=== PATIENT | female | born 1945 | race Caucasian/White ===

== ENCOUNTER 2016-08-01 20:46 | Emergency (ER) | payer MEDICARE ==
[~2016-08-01] VITALS: Ht 162.6 cm; Wt 113.4 kg
[~2016-08-01 20:46] MED LIST: /CLON1TA OR; /ESOM40CA OR; /ROPI1TA; /ROPI1TA OR; ALBU17IN2 IN; AMIT25TA2; AMLO10TA OR; ANTI25TA OR; ASTHMACORT INH; BUDE300T; CALCCHW12 PR; CALCTAB22 PO; CATA0.1T; COLA100C2 OR; COMPAZINE; COZA100T OR; DEPAKOTE ER PO; DIOV160T5 OR; FLEXERIL; FLON0.05; GABA300T OR; HYDR25TA6 OR; HYZAAR OR; KLON0.5T OR; LIDO5DIS TD; LOTRISONE CREAM TOP; MECL25TA2 OR; METHYLIN ER OR; MIRALEX PO; NAPR500T OR; NAPROXYN; NASOCORT; NEUR300C; NYSTATIN OR; OYST500T76 OR; PROV90AE INH; PROZ10CA; PROZ40CA; PULMICORT INH; QVAR OR; REFRESH EYE DROPS OU; RISP1TAB OR; RITA20TA OR; ROBA750T; ROBA750T OR; SING10TA31 OR; SOMA350T; SOMA350T OR; SUSTANE EYE DROPS OU; SYNT100T OR; THERGRAN OR; TRAM50TA2; TRAM50TA2 OR; TRAZ50TA; VICO5TAB; VICO5TAB OR; VIT D 2000 PO; VOLT1GEL EX; ZOLO50TA OR; ZOLOFT PO
[2016-08-01] MEDS ORDERED: REME15TA2 PO (21:05)
[2016-08-01] MEDS ORDERED: CALC600T21 PO (21:05)
[2016-08-01] MEDS ORDERED: OXYB5TA PO (21:05)
[2016-08-01] MEDS ORDERED: CLON-412 PO (21:05)
[2016-08-01] MEDS ORDERED: MULT1TAB18 PO (21:05)
[2016-08-01] MEDS ORDERED: ATOR40TA PO (21:05)
[2016-08-01] MEDS ORDERED: MELO15TA4 PO (21:05)
[2016-08-01] MEDS ORDERED: D 1010004 PO (21:05)
[2016-08-01] MEDS ORDERED: ALB2.5NEB INH (21:05)
[2016-08-01] MEDS ORDERED: REQU1TAB16 PO (21:05)
[2016-08-01] MEDS ORDERED: FLUC150T PO (21:05)
[2016-08-01] MEDS ORDERED: PROT1TAB2 PO (21:05)
[2016-08-01] MEDS ORDERED: MORPHINE 4 MG/ML 1ML SYRINGE IV ONE (22:15)
[2016-08-01] MEDS ORDERED: ONDANSETRON 4MG/2ML VIAL (J2405) IV ONE (22:45)
[2016-08-01 22:48] LABS: BASO % 0.3 % (0.0-1.0); EOS # 0.5 K/mm3 (0.0-0.50); EOS % 4.5 % (0.0-3.0); LARGE UNSTAINED CELL # 0.1 K/mm3 (0.0-0.4); LARGE UNSTAINED CELL % 1.2 % (0.0-4.0); LYMPH # 2.5 K/mm3 (1.5-4.5); LYMPH % 21.4 % (24.0-44.0); MEAN CORPUSCULAR HEMOGLOBIN 28.4 pg (27.0-33.0); MEAN CORPUSCULAR HGB CONC 32.3 g/dl (32.0-36.5); MONO # 0.4 K/mm3 (0.0-0.8); MONO % 4.1 % (0.0-5.0); NEUTROPHILS # 7.5 K/mm3 (1.8-7.7); NEUTROPHILS % 68.5 % (36.0-66.0); PLATELET COUNT, AUTOMATED 306 k/mm3 (150-450); RED CELL DISTRIBUTION WIDTH 14.2 % (11.5-14.5); WHITE BLOOD COUNT 10.9 K/mm3 (4.0-10.0)
[2016-08-01 23:05] LABS: ALBUMIN 3.7 GM/DL (3.2-5.2); ALBUMIN/GLOBULIN RATIO 1.28 (1.00-1.93); ALKALINE PHOSPHATASE 116 U/L (45-117); ALT/SGPT 13 U/L (12-78); AMYLASE 23 U/L (25-115); ANION GAP 6 MEQ/L (8-16); AST/SGOT 14 U/L (15-37); BILIRUBIN,DIRECT < 0.1 MG/DL (0.0-0.2); BILIRUBIN,TOTAL 0.3 MG/DL (0.2-1.0); BLOOD UREA NITROGEN 16 MG/DL (7-18); CALCIUM LEVEL 9.6 MG/DL (8.8-10.2); CARBON DIOXIDE LEVEL 29 MEQ/L (21-32); CHLORIDE LEVEL 104 MEQ/L (98-107); CREATININE FOR GFR 1.59 MG/DL (0.55-1.02); GLOMERULAR FILTRATION RATE 34.3 (>45); GLUCOSE, FASTING 110 MG/DL (80-110); POTASSIUM SERUM 4.2 MEQ/L (3.5-5.1); SODIUM LEVEL 139 MEQ/L (136-145); TOTAL PROTEIN 6.6 GM/DL (6.4-8.2)
[2016-08-02] MEDS ORDERED: NS 1,000 ML IV ONE (00:30)
[2016-08-02] MEDS ORDERED: ISOVUE-370 76% 100ML VIAL (Q9967) As Ordered ONE (00:37)
--- NOTE | 2016-08-02 01:40 | REPUSA ---
CLINICAL HISTORY: Pain. TECHNIQUE: Multiple axial CT images were obtained through the thorax with IV contrast material. COMMENTS: There is no evidence of pleural or parenchymal mass. Bilateral basilar atelectatic pulmonary changes. There are no pleural effusions. There is no evidence of hilar or mediastinal lymphadenopathy. The he art and great vessels are within normal limits. The visualized portions of the liver are of uniform attenuation without mass or defect. There is no i ntra or extrahepatic biliary ductal dilatation. The spleen is unremarkable. The visualized pancreas i s of normal contour and attenuation characteristics. There is no evidence of adrenal mass. The visual ized portions of the kidneys present no abnormalities. The bony structures are free of lytic or blastic lesions. Post contrast images demonstrate no evidence for abnormal enhancement. Healed fractures of the anterior arches of the right third, fourth, fifth and sixth ribs. Healed fracture of the anterior arch of the left third rib. Healing fractures of the posterior arches of the left 10th and 11th ribs. Healing fracture of the right eighth rib. Moderate compression fracture of T12 vertebral body. IMPRESSION: Moderate compression fracture of T12 vertebral body. Bilateral healed rib fractures. Bilateral healed rib fractures. Fluid-filled esophagus. This can be secondary to reflux disease. Cardiomegaly. Thank you for your kind referral of this patient.
--- NOTE | 2016-08-02 01:50 | REPUSA ---
CLINICAL HISTORY: Abdominal pain. TECHNIQUE: Multiple axial, sagittal and coronal CT images were obtained through the abdomen and pelvi s after administration of intravenous contrast material. COMMENTS: Fluid-filled stomach. Moderate large bowel fecal stasis. The liver is of uniform attenuation without mass or defect. There is no intra or extrahepatic biliary ductal dilatation. The spleen is normal. The gallbladder is within normal limits. The pancreas is of normal contour and attenuation characteristics. There is no evidence of adrenal mass. Both kidneys demonstrate prompt and equal nephrograms. The kidneys are normal in size, shape and conf iguration. There is no evidence of renal or ureteral mass. No renal or ureteral calculi are identifie d. There is no hydroureter or hydronephrosis. No evidence for appendicitis. There is no bowel wall thickening. No evidence for small or large saji l obstruction. There is no evidence of abdominal ascites or lymphadenopathy. There is no evidence of intrinsic or extrinsic bladder mass. There is no pelvic ascites or lymphadeno dana. Prior hysterectomy. Images of the lung bases show no evidence of pleural or parenchymal mass. There are no pleural effusi ons. The bony structures are free of lytic or blastic lesions. Multilevel degenerative changes are seen in volving the thoracolumbar spine. Scattered calcifications are seen involving the aorta and major bran ches compatible with atherosclerosis. IMPRESSION: Gastroparesis. Constipation. Thank you for your kind referral of this patient.
[2016-08-02] MEDS ORDERED: MORPHINE 4 MG/ML 1ML SYRINGE IV ONE (05:15)
[2016-08-02 06:52] VITALS: BP 158/71
[2016-08-02] MEDS ORDERED: NORCOTAB PO (06:52)
--- NOTE | 2016-08-02 08:03 | REP ---
Clinical: Chest pain . Comparison: 02/22/2016 . Technique: PA and lateral. Findings: The mediastinum and cardiac silhouette are normal. The lung patel are clear and without acute consolidation, effusion, or pneumothorax. The skeletal structures are intact and normal. Impression: 1. No acute cardiopulmonary process. Signed by Higinio Altman MD 08/02/2016 07:55 A
== END 2016-08-02 07:10 | disposition home or self-care (01) ==
LOC: M ED 22:00
DX: S22.080A Wedge compression fracture of T11-T12 vertebra, initial encounter for closed fracture (principal); X58.XXXA Exposure to other specified factors, initial encounter; Y92.89 Other specified places as the place of occurrence of the external cause; Y93.89 Activity, other specified; Y99.8 Other external cause status; Z88.0 Allergy status to penicillin; Z88.8 Allergy status to other drugs, medicaments and biological substances; Z79.899 Other long term (current) drug therapy; Z87.891 Personal history of nicotine dependence; J45.909 Unspecified asthma, uncomplicated; E03.9 Hypothyroidism, unspecified; F32.9 Major depressive disorder, single episode, unspecified
CPT/HCPCS: 36415; 71020; 71260; 74177; 80048; 80076; 81001; 82150; 83690; 85025; 85379; 87086; 96361; 96374; 96375; 96376; 99284; J2405; Q9967

== ENCOUNTER → 2016-10-22 | Outpatient (CLI) | payer MEDICARE ==
[~2016-10-22] MED LIST changes: +ALB2.5NEB INH; +ATOR40TA PO; +CALC600T21 PO; +CLON-412 PO; +D 1010004 PO; +FLUC150T PO; +MELO15TA4 PO; +MULT1TAB18 PO; +NORCOTAB PO; +OXYB5TA PO; +PROT1TAB2 PO; +REME15TA2 PO; +REQU1TAB16 PO
[2016-10-22 13:34] LABS: MEAN CORPUSCULAR HEMOGLOBIN 29.3 pg (27.0-33.0); MEAN CORPUSCULAR HGB CONC 32.7 g/dl (32.0-36.5); MEAN CORPUSCULAR VOLUME 89.6 fl (80.0-96.0); RED CELL DISTRIBUTION WIDTH 13.8 % (11.5-14.5); RETIC HEMOGLOBIN CONTENT CHr 31.3 PG (24-36); RETICULOCYTE % ADVIA2120 1.8 % (0.5-1.5); WHITE BLOOD COUNT 8.3 K/mm3 (4.0-10.0)
[2016-10-22 13:52] LABS: ALBUMIN/GLOBULIN RATIO 1.48 (1.00-1.93); BILIRUBIN,TOTAL 0.5 MG/DL (0.2-1.0); CALCIUM LEVEL 9.3 MG/DL (8.8-10.2); CREATININE FOR GFR 1.08 MG/DL (0.55-1.02); GLOMERULAR FILTRATION RATE 53.5 (>45); MAGNESIUM LEVEL 1.8 MG/DL (1.8-2.4); PERCENT SATURATION 15.7 % (13.2-37.4); POTASSIUM SERUM 4.3 MEQ/L (3.5-5.1); TOTAL PROTEIN 6.7 GM/DL (6.4-8.2)
== END ==
LOC: M SMT 10:34
PROVIDERS: ATTEND Internal Medicine
DX: D64.9 Anemia, unspecified (principal)

== ENCOUNTER → 2017-04-14 | Outpatient (REF) | payer MEDICARE ==
[~2017-04-14] MED LIST changes: -ATOR40TA PO; +ATOR40TA75 PO; -CALC600T21 PO; +CALC600T60 PO; -OXYB5TA PO; +OXYB5TAB10 PO
== END ==
LOC: M SFHCPLAZ 12:32
PROVIDERS: ATTEND Internal Medicine
DX: R30.0 Dysuria (principal)

== ENCOUNTER → 2017-04-23 | Outpatient (CLI) | payer MEDICARE ==
[2017-04-23 15:30] LABS: MEAN CORPUSCULAR HEMOGLOBIN 29.3 pg (27.0-33.0); MEAN CORPUSCULAR HGB CONC 32.4 g/dl (32.0-36.5); MEAN CORPUSCULAR VOLUME 90.5 fl (80.0-96.0); PLATELET COUNT, AUTOMATED 300 10^3/uL (150-450); RED CELL DISTRIBUTION WIDTH 14.2 % (11.5-14.5); WHITE BLOOD COUNT 9.1 10^3/uL (4.0-10.0)
[2017-04-23 15:47] LABS: ALBUMIN 3.8 GM/DL (3.2-5.2); ALBUMIN/GLOBULIN RATIO 1.15 (1.00-1.93); BILIRUBIN,TOTAL 0.6 MG/DL (0.2-1.0); CALCIUM LEVEL 8.9 MG/DL (8.8-10.2); CREATININE FOR GFR 1.2 MG/DL (0.55-1.02); GLOMERULAR FILTRATION RATE 47.4 (>45); POTASSIUM SERUM 4.1 MEQ/L (3.5-5.1); TOTAL PROTEIN 7.1 GM/DL (6.4-8.2)
== END ==
LOC: M SMT 11:13
PROVIDERS: ATTEND Internal Medicine
DX: G47.30 Sleep apnea, unspecified (principal); I10 Essential (primary) hypertension; R73.01 Impaired fasting glucose; E78.00 Pure hypercholesterolemia, unspecified; E03.9 Hypothyroidism, unspecified

== ENCOUNTER → 2017-06-06 | Outpatient (CLI) | payer MEDICARE | LOC: M ADAMS 14:33 | DX: M25.512 Pain in left shoulder (principal) | CPT/HCPCS: 72050 ==

== ENCOUNTER → 2017-10-21 | Outpatient (CLI) | payer MEDICARE ==
[2017-10-21 18:52] LABS: HEMATOCRIT 37.3 % (36.0-47.0); HEMOGLOBIN 11.8 g/dl (12.0-15.5); MEAN CORPUSCULAR HEMOGLOBIN 29.9 pg (27.0-33.0); MEAN CORPUSCULAR HGB CONC 31.6 g/dl (32.0-36.5); MEAN CORPUSCULAR VOLUME 94.4 fl (80.0-96.0); PLATELET COUNT, AUTOMATED 345 10^3/uL (150-450); RED BLOOD COUNT 3.95 10^6/uL (4.00-5.40); RED CELL DISTRIBUTION WIDTH 14.6 % (11.5-14.5); WHITE BLOOD COUNT 10.1 10^3/uL (4.0-10.0)
[2017-10-21 19:15] LABS: ESTIMATED AVERAGE GLUCOSE 123 MG/DL (60-110); HEMOGLOBIN A1c 5.9 %
[2017-10-21 19:16] LABS: PTH INTACT 66.1 PG/ML (18.5-88.0)
[2017-10-21 19:19] LABS: ALBUMIN 3.6 GM/DL (3.2-5.2); ALBUMIN/GLOBULIN RATIO 1.13 (1.00-1.93); ALKALINE PHOSPHATASE 136 U/L (45-117); ALT/SGPT 18 U/L (12-78); ANION GAP 8 MEQ/L (8-16); AST/SGOT 17 U/L (7-37); BILIRUBIN,TOTAL 0.5 MG/DL (0.2-1.0); BLOOD UREA NITROGEN 17 MG/DL (7-18); CALCIUM LEVEL 9.3 MG/DL (8.8-10.2); CARBON DIOXIDE LEVEL 28 MEQ/L (21-32); CHLORIDE LEVEL 102 MEQ/L (98-107); CHOLESTEROL LEVEL 226 MG/DL (<200); CHOLESTEROL RISK RATIO 4.035 (<5); CREATININE FOR GFR 1.17 MG/DL (0.55-1.30); GLOMERULAR FILTRATION RATE 48.7 (>39); GLUCOSE, FASTING 112 MG/DL (70-100); HDL CHOLESTEROL 56 MG/DL (>40); LDL CHOLESTEROL 144.6 MG/DL (<100); MAGNESIUM LEVEL 2.1 MG/DL (1.8-2.4); NON-HDL-C 170 MG/DL; POTASSIUM SERUM 4.6 MEQ/L (3.5-5.1); SODIUM LEVEL 138 MEQ/L (136-145); TOTAL PROTEIN 6.8 GM/DL (6.4-8.2); TRIGLYCERIDES LEVEL 127 MG/DL (<150)
== END ==
LOC: M SMT 09:44
DX: G47.30 Sleep apnea, unspecified (principal); I10 Essential (primary) hypertension; R73.01 Impaired fasting glucose; E78.00 Pure hypercholesterolemia, unspecified; N18.3 Chronic kidney disease, stage 3 (moderate)
CPT/HCPCS: 83735

== ENCOUNTER → 2017-11-25 | Outpatient (CLI) | payer MEDICARE | LOC: M RAD 13:37 | DX: M16.12 Unilateral primary osteoarthritis, left hip (principal) | CPT/HCPCS: 73502 ==

== ENCOUNTER → 2018-02-02 | Outpatient (REF) | payer MEDICARE | LOC: M SFHCPLAZ 11:45 | DX: I12.9 Hypertensive chronic kidney disease with stage 1 through stage 4 chronic kidney disease, or unspecified chronic kidney disease (principal); N18.3 Chronic kidney disease, stage 3 (moderate); R73.01 Impaired fasting glucose; E78.00 Pure hypercholesterolemia, unspecified; J45.909 Unspecified asthma, uncomplicated; E03.9 Hypothyroidism, unspecified; M81.0 Age-related osteoporosis without current pathological fracture; Z86.39 Personal history of other endocrine, nutritional and metabolic disease ==

== ENCOUNTER → 2018-02-02 | Outpatient (CLI) | payer MEDICARE ==
[2018-02-02 17:49] LABS: HEMATOCRIT 36.8 % (36.0-47.0); HEMOGLOBIN 11.7 g/dl (12.0-15.5); MEAN CORPUSCULAR HEMOGLOBIN 29.9 pg (27.0-33.0); MEAN CORPUSCULAR HGB CONC 31.8 g/dl (32.0-36.5); MEAN CORPUSCULAR VOLUME 94.1 fl (80.0-96.0); PLATELET COUNT, AUTOMATED 319 10^3/uL (150-450); RED BLOOD COUNT 3.91 10^6/uL (4.00-5.40); RED CELL DISTRIBUTION WIDTH 13.7 % (11.5-14.5)
[2018-02-02 17:55] LABS: ALBUMIN 3.6 GM/DL (3.2-5.2); ALBUMIN/GLOBULIN RATIO 1.24 (1.00-1.93); ALKALINE PHOSPHATASE 181 U/L (45-117); ALT/SGPT 15 U/L (12-78); ANION GAP 10 MEQ/L (8-16); AST/SGOT 11 U/L (7-37); BILIRUBIN,TOTAL 0.5 MG/DL (0.2-1.0); BLOOD UREA NITROGEN 16 MG/DL (7-18); CALCIUM LEVEL 9.1 MG/DL (8.8-10.2); CARBON DIOXIDE LEVEL 28 MEQ/L (21-32); CHLORIDE LEVEL 102 MEQ/L (98-107); CHOLESTEROL LEVEL 225 MG/DL (<200); CREATININE FOR GFR 1.32 MG/DL (0.55-1.30); GLOMERULAR FILTRATION RATE 42.4 (>39); GLUCOSE, FASTING 107 MG/DL (70-100); HDL CHOLESTEROL 50 MG/DL (>40); LDL CHOLESTEROL 142 MG/DL (<100); MAGNESIUM LEVEL 1.9 MG/DL (1.8-2.4); NON-HDL-C 175 MG/DL; POTASSIUM SERUM 4.2 MEQ/L (3.5-5.1); SODIUM LEVEL 140 MEQ/L (136-145); TOTAL PROTEIN 6.5 GM/DL (6.4-8.2); TRIGLYCERIDES LEVEL 166 MG/DL (<150)
[2018-02-02 18:09] LABS: MALB URINE SIEMENS 9.3 MG/L
[2018-02-02 18:11] LABS: MAU/CREAT RATIO 4.9 MCG/MG (0.0-30.0)
[2018-02-02 18:23] LABS: TOTAL 25(OH) VITAMIN D 39.6 NG/ML (30.0-100.0)
[2018-02-02 18:24] LABS: PTH INTACT 86.9 PG/ML (18.5-88.0)
[2018-02-02 20:27] LABS: ESTIMATED AVERAGE GLUCOSE 126 MG/DL (60-110)
== END ==
LOC: M SMT 12:39
DX: I12.9 Hypertensive chronic kidney disease with stage 1 through stage 4 chronic kidney disease, or unspecified chronic kidney disease (principal); N18.3 Chronic kidney disease, stage 3 (moderate); R73.01 Impaired fasting glucose; E78.00 Pure hypercholesterolemia, unspecified; E03.9 Hypothyroidism, unspecified; M81.0 Age-related osteoporosis without current pathological fracture; Z86.39 Personal history of other endocrine, nutritional and metabolic disease
CPT/HCPCS: 83735

== ENCOUNTER → 2018-03-25 | Outpatient (CLI) | payer MEDICARE | LOC: M SMT 12:51 | DX: M25.511 Pain in right shoulder (principal); Z98.890 Other specified postprocedural states | CPT/HCPCS: 73030; G0463 ==

== ENCOUNTER → 2018-03-31 | Outpatient (CLI) | payer MEDICARE | LOC: M WHC 09:19 | DX: Z12.31 Encounter for screening mammogram for malignant neoplasm of breast (principal); Z78.0 Asymptomatic menopausal state; Z92.89 Personal history of other medical treatment; R92.1 Mammographic calcification found on diagnostic imaging of breast; Z80.41 Family history of malignant neoplasm of ovary | CPT/HCPCS: 77067 ==

== ENCOUNTER 2018-08-04 11:00 | Outpatient (RCR) | payer MEDICARE ==
[~2018-08-04 11:00] MED LIST changes: +MELO15TA28 PO; -MELO15TA4 PO
== END 2018-08-09 ==
LOC: M PT 11:00
PROVIDERS: ATTEND Internal Medicine
DX: N39.3 Stress incontinence (female) (male) (principal)

== ENCOUNTER 2018-09-03 10:50 | Emergency (ER) | payer MEDICARE ==
[~2018-09-03] VITALS: Ht 162.6 cm; Wt 115.2 kg
[~2018-09-03 10:50] MED LIST changes: -/CLON1TA OR; -/ESOM40CA OR; -/ROPI1TA; -/ROPI1TA OR; +CLON-412 OR; +HYDR-3715 PO; +NEXI1CAP3 OR; -NORCOTAB PO; +REQU1TAB16; +REQU1TAB16 OR
--- NOTE | 2018-09-03 11:39 | REP ---
Shoulder: Three views. History: Pain. Findings: Three views of the left shoulder demonstrate a left glenohumeral arthroplasty in good position. There is a large periarticular ossicle inferiorly adjacent to the the acromion process and superior to the prosthetic shoulder joint. This ossific body measures 2.9 cm in greatest diameter. This may be heterotopic bone formation or a fragment of ununited acromion process. No other significant finding. Impression: Status post left shoulder arthroplasty. A large ossific body is seen at the superior aspect of the joint in the periarticular soft tissues as above. No acute bony abnormality. Electronically Signed by Connor Lyle MD 09/03/2018 11:31 A
--- NOTE | 2018-09-03 11:41 | REP ---
Left humerus: Two views. History: Pain. Findings: Two views of the left humerus show no evidence of fracture or subluxation. No acute bony abnormality is seen. The left glenohumeral arthroplasty is seen in place. There is a large ossific body in the periarticular soft tissues as reported on the shoulder radiographs. Impression: No acute bony abnormality. Status post left shoulder arthroplasty. Electronically Signed by Connor Lyle MD 09/03/2018 11:32 A
[2018-09-03] MEDS ORDERED: ACETAMINOPH W/CODEINE #3 TAB UD PO ONE (12:30)
--- NOTE | 2018-09-03 12:56 | ED PDOC ---
Post-Departure Follow-Up dr yousif faxed formal report of left shoulder film for fu Jennifer Gottlieb MD Sep 03, 2018 12:56
--- NOTE | 2018-09-03 13:01 | REP ---
Left clavicle: Two views. History: Pain. Findings: Two views of the left clavicle demonstrate a no evidence of clavicle fracture. A large ossific body is seen in the soft tissues adjacent to the AC joint as reported on the shoulder radiographs. Impression: No acute abnormality. Electronically Signed by Connor Lyle MD 09/03/2018 12:53 P
--- NOTE | 2018-09-03 13:02 | REP ---
Left elbow series: Four views. History: Left elbow pain. Findings: Four views of the left elbow demonstrate no evidence of joint effusion. Minimal coronoid process spurring is present. Bones, joints and soft tissues are otherwise unremarkable. Impression: Mild coronoid process spurring. Otherwise negative. No acute bony abnormality. Electronically Signed by Connor Lyle MD 09/03/2018 12:54 P
[2018-09-03 13:33] VITALS: BP 139/72
[2018-09-03] MEDS ORDERED: TYLETAB14 PO (14:00)
== END 2018-09-03 14:18 | disposition home or self-care (01) ==
LOC: M ED 10:50
DX: M79.602 Pain in left arm (principal); Z96.612 Presence of left artificial shoulder joint; W10.8XXA Fall (on) (from) other stairs and steps, initial encounter; Y92.098 Other place in other non-institutional residence as the place of occurrence of the external cause; I10 Essential (primary) hypertension; E03.9 Hypothyroidism, unspecified; E78.5 Hyperlipidemia, unspecified; J45.909 Unspecified asthma, uncomplicated; K21.9 Gastro-esophageal reflux disease without esophagitis; F32.9 Major depressive disorder, single episode, unspecified; Z87.891 Personal history of nicotine dependence; Z88.0 Allergy status to penicillin; Z88.8 Allergy status to other drugs, medicaments and biological substances; Z88.1 Allergy status to other antibiotic agents; Z79.899 Other long term (current) drug therapy

== ENCOUNTER → 2018-09-23 | Outpatient (CLI) | payer MEDICARE ==
[~2018-09-23] MED LIST changes: +TYLETAB14 PO
[2018-09-23 17:23] LABS: HEMOGLOBIN 12.6 g/dl (12.0-15.5); MEAN CORPUSCULAR HGB CONC 30.7 g/dl (32.0-36.5); MEAN CORPUSCULAR VOLUME 97.6 fl (80.0-96.0); PLATELET COUNT, AUTOMATED 357 10^3/uL (150-450); WHITE BLOOD COUNT 9.3 10^3/uL (4.0-10.0)
[2018-09-23 17:31] LABS: ALBUMIN 3.7 GM/DL (3.2-5.2); BILIRUBIN,TOTAL 0.5 MG/DL (0.2-1.0); CALCIUM LEVEL 9.9 MG/DL (8.8-10.2); CHOLESTEROL RISK RATIO 5.204 (<5); CREATININE FOR GFR 1.21 MG/DL (0.55-1.30); GLOMERULAR FILTRATION RATE 46.7 (>39); POTASSIUM SERUM 4.7 MEQ/L (3.5-5.1); THYROID STIMULATING HORMONE 0.055 uIU/ML (0.358-3.740); TOTAL PROTEIN 6.8 GM/DL (6.4-8.2)
[2018-09-23 17:33] LABS: PTH INTACT 52.9 PG/ML (18.5-88.0)
[2018-09-23 18:10] LABS: HEMOGLOBIN A1c 6.4 %
== END ==
LOC: M SMT 10:10
PROVIDERS: ATTEND Internal Medicine
DX: M79.7 Fibromyalgia (principal); Z86.39 Personal history of other endocrine, nutritional and metabolic disease; I12.9 Hypertensive chronic kidney disease with stage 1 through stage 4 chronic kidney disease, or unspecified chronic kidney disease; N18.3 Chronic kidney disease, stage 3 (moderate); R73.01 Impaired fasting glucose; E78.00 Pure hypercholesterolemia, unspecified; E03.9 Hypothyroidism, unspecified

== ENCOUNTER 2018-11-06 13:39 | Outpatient (RCR) | payer MEDICARE | END 2018-11-08 | LOC: M PT 13:39 | PROVIDERS: ATTEND Internal Medicine | DX: M25.512 Pain in left shoulder (principal) ==

== ENCOUNTER 2018-12-03 12:52 | Outpatient (RCR) | payer MEDICARE | END 2018-12-09 | LOC: M PT 12:52 | PROVIDERS: ATTEND Internal Medicine | DX: Z51.89 Encounter for other specified aftercare (principal); M25.512 Pain in left shoulder; G89.29 Other chronic pain ==

== ENCOUNTER 2018-12-31 13:15 | Outpatient (RCR) | payer MEDICARE | END 2019-01-09 | LOC: M PT 13:15 | PROVIDERS: ATTEND Internal Medicine | DX: Z51.89 Encounter for other specified aftercare (principal); G89.29 Other chronic pain; M25.512 Pain in left shoulder ==

== ENCOUNTER → 2019-01-18 | Outpatient (CLI) | payer MEDICARE ==
[2019-01-18 10:38] LABS: ALBUMIN 3.6 GM/DL (3.2-5.2); PERCENT SATURATION 11.9 % (13.2-45.0)
== END ==
LOC: M SMT 08:44
PROVIDERS: ATTEND Orthopaedic Surgery
DX: Z01.818 Encounter for other preprocedural examination (principal); M25.562 Pain in left knee; D63.8 Anemia in other chronic diseases classified elsewhere; M17.12 Unilateral primary osteoarthritis, left knee

== ENCOUNTER → 2019-01-18 | Outpatient (CLI) | payer MEDICARE ==
[2019-01-18 10:24] LABS: HEMOGLOBIN A1c 6.2 %
[2019-01-18 10:41] LABS: ALBUMIN 3.6 GM/DL (3.2-5.2); BILIRUBIN,TOTAL 0.5 MG/DL (0.2-1.0); CALCIUM LEVEL 9.7 MG/DL (8.8-10.2); CHOLESTEROL RISK RATIO 4.547 (<5); CREATININE FOR GFR 1.55 MG/DL (0.55-1.30); GLOMERULAR FILTRATION RATE 35.1 (>39); POTASSIUM SERUM 4.3 MEQ/L (3.5-5.1); THYROID STIMULATING HORMONE 4.17 uIU/ML (0.358-3.740); TOTAL PROTEIN 6.5 GM/DL (6.4-8.2)
[2019-01-18 15:06] LABS: PTH INTACT 59.4 PG/ML (18.5-88.0)
== END ==
LOC: M SMT 08:40
PROVIDERS: ATTEND Internal Medicine
DX: Z01.818 Encounter for other preprocedural examination (principal); I12.9 Hypertensive chronic kidney disease with stage 1 through stage 4 chronic kidney disease, or unspecified chronic kidney disease; R73.01 Impaired fasting glucose; E78.00 Pure hypercholesterolemia, unspecified; N18.3 Chronic kidney disease, stage 3 (moderate); E03.9 Hypothyroidism, unspecified; M25.562 Pain in left knee; D63.8 Anemia in other chronic diseases classified elsewhere; M17.12 Unilateral primary osteoarthritis, left knee

== ENCOUNTER → 2019-01-21 | Outpatient (REF) | payer MEDICARE ==
[2019-01-21 19:09] LABS: CREATININE, URINE 66.4 MG/DL; MALB URINE SIEMENS < 5.0 MG/L; MAU/CREAT RATIO 7.5 MCG/MG (0.0-30.0)
== END ==
LOC: M SFHCPLAZ 17:33
PROVIDERS: ATTEND Internal Medicine
DX: R73.01 Impaired fasting glucose (principal); I12.9 Hypertensive chronic kidney disease with stage 1 through stage 4 chronic kidney disease, or unspecified chronic kidney disease

== ENCOUNTER 2019-03-02 11:15 | Outpatient (RCR) | payer MEDICARE | END 2019-03-11 | LOC: M PT 11:15 | PROVIDERS: ATTEND Orthopaedic Surgery Adult Reconstructive Orthopaedic Surgery | DX: M25.562 Pain in left knee (principal); M17.12 Unilateral primary osteoarthritis, left knee ==

== ENCOUNTER → 2019-05-31 | Outpatient (CLI) | payer MEDICARE ==
[2019-05-31 13:50] LABS: HEMATOCRIT 38.5 % (36.0-47.0); HEMOGLOBIN 12.5 g/dl (12.0-15.5); MEAN CORPUSCULAR HEMOGLOBIN 31.3 pg (27.0-33.0); MEAN CORPUSCULAR HGB CONC 32.5 g/dl (32.0-36.5); MEAN CORPUSCULAR VOLUME 96.5 fl (80.0-96.0); PLATELET COUNT, AUTOMATED 339 10^3/uL (150-450); RED BLOOD COUNT 3.99 10^6/uL (4.00-5.40); WHITE BLOOD COUNT 9.9 10^3/uL (4.0-10.0)
[2019-05-31 14:34] LABS: HEMOGLOBIN A1c 6.2 %
[2019-05-31 14:39] LABS: ALBUMIN 3.7 GM/DL (3.2-5.2); BILIRUBIN,TOTAL 0.5 MG/DL (0.2-1.0); CALCIUM LEVEL 10.5 MG/DL (8.8-10.2); CHOLESTEROL RISK RATIO 4.928 (<5); CREATININE FOR GFR 1.08 MG/DL (0.55-1.30); GLOMERULAR FILTRATION RATE 53.1 (>39); POTASSIUM SERUM 4.7 MEQ/L (3.5-5.1); THYROID STIMULATING HORMONE 1.51 uIU/ML (0.358-3.740); TOTAL PROTEIN 7.1 GM/DL (6.4-8.2)
[2019-05-31 19:06] LABS: PTH INTACT 46.5 PG/ML (18.5-88.0)
== END ==
LOC: M PLALAB 10:58
PROVIDERS: ATTEND Internal Medicine
DX: E78.00 Pure hypercholesterolemia, unspecified (principal); R73.01 Impaired fasting glucose; I12.9 Hypertensive chronic kidney disease with stage 1 through stage 4 chronic kidney disease, or unspecified chronic kidney disease; Z86.39 Personal history of other endocrine, nutritional and metabolic disease; E03.9 Hypothyroidism, unspecified; N18.3 Chronic kidney disease, stage 3 (moderate); J45.909 Unspecified asthma, uncomplicated

== ENCOUNTER 2019-06-23 13:03 | Outpatient (RCR) | payer MEDICARE ==
[2019-07-01] MEDS ORDERED: PRED20TA PO (05:36)
[2019-07-01] MEDS ORDERED: ALBU8.5H INH (05:36)
[2019-07-01] MEDS ORDERED: FLUC200T2 PO (05:36)
[2019-07-01] MEDS ORDERED: GABA-1171 PO (05:36)
[2019-07-01] MEDS ORDERED: VITAD1000T PO (05:36)
[2019-07-01] MEDS ORDERED: XARE10TA PO (05:36)
[2019-07-01] MEDS ORDERED: DULO1CAP6 PO (05:36)
[2019-07-01] MEDS ORDERED: SYNT100T PO (05:36)
[2019-07-01] MEDS ORDERED: ROPI1TAB86 PO (05:36)
[2019-07-01] MEDS ORDERED: MULTCAP PO (05:36)
[2019-07-01] MEDS ORDERED: ATOR80TA59 PO (05:36)
[2019-07-01] MEDS ORDERED: LOSA100T50 PO (05:36)
[2019-07-01] MEDS ORDERED: MONT10TA4 PO (05:36)
[2019-07-01] MEDS ORDERED: GABA-843 PO (05:36)
[2019-07-01] MEDS ORDERED: REME30TA PO (05:36)
[2019-07-01] MEDS ORDERED: HYDR12.55 PO (05:36)
[2019-07-05] MEDS ORDERED: LASI40TA9 PO (10:27)
[2019-07-05] MEDS ORDERED: POTA10808 PO (10:27)
== END 2019-07-10 ==
LOC: M PT 13:03
PROVIDERS: ATTEND Orthopaedic Surgery
DX: M17.12 Unilateral primary osteoarthritis, left knee (principal); M25.562 Pain in left knee

== ENCOUNTER → 2019-06-28 | Outpatient (CLI) | payer MEDICARE ==
[2019-06-28 13:41] LABS: HEMATOCRIT 32.3 % (36.0-47.0); HEMOGLOBIN 10.3 g/dl (12.0-15.5); MEAN CORPUSCULAR HEMOGLOBIN 30.7 pg (27.0-33.0); MEAN CORPUSCULAR HGB CONC 31.9 g/dl (32.0-36.5); MEAN CORPUSCULAR VOLUME 96.4 fl (80.0-96.0); PLATELET COUNT, AUTOMATED 348 10^3/uL (150-450); RED BLOOD COUNT 3.35 10^6/uL (4.00-5.40); WHITE BLOOD COUNT 9.3 10^3/uL (4.0-10.0)
== END ==
LOC: M PLALAB 11:03
PROVIDERS: ATTEND Physician Assistant
DX: Z79.899 Other long term (current) drug therapy (principal); D63.8 Anemia in other chronic diseases classified elsewhere

== ENCOUNTER 2019-07-01 04:18 | Inpatient (IN) | payer MEDICARE ==
[~2019-07-01] VITALS: Ht 157.5 cm; Wt 108.4 kg
[2019-07-01] MEDS ORDERED: IPRATROPIUM 0.5MG/ALBUTEROL 2.5MG INH SOL UD 3ML (DUONEB)(J7620) NEB ONE (05:00)
[2019-07-01] MEDS ORDERED: NITROGLYCERIN 2% OINT 1 GM *U/D* PKT TOP ONE (05:00)
[2019-07-01] MEDS ORDERED: FUROSEMIDE 100 MG/10 ML VIAL (J1940) IV ONE (05:00)
[2019-07-01] MEDS ORDERED: dexameTHASONE 20 MG/5 ML VIAL (J1100) IV ONE (05:00)
[2019-07-01 05:06] LABS: BASO % 0.1 % (0.0-1.0); EOS % 0.1 % (0.0-3.0); HEMATOCRIT 33.1 % (36.0-47.0); HEMOGLOBIN 10.7 g/dl (12.0-15.5); LYMPH # 1.2 10^3/uL (1.5-5.0); LYMPH % 8.8 % (24.0-44.0); MEAN CORPUSCULAR HEMOGLOBIN 30.3 pg (27.0-33.0); MEAN CORPUSCULAR HGB CONC 32.3 g/dl (32.0-36.5); MEAN CORPUSCULAR VOLUME 93.8 fl (80.0-96.0); MONO # 0.3 10^3/uL (0.0-0.8); MONO % 2.1 % (0.0-5.0); NEUTROPHILS # 11.8 10^3/uL (1.5-8.5); NEUTROPHILS % 88.2 % (36.0-66.0); PLATELET COUNT, AUTOMATED 520 10^3/uL (150-450); RED BLOOD COUNT 3.53 10^6/uL (4.00-5.40); WHITE BLOOD COUNT 13.4 10^3/uL (4.0-10.0)
[2019-07-01] MEDS ORDERED: GABA-843 PO (05:36)
[2019-07-01] MEDS ORDERED: HYDR12.55 PO (05:36)
[2019-07-01] MEDS ORDERED: XARE10TA PO (05:36)
[2019-07-01] MEDS ORDERED: GABA-1171 PO (05:36)
[2019-07-01] MEDS ORDERED: VITAD1000T PO (05:36)
[2019-07-01] MEDS ORDERED: DULO1CAP6 PO (05:36)
[2019-07-01] MEDS ORDERED: ATOR80TA59 PO (05:36)
[2019-07-01] MEDS ORDERED: ROPI1TAB86 PO (05:36)
[2019-07-01] MEDS ORDERED: SYNT100T PO (05:36)
[2019-07-01] MEDS ORDERED: MONT10TA4 PO (05:36)
[2019-07-01] MEDS ORDERED: REME30TA PO (05:36)
[2019-07-01] MEDS ORDERED: PRED20TA PO (05:36)
[2019-07-01] MEDS ORDERED: ALBU8.5H INH (05:36)
[2019-07-01] MEDS ORDERED: FLUC200T2 PO (05:36)
[2019-07-01] MEDS ORDERED: MULTCAP PO (05:36)
[2019-07-01] MEDS ORDERED: LOSA100T50 PO (05:36)
[2019-07-01 05:55] LABS: ALBUMIN 3.1 GM/DL (3.2-5.2); BILIRUBIN,DIRECT 0.2 MG/DL (0.0-0.2); BILIRUBIN,TOTAL 0.6 MG/DL (0.2-1.0); CALCIUM LEVEL 8.7 MG/DL (8.8-10.2); CK-MB VALUE MASS 3.1 NG/ML (<3.6); CREATININE FOR GFR 1.28 MG/DL (0.55-1.30); GLOMERULAR FILTRATION RATE 43.6 (>39); MB/CK RELATIVE INDEX 2.65 (< OR =4); POTASSIUM SERUM 5.1 MEQ/L (3.5-5.1); THYROID STIMULATING HORMONE 1.42 uIU/ML (0.358-3.740); THYROXINE (T4) 9.2 UG/DL (4.5-12.0); TOTAL PROTEIN 6.8 GM/DL (6.4-8.2); TROPONIN I 0.28 NG/ML (< 0.10)
[2019-07-01] MEDS ORDERED: LIDOCAINE 2% 5ML JELLY UROJET TOP ONE (06:15)
[2019-07-01] MEDS ORDERED: ALBUTEROL SULFATE 2.5 MG/0.5 ML INH NEB SOLN INH PRN (08:00)
--- NOTE | 2019-07-01 08:22 | HPEPDOC ---
[facility] Medical History & Physical Date of Admission Jul 01, 2019 Date of Service: Jul 01, 2019 Attending Physician: JUAN MANUEL BEAL MD History and Physical CHIEF COMPLAINT: Shortness of breath and cough HISTORY OF PRESENT ILLNESS: 74-year-old female with past medical history of hypertension, hyperlipidemia, GERD, fibromyalgia and asthma presents from home with shortness of breath and cough. Patient underwent left knee replacement 3 weeks ago, developed shortness of breath/cough 5 days ago, was prescribed antibiotics and prednisone without improvement in symptoms and presented to the hospital last night. In the ED, she had clinical and imaging signs suggestive of volume overload, Sanchez catheter was inserted and Lasix was given with significant improvement in symptoms. Patient also received nebulizer treatments and IV steroids. Patient reports significant improvement in dyspnea but has not resolved it, continues to require supplemental oxygen to maintain adequate saturation, not on home oxygen. Patient does report cough productive of green sputum at onset but no sputum production for at least 48 hours, denies fevers. He has no other symptoms at this time, denies any nausea, vomiting, abdominal pain or diarrhea. She does report pleuritic chest pain with coughing. Of note, patient had a normal stress test prior to left knee replacement. 10 point review of system is negative except for above PAST MEDICAL HISTORY: 1. Hypertension. 2. Asthma. 3. Hyperlipidemia. 4. GERD. 5. Fibromyalgia PAST SURGICAL HISTORY: 1. Left knee replacement. 2. Bilateral shoulder replacement. SOCIAL HISTORY: Previous smoker, quit over 20 years ago. Denies alcohol use. Denies drug use FAMILY HISTORY: Father of [place] ALLERGIES: Please see below. HOME MEDICATIONS: Please see below. PHYSICAL EXAMINATION: VITAL SIGNS: Please see below. GENERAL: Morbidly obese HEENT: Normocephalic, atraumatic, moist mucous membranes NECK: Supple CARDIOVASCULAR EXAMINATION: S1, S2, no murmurs RESPIRATORY EXAMINATION: Bibasilar rhonchi appreciated, no wheezing ABDOMINAL EXAMINATION: Soft, nontender, nondistended, positive bowel sounds EXTREMITIES: Left lower extremity range of motion limited due to pain, n onpitting edema is SKIN: No rash NEUROLOGICAL EXAMINATION: Alert and oriented 3, no focal deficits PSYCHIATRIC EXAMINATION: Calm and cooperative LABORATORY DATA: See below. IMAGING: Chest x-ray consistent with pulmonary vascular congestion MICROBIOLOGY: Please see below. ASSESSMENT: 74-year-old female with past medical history of hypertension of liver due to GERD, fibromyalgia and asthma is being admitted for acute CHF. PLAN: 1. Congestive heart failure. No prior history, denies any cardiac history including [place]/coronary artery disease, had a normal stress test prior to surgery 3 weeks ago, Lasix 40 mg IV every 8 hours, potassium supplementation, I's and O's, Sanchez placed in ER, daily weight, fluid resection of 1200 and most per day, TTE ordered. Given recent surgery and significant oxygen requirement, we'll rule out PE, CT ordered. 2. Bronchitis. Patient recently treated in the outpatient setting with antibiotics and steroids, no wheezing currently, we'll avoid antibiotics at this time, pro- calcitonin ordered, blood cultures pending, will monitor clinically. 3. Hypertension. Continue losartan hydrochlorothiazide 4. HLD Continue atorvastatin 5. Hypothyroidism. Continue levothyroxine 6. Asthma. Continue Singulair with albuterol nebs as needed, supplemental oxygen as needed to maintain O2 sats between 80-92%. DVT prophylaxis: Xarelto GI prophylaxis: Home PPI Vital Signs Vital Signs Date Time Temp Pulse Resp B/P (MAP) Pulse Ox O2 Delivery O2 Flow Rate FiO2 07/01/19 06:03 95 22 95 Nasal Cannula 4.0 07/01/19 05:16 141/64 (89) 07/01/19 04:32 96.1 Laboratory Data Labs 24H Laboratory Tests 2 07/01/19 04:46: Immature Granulocyte % (Auto) 0.7, Neutrophils (%) (Auto) 88.2H, Lymphocytes (%) (Auto) 8.8L, Monocytes (%) (Auto) 2.1, Eosinophils (%) (Auto) 0.1, Basophils (%) (Auto) 0.1, Neutrophils # (Auto) 11.8H, Lymphocytes # (Auto) 1.2L, Monocytes # (Auto) 0.3, Eosinophils # (Auto) 0.0, Basophils # (Auto) 0.0, Nucleated Red Blood Cells % (auto) 0.0, Anion Gap 8, Glomerular Filtration Rate 43.6, Lactic Acid Level 1.8, Calcium Level 8.7L, Total Bilirubin 0.6, Direct Bilirubin 0.2, Aspartate Amino Transf (AST/SGOT) 35, Alanine Aminotransferase (ALT/SGPT) 33, Alkaline Phosphatase 153H, Total Creatine Kinase 117, Creatine Kinase MB 3.1, Creatine Kinase MB Relative Index 2.65, Troponin I 0.28H, DT-Kwg-D-Type Natriuretic Peptide 5171H, Total Protein 6.8, Albumin 3.1L, Albumin/Globulin Ratio 0.84L, Thyroid Stimulating Hormone (TSH) 1.420, Thyroxine (T4) 9.2 CBC/BMP Laboratory Tests 07/01/19 04:46 Microbiology Microbiology 07/01/19 Blood Culture, Received Pending Home Medications Scheduled Atorvastatin Calcium (Atorvastatin Calcium) 80 Mg Tablet, 80 MG PO QHS Calcium Carbonate (Calcium) 600 Mg Tab, 600 MG PO DAILY Cholecalciferol (Vitamin D3) (Vitamin D3) 1,000 Unit Tablet, 1,000 UNITS PO DAILY Duloxetine Hcl (Duloxetine HCl) 60 Mg Capsule.dr, 60 MG PO DAILY Fluconazole (Fluconazole) 200 Mg Tablet, 200 MG PO DAILY TOOK 3RD DOSE OF 8 ON 06/30/19 Gabapentin (Gabapentin) 300 Mg Capsule, 300 MG PO BID Gabapentin (Gabapentin) 100 Mg Capsule, 100 MG PO DAILY TAKE WITH 300MG IN THE MORNING Hydrochlorothiazide (Hydrochlorothiazide) 12.5 Mg Tablet, 12.5 MG PO DAILY Levothyroxine Sodium (Synthroid) 100 Mcg Tablet, 100 MCG PO DAILY Losartan Potassium (Losartan Potassium) 100 Mg Tablet, 100 MG PO DAILY Mirtazapine (Remeron) 30 Mg Tablet, 30 MG PO QHS Montelukast Sodium (Montelukast Sodium) 10 Mg Tablet, 10 MG PO DAILY Multivitamin (Multivitamins) 1 Each Capsule, 1 CAP PO DAILY Pantoprazole Sodium (Protonix) 40 Mg Tab, 40 MG PO DAILY Prednisone (Prednisone) 20 Mg Tablet, 40 MG PO DAILY Rivaroxaban (Xarelto) 10 Mg Tablet, 10 MG PO DAILY Scheduled PRN Albuterol Sulfate (Albuterol Sulfate) 2.5 Mg/0.5 Ml Neb, 1 VIAL INH Q4H PRN for SHORTNESS OF BREATH Albuterol Sulfate (Albuterol Sulfate Hfa) 8.5 Gm Hfa.aer.ad, 1 PUFF INH Q4H PRN for SOB/WHEEZING Ropinirole HCl (Ropinirole HCl) 1 Mg Tablet, 1 MG PO QHS PRN for RESTLESSNESS MAY REPEAT IF SYMPTOM PERSISTS Allergies Coded Allergies: Aminoglycosides (Verified Allergy, Intermediate, itching, 09/03/18) Penicillins (Verified Allergy, Intermediate, rash, 09/03/18) bacitracin (Verified Allergy, Intermediate, itching, 09/03/18) neomycin (Verified Allergy, Intermediate, itching, 09/03/18) polymyxin B (Verified Allergy, Intermediate, itching, 09/03/18) atorvastatin (Verified Adverse Reaction, Intermediate, muscle weakness, 09/03/18) fluoxetine (Verified Adverse Reaction, Intermediate, maniac, 09/03/18) A-FIB/CHADSVASC A-FIB History Current/History of A-Fib/PAF?: No JUAN MANUEL BEAL MD Jul 01, 2019 08:22
--- NOTE | 2019-07-01 08:33 | REP ---
Portable chest x-ray: Single view: History: Dyspnea and cough. Comparison chest x-ray: August 01, 2016. Findings: Prosthetic shoulder arthroplasties are seen bilaterally. There is a radiolucent defect through the scapular spine on the left consistent with a nonunited fracture lucency. This appears chronic as it has sclerotic borders. Oxygen tubing is noted. The lungs are symmetrically aerated. There is diffusely prominent pulmonary interstitial markings and some vascular congestion question pulmonary edema. No focal infiltrate is seen. No evidence of pleural effusion. Heart does not appear enlarged. The aorta is tortuous. Impression: Prominent interstitial and vascular markings question mild pulmonary edema. No focal infiltrate. Electronically Signed by Connor Lyle MD 07/01/2019 10:29 A
[2019-07-01] MEDS ORDERED: ISOVUE-370 76% 100ML VIAL (Q9967) As Ordered ONE ×2 (08:40→14:18)
[2019-07-01] MEDS ORDERED: GABAPENTIN 100 MG CAP PO SCH (09:00)
[2019-07-01] MEDS ORDERED: DULoxetine 30 MG CAP (CYMBALTA) PO SCH (09:00)
[2019-07-01] MEDS ORDERED: MONTELUKAST 10 MG TAB PO SCH (09:00)
[2019-07-01] MEDS ORDERED: hydroCHLOROthiazide 12.5 MG CAPSULE PO SCH (09:00)
[2019-07-01 09:37] VITALS: BP 144/84
[2019-07-01] MEDS: FUROSEMIDE 40 MG/4 ML VIAL (J1940) IV SCH ×3 (12:10→23:36)
[2019-07-01] MEDS: LOSARTAN 50 MG TAB PO SCH (12:11)
[2019-07-01] MEDS: GABAPENTIN 300 MG CAP PO SCH ×2 (12:11→21:59)
[2019-07-01] MEDS: LEVOTHYROXINE 100MCG TABLET (0.1MG) PO SCH (12:11)
[2019-07-01] MEDS: PANTOPRAZOLE 40MG TAB (PROTONIX) PO SCH (12:12)
[2019-07-01] MEDS: POTASSIUM CHLORIDE 10 MEQ SR TABLET PO SCH ×2 (12:12→21:58)
[2019-07-01] MEDS: VITAMIN D 1,000 INTERNATIONAL UNITS TABLET PO SCH (12:13)
[2019-07-01] MEDS: RIVAROXABAN 10 MG TAB (XARELTO) PO SCH (12:13)
[2019-07-01 14:00] VITALS: BP 145/82
--- NOTE | 2019-07-01 15:04 | REP ---
Clinical: Cough and dyspnea with acute chest pain . Technique: Axial contrast enhanced images from the thoracic inlet to the upper abdomen using 75 ml Isovue 370 intravenous contrast material with multiplanar re-formations. Findings: Examination is significantly limited by respiratory motion artifact. No obvious pulmonary emboli are identified. The lung patel demonstrate mild right basilar atelectasis. No further consolidation identified. No pleural effusion. No pneumothorax. Tracheobronchial tree is grossly patent. No obvious adenopathy. Cardiomegaly noted without pericardial effusion. Mild pulmonary vascular congestion is suggested. Osseous structures demonstrate multiple healed bilateral rib fractures and suspected old scapular fractures with bilateral shoulder replacement. Impression: 1. No obvious pulmonary embolus. 2. Minimal right basilar atelectasis and findings to suggest mild pulmonary vascular congestion. Electronically Signed by Higinio Altman MD 07/01/2019 02:56 P
[2019-07-01] MEDS: ACETAMINOPHEN 500 MG TAB PO PRN (17:06)
--- NOTE | 2019-07-01 18:37 | ECGEPIP ---
[facility] - ED Test Date: 2019-07-01 Pat Name: ELIE RICHMOND Department: Room: - Gender: Female Stereoptician: MERLENE : 1945 Requested By: ESTHER CHAPMAN Order Number: [id number] Reading MD: Nick Moura Measurements Intervals [place] Rate: 101 P: 23 MN: 156 QRS: 2 QRSD: 93 T: 44 QT: 345 QTc: 449 Interpretive Statements SINUS TACHYCARDIA WITH OCCASIONAL VENTRICULAR PREMATURE COMPLEXES POOR R WAVE PROGRESSION NO PRIORS FOR COMPARISON Electronically Signed on 07-01-2019 18:36:36 EST by Nick Moura
[2019-07-01] MEDS ORDERED: rOPINIRole 1MG TAB PO PRN (21:00)
[2019-07-01] MEDS: MONTELUKAST 10 MG TAB PO SCH (21:00)
[2019-07-01] MEDS: DULoxetine 30 MG CAP (CYMBALTA) PO SCH (21:57)
[2019-07-01] MEDS: ATORVASTATIN 20 MG TAB PO SCH (21:58)
[2019-07-01] MEDS: GABAPENTIN 100 MG CAP PO SCH (21:58)
[2019-07-01] MEDS: MIRTAZAPINE 15 MG TAB PO SCH (21:59)
[2019-07-01 22:00] VITALS: BP 144/80
--- NOTE | 2019-07-01 22:07 | ECHO ---
DATE OF PROCEDURE: 07/01/2019 Date of : 1945 Age: 74 REFERRING PHYSICIAN: Dr. Huang PATIENT LOCATION: Room 4218 REASON FOR ECHOCARDIOGRAM: Congestive heart failure. 2D MEASUREMENTS: IVS: 1.1 cm LV: 4.9 cm LVPW: 1.1 cm LA: 4.1 Aorta: 2.5 cm IVC: 1.9 cm DOPPLER MEASUREMENTS: Peak velocity across the aortic valve: 1.5 m/s Peak velocity across the LVOT: 0.9 m/s 2D COMMENTS: 1. Normal left ventricular size, wall thickness, but with a moderately depressed global left ventricular systolic function. There was moderate global hypokinesis. The estimated left ventricular systolic ejection fraction is 35 to 40%. 2. Mildly enlarged left atrium. The right atrium and the right ventricle appeared to be normal in size. 3. The atrial septum appeared to be normal without evidence of defect or shunt. 4. Normal aortic root. 5. Trace pericardial effusion noted, no evidence of cardiac tamponade. 6. Mildly calcified aortic valve with normal leaflet excursion. Mildly calcified mitral annulus with normal anterior mitral valve leaflet motion. Normal tricuspid valve. The pulmonic valve and proximal pulmonary artery branches were not well visualized. 7. The inferior vena cava was borderline enlarged, central venous pressure might be elevated. DOPPLER: No significant valvular abnormalities detected. Abnormal relaxation pattern was noted across the mitral valve leaflets as well as the mitral valve annulus consistent with features of left ventricular diastolic dysfunction, grade 1. IMPRESSION 1. Not mentioned above, the study was technically limited due to poor acoustic window. 2. Moderate global left ventricular systolic dysfunction with diffuse hypokinesis. 3. There are features of grade 1 left ventricular diastolic dysfunction manifested by abnormal relaxation. 4. Trace pericardial effusion noted, no evidence of cardiac tamponade. 5. No significant valvular abnormalities detected. [facility]
[2019-07-02] MEDS: ACETAMINOPHEN 500 MG TAB PO PRN ×3 (02:54→21:01)
[2019-07-02 06:00] VITALS: BP 158/95
[2019-07-02] MEDS: LEVOTHYROXINE 100MCG TABLET (0.1MG) PO SCH (06:01)
[2019-07-02 07:25] LABS: HEMATOCRIT 32.3 % (36.0-47.0); HEMOGLOBIN 10.3 g/dl (12.0-15.5); MEAN CORPUSCULAR HEMOGLOBIN 29.7 pg (27.0-33.0); MEAN CORPUSCULAR HGB CONC 31.9 g/dl (32.0-36.5); MEAN CORPUSCULAR VOLUME 93.1 fl (80.0-96.0); PLATELET COUNT, AUTOMATED 525 10^3/uL (150-450); RED BLOOD COUNT 3.47 10^6/uL (4.00-5.40); WHITE BLOOD COUNT 16.3 10^3/uL (4.0-10.0)
[2019-07-02 08:04] LABS: ALBUMIN 3.4 GM/DL (3.2-5.2); BILIRUBIN,TOTAL 0.4 MG/DL (0.2-1.0); CALCIUM LEVEL 9.2 MG/DL (8.8-10.2); CREATININE FOR GFR 1.43 MG/DL (0.55-1.30); GLOMERULAR FILTRATION RATE 38.4 (>39); MAGNESIUM LEVEL 1.7 MG/DL (1.8-2.4); POTASSIUM SERUM 4.1 MEQ/L (3.5-5.1)
[2019-07-02] MEDS: GABAPENTIN 300 MG CAP PO SCH ×2 (09:50→21:03)
[2019-07-02] MEDS: PANTOPRAZOLE 40MG TAB (PROTONIX) PO SCH (09:50)
[2019-07-02] MEDS: VITAMIN D 1,000 INTERNATIONAL UNITS TABLET PO SCH (09:51)
[2019-07-02] MEDS: POTASSIUM CHLORIDE 10 MEQ SR TABLET PO SCH ×2 (09:52→21:03)
[2019-07-02] MEDS: RIVAROXABAN 10 MG TAB (XARELTO) PO SCH (09:52)
[2019-07-02] MEDS: FUROSEMIDE 40 MG/4 ML VIAL (J1940) IV SCH ×2 (09:53→17:38)
[2019-07-02] MEDS: LOSARTAN 50 MG TAB PO SCH (09:53)
[2019-07-02] MEDS: MAG SULF 1GM/100ML (MAG RUN) 1 GM in IV 1 EA IV SCH ×2 (10:10→11:31)
[2019-07-02 14:00] VITALS: BP 144/74
[2019-07-02] MEDS: NYSTATIN 100,000 UNITS/GM TOPICAL PWD 15 GM TOP SCH ×2 (17:31→21:02)
--- NOTE | 2019-07-02 19:22 | REPVR ---
PROCEDURE INFORMATION: Exam: US Duplex Lower Extremity Veins Exam date and time: 07/02/2019 6:16 PM Age: 74 years old Clinical indication: Edema, localized; Lower extremity, bilateral; Prior surgery; Surgery date: 1-6 months; Surgery type: Lt knee replacement; Additional info: R/O dvt TECHNIQUE: Imaging protocol: Real-time duplex ultrasound of the Lower Extremities with 2-D resendiz scale, color Doppler flow and spectral waveform analysis with image documentation. Complete exam focused on the bilateral lower extremity veins. COMPARISON: No relevant prior studies available. FINDINGS: Right deep veins: Unremarkable. The common femoral, femoral and popliteal veins are patent without thrombus. Normal Doppler waveforms. Normal compressibility and/or augmentation response. Right superficial veins: Saphenofemoral junction is patent without thrombus. Left deep veins: Unremarkable. The common femoral, femoral and popliteal veins are patent without thrombus. Normal Doppler waveforms. Normal compressibility and/or augmentation response. Left superficial veins: Saphenofemoral junction is patent without thrombus. Soft tissues: Unremarkable. IMPRESSION: No sonographic evidence of deep vein thrombosis. Electronically signed by: Jarrod Plascencia On 07/02/2019 19:22:06 PM
[2019-07-02] MEDS: MIRTAZAPINE 15 MG TAB PO SCH (21:01)
[2019-07-02] MEDS: MONTELUKAST 10 MG TAB PO SCH (21:01)
[2019-07-02] MEDS: rOPINIRole 1MG TAB PO PRN (21:02)
[2019-07-02] MEDS: ATORVASTATIN 20 MG TAB PO SCH (21:02)
[2019-07-02] MEDS: GABAPENTIN 100 MG CAP PO SCH (21:02)
[2019-07-02] MEDS: SENNA 8.6 MG TAB (SENOKOT) PO SCH (21:02)
[2019-07-02] MEDS: DULoxetine 30 MG CAP (CYMBALTA) PO SCH (21:03)
--- NOTE | 2019-07-02 21:39 | IPNPDOC ---
Date Seen The patient was seen on 07/02/19. Progress Note HISTORY OF PRESENT ILLNESS: 74-year-old female with past medical history of hypertension, hyperlipidemia, GERD, fibromyalgia and asthma presents from home with shortness of breath and cough. Patient underwent left knee replacement 3 weeks ago, developed shortness of breath/cough 5 days ago, was prescribed antibiotics and prednisone without improvement in symptoms and presented to the hospital last night. In the ED, she had clinical and imaging signs suggestive of volume overload, Sanchez catheter was inserted and Lasix was given with significant improvement in symptoms. Patient also received nebulizer treatments and IV steroids. Patient reports significant improvement in dyspnea but has not resolved it, continues to require supplemental oxygen to maintain adequate saturation, not on home oxygen. Patient does report cough productive of green sputum at onset but no sputum production for at least 48 hours, denies fevers. He has no other symptoms at this time, denies any nausea, vomiting, abdominal pain or diarrhea. She does report pleuritic chest pain with coughing. Of note, patient had a normal stress test prior to left knee replacement. 07/02/19 Patient seen in the morning, TTE w/ significantly reduced EF (35-40%), good urine output, respiratory status improved from yesterday but still far from baseline. No additional complaints, denies CP, N/V/D or abdominal pain. 10 point review of system is negative except for above PHYSICAL EXAMINATION: VITAL SIGNS: Please see below. GENERAL: Morbidly obese HEENT: Normocephalic, atraumatic, moist mucous membranes NECK: Supple CARDIOVASCULAR EXAMINATION: S1, S2, no murmurs RESPIRATORY EXAMINATION: Bibasilar rhonchi appreciated, no wheezing ABDOMINAL EXAMINATION: Soft, nontender, nondistended, positive bowel sounds EXTREMITIES: Left lower extremity range of motion limited due to pain SKIN: No rash NEUROLOGICAL EXAMINATION: Alert and oriented 3, no focal deficits PSYCHIATRIC EXAMINATION: Calm and cooperative LABORATORY DATA: See below. IMAGING: Chest x-ray consistent with pulmonary vascular congestion MICROBIOLOGY: Please see below. ASSESSMENT: 74-year-old female with past medical history of hypertension of liver due to GERD, fibromyalgia and asthma is being admitted for acute CHF. PLAN: 1. Congestive heart failure. No prior history, denies any cardiac history including [place]/coronary artery disease, had a normal stress test prior to surgery 3 weeks ago, TTE showing EF 35-40%, continue Lasix 40 mg IV every 8 hours, potassium supplementation, I's and O's, Sanchez placed in ER, daily weight, fluid resection of 1200 and most per day, CT negative for PE, LE doppler negative for DVT. 2. Hypertension. Continue losartan hydrochlorothiazide 3. HLD Continue atorvastatin 4. Hypothyroidism. Continue levothyroxine 5. Asthma. Continue Singulair with albuterol nebs as needed, supplemental oxygen as needed to maintain O2 sats between 80-92%. DVT prophylaxis: Xarelto GI prophylaxis: Home PPI VS, I&O, 24H, Fishbone Vital Signs/I&O Vital Signs Date Time Temp Pulse Resp B/P (MAP) Pulse Ox O2 Delivery O2 Flow Rate FiO2 07/02/19 14:00 98.6 95 18 144/74 (97) 96 Room Air 07/02/19 06:00 3.0 I&O- Last 24 Hours up to 6 AM0 07/02/19 06:00 Intake Total 1410 ml Output Total 5575 ml Balance -4165 ml Laboratory Data 24H LABS Laboratory Tests 2 07/02/19 07:02: Nucleated Red Blood Cells % (auto) 0.0, Anion Gap 6L, Glomerular Filtration Rate 38.4L, Calcium Level 9.2, Magnesium Level 1.7L, Total Bilirubin 0.4, Aspartate Amino Transf (AST/SGOT) 19, Alanine Aminotransferase (ALT/SGPT) 26, Alkaline Phosphatase 129H, Total Protein 7.0, Albumin 3.4, Albumin/Globulin Ratio 0.94L CBC/BMP Laboratory Tests 07/02/19 07:02 Microbiology Microbiology 07/01/19 Blood Culture - Preliminary, Resulted No growth after 24 hours . All specim... JUAN MANUEL BEAL MD Jul 02, 2019 21:39
[2019-07-02 22:00] VITALS: BP 156/79
[2019-07-03] MEDS: FUROSEMIDE 40 MG/4 ML VIAL (J1940) IV SCH ×4 (00:29→23:00)
[2019-07-03] MEDS: PANTOPRAZOLE 40MG TAB (PROTONIX) PO SCH (05:40)
[2019-07-03] MEDS: LEVOTHYROXINE 100MCG TABLET (0.1MG) PO SCH (05:40)
[2019-07-03 06:00] VITALS: BP 159/80
[2019-07-03] MEDS: ACETAMINOPHEN 500 MG TAB PO PRN ×4 (06:45→22:59)
[2019-07-03 06:52] LABS: HEMATOCRIT 34.4 % (36.0-47.0); HEMOGLOBIN 10.9 g/dl (12.0-15.5); MEAN CORPUSCULAR HEMOGLOBIN 29.9 pg (27.0-33.0); MEAN CORPUSCULAR HGB CONC 31.7 g/dl (32.0-36.5); MEAN CORPUSCULAR VOLUME 94.2 fl (80.0-96.0); PLATELET COUNT, AUTOMATED 512 10^3/uL (150-450); RED BLOOD COUNT 3.65 10^6/uL (4.00-5.40); WHITE BLOOD COUNT 14.7 10^3/uL (4.0-10.0)
[2019-07-03 07:15] LABS: CALCIUM LEVEL 8.9 MG/DL (8.8-10.2); CREATININE FOR GFR 1.34 MG/DL (0.55-1.30); GLOMERULAR FILTRATION RATE 41.4 (>39); MAGNESIUM LEVEL 2.2 MG/DL (1.8-2.4); PHOSPHORUS LEVEL 2.8 MG/DL (2.5-4.9); POTASSIUM SERUM 4.2 MEQ/L (3.5-5.1)
[2019-07-03] MEDS: POTASSIUM CHLORIDE 10 MEQ SR TABLET PO SCH ×2 (08:47→21:25)
[2019-07-03] MEDS: VITAMIN D 1,000 INTERNATIONAL UNITS TABLET PO SCH (08:47)
[2019-07-03] MEDS: SENNA 8.6 MG TAB (SENOKOT) PO SCH ×2 (08:47→21:25)
[2019-07-03] MEDS: GABAPENTIN 300 MG CAP PO SCH ×2 (08:47→21:25)
[2019-07-03] MEDS: LOSARTAN 50 MG TAB PO SCH (08:47)
[2019-07-03] MEDS: RIVAROXABAN 10 MG TAB (XARELTO) PO SCH (08:47)
[2019-07-03] MEDS: NYSTATIN 100,000 UNITS/GM TOPICAL PWD 15 GM TOP SCH ×2 (08:48→21:26)
[2019-07-03 14:00] VITALS: BP 152/70
[2019-07-03] MEDS: DULoxetine 30 MG CAP (CYMBALTA) PO SCH (21:24)
[2019-07-03] MEDS: MIRTAZAPINE 15 MG TAB PO SCH (21:25)
[2019-07-03] MEDS: GABAPENTIN 100 MG CAP PO SCH (21:25)
[2019-07-03] MEDS: ATORVASTATIN 20 MG TAB PO SCH (21:25)
[2019-07-03] MEDS: MONTELUKAST 10 MG TAB PO SCH (21:25)
[2019-07-03 22:00] VITALS: BP 144/76
--- NOTE | 2019-07-03 22:38 | IPNPDOC ---
Date Seen The patient was seen on 07/03/19. Progress Note HISTORY OF PRESENT ILLNESS: 74-year-old female with past medical history of hypertension, hyperlipidemia, GERD, fibromyalgia and asthma presents from home with shortness of breath and cough. Patient underwent left knee replacement 3 weeks ago, developed shortness of breath/cough 5 days ago, was prescribed antibiotics and prednisone without improvement in symptoms and presented to the hospital last night. In the ED, she had clinical and imaging signs suggestive of volume overload, Sanchez catheter was inserted and Lasix was given with significant improvement in symptoms. Patient also received nebulizer treatments and IV steroids. Patient reports significant improvement in dyspnea but has not resolved it, continues to require supplemental oxygen to maintain adequate saturation, not on home oxygen. Patient does report cough productive of green sputum at onset but no sputum production for at least 48 hours, denies fevers. He has no other symptoms at this time, denies any nausea, vomiting, abdominal pain or diarrhea. She does report pleuritic chest pain with coughing. Of note, patient had a normal stress test prior to left knee replacement. 07/02/19 Patient seen in the morning, TTE w/ significantly reduced EF (35-40%), good urine output, respiratory status improved from yesterday but still far from baseline. No additional complaints, denies CP, N/V/D or abdominal pain. 07/03/19 Patient comfortable in bed, having great urine output, significant clinical improvement, continues to have mild dyspnea, no other complaints. 10 point review of system is negative except for above PHYSICAL EXAMINATION: VITAL SIGNS: Please see below. GENERAL: Morbidly obese HEENT: Normocephalic, atraumatic, moist mucous membranes NECK: Supple CARDIOVASCULAR EXAMINATION: S1, S2, no murmurs RESPIRATORY EXAMINATION: clear to auscultation, no wheezing ABDOMINAL EXAMINATION: Soft, nontender, nondistended, positive bowel sounds EXTREMITIES: Left lower extremity range of motion limited due to pain, significant improvement in lower extremity edema SKIN: No rash NEUROLOGICAL EXAMINATION: Alert and oriented 3, no focal deficits PSYCHIATRIC EXAMINATION: Calm and cooperative LABORATORY DATA: See below. IMAGING: Chest x-ray consistent with pulmonary vascular congestion MICROBIOLOGY: Please see below. ASSESSMENT: 74-year-old female with past medical history of hypertension of liver due to GERD, fibromyalgia and asthma is being admitted for acute CHF. PLAN: 1. Congestive heart failure. No prior history, denies any cardiac history including [place]/coronary artery disease, had a normal stress test prior to surgery 3 weeks ago, TTE showing EF 35-40%, responding really well to diuresis, continue Lasix 40 mg IV every 8 hours, potassium supplementation, I's and O's, Sanchez placed in ER, daily weight, fluid resection of 1200 and most per day, CT negative for PE, LE doppler negative for DVT. 2. Hypertension. Continue losartan & hydrochlorothiazide 3. HLD Continue atorvastatin 4. Hypothyroidism. Continue levothyroxine 5. Asthma. Continue Singulair with albuterol nebs as needed, supplemental oxygen as needed to maintain O2 sats between 80-92%. DVT prophylaxis: Xarelto GI prophylaxis: Home PPI VS, I&O, 24H, Fishbone Vital Signs/I&O Vital Signs Date Time Temp Pulse Resp B/P (MAP) Pulse Ox O2 Delivery O2 Flow Rate FiO2 07/03/19 14:00 98.1 100 19 152/70 (97) 92 Room Air 07/02/19 06:00 3.0 I&O- Last 24 Hours up to 6 AM 07/03/19 06:00 Intake Total 780 ml Output Total 3175 ml Balance -2395 ml Laboratory Data 24H LABS Laboratory Tests 2 07/03/19 06:22: Nucleated Red Blood Cells % (auto) 0.1H, Anion Gap 6L, Glomerular Filtration Rate 41.4, Calcium Level 8.9, Phosphorus Level 2.8, Magnesium Level 2.2 CBC/BMP Laboratory Tests 07/03/19 06:22 Microbiology Microbiology 07/01/19 Blood Culture - Preliminary, Resulted No Growth after 48 hours. All Specime... JUAN MANUEL BEAL MD Jul 03, 2019 22:37
[2019-07-03] MEDS: rOPINIRole 1MG TAB PO PRN (22:59)
[2019-07-04] MEDS: ACETAMINOPHEN 500 MG TAB PO PRN ×5 (03:48→22:36)
[2019-07-04] MEDS: PANTOPRAZOLE 40MG TAB (PROTONIX) PO SCH (05:39)
[2019-07-04] MEDS: LEVOTHYROXINE 100MCG TABLET (0.1MG) PO SCH (05:40)
[2019-07-04 06:00] VITALS: BP 160/69
[2019-07-04 06:58] LABS: HEMATOCRIT 35.3 % (36.0-47.0); MEAN CORPUSCULAR HEMOGLOBIN 29.6 pg (27.0-33.0); MEAN CORPUSCULAR HGB CONC 31.2 g/dl (32.0-36.5); MEAN CORPUSCULAR VOLUME 95.1 fl (80.0-96.0); PLATELET COUNT, AUTOMATED 487 10^3/uL (150-450); RED BLOOD COUNT 3.71 10^6/uL (4.00-5.40); WHITE BLOOD COUNT 15.3 10^3/uL (4.0-10.0)
[2019-07-04 07:23] LABS: CREATININE FOR GFR 1.41 MG/DL (0.55-1.30); MAGNESIUM LEVEL 1.9 MG/DL (1.8-2.4); POTASSIUM SERUM 4.5 MEQ/L (3.5-5.1)
[2019-07-04] MEDS: RIVAROXABAN 10 MG TAB (XARELTO) PO SCH (08:21)
[2019-07-04] MEDS: SENNA 8.6 MG TAB (SENOKOT) PO SCH ×2 (08:22→20:21)
[2019-07-04] MEDS: GABAPENTIN 300 MG CAP PO SCH ×2 (08:22→20:20)
[2019-07-04] MEDS: LOSARTAN 50 MG TAB PO SCH (08:22)
[2019-07-04] MEDS: VITAMIN D 1,000 INTERNATIONAL UNITS TABLET PO SCH (08:22)
[2019-07-04] MEDS: NYSTATIN 100,000 UNITS/GM TOPICAL PWD 15 GM TOP SCH ×2 (08:23→20:22)
[2019-07-04] MEDS: FUROSEMIDE 20 MG/2 ML VIAL (J1940) IV SCH ×2 (09:45→20:20)
[2019-07-04 14:00] VITALS: BP 145/72
[2019-07-04] MEDS: GABAPENTIN 100 MG CAP PO SCH (20:20)
[2019-07-04] MEDS: rOPINIRole 1MG TAB PO PRN ×2 (20:20→22:36)
[2019-07-04] MEDS: ATORVASTATIN 20 MG TAB PO SCH (20:21)
[2019-07-04] MEDS: MIRTAZAPINE 15 MG TAB PO SCH (20:21)
[2019-07-04] MEDS: DULoxetine 30 MG CAP (CYMBALTA) PO SCH (20:21)
[2019-07-04] MEDS: MONTELUKAST 10 MG TAB PO SCH (20:21)
--- NOTE | 2019-07-04 21:31 | IPNPDOC ---
Date Seen The patient was seen on 07/04/19. Progress Note HISTORY OF PRESENT ILLNESS: 74-year-old female with past medical history of hypertension, hyperlipidemia, GERD, fibromyalgia and asthma presents from home with shortness of breath and cough. Patient underwent left knee replacement 3 weeks ago, developed shortness of breath/cough 5 days ago, was prescribed antibiotics and prednisone without improvement in symptoms and presented to the hospital last night. In the ED, she had clinical and imaging signs suggestive of volume overload, Sanchez catheter was inserted and Lasix was given with significant improvement in symptoms. Patient also received nebulizer treatments and IV steroids. Patient reports significant improvement in dyspnea but has not resolved it, continues to require supplemental oxygen to maintain adequate saturation, not on home oxygen. Patient does report cough productive of green sputum at onset but no sputum production for at least 48 hours, denies fevers. He has no other symptoms at this time, denies any nausea, vomiting, abdominal pain or diarrhea. She does report pleuritic chest pain with coughing. Of note, patient had a normal stress test prior to left knee replacement. 07/02/19 Patient seen in the morning, TTE w/ significantly reduced EF (35-40%), good urine output, respiratory status improved from yesterday but still far from baseline. No additional complaints, denies CP, N/V/D or abdominal pain. 07/03/19 Patient comfortable in bed, having great urine output, significant clinical improvement, continues to have mild dyspnea, no other complaints. 07/04/19 Patient seen in the morning, having good urine output, dyspnea improved, nearly at baseline, no additional complaints. 10 point review of system is negative except for above PHYSICAL EXAMINATION: VITAL SIGNS: Please see below. GENERAL: Morbidly obese HEENT: Normocephalic, atraumatic, moist mucous membranes NECK: Supple CARDIOVASCULAR EXAMINATION: S1, S2, no murmurs RESPIRATORY EXAMINATION: clear to auscultation, no wheezing ABDOMINAL EXAMINATION: Soft, nontender, nondistended, positive bowel sounds EXTREMITIES: Left lower extremity range of motion limited due to pain, significant improvement in lower extremity edema SKIN: No rash NEUROLOGICAL EXAMINATION: Alert and oriented 3, no focal deficits PSYCHIATRIC EXAMINATION: Calm and cooperative LABORATORY DATA: See below. IMAGING: Chest x-ray consistent with pulmonary vascular congestion MICROBIOLOGY: Please see below. ASSESSMENT: 74-year-old female with past medical history of hypertension of liver due to GERD, fibromyalgia and asthma is being admitted for acute CHF. PLAN: 1. Acute systolic congestive heart failure. No prior history, denies any cardiac history including ID/coronary artery disease, had a normal stress test prior to surgery 3 weeks ago, TTE showing EF 35-40%, responding really well to diuresis, decrease Lasix to 20 mg IV twice a day, I's and O's, Sanchez discontinued, daily weight, fluid resection of 1200 ml/day. 2. Hypertension. Continue losartan & hydrochlorothiazide 3. HLD Continue atorvastatin 4. Hypothyroidism. Continue levothyroxine 5. Asthma. Continue Singulair with albuterol nebs as needed, supplemental oxygen as needed to maintain O2 sats between 80-92%. DVT prophylaxis: Xarelto GI prophylaxis: Home PPI VS, I&O, 24H, Fishbone Vital Signs/I&O Vital Signs Date Time Temp Pulse Resp B/P (MAP) Pulse Ox O2 Delivery O2 Flow Rate FiO2 07/04/19 14:00 98.1 102 19 145/72 (96) 97 Room Air 07/02/19 06:00 3.0 I&O- Last 24 Hours up to 6 AM 07/04/19 05:59 Intake Total 720 ml Output Total 2500 ml Balance -1780 ml Laboratory Data 24H LABS Laboratory Tests 2 07/04/19 06:03: Nucleated Red Blood Cells % (auto) 0.0, Anion Gap 6L, Glomerular Filtration Rate 39.0, Calcium Level 9.0, Magnesium Level 1.9 CBC/BMP Laboratory Tests 07/04/19 06:03 Microbiology Microbiology 07/01/19 Blood Culture - Preliminary, Resulted No Growth after 72 hours. All specime... JUAN MANUEL BEAL MD Jul 04, 2019 21:31
[2019-07-04 21:56] VITALS: BP 154/78
[2019-07-05] MEDS: ACETAMINOPHEN 500 MG TAB PO PRN ×3 (02:37→12:11)
[2019-07-05] MEDS: PANTOPRAZOLE 40MG TAB (PROTONIX) PO SCH (05:43)
[2019-07-05] MEDS: LEVOTHYROXINE 100MCG TABLET (0.1MG) PO SCH (05:43)
[2019-07-05 06:00] VITALS: BP 151/77
[2019-07-05 06:17] LABS: HEMATOCRIT 34.4 % (36.0-47.0); MEAN CORPUSCULAR HEMOGLOBIN 30.5 pg (27.0-33.0); MEAN CORPUSCULAR VOLUME 95.3 fl (80.0-96.0); PLATELET COUNT, AUTOMATED 452 10^3/uL (150-450); RED BLOOD COUNT 3.61 10^6/uL (4.00-5.40); WHITE BLOOD COUNT 13.6 10^3/uL (4.0-10.0)
[2019-07-05 06:45] LABS: CALCIUM LEVEL 9.1 MG/DL (8.8-10.2); CREATININE FOR GFR 1.27 MG/DL (0.55-1.30); POTASSIUM SERUM 3.9 MEQ/L (3.5-5.1)
[2019-07-05] MEDS ORDERED: FUROSEMIDE 20 MG TAB PO SCH (09:00)
[2019-07-05] MEDS: VITAMIN D 1,000 INTERNATIONAL UNITS TABLET PO SCH (09:58)
[2019-07-05] MEDS: SENNA 8.6 MG TAB (SENOKOT) PO SCH (09:58)
[2019-07-05] MEDS: RIVAROXABAN 10 MG TAB (XARELTO) PO SCH (09:58)
[2019-07-05 09:59] VITALS: BP 140/98
[2019-07-05] MEDS: GABAPENTIN 300 MG CAP PO SCH (09:59)
[2019-07-05] MEDS: LOSARTAN 50 MG TAB PO SCH (09:59)
[2019-07-05] MEDS: NYSTATIN 100,000 UNITS/GM TOPICAL PWD 15 GM TOP SCH (10:00)
[2019-07-05] MEDS ORDERED: LASI40TA9 PO (10:27)
[2019-07-05] MEDS ORDERED: POTA10808 PO (10:27)
[2019-07-05 11:00] VITALS: BP 150/67
[2019-07-05 14:00] VITALS: BP 151/77
--- NOTE | 2019-07-05 15:16 | DS.PDOC ---
Discharge Summary General Date of Admission Jul 01, 2019 at 08:00 Date of Discharge 07/05/19 Attending Physician: JUAN MANUEL BEAL MD Discharge Summary PROCEDURES PERFORMED DURING STAY: None. ADMITTING DIAGNOSES: 1. Acute systolic congestive heart failure. DISCHARGE DIAGNOSES: 1. Acute systolic congestive heart failure. COMPLICATIONS/CHIEF COMPLAINT: Congestive Heart Failure. HISTORY OF PRESENT ILLNESS: 74-year-old female with past medical history of hypertension, hyperlipidemia, GERD and fibromyalgia was admitted for acute systolic congestive heart failure. Patient recently underwent left knee surgery, reports a normal nuclear stress test prior to the procedure. Patient denies any prior history of coronary artery disease, MO or congestive heart failure. TTE shows EF of 35-40%, responded really well to IV Lasix, clinically close to her baseline, evaluated and cleared by physical therapy for discharge home with home services. Patient will follow-up with Dr. Uribe for further management. Patient is advised to follow up with him within 1 week, will be discharged on oral Lasix and potassium supplementation. HOSPITAL COURSE: As above. DISCHARGE MEDICATIONS: Please see below. ALLERGIES: Please see below. PHYSICAL EXAMINATION: VITAL SIGNS: Please see below. GENERAL: Morbidly obese HEENT: Normocephalic, atraumatic, moist mucous membranes NECK: Supple CARDIOVASCULAR EXAMINATION: S1, S2, no murmurs RESPIRATORY EXAMINATION: clear to auscultation, no wheezing ABDOMINAL EXAMINATION: Soft, nontender, nondistended, positive bowel sounds EXTREMITIES: Left lower extremity range of motion limited due to pain, significant improvement in lower extremity edema SKIN: No rash NEUROLOGICAL EXAMINATION: Alert and oriented 3, no focal deficits PSYCHIATRIC EXAMINATION: Calm and cooperative LABORATORY DATA: Please see below. IMAGING: TTE showing EF of 35-40% PROGNOSIS: Fair ACTIVITY: As tolerated. DIET: Cardiac DISCHARGE PLAN: Follow with cardiology and PCP within 1-2 weeks DISPOSITION: Home with home services. DISCHARGE INSTRUCTIONS: 1. As above. DISCHARGE CONDITION: Stable. TIME SPENT ON DISCHARGE: Greater than 34 minutes. Vital Signs/I&Os Vital Signs Date Time Temp Pulse Resp B/P (MAP) Pulse Ox O2 Delivery O2 Flow Rate FiO2 07/05/19 11:00 150/67 (94) 07/05/19 06:00 98.0 72 18 92 Room Air 07/02/19 06:00 3.0 I&O- Last 24 Hours up to 6 AM 07/05/19 06:00 Intake Total 1140 ml Output Total 1700 ml Balance -560 ml Laboratory Data Labs 24H Laboratory Tests 2 07/05/19 05:20: Nucleated Red Blood Cells % (auto) 0.0, Anion Gap 5L, Glomerular Filtration Rate 44.0, Calcium Level 9.1 CBC/BMP Laboratory Tests 07/05/19 05:20 Microbiology Microbiology 07/01/19 Blood Culture - Preliminary, Resulted No Growth after 72 hours. All specime... Discharge Medications Scheduled Atorvastatin Calcium (Atorvastatin Calcium) 80 Mg Tablet, 80 MG PO QHS, (Reported) Calcium Carbonate (Calcium) 600 Mg Tab, 600 MG PO DAILY, (Reported) Cholecalciferol (Vitamin D3) (Vitamin D3) 1,000 Unit Tablet, 1,000 UNITS PO DAILY, (Reported) Duloxetine Hcl (Duloxetine HCl) 60 Mg Capsule.dr, 60 MG PO DAILY, (Reported) Furosemide (Lasix) 40 Mg Tablet, 1 TAB PO DAILY Gabapentin (Gabapentin) 300 Mg Capsule, 300 MG PO BID, (Reported) Gabapentin (Gabapentin) 100 Mg Capsule, 100 MG PO DAILY, (Reported) TAKE WITH 300MG IN THE MORNING Hydrochlorothiazide (Hydrochlorothiazide) 12.5 Mg Tablet, 12.5 MG PO DAILY, (Reported) Levothyroxine Sodium (Synthroid) 100 Mcg Tablet, 100 MCG PO DAILY, (Reported) Losartan Potassium (Losartan Potassium) 100 Mg Tablet, 100 MG PO DAILY, (Reported) Mirtazapine (Remeron) 30 Mg Tablet, 30 MG PO QHS, (Reported) Montelukast Sodium (Montelukast Sodium) 10 Mg Tablet, 10 MG PO DAILY, (Reported) Multivitamin (Multivitamins) 1 Each Capsule, 1 CAP PO DAILY, (Reported) Pantoprazole Sodium (Protonix) 40 Mg Tab, 40 MG PO DAILY, (Reported) Potassium Citrate (Potassium Citrate 10MEQ (Urocit-K)) 10 Meq Tablet.er, 1 TAB PO DAILY Rivaroxaban (Xarelto) 10 Mg Tablet, 10 MG PO DAILY, (Reported) Scheduled PRN Albuterol Sulfate (Albuterol Sulfate) 2.5 Mg/0.5 Ml Neb, 1 VIAL INH Q4H PRN for SHORTNESS OF BREATH, (Reported) Albuterol Sulfate (Albuterol Sulfate Hfa) 8.5 Gm Hfa.aer.ad, 1 PUFF INH Q4H PRN for SOB/WHEEZING, (Reported) Ropinirole HCl (Ropinirole HCl) 1 Mg Tablet, 1 MG PO QHS PRN for RESTLESSNESS, (Reported) MAY REPEAT IF SYMPTOM PERSISTS Allergies Coded Allergies: Aminoglycosides (Verified Allergy, Intermediate, itching, 09/03/18) Penicillins (Verified Allergy, Intermediate, rash, 09/03/18) bacitracin (Verified Allergy, Intermediate, itching, 09/03/18) neomycin (Verified Allergy, Intermediate, itching, 09/03/18) polymyxin B (Verified Allergy, Intermediate, itching, 09/03/18) atorvastatin (Verified Adverse Reaction, Intermediate, muscle weakness, 09/03/18) fluoxetine (Verified Adverse Reaction, Intermediate, maniac, 09/03/18) JUAN MANUEL BEAL MD Jul 05, 2019 15:16
== END 2019-07-05 16:20 | disposition home or self-care (01) | DRG 291 ==
LOC: M ED 04:18 → EDBD 04:18 → M ED INP 08:00 → ENRESERV 08:22 → M MSPAV 09:40
PROVIDERS: ADMIT Internal Medicine; ATTEND Internal Medicine
DX: I11.0 Hypertensive heart disease with heart failure (principal); I50.21 Acute systolic (congestive) heart failure; E78.5 Hyperlipidemia, unspecified; H21.9 Unspecified disorder of iris and ciliary body; M79.7 Fibromyalgia; J45.909 Unspecified asthma, uncomplicated; Z96.652 Presence of left artificial knee joint; Z87.891 Personal history of nicotine dependence; Z96.611 Presence of right artificial shoulder joint; Z96.612 Presence of left artificial shoulder joint; E03.9 Hypothyroidism, unspecified; Z79.01 Long term (current) use of anticoagulants; Z79.899 Other long term (current) drug therapy; Z88.0 Allergy status to penicillin; Z88.1 Allergy status to other antibiotic agents; Z88.8 Allergy status to other drugs, medicaments and biological substances

== ENCOUNTER → 2019-07-13 | Outpatient (REF) | payer MEDICARE ==
[~2019-07-13] MED LIST changes: +ALBU8.5H INH; +ATOR80TA59 PO; +DULO1CAP6 PO; +FLUC200T2 PO; +GABA-1171 PO; +GABA-843 PO; +HYDR12.55 PO; +LASI40TA9 PO; +LOSA100T50 PO; +MONT10TA4 PO; +MULTCAP PO; +POTA10808 PO; +PRED20TA PO; +REME30TA PO; +ROPI1TAB86 PO; +SYNT100T PO; +VITAD1000T PO; +XARE10TA PO
[2019-07-13 18:35] LABS: APPEARANCE, URINE TURBID (CLEAR); BACTERIA, URINE AUTO NEGATIVE (NEGATIVE); BILIRUBIN, URINE AUTO NEGATIVE (NEGATIVE); BLOOD, URINE BLOOD 1+ (NEGATIVE); COLOR, URINE YELLOW (YELLOW); GLUCOSE, URINE (UA) AUTO NEGATIVE (NEGATIVE); KETONE, URINE AUTO NEGATIVE (NEGATIVE); LEUKOCYTE ESTERASE, URINE AUTO 3+ (NEGATIVE); NITRITE, URINE AUTO NEGATIVE (NEGATIVE); PROTEIN, URINE AUTO 1+ mg/dL (NEGATIVE); RBC, URINE AUTO 20 /HPF (0-3); SPECIFIC GRAVITY URINE AUTO 1.021 (1.002-1.035); SQUAMOUS EPITHELIAL CELL UR AU 0 /HPF (0-6); TRANSITIONAL EPITHELIAL AUTO 1 /HPF; UROBILINOGEN, URINE AUTO 0.2 mg/dL (0.0-2.0); WBC, URINE AUTO TNTC /HPF (0-3)
== END ==
LOC: M SFHCPLAZ 16:38
PROVIDERS: ATTEND Internal Medicine
DX: R30.0 Dysuria (principal)

== ENCOUNTER → 2019-10-08 | Outpatient (REF) | payer MEDICARE ==
[2019-10-08 13:03] LABS: HEMATOCRIT 37.1 % (36.0-47.0); MEAN CORPUSCULAR HEMOGLOBIN 30.5 pg (27.0-33.0); MEAN CORPUSCULAR HGB CONC 32.3 g/dl (32.0-36.5); MEAN CORPUSCULAR VOLUME 94.2 fl (80.0-96.0); PLATELET COUNT, AUTOMATED 306 10^3/uL (150-450); RED BLOOD COUNT 3.94 10^6/uL (4.00-5.40); WHITE BLOOD COUNT 8.1 10^3/uL (4.0-10.0)
[2019-10-08 14:13] LABS: ALBUMIN 3.5 GM/DL (3.2-5.2); BILIRUBIN,TOTAL 0.6 MG/DL (0.2-1.0); CALCIUM LEVEL 9.3 MG/DL (8.8-10.2); CHOLESTEROL RISK RATIO 4.629 (<5); CREATININE FOR GFR 1.02 MG/DL (0.55-1.30); GLOMERULAR FILTRATION RATE 56.7 (>39); MAGNESIUM LEVEL 2.1 MG/DL (1.8-2.4); POTASSIUM SERUM 4.7 MEQ/L (3.5-5.1); PTH INTACT 62.5 PG/ML (18.5-88.0); TOTAL PROTEIN 6.6 GM/DL (6.4-8.2)
[2019-10-08 14:24] LABS: HEMOGLOBIN A1c 6.2 %
== END ==
LOC: M PLALAB 10:50
PROVIDERS: ATTEND Internal Medicine
DX: I12.9 Hypertensive chronic kidney disease with stage 1 through stage 4 chronic kidney disease, or unspecified chronic kidney disease (principal); R73.01 Impaired fasting glucose; E78.00 Pure hypercholesterolemia, unspecified; N18.3 Chronic kidney disease, stage 3 (moderate); Z86.39 Personal history of other endocrine, nutritional and metabolic disease

== ENCOUNTER → 2019-10-11 | Outpatient (REF) | payer MEDICARE ==
[2019-10-11 14:08] LABS: CREATININE, URINE 75.8 MG/DL; MALB URINE SIEMENS < 5.0 MG/L; MAU/CREAT RATIO 6.5 MCG/MG (0.0-30.0)
== END ==
LOC: M SFHCPLAZ 12:45
PROVIDERS: ATTEND Internal Medicine
DX: Z86.39 Personal history of other endocrine, nutritional and metabolic disease (principal); I12.9 Hypertensive chronic kidney disease with stage 1 through stage 4 chronic kidney disease, or unspecified chronic kidney disease; R73.01 Impaired fasting glucose; E78.00 Pure hypercholesterolemia, unspecified

== ENCOUNTER → 2019-10-18 | Outpatient (CLI) | payer MEDICARE | LOC: M LABSMTC 13:17 | PROVIDERS: ATTEND Family Medicine | DX: Z03.818 Encounter for observation for suspected exposure to other biological agents ruled out (principal); Z11.59 Encounter for screening for other viral diseases | CPT/HCPCS: C9803; U0003 ==

== ENCOUNTER → 2019-12-31 | Outpatient (CLI) | payer MEDICARE ==
[~2019-12-31] MED LIST changes: +D31000TA2 PO; -VITAD1000T PO
--- NOTE | 2020-01-01 15:00 | REPMRS ---
Patient History The patient states she had a clinical breast exam in December 2019. Family history of ovarian cancer in maternal grandmother, breast cancer in maternal cousin, colorectal cancer at age 50 or over in paternal cousin. Benign excisional biopsy of the left breast, 2006. Benign excisional biopsy of the right breast, 1994. Benign excisional biopsy of the left breast, 1989. Digital Woman Screen Mammo: December 31, 2019 - Exam #: [id number] Bilateral CC and MLO view(s) were taken. Technologist: Kimmie Back, Technologist Prior study comparison: March 31, 2018, bilateral digital woman screen mammo performed at [facility]. April 11, 2016, digital woman screen mammo performed at [facility]. January 06, 2014, digital woman screen mammo performed at [facility]. FINDINGS: The breast tissue is almost entirely fat. The Volpara volumetric breast density category is: A. There is a stable area of fibrosis again noted in the left breast unchanged. There has been no change in the appearance of the mammogram from the prior studies. There is no interval development of dominant mass, architectural distortion, or grouped microcalcification typical of malignancy. 3-D tomosynthesis shows no additional findings. Assessment: BI-RADS/ACR category 2 mammogram. Benign Findings. Recommendation Routine screening mammogram of both breasts in 1 year (for women over age 40). This patient's Lifetime Breast Cancer RIsk is estimated at 2.0 %. This mammogram was interpreted with the aid of an FDA-approved computer-aided dectection system. Electronically Signed By: Ajith Lyle MD 01/01/20 [id number]
--- NOTE | 2020-01-07 09:34 | DEXA ---
AP SPINE L1 - L4 0.967 -1.8 0.1 LT FEMUR TOTAL 0.790 -1.7 -0.1 LT NECK 0.671 -2.6 -0.8 RT FEMUR TOTAL 0.828 -1.4 0.2 RT NECK 0.734 -2.2 -0.4 TOTAL BODY TOTAL OTHER COMMENTS: There is low bone density of the spine. There is low bone density of the right hip. There is Osteoporosis of the left hip. The density of the spine has decreased 1.4% since the initial exam on 01/05/2002. The increased 15.7% since the most recent exam on 11/27/2012. The density of the left hip has decreased 5.2% since the initial exam on 01/05/2002. The density of the left hip has increased 3.3% since the most recent exam on 11/27/2012. The density of the right hip has decreased 8.6% since the initial exam on 01/05/2002. The density of the right hip has increased 4.5% since the most recent exam on 11/27/2012. FOLLOW-UP: Recommendation for the next bone density exam: 2 years. MICHAEL
== END ==
LOC: M WHC 13:35
PROVIDERS: ATTEND Internal Medicine
DX: Z01.419 Encounter for gynecological examination (general) (routine) without abnormal findings (principal); Z12.31 Encounter for screening mammogram for malignant neoplasm of breast; M81.0 Age-related osteoporosis without current pathological fracture; Z86.018 Personal history of other benign neoplasm
CPT/HCPCS: 77063; 77067; 77080; G0101

== ENCOUNTER → 2020-01-18 | Outpatient (REF) | payer MEDICARE ==
[2020-01-18 18:39] LABS: APPEARANCE, URINE CLEAR (CLEAR); BACTERIA, URINE AUTO NEGATIVE (NEGATIVE); BILIRUBIN, URINE AUTO NEGATIVE (NEGATIVE); BLOOD, URINE BLOOD NEGATIVE (NEGATIVE); COLOR, URINE YELLOW (YELLOW); GLUCOSE, URINE (UA) AUTO NEGATIVE (NEGATIVE); KETONE, URINE AUTO NEGATIVE (NEGATIVE); LEUKOCYTE ESTERASE, URINE AUTO NEGATIVE (NEGATIVE); NITRITE, URINE AUTO NEGATIVE (NEGATIVE); PROTEIN, URINE AUTO NEGATIVE (NEGATIVE); RBC, URINE AUTO 0 /HPF (0-3); SPECIFIC GRAVITY URINE AUTO 1.014 (1.002-1.035); SQUAMOUS EPITHELIAL CELL UR AU 1 /HPF (0-6); UROBILINOGEN, URINE AUTO 0.2 mg/dL (0.0-2.0); WBC, URINE AUTO 0 /HPF (0-3)
== END ==
LOC: M SMT 17:19
PROVIDERS: ATTEND Nurse Practitioner Women's Health
DX: N39.498 Other specified urinary incontinence (principal)
CPT/HCPCS: 51798; 81001; 87086; G0463

== ENCOUNTER → 2020-02-09 | Outpatient (REF) | payer MEDICARE | LOC: M SFHCPLAZ 15:17 | PROVIDERS: ATTEND Physician Assistant | DX: R05 Cough (principal); R06.02 Shortness of breath; Z20.828 Contact with and (suspected) exposure to other viral communicable diseases ==

== ENCOUNTER → 2020-02-09 | Outpatient (CLI) | payer MEDICARE ==
--- NOTE | 2020-02-16 11:29 | REPPI ---
CHEST X-RAY: 3-VIEWS HISTORY: Cough. COMPARISON: Chest x-ray 07/01/2019. FINDINGS: Prosthetic shoulders are present bilaterally. There are old healed rib fractures on the right. Cardiac enlargement is observed. This is unchanged. Cardiothoracic ratio measures 49.9%. Pulmonary vasculature is somewhat cephalized. There is no evidence of pleural effusion or pulmonary edema. IMPRESSION: Cardiomegaly mild in degree. Pulmonary vasculature cephalization. No focal infiltrate seen. MTDD
== END ==
LOC: M PLAIMG 15:27
PROVIDERS: ATTEND Physician Assistant
DX: I51.7 Cardiomegaly (principal); R05 Cough

== ENCOUNTER → 2020-02-28 | Outpatient (REF) | payer MEDICARE ==
[2020-02-28 14:46] LABS: ALBUMIN 3.3 GM/DL (3.2-5.2); BILIRUBIN,TOTAL 0.5 MG/DL (0.2-1.0); CALCIUM LEVEL 9.4 MG/DL (8.8-10.2); CREATININE FOR GFR 1.1 MG/DL (0.55-1.30); MAGNESIUM LEVEL 1.9 MG/DL (1.8-2.4); POTASSIUM SERUM 4.7 MEQ/L (3.5-5.1); THYROID STIMULATING HORMONE 1.16 uIU/ML (0.358-3.740); TOTAL PROTEIN 5.9 GM/DL (6.4-8.2)
== END ==
LOC: M PLALAB 10:19
PROVIDERS: ATTEND Internal Medicine
DX: I12.9 Hypertensive chronic kidney disease with stage 1 through stage 4 chronic kidney disease, or unspecified chronic kidney disease (principal); E78.00 Pure hypercholesterolemia, unspecified; E03.9 Hypothyroidism, unspecified

== ENCOUNTER → 2020-05-22 | Outpatient (CLI) | payer MEDICARE ==
[~2020-05-22] MED LIST changes: +MIRT-60 PO; -MONT10TA4 PO; +MONT5TAB2 PO; -REME30TA PO
[2020-05-22 15:14] LABS: ALBUMIN 3.5 GM/DL (3.2-5.2); BILIRUBIN,TOTAL 0.5 MG/DL (0.2-1.0); CALCIUM LEVEL 9.4 MG/DL (8.8-10.2); CHOLESTEROL RISK RATIO 3.491 (<5); CREATININE FOR GFR 1.78 MG/DL (0.55-1.30); GLOMERULAR FILTRATION RATE 29.7 (>39); POTASSIUM SERUM 4.5 MEQ/L (3.5-5.1); TOTAL PROTEIN 6.6 GM/DL (6.4-8.2)
== END ==
LOC: M PLALAB 09:55
PROVIDERS: ATTEND Internal Medicine Cardiovascular Disease
DX: I25.118 Atherosclerotic heart disease of native coronary artery with other forms of angina pectoris (principal); I10 Essential (primary) hypertension; E78.5 Hyperlipidemia, unspecified

== ENCOUNTER → 2020-07-17 | Outpatient (REF) | payer MEDICARE ==
[~2020-07-17] MED LIST changes: +GABA-282 PO; -GABA-843 PO; +MONT10TA10 PO; -MONT5TAB2 PO
[2020-07-17 14:08] LABS: BASO % 0.5 % (0.0-1.0); EOS # 0.2 10^3/uL (0.0-0.5); HEMATOCRIT 38.6 % (36.0-47.0); HEMOGLOBIN 11.8 g/dl (12.0-15.5); LYMPH # 1.5 10^3/uL (1.5-5.0); LYMPH % 18.2 % (24.0-44.0); MEAN CORPUSCULAR HEMOGLOBIN 29.2 pg (27.0-33.0); MEAN CORPUSCULAR HGB CONC 30.6 g/dl (32.0-36.5); MEAN CORPUSCULAR VOLUME 95.5 fl (80.0-96.0); MONO # 0.5 10^3/uL (0.0-0.8); MONO % 6.6 % (2.0-8.0); NEUTROPHILS # 5.8 10^3/uL (1.5-8.5); NEUTROPHILS % 71.3 % (36.0-66.0); PLATELET COUNT, AUTOMATED 253 10^3/uL (150-450); RED BLOOD COUNT 4.04 10^6/uL (4.00-5.40); WHITE BLOOD COUNT 8.1 10^3/uL (4.0-10.0)
[2020-07-17 15:05] LABS: ALBUMIN 3.3 GM/DL (3.2-5.2); BILIRUBIN,TOTAL 0.5 MG/DL (0.2-1.0); CALCIUM LEVEL 9.9 MG/DL (8.8-10.2); CHOLESTEROL RISK RATIO 3.475 (<5); CREATININE FOR GFR 1.81 MG/DL (0.55-1.30); GLOMERULAR FILTRATION RATE 29.2 (>39); POTASSIUM SERUM 4.5 MEQ/L (3.5-5.1); TOTAL PROTEIN 6.1 GM/DL (6.4-8.2)
[2020-07-17 15:29] LABS: HEMOGLOBIN A1c 6.2 %
== END ==
LOC: M PLALAB 10:06
PROVIDERS: ATTEND Internal Medicine
DX: G47.30 Sleep apnea, unspecified (principal); I12.9 Hypertensive chronic kidney disease with stage 1 through stage 4 chronic kidney disease, or unspecified chronic kidney disease; R73.01 Impaired fasting glucose; E78.00 Pure hypercholesterolemia, unspecified

== ENCOUNTER → 2020-08-03 | Outpatient (REF) | payer MEDICARE ==
[2020-08-03 12:32] LABS: CALCIUM LEVEL 9.8 MG/DL (8.8-10.2); CREATININE FOR GFR 1.33 MG/DL (0.55-1.30); GLOMERULAR FILTRATION RATE 41.6 (>39); POTASSIUM SERUM 4.1 MEQ/L (3.5-5.1)
== END ==
LOC: M PLALAB 09:53
PROVIDERS: ATTEND Internal Medicine
DX: N18.30 Chronic kidney disease, stage 3 unspecified (principal)

== ENCOUNTER → 2020-08-09 | Outpatient (RCR) | payer MEDICARE ==
[~2020-08-09] MED LIST changes: +AMLO1TAB24; +CARV25TA; +ECOT81TA5 PO; +GABA-845 PO; +LOSA100T8; +MOME50SP2; +NABU-51; +ROSU40TA4; +VITMTA PO
== END | disposition home or self-care (01) ==
LOC: M PT 11:13
PROVIDERS: ATTEND Internal Medicine
DX: R53.81 Other malaise (principal)

== ENCOUNTER → 2020-08-22 | Outpatient (CLI) | payer MEDICARE ==
[~2020-08-22] MED LIST changes: -AMLO1TAB24; +AMLO1TAB24 PO; -CARV25TA; +CARV25TA PO; +FLUT1BLS INH; +FURO40TA2 PO; -LOSA100T8; +LOSA100T8 PO; +MIRT1TAB17 PO; +MOME50SP NARES; -NABU-51; +NABU-71; +ROPI1TAB3 PO; -ROSU40TA4; +ROSU40TA4 PO; +UROCTAB2 PO
--- NOTE | 2020-08-22 09:17 | REPPI ---
INDICATION: STRESS INCONTINENCE. COMPARISON: 02/09/2020 TECHNIQUE: PA and lateral FINDINGS: There is cardiomegaly status quo. Mild fibrotic changes are again seen throughout the lung patel status quo. No acute patchy parenchymal opacities or pleural effusions have developed. The osseous structures are stable. There is thoracic kyphosis which appears stable and there is an unchanged grade 2 upper thoracic vertebral body compression fracture. The bones are demineralized. IMPRESSION: There is no evidence of acute cardiopulmonary disease or significant change compared to the prior exam with findings as described above. <Electronically signed by Live Thomas > 08/22/20 [id number]
[2020-08-22 13:42] LABS: HEMATOCRIT 41.3 % (36.0-47.0); HEMOGLOBIN 12.7 g/dl (12.0-15.5); MEAN CORPUSCULAR HEMOGLOBIN 29.1 pg (27.0-33.0); MEAN CORPUSCULAR HGB CONC 30.8 g/dl (32.0-36.5); MEAN CORPUSCULAR VOLUME 94.7 fl (80.0-96.0); PLATELET COUNT, AUTOMATED 291 10^3/uL (150-450); RED BLOOD COUNT 4.36 10^6/uL (4.00-5.40); WHITE BLOOD COUNT 10.2 10^3/uL (4.0-10.0)
[2020-08-22 14:25] LABS: CALCIUM LEVEL 9.8 MG/DL (8.8-10.2); CREATININE FOR GFR 1.36 MG/DL (0.55-1.30); GLOMERULAR FILTRATION RATE 40.6 (>39); POTASSIUM SERUM 4.8 MEQ/L (3.5-5.1)
== END ==
LOC: M PLAIMG 08:26
PROVIDERS: ATTEND Urology
DX: I51.7 Cardiomegaly (principal); N39.3 Stress incontinence (female) (male)

== ENCOUNTER 2020-08-23 10:00 | Inpatient (IN) | payer MEDICARE ==
[~2020-08-23] VITALS: Ht 154.9 cm; Wt 116.5 kg
[~2020-08-23 10:00] MED LIST changes: -FLUT1BLS INH; -FURO40TA2 PO; +FUROSEMIDE 40 MG TAB PO SCH; -MIRT1TAB17 PO; -MOME50SP NARES; -ROPI1TAB3 PO; -UROCTAB2 PO
--- NOTE | 2020-08-23 10:55 | REP ---
INDICATION: Trauma. COMPARISON: None. TECHNIQUE: AP view pelvis, three views right hip. FINDINGS: There is no evidence of acute fracture, dislocation or intrinsic bone disease. Mild degenerative changes are seen at each hip joint, with mild joint space narrowing and subchondral sclerosis. IMPRESSION: No evidence of acute fracture or dislocation. <Electronically signed by Davian Goode > 08/23/20 [id number]
[2020-08-23] MEDS ORDERED: MORPHINE 4 MG/ML 1ML VIAL/SYRINGE (J2270) IM ONE (11:10)
--- NOTE | 2020-08-23 11:42 | REP ---
INDICATION: trauma r/o occult fx right hip. COMPARISON: Bone window technique was utilized on the latest prior abdominal and pelvic CT of 08/02/2016. TECHNIQUE: Noncontrast enhanced helical CT of the pelvis bone window algorithm. FINDINGS: There is a subtle linear lucency in the anterior superior right acetabulum. There is bilateral hip joint space narrowing There is air density in the L5-S1 disc space with posterior disc space narrowing and a grade 1 L5 upon S1 spondylolisthesis. Air density is also seen in the L5-S1 facet joint bilaterally. Hypertrophic degenerative changes seen involving that facet joint. IMPRESSION: 1. There is a nondisplaced fracture of the anterior superior right acetabulum. 2. Chronic hip and spine changes as described above. These changes have increased compared to the prior exam peer <Electronically signed by Live Thomas > 08/23/20 [id number]
[2020-08-23] MEDS ORDERED: GABA-282 PO (12:29)
[2020-08-23] MEDS ORDERED: FURO40TA2 PO (12:29)
[2020-08-23] MEDS ORDERED: ROPI1TAB3 PO (12:29)
[2020-08-23] MEDS ORDERED: UROCTAB2 PO (12:29)
[2020-08-23] MEDS ORDERED: FLUT1BLS INH (12:30)
[2020-08-23] MEDS ORDERED: MOME50SP NARES (12:30)
[2020-08-23] MEDS ORDERED: MIRT1TAB17 PO (12:31)
[2020-08-23 13:05] LABS: HEMATOCRIT 41.3 % (36.0-47.0); HEMOGLOBIN 13.1 g/dl (12.0-15.5); MEAN CORPUSCULAR HEMOGLOBIN 29.8 pg (27.0-33.0); MEAN CORPUSCULAR HGB CONC 31.7 g/dl (32.0-36.5); MEAN CORPUSCULAR VOLUME 93.9 fl (80.0-96.0); PLATELET COUNT, AUTOMATED 278 10^3/uL (150-450); WHITE BLOOD COUNT 14.1 10^3/uL (4.0-10.0)
[2020-08-23 13:15] LABS: INR 1.01; PROTHROMBIN TIME 13.5 SECONDS (12.5-14.3)
[2020-08-23 13:16] LABS: PARTIAL THROMBOPLASTIN TIME 29.8 SECONDS (24.2-38.5)
[2020-08-23 13:33] LABS: CALCIUM LEVEL 9.8 MG/DL (8.8-10.2); CREATININE FOR GFR 1.2 MG/DL (0.55-1.30); GLOMERULAR FILTRATION RATE 46.9 (>39); POTASSIUM SERUM 4.5 MEQ/L (3.5-5.1)
[2020-08-23] MEDS ORDERED: MORPHINE 2 MG/ML 1ML VIAL (J2270) IV ONE (14:40)
[2020-08-23] MEDS ORDERED: ONDANSETRON 4MG/2ML VIAL IV PRN (15:20)
--- NOTE | 2020-08-23 16:20 | HPE ---
HISTORY AND PHYSICAL DATE OF ADMISSION: 08/23/2020 CHIEF COMPLAINT: Nondisplaced acetabular fracture after accidental fall. HISTORY OF PRESENT ILLNESS: Alma Cruz slipped in the shower. She said she did a "split" and then was not able to bear weight on her right leg. CT scan shows nondisplaced acetabular fracture. She is being admitted for pain control and initiation of therapy. PAST MEDICAL HISTORY: Hypertensive heart disease with chronic kidney disease, hyperlipidemia, hypothyroidism, stage III chronic kidney disease, history of prediabetes, fibromyalgia, dissociative identity disorder, sleep apnea, iron-deficiency anemia, focal hyperhidrosis, allergic rhinitis, osteoporosis, asthma, GE reflux, urinary incontinence with chronic fatigue, coronary artery disease status post stent in the right coronary artery. SURGICAL HISTORY: SUKH with BSO and appendectomy, colonoscopy 2001, breast biopsies most recently in 2006, all negative. Right ankle arthrodesis, bilateral cataract extractions, right shoulder arthroplasty with a subsequent revision a year later in 2015 and then a reverse arthroplasty of the left shoulder 2017, left total knee May 2019, coronary artery disease with cardiac catheterization with stent placement, RCA 07/2019 with residual 50% LAD disease also noted. FAMILY HISTORY: Mother of unspecified heart disease. Father is alive. Daughter had a brain tumor. Father had coronary artery disease, ____ at 66. REVIEW OF SYSTEMS: No chest pain, shortness of breath, palpitations, rectal bleeding, urinary bleeding, fever, chills, night sweats. SOCIAL HISTORY: Nonsmoker. Retired RN from [employer], retired in 1995. She is , has a roommate. ALLERGIES: NEOSPORIN caused contact dermatitis symptoms. PENICILLIN caused a rash. MEDICATIONS: 1. Wixela 100-50 one inhalation twice a day. 2. Albuterol via nebulizer every 4 hours as needed. 3. Duloxetine 60 mg daily. 4. Mirtazapine 45 mg once daily at bedtime. 5. Multivitamin. 6. Potassium citrate 10 mEq daily. 7. Aspirin 81 mg daily. 8. Rosuvastatin 40 mg daily. 9. Losartan HCTZ 100-12.5 one daily. 10. Carvedilol 25 mg twice a day. 11. Neurontin 300 mg twice a day. 12. Meclizine 25 mg every 6 hours as needed. 13. Requip 1 mg twice a day. 14. Singulair 10 mg once daily at bedtime. 15. Albuterol as needed. 16. Nabumetone 500 mg half tablet daily. 17. Levothyroxine 100 mcg daily. 18. Protonix 40 mg daily. 19. Amlodipine 5 mg daily. 20. Furosemide 40 mg daily. PHYSICAL EXAMINATION: VITAL SIGNS: Per flow sheet. GENERAL APPEARANCE: She is alert, resting comfortably, no distress. HEENT: Pupils equal, round, reactive to light. Tympanic membranes (TMs) and oropharynx benign. NECK: No masses. LUNGS: Clear. HEART: Regular rate and rhythm. A 1 to 2/6 systolic ejection murmur. ABDOMEN: Soft, nontender. No masses. EXTREMITIES: There is trace peripheral edema. She has pain with internal and external rotation of the right hip more than a few degrees. No ecchymosis around the hip. Pain radiates into the medial thigh. Distal neurovascular function is intact bilaterally. IMAGING: Pelvis CT shows a nondisplaced fracture of the right anterior superior acetabulum. Chest x-ray showed no active disease. White count 14, hemoglobin 13.1, platelets 278. Sodium 140, potassium 4.5, BUN 18, creatinine 1.2, glucose 100. PT, PTT normal. IMPRESSION/PLAN: 1. Nondisplaced acetabular fracture right hip. She will be admitted for pain control and initiation of therapy and ARU consult. 2. Hypertension. Continue antihypertensive medications. 3. Hypothyroidism. Continue levothyroxine. 4. Hyperlipidemia. Continue rosuvastatin. 5. Fibromyalgia. Continue her current medical regimen. 6. Pre-diabetes. No concentrated sweets diet advised. 7. Coronary artery disease. Continue anti-anginal medications as well as Aspirin 325 mg daily. She had been on dual anti-platelet therapy since her coronary artery disease stent last year and this was discontinued in July.
[2020-08-23 17:55] VITALS: BP 155/64
[2020-08-23] MEDS: ENOXAPARIN 40MG/0.4ML SYRINGE (J1650 PER 10MG) SC SCH (18:11)
[2020-08-23] MEDS: MIRTAZAPINE 15 MG TAB PO SCH (19:41)
[2020-08-23] MEDS: CARVedilol 12.5 MG TAB PO SCH (19:41)
[2020-08-23] MEDS: ROSUVASTATIN 10 MG TAB (CRESTOR) PO SCH (19:42)
[2020-08-23] MEDS: DULoxetine 30 MG CAP (CYMBALTA) PO SCH (19:42)
[2020-08-23] MEDS: rOPINIRole 1MG TAB PO PRN (19:42)
[2020-08-23] MEDS: GABAPENTIN 100 MG CAP PO SCH (19:43)
[2020-08-23] MEDS: MONTELUKAST 10 MG TAB PO SCH (19:43)
[2020-08-23] MEDS: MORPHINE 4 MG/ML 1ML VIAL/SYRINGE (J2270) IV PRN (19:43)
[2020-08-23 22:00] VITALS: BP 146/69
[2020-08-24] MEDS: MORPHINE 4 MG/ML 1ML VIAL/SYRINGE (J2270) IV PRN (01:37)
[2020-08-24] MEDS ORDERED: NORCO, ANEXSIA 5/325MG TABLET (HYDROcodone/ACETAMINOPHEN) PO ONE (03:00)
[2020-08-24] MEDS: LEVOTHYROXINE 100MCG TABLET (0.1MG) PO SCH (05:27)
[2020-08-24 06:00] VITALS: BP 149/69
[2020-08-24 07:39] LABS: HEMATOCRIT 38.5 % (36.0-47.0); HEMOGLOBIN 11.6 g/dl (12.0-15.5); MEAN CORPUSCULAR HEMOGLOBIN 28.9 pg (27.0-33.0); MEAN CORPUSCULAR HGB CONC 30.1 g/dl (32.0-36.5); PLATELET COUNT, AUTOMATED 245 10^3/uL (150-450); RED BLOOD COUNT 4.01 10^6/uL (4.00-5.40)
[2020-08-24 08:04] LABS: CALCIUM LEVEL 9.2 MG/DL (8.8-10.2); CREATININE FOR GFR 1.29 MG/DL (0.55-1.30); GLOMERULAR FILTRATION RATE 43.1 (>39); POTASSIUM SERUM 3.8 MEQ/L (3.5-5.1)
[2020-08-24] MEDS: NORCO, ANEXSIA 5/325MG TABLET (HYDROcodone/ACETAMINOPHEN) PO PRN ×2 (08:51→15:02)
[2020-08-24] MEDS ORDERED: PANTOPRAZOLE 40MG TAB (PROTONIX) PO SCH (09:00)
[2020-08-24] MEDS ORDERED: amLODIPine 5 MG TAB PO SCH (09:00)
--- NOTE | 2020-08-24 09:05 | IPN ---
PROGRESS NOTE DATE: 08/24/2020 SUBJECTIVE: Alma had a restless night, did not sleep well, and had a lot of pain from her right acetabular fracture. No chest pain. No shortness of breath. OBJECTIVE: VITAL SIGNS: Stable. LUNGS: Clear. HEART: Regular rhythm. ABDOMEN: Soft and nontender. EXTREMITIES: Tender to palpate the lateral aspect of the right hip. Pain with internal and external rotation right hip. LABORATORY DATA: Hemoglobin is 11.6. Electrolytes unremarkable. IMPRESSION: 1. Right acetabular fracture. Per orthopedics just weightbearing as tolerated and nonsurgical treatment. She lost her IV access last night so oral pain medications have been ordered. Acute rehabilitation unit (ARU) consult is in. 2. Hypertension. Blood pressure is well-controlled. 3. Hypothyroidism. Continue levothyroxine. 4. Fibromyalgia. This might complicate recovery particularly the prolonged bed rest tends to make fibromyalgia symptoms worse. Continue current medical regimen. 5. History of coronary artery disease stable and asymptomatic. She went off dual-antiplatelet therapy in July.
[2020-08-24] MEDS: VITAMIN D 1,000 INTERNATIONAL UNITS TABLET PO SCH (10:15)
[2020-08-24] MEDS: GABAPENTIN 300 MG CAP PO SCH (10:15)
[2020-08-24] MEDS: ASPIRIN 81MG ENTERIC TABLET PO SCH (10:15)
[2020-08-24] MEDS: LOSARTAN 50MG TABLET PO SCH (10:17)
[2020-08-24] MEDS: CARVedilol 12.5 MG TAB PO SCH ×2 (10:18→20:37)
[2020-08-24] MEDS: ENOXAPARIN 40MG/0.4ML SYRINGE (J1650 PER 10MG) SC SCH (10:20)
[2020-08-24] MEDS: FLUTICASONE PROP 0.05% NASAL SPRAY 16 GM (FLONASE) NARES SCH (10:42)
[2020-08-24 10:48] VITALS: BP 120/70
[2020-08-24 14:00] VITALS: BP 139/64
[2020-08-24 20:15] VITALS: BP 122/70
[2020-08-24] MEDS: ROSUVASTATIN 10 MG TAB (CRESTOR) PO SCH (20:36)
[2020-08-24] MEDS: DULoxetine 30 MG CAP (CYMBALTA) PO SCH (20:36)
[2020-08-24] MEDS: MIRTAZAPINE 15 MG TAB PO SCH (20:36)
[2020-08-24] MEDS: MONTELUKAST 10 MG TAB PO SCH (20:36)
[2020-08-24] MEDS: GABAPENTIN 100 MG CAP PO SCH (20:37)
[2020-08-24] MEDS ORDERED: LIDOCAINE 5% (LIDODERM) PATCH TD ONE (21:30)
[2020-08-24] MEDS: ACETAMINOPHEN 500 MG TAB PO PRN (21:59)
--- NOTE | 2020-08-24 22:38 | REPVR ---
PROCEDURE INFORMATION: Exam: XR Chest Exam date and time: 08/24/2020 10:19 PM Age: 75 years old Clinical indication: Shortness of breath; Additional info: Moderate hypoxia w/ crackles on exam TECHNIQUE: Imaging protocol: XR of the chest. Views: 1 view. COMPARISON: IN PORTABLE CHEST X-RAY 07/01/2019 4:32 AM FINDINGS: Tubes, catheters and devices: Prosthetic right shoulders are again noted. Lungs: Bilateral pulmonary clearing since the prior study. No focal infiltrates are presently seen. Pleural spaces: Unremarkable. No pleural effusion. No pneumothorax. Heart/Mediastinum: The heart and mediastinum are unchanged. Bones/joints: Old right rib fractures are noted. Soft tissues: There are moderately generous overlying soft tissues. IMPRESSION: Essentially negative chest with bilateral pulmonary clearing since 07/01/2019. Electronically signed by: Dwayne Houston On 08/24/2020 22:38:47 PM
[2020-08-25] MEDS ORDERED: PANTOPRAZOLE 40MG TAB (PROTONIX) PO SCH (06:00)
[2020-08-25 06:14] VITALS: BP 118/71
[2020-08-25] MEDS: LEVOTHYROXINE 100MCG TABLET (0.1MG) PO SCH (06:46)
[2020-08-25] MEDS: ACETAMINOPHEN 500 MG TAB PO PRN ×2 (07:21→20:52)
[2020-08-25] MEDS ORDERED: ALBUTEROL SULFATE 2.5 MG/0.5 ML INH NEB SOLN INH PRN (07:25)
[2020-08-25] MEDS ORDERED: ALBUTEROL 90 MCG/ACT 8GM HFA INHALER INH PRN (07:25)
[2020-08-25] MEDS ORDERED: FUROSEMIDE 40 MG TAB PO SCH (09:00)
[2020-08-25] MEDS: ENOXAPARIN 40MG/0.4ML SYRINGE (J1650 PER 10MG) SC SCH (09:18)
[2020-08-25] MEDS: ASPIRIN 81MG ENTERIC TABLET PO SCH (09:29)
[2020-08-25] MEDS: VITAMIN D 1,000 INTERNATIONAL UNITS TABLET PO SCH (09:30)
[2020-08-25] MEDS ORDERED: **NOTE PATIENT COMMENT** MISC XX ONE (09:30)
[2020-08-25] MEDS: GABAPENTIN 300 MG CAP PO SCH (09:31)
[2020-08-25] MEDS: PANTOPRAZOLE 40MG TAB (PROTONIX) PO SCH (09:31)
[2020-08-25] MEDS: LOSARTAN 50MG TABLET PO SCH (09:40)
[2020-08-25] MEDS: FLUTICASONE PROP 0.05% NASAL SPRAY 16 GM (FLONASE) NARES SCH (09:42)
[2020-08-25 09:46] LABS: HEMATOCRIT 38.3 % (36.0-47.0); HEMOGLOBIN 11.6 g/dl (12.0-15.5); MEAN CORPUSCULAR HEMOGLOBIN 29.3 pg (27.0-33.0); MEAN CORPUSCULAR HGB CONC 30.3 g/dl (32.0-36.5); MEAN CORPUSCULAR VOLUME 96.7 fl (80.0-96.0); PLATELET COUNT, AUTOMATED 267 10^3/uL (150-450); RED BLOOD COUNT 3.96 10^6/uL (4.00-5.40); WHITE BLOOD COUNT 9.3 10^3/uL (4.0-10.0)
[2020-08-25 10:19] LABS: ALBUMIN 3.1 GM/DL (3.2-5.2); BILIRUBIN,TOTAL 0.5 MG/DL (0.2-1.0); CALCIUM LEVEL 8.9 MG/DL (8.8-10.2); CREATININE FOR GFR 2.04 MG/DL (0.55-1.30); GLOMERULAR FILTRATION RATE 25.4 (>39); POTASSIUM SERUM 4.3 MEQ/L (3.5-5.1); TOTAL PROTEIN 6.1 GM/DL (6.4-8.2)
--- NOTE | 2020-08-25 10:55 | IPN ---
PROGRESS NOTE DATE: 08/25/2020 SUBJECTIVE: Alma has developed some shortness of breath and hypoxemia. O2 saturation was 87%. She ended up using nasal cannula this morning. She is wheezy and has picked up a new cough. Chest x-ray done last night was unremarkable. Her input/output has been about equal since her admission. OBJECTIVE: VITAL SIGNS: Blood pressure 118/71, O2 saturation 92% on 2 liters, temperature 99.2 degrees. GENERAL APPEARANCE: Alert, conversant but coughing. HEENT: No JVD. LUNGS: Scattered wheezes. HEART: Regular rate and rhythm. ABDOMEN: Soft, nontender. No masses. EXTREMITIES: Trace peripheral edema. IMPRESSION AND PLAN: 1. Shortness of breath. She has DVT prophylaxis ordered. We will check a d-dimer. Her chest x-ray last night was unremarkable. She could be a bit volume overloaded. We will check a BNP and may increase the dose of her Furosemide and order a nebulized bronchodilator and incentive spirometry. If her d-dimer is elevated or shortness of breath worsens, we will get a CTA angiogram of the chest. 2. Right acetabular fracture. Activity as tolerated. Nonsurgical approach per ER discussion with Orthopedics. 3. Hypertension. Blood pressure is well controlled. 4. Hypothyroidism. Levothyroxine. 5. Fibromyalgia. Prolonged bed rest tends to make this worse. Early ambulation advised. 6. History of coronary artery disease. Seems stable, no signs of any active anginal symptoms.
--- NOTE | 2020-08-25 11:03 | REP ---
INDICATION: ARTEAGA after fall. COMPARISON: None. TECHNIQUE: Axial CT images with multiplanar reformations. FINDINGS: No acute bleed or acute large vessel territorial infarct. Ventricles, cisterns and sulci are within normal limits. No mass effect or midline shift. No abnormal fluid collections. Paranasal sinuses and mastoid air cells are clear IMPRESSION: No acute findings. <Electronically signed by Suraj White > 08/25/20 1050
--- NOTE | 2020-08-25 11:06 | REP ---
INDICATION: ARTEAGA after fall. COMPARISON: None. TECHNIQUE: Axial CT images with multiplanar reformations. FINDINGS: No acute fracture or malalignment. There is diffuse osteoporosis. Craniovertebral junction is unremarkable. No significant bony canal stenosis or osseous foraminal narrowing. Note made of bilateral shoulder prosthetics. Small amount of fluid seen in the sphenoid sinuses which are incompletely imaged. IMPRESSION: No acute findings. <Electronically signed by Suraj White > 08/25/20 [id number]
[2020-08-25] MEDS: CARVedilol 12.5 MG TAB PO SCH ×2 (11:24→20:51)
[2020-08-25] MEDS: NORCO, ANEXSIA 5/325MG TABLET (HYDROcodone/ACETAMINOPHEN) PO PRN (11:25)
[2020-08-25] MEDS ORDERED: NS 500 ML IV ONE (11:25)
[2020-08-25] MEDS ORDERED: PILL CUTTER 1 EACH XX PRN (11:55)
[2020-08-25] MEDS ORDERED: ISOVUE-370 76% 100ML VIAL As Ordered ONE (13:46)
[2020-08-25 14:00] VITALS: BP 119/48
--- NOTE | 2020-08-25 15:45 | REP ---
INDICATION: r/o PE-- do after the NS is infused x 500 ml. COMPARISON: 07/01/2019 the latest prior also a CT angiogram TECHNIQUE: CT angiography of the chest after the intravenous administration of 75 cc of Isovue 370. FINDINGS: There is adequate opacification of the pulmonary arterial vasculature. No focal filling defects are present that would be considered consistent with acute pulmonary emboli. Limited evaluation of the thoracic aorta shows no gross abnormalities. There is no mediastinal or hilar adenopathy. There are no pleural or pericardial effusions. The imaged upper abdomen is within normal limits. The imaged osseous structures show and unchanged T12 compression deformity. Other chronic changes are also seen throughout the spine. There are multiple old bilateral rib fractures. Evaluation of the lung patel shows no new abnormal nodules, masses, or opacities. IMPRESSION: There is no evidence of acute disease. Findings as described above. <Electronically signed by Live Thomas > 08/25/20 1741
[2020-08-25] MEDS: ROSUVASTATIN 10 MG TAB (CRESTOR) PO SCH (20:49)
[2020-08-25] MEDS: rOPINIRole 1MG TAB PO PRN (20:50)
[2020-08-25] MEDS: GABAPENTIN 100 MG CAP PO SCH (20:50)
[2020-08-25] MEDS: MIRTAZAPINE 15 MG TAB PO SCH (20:50)
[2020-08-25] MEDS: MONTELUKAST 10 MG TAB PO SCH (20:50)
[2020-08-25] MEDS: DULoxetine 30 MG CAP (CYMBALTA) PO SCH (20:50)
[2020-08-25] MEDS: amLODIPine 5 MG TAB PO SCH (20:51)
[2020-08-25] MEDS ORDERED: tiZANidine 4 MG TAB PO PRN (21:00)
[2020-08-25 22:00] VITALS: BP 114/46; O2SAT 94
[2020-08-26] MEDS: LEVOTHYROXINE 100MCG TABLET (0.1MG) PO SCH (05:40)
[2020-08-26] MEDS: ACETAMINOPHEN 500 MG TAB PO PRN (05:40)
[2020-08-26 06:00] VITALS: BP 113/46; O2SAT 92
[2020-08-26 08:12] LABS: HEMATOCRIT 34.3 % (36.0-47.0); HEMOGLOBIN 10.6 g/dl (12.0-15.5); MEAN CORPUSCULAR HEMOGLOBIN 29.5 pg (27.0-33.0); MEAN CORPUSCULAR HGB CONC 30.9 g/dl (32.0-36.5); MEAN CORPUSCULAR VOLUME 95.5 fl (80.0-96.0); PLATELET COUNT, AUTOMATED 234 10^3/uL (150-450); RED BLOOD COUNT 3.59 10^6/uL (4.00-5.40); WHITE BLOOD COUNT 7.5 10^3/uL (4.0-10.0)
[2020-08-26] MEDS: VITAMIN D 1,000 INTERNATIONAL UNITS TABLET PO SCH (08:24)
[2020-08-26] MEDS: ASPIRIN 81MG ENTERIC TABLET PO SCH (08:24)
[2020-08-26] MEDS: ENOXAPARIN 40MG/0.4ML SYRINGE (J1650 PER 10MG) SC SCH (08:24)
[2020-08-26] MEDS: GABAPENTIN 300 MG CAP PO SCH (08:24)
[2020-08-26] MEDS: NORCO, ANEXSIA 5/325MG TABLET (HYDROcodone/ACETAMINOPHEN) PO PRN ×2 (08:25→18:01)
[2020-08-26] MEDS: PANTOPRAZOLE 40MG TAB (PROTONIX) PO SCH (08:25)
[2020-08-26] MEDS: LOSARTAN 50MG TABLET PO SCH (08:26)
[2020-08-26] MEDS: CARVedilol 12.5 MG TAB PO SCH ×2 (08:26→20:50)
[2020-08-26 08:29] LABS: ALBUMIN 2.7 GM/DL (3.2-5.2); BILIRUBIN,TOTAL 0.3 MG/DL (0.2-1.0); CALCIUM LEVEL 8.4 MG/DL (8.8-10.2); CREATININE FOR GFR 1.79 MG/DL (0.55-1.30); GLOMERULAR FILTRATION RATE 29.6 (>39); POTASSIUM SERUM 4.1 MEQ/L (3.5-5.1); TOTAL PROTEIN 5.5 GM/DL (6.4-8.2)
[2020-08-26] MEDS: FLUTICASONE PROP 0.05% NASAL SPRAY 16 GM (FLONASE) NARES SCH (09:15)
--- NOTE | 2020-08-26 09:46 | REP ---
INDICATION: WALTER. COMPARISON: Comparison chest CT images August 25, 2020.. TECHNIQUE: Urinary tract sonography. FINDINGS: Scanning of the level of the urinary bladder shows that it is empty. No abnormality seen.. Renal cortical echogenicity pattern is normal bilaterally and contours are smooth. There is no evidence of hydronephrosis, cyst, mass, or calculus in either kidney. The right kidney measures 9.7 x 4.8 x 4.6 cm. Left renal dimensions are 8.8 x 4.4 x 5.1 cm. IMPRESSION: Mild renal cortical atrophy. No hydronephrosis or mass. Cortical echogenicity pattern is normal.. <Electronically signed by Ajith Lyle > 08/26/20 0912
[2020-08-26] MEDS ORDERED: MIRALAX *UNIT DOSE* 17GM PACKET PO PRN (11:20)
[2020-08-26] MEDS: DOCUSATE SODIUM 100MG CAPSULE PO SCH ×2 (11:46→20:50)
--- NOTE | 2020-08-26 13:22 | IPNPDOC ---
Subjective Date Seen The patient was seen on 08/26/20. Subjective Chief Complaint/HPI Mrs. Cruz is a 75 year old female with fibromyalgia, hypertension, and osteoporosis who is here for a right nondisplaced fracture of the acetabulum. Still has pain in the right hip, but otherwise denies chest pain. She reports dyspnea, but CTA chest negative for PE or acute process. Otherwise, she has not had a BM or had good urinary output. She is cautious with fluids due to her HFrEF. Objective Physical Examination General Exam: Positive: Alert, Cooperative Eye Exam: Positive: EOMI; Negative: Sclera icteric Neck Exam: Positive: Supple Chest Exam: Positive: Clear to auscultation Heart Exam: Positive: Rate Normal, Regular Rhythm Abdomen Exam: Positive: Normal bowel sounds, Soft; Negative: Tenderness Neuro Exam: Positive: Normal Speech Psych Exam: Positive: Mental status NL, Mood NL Assessment /Plan Assessment Mrs. Cruz is a 75 year old female with fibromyalgia, hypertension, and osteoporosis who is here for a right nondisplaced fracture of the acetabulum. Per orthopedic surgery, conservative management. Plan/VTE VTE Prophylaxis Ordered?: Yes Plan 1. Right nondisplaced acetabular fracture -Per orthopedic surgery, conservative measures -Will need rehab -Continue analgesia and physical therapy 2. Dyspnea -Unclear etiology. CTA negative for acute process or PE -BNP mildly elevated -Continues on 2L of oxygen -Will order and echocardiogram to look for pulmonary arterial hypertension -Continue IS and albuterol as needed 3. Hypertension -Continue amlodipine and carvedilol -Hold losartan due to WALTER 4. Hypothyroidism -Continue levothyroxine 5. Hyperlipidemia -Continue rosuvastatin 6. Fibromyalgia -Continue gabapentin, acetaminophen, duloxetine and PRN muscle relaxant 7. CAD -Stable, no active chest pain -Continue rosuvastatin, carvedilol, and aspirin -Hold losartan due to WALTER 8. HFrEF -Echocardiogram from 07/01/2019 demonstrates EF 35-40% with grade 1 diastolic dysfunction -Continue 9. WALTER -Renal function improving -Supportive care -Hold losartan 10. Constipation -Added Colace and Miralax 11. DVT ppx -On Lovenox Disposition: pending placement VS, I&O, 24H, Fishbone Vital Signs/I&O Vital Signs Date Time Temp Pulse Resp B/P (MAP) Pulse Ox O2 Delivery O2 Flow Rate FiO2 08/26/20 08:55 17 08/26/20 08:26 113/46 08/26/20 08:26 59 08/26/20 06:00 92 Nasal Cannula 2.0 08/26/20 06:00 98.2 I&O- Last 24 Hours up to 6 AM 08/26/20 06:00 Intake Total 3300 ml Output Total 0 ml Balance 3300 ml Laboratory Data 24H LABS Laboratory Tests 2 08/26/20 06:54: Nucleated Red Blood Cells % (auto) 0.0, Anion Gap 8, Glomerular Filtration Rate 29.6L, Calcium Level 8.4L, Total Bilirubin 0.3, Aspartate Amino Transf (AST/SGOT) 12, Alanine Aminotransferase (ALT/SGPT) 12, Alkaline Phosphatase 111, Total Protein 5.5L, Albumin 2.7L, Albumin/Globulin Ratio 1.0L CBC/BMP Laboratory Tests 08/26/20 06:54 Microbiology Microbiology 08/23/20 Respiratory Virus Panel (PCR) ([facility]) - Final, Complete YAMILETH UMANA DO Aug 26, 2020 13:22
[2020-08-26 14:00] VITALS: BP 117/49
[2020-08-26 20:00] VITALS: BP 118/49
[2020-08-26] MEDS: MIRTAZAPINE 15 MG TAB PO SCH (20:49)
[2020-08-26] MEDS: DULoxetine 30 MG CAP (CYMBALTA) PO SCH (20:49)
[2020-08-26] MEDS: ROSUVASTATIN 10 MG TAB (CRESTOR) PO SCH (20:49)
[2020-08-26] MEDS: MONTELUKAST 10 MG TAB PO SCH (20:49)
[2020-08-26] MEDS: rOPINIRole 1MG TAB PO PRN (20:49)
[2020-08-26] MEDS: GABAPENTIN 100 MG CAP PO SCH (20:50)
[2020-08-26] MEDS: amLODIPine 5 MG TAB PO SCH (20:50)
[2020-08-26 21:00] VITALS: O2SAT 96
[2020-08-27] MEDS: ACETAMINOPHEN 500 MG TAB PO PRN (05:00)
[2020-08-27] MEDS: LEVOTHYROXINE 100MCG TABLET (0.1MG) PO SCH (05:01)
[2020-08-27 06:00] VITALS: BP 143/58
[2020-08-27 07:25] LABS: HEMATOCRIT 34.5 % (36.0-47.0); HEMOGLOBIN 10.7 g/dl (12.0-15.5); MEAN CORPUSCULAR HEMOGLOBIN 29.5 pg (27.0-33.0); PLATELET COUNT, AUTOMATED 250 10^3/uL (150-450); RED BLOOD COUNT 3.63 10^6/uL (4.00-5.40); WHITE BLOOD COUNT 8.7 10^3/uL (4.0-10.0)
[2020-08-27 07:40] LABS: CREATININE FOR GFR 1.79 MG/DL (0.55-1.30); GLOMERULAR FILTRATION RATE 29.6 (>39); POTASSIUM SERUM 4.4 MEQ/L (3.5-5.1)
[2020-08-27] MEDS: DOCUSATE SODIUM 100MG CAPSULE PO SCH ×2 (08:24→21:00)
[2020-08-27] MEDS: GABAPENTIN 300 MG CAP PO SCH (08:24)
[2020-08-27] MEDS: PANTOPRAZOLE 40MG TAB (PROTONIX) PO SCH (08:25)
[2020-08-27] MEDS: VITAMIN D 1,000 INTERNATIONAL UNITS TABLET PO SCH (08:25)
[2020-08-27] MEDS: ASPIRIN 81MG ENTERIC TABLET PO SCH (08:29)
[2020-08-27] MEDS: CARVedilol 12.5 MG TAB PO SCH ×2 (08:29→21:26)
[2020-08-27] MEDS: NORCO, ANEXSIA 5/325MG TABLET (HYDROcodone/ACETAMINOPHEN) PO PRN ×2 (08:30→15:22)
[2020-08-27] MEDS: ENOXAPARIN 40MG/0.4ML SYRINGE (J1650 PER 10MG) SC SCH (08:32)
[2020-08-27] MEDS: FLUTICASONE PROP 0.05% NASAL SPRAY 16 GM (FLONASE) NARES SCH (09:00)
[2020-08-27] MEDS: ADVAIR HFA 115/21MCG INHALER INH SCH ×2 (09:49→19:35)
[2020-08-27 14:00] VITALS: BP 117/48
--- NOTE | 2020-08-27 15:10 | IPNPDOC ---
Subjective Date Seen The patient was seen on 08/27/20. Subjective Chief Complaint/HPI Mrs. Cruz is a 75 year old female with fibromyalgia, hypertension, and osteoporosis who is here for a right nondisplaced fracture of the acetabulum. Still reports pain in the right hip, but is controlled with oral medications. Otherwise denies chest pain. She had not had her LABA/ICH, so I've restarted her on Advair HFA. Objective Physical Examination General Exam: Positive: Alert, Cooperative Eye Exam: Positive: EOMI; Negative: Sclera icteric Neck Exam: Positive: Supple Chest Exam: Positive: Clear to auscultation Heart Exam: Positive: Rate Normal, Regular Rhythm Abdomen Exam: Positive: Normal bowel sounds, Soft; Negative: Tenderness Neuro Exam: Positive: Normal Speech Psych Exam: Positive: Mental status NL, Mood NL Assessment /Plan Assessment Mrs. Cruz is a 75 year old female with fibromyalgia, hypertension, and osteoporosis who is here for a right nondisplaced fracture of the acetabulum. Per orthopedic surgery, conservative management. Currently pending placement Plan/VTE VTE Prophylaxis Ordered?: Yes Plan 1. Right nondisplaced acetabular fracture -Per orthopedic surgery, conservative measures -Will need rehab -Continue analgesia and physical therapy 2. Dyspnea/COPD -Unclear etiology. CTA negative for acute process or PE -BNP mildly elevated -Continues on 2L of oxygen -Will order and echocardiogram to look for pulmonary arterial hypertension. Pending results -Continue IS and albuterol as needed -Added Advair (on Wixela at home) 3. Hypertension -Continue amlodipine and carvedilol -Hold losartan due to WALTER 4. Hypothyroidism -Continue levothyroxine 5. Hyperlipidemia -Continue rosuvastatin 6. Fibromyalgia -Continue gabapentin, acetaminophen, duloxetine and PRN muscle relaxant 7. CAD -Stable, no active chest pain -Continue rosuvastatin, carvedilol, and aspirin -Hold losartan due to WALTER 8. HFrEF -Echocardiogram from 07/01/2019 demonstrates EF 35-40% with grade 1 diastolic dysfunction -Continue Coreg. Restarted furosemide -Losartan held due to WALTER 9. WALTER -Renal function improving -Supportive care -Hold losartan 10. Constipation -Added Colace and Miralax 11. DVT ppx -On Lovenox Disposition: pending placement VS, I&O, 24H, Fishbone Vital Signs/I&O Vital Signs Date Time Temp Pulse Resp B/P (MAP) Pulse Ox O2 Delivery O2 Flow Rate FiO2 08/27/20 14:00 98.1 59 17 117/48 (71) 90 Nasal Cannula 1.0 I&O- Last 24 Hours up to 6 AM0 08/27/20 06:00 Intake Total 1480 ml Output Total 1600 ml Balance -120 ml Laboratory Data 24H LABS Laboratory Tests 2 08/27/20 07:06: Nucleated Red Blood Cells % (auto) 0.0, Anion Gap 5L, Glomerular Filtration Rate 29.6L, Calcium Level 9.0 CBC/BMP Laboratory Tests 08/27/20 07:06 Microbiology Microbiology 08/23/20 Respiratory Virus Panel (PCR) ([facility]) - Final, Complete YAMILETH UMANA DO Aug 27, 2020 15:10
[2020-08-27] MEDS: FUROSEMIDE 40 MG TAB PO SCH (15:24)
[2020-08-27] MEDS ORDERED: rOPINIRole 1MG TAB PO ONE (17:30)
[2020-08-27 21:00] VITALS: O2SAT 94
[2020-08-27] MEDS: MIRTAZAPINE 15 MG TAB PO SCH (21:24)
[2020-08-27] MEDS: DULoxetine 30 MG CAP (CYMBALTA) PO SCH (21:25)
[2020-08-27] MEDS: GABAPENTIN 100 MG CAP PO SCH (21:25)
[2020-08-27] MEDS: MONTELUKAST 10 MG TAB PO SCH (21:25)
[2020-08-27] MEDS: ROSUVASTATIN 10 MG TAB (CRESTOR) PO SCH (21:25)
[2020-08-27] MEDS: amLODIPine 5 MG TAB PO SCH (21:26)
[2020-08-27 22:00] VITALS: BP 121/49
[2020-08-28] VITALS (7 sets, daily range): BP systolic 131–140; BP diastolic 54–55; O2SAT 93–96
[2020-08-28] MEDS: LEVOTHYROXINE 100MCG TABLET (0.1MG) PO SCH (04:54)
[2020-08-28] MEDS: NORCO, ANEXSIA 5/325MG TABLET (HYDROcodone/ACETAMINOPHEN) PO PRN ×3 (04:54→17:27)
[2020-08-28] MEDS: PANTOPRAZOLE 40MG TAB (PROTONIX) PO SCH (04:54)
[2020-08-28 06:59] LABS: HEMATOCRIT 33.3 % (36.0-47.0); HEMOGLOBIN 10.3 g/dl (12.0-15.5); MEAN CORPUSCULAR HEMOGLOBIN 29.1 pg (27.0-33.0); MEAN CORPUSCULAR HGB CONC 30.9 g/dl (32.0-36.5); MEAN CORPUSCULAR VOLUME 94.1 fl (80.0-96.0); PLATELET COUNT, AUTOMATED 251 10^3/uL (150-450); RED BLOOD COUNT 3.54 10^6/uL (4.00-5.40)
[2020-08-28 07:27] LABS: CALCIUM LEVEL 9.4 MG/DL (8.8-10.2); CREATININE FOR GFR 1.41 MG/DL (0.55-1.30); GLOMERULAR FILTRATION RATE 38.9 (>39); POTASSIUM SERUM 4.3 MEQ/L (3.5-5.1)
[2020-08-28] MEDS: ADVAIR HFA 115/21MCG INHALER INH SCH ×2 (07:51→20:00)
[2020-08-28] MEDS ORDERED: rOPINIRole 1MG TAB PO PRN ×2 (09:00→09:50)
[2020-08-28] MEDS: DOCUSATE SODIUM 100MG CAPSULE PO SCH ×2 (09:50→21:36)
[2020-08-28] MEDS: ASPIRIN 81MG ENTERIC TABLET PO SCH (09:50)
[2020-08-28] MEDS: VITAMIN D 1,000 INTERNATIONAL UNITS TABLET PO SCH (09:50)
[2020-08-28] MEDS: GABAPENTIN 300 MG CAP PO SCH (09:50)
[2020-08-28] MEDS: FUROSEMIDE 40 MG TAB PO SCH (09:51)
[2020-08-28] MEDS: FLUTICASONE PROP 0.05% NASAL SPRAY 16 GM (FLONASE) NARES SCH (09:51)
[2020-08-28] MEDS: CARVedilol 12.5 MG TAB PO SCH ×2 (09:52→21:37)
[2020-08-28] MEDS: ENOXAPARIN 40MG/0.4ML SYRINGE (J1650 PER 10MG) SC SCH (09:52)
--- NOTE | 2020-08-28 10:37 | REP ---
INDICATION: Hypoxia COMPARISON: 08/24/2020 TECHNIQUE: Portable AP view of the chest FINDINGS: The mediastinum and cardiac silhouette are stable and within normal limits for portable technique. The lung patel demonstrate stable chronic changes without acute consolidation, effusion, or pneumothorax. Skeletal structures are stable with old right rib fractures and bilateral shoulder replacement. IMPRESSION: No acute cardiopulmonary process appreciated. <Electronically signed by Higinio Altman > 08/28/20 1037
--- NOTE | 2020-08-28 16:11 | IPNPDOC ---
Subjective Date Seen The patient was seen on 08/28/20. Subjective Chief Complaint/HPI Mrs. Cruz is a 75 year old female with fibromyalgia, hypertension, and osteoporosis who is here for a right nondisplaced fracture of the acetabulum. She reports pain in the right hip, but otherwise denies chest pain. Anticipating discharge tomorrow to [facility] Objective Physical Examination General Exam: Positive: Alert, Cooperative Eye Exam: Positive: EOMI; Negative: Sclera icteric Neck Exam: Positive: Supple Chest Exam: Positive: Clear to auscultation Heart Exam: Positive: Rate Normal, Regular Rhythm Abdomen Exam: Positive: Normal bowel sounds, Soft; Negative: Tenderness Neuro Exam: Positive: Normal Speech Psych Exam: Positive: Mental status NL, Mood NL Assessment /Plan Assessment Mrs. Cruz is a 75 year old female with fibromyalgia, hypertension, and osteoporosis who is here for a right nondisplaced fracture of the acetabulum. Per orthopedic surgery, conservative management. Anticipating discharge tomorrow at [facility]. Plan/VTE VTE Prophylaxis Ordered?: Yes Plan 1. Right nondisplaced acetabular fracture -Per orthopedic surgery, conservative measures -Will need rehab -Continue analgesia and physical therapy 2. Dyspnea/COPD -Unclear etiology. CTA negative for acute process or PE -BNP mildly elevated -Continues on 2L of oxygen -Will order and echocardiogram to look for pulmonary arterial hypertension. Pending results -Continue IS and albuterol as needed -Added Advair (on Wixela at home) -Continue Lasix 3. Hypertension -Continue amlodipine and carvedilol -Hold losartan due to WALTER 4. Hypothyroidism -Continue levothyroxine 5. Hyperlipidemia -Continue rosuvastatin 6. Fibromyalgia -Continue gabapentin, acetaminophen, duloxetine and PRN muscle relaxant 7. CAD -Stable, no active chest pain -Continue rosuvastatin, carvedilol, and aspirin -Hold losartan due to WALTER 8. HFrEF -Echocardiogram from 07/01/2019 demonstrates EF 35-40% with grade 1 diastolic dysfunction -Continue Coreg and furosemide -Losartan held due to WALTER 9. WALTER -Renal function improving -Supportive care -Hold losartan 10. Constipation -Added Colace and Miralax 11. DVT ppx -On Lovenox Disposition: Anticipate discharge tomorrow to [facility] VS, I&O, 24H, Fishbone Vital Signs/I&O Vital Signs Date Time Temp Pulse Resp B/P (MAP) Pulse Ox O2 Delivery O2 Flow Rate FiO2 08/28/20 14:51 98.1 62 17 132/55 (80) 94 Nasal Cannula 2.0 I&O- Last 24 Hours up to 6 AM 08/28/20 05:59 Intake Total 2000 ml Output Total 2350 ml Balance -350 ml Laboratory Data 24H LABS Laboratory Tests 2 08/28/20 06:21: Nucleated Red Blood Cells % (auto) 0.0, Anion Gap 4L, Glomerular Filtration Rate 38.9L, Calcium Level 9.4 CBC/BMP Laboratory Tests 08/28/20 06:21 Microbiology Microbiology 08/28/20 Respiratory Virus Panel (PCR) ([facility]) - Final, Complete 08/23/20 Respiratory Virus Panel (PCR) ([facility]) - Final, Complete YAMILETH UMANA DO Aug 28, 2020 16:11
[2020-08-28] MEDS: ROSUVASTATIN 10 MG TAB (CRESTOR) PO SCH (21:36)
[2020-08-28] MEDS: MIRTAZAPINE 15 MG TAB PO SCH (21:36)
[2020-08-28] MEDS: GABAPENTIN 100 MG CAP PO SCH (21:36)
[2020-08-28] MEDS: DULoxetine 30 MG CAP (CYMBALTA) PO SCH (21:36)
[2020-08-28] MEDS: MONTELUKAST 10 MG TAB PO SCH (21:36)
[2020-08-28] MEDS: amLODIPine 5 MG TAB PO SCH (21:37)
[2020-08-28] MEDS: ACETAMINOPHEN 500 MG TAB PO PRN (21:38)
[2020-08-28] MEDS ORDERED: DOK1CAP7 PO (23:24)
[2020-08-28] MEDS ORDERED: HYDR-3715 PO (23:24)
[2020-08-28] MEDS ORDERED: ACET-683 PO (23:24)
[2020-08-29] MEDS: PANTOPRAZOLE 40MG TAB (PROTONIX) PO SCH (05:16)
[2020-08-29] MEDS: LEVOTHYROXINE 100MCG TABLET (0.1MG) PO SCH (05:16)
[2020-08-29] MEDS: NORCO, ANEXSIA 5/325MG TABLET (HYDROcodone/ACETAMINOPHEN) PO PRN ×2 (05:34→09:42)
[2020-08-29 06:00] VITALS: BP 141/64
[2020-08-29 06:50] LABS: HEMATOCRIT 35.7 % (36.0-47.0); HEMOGLOBIN 10.9 g/dl (12.0-15.5); MEAN CORPUSCULAR HEMOGLOBIN 29.1 pg (27.0-33.0); MEAN CORPUSCULAR HGB CONC 30.5 g/dl (32.0-36.5); MEAN CORPUSCULAR VOLUME 95.2 fl (80.0-96.0); PLATELET COUNT, AUTOMATED 270 10^3/uL (150-450); RED BLOOD COUNT 3.75 10^6/uL (4.00-5.40); WHITE BLOOD COUNT 7.8 10^3/uL (4.0-10.0)
[2020-08-29 07:20] LABS: CALCIUM LEVEL 9.5 MG/DL (8.8-10.2); CREATININE FOR GFR 1.27 MG/DL (0.55-1.30); GLOMERULAR FILTRATION RATE 43.9 (>39); POTASSIUM SERUM 4.2 MEQ/L (3.5-5.1)
[2020-08-29] MEDS: ADVAIR HFA 115/21MCG INHALER INH SCH (07:28)
[2020-08-29 09:00] VITALS: O2SAT 96
[2020-08-29] MEDS: FUROSEMIDE 40 MG TAB PO SCH (09:41)
[2020-08-29] MEDS: DOCUSATE SODIUM 100MG CAPSULE PO SCH (09:41)
[2020-08-29] MEDS: ENOXAPARIN 40MG/0.4ML SYRINGE (J1650 PER 10MG) SC SCH (09:42)
[2020-08-29] MEDS: FLUTICASONE PROP 0.05% NASAL SPRAY 16 GM (FLONASE) NARES SCH (09:42)
[2020-08-29] MEDS: VITAMIN D 1,000 INTERNATIONAL UNITS TABLET PO SCH (09:42)
[2020-08-29] MEDS: ASPIRIN 81MG ENTERIC TABLET PO SCH (09:42)
[2020-08-29] MEDS: GABAPENTIN 300 MG CAP PO SCH (09:42)
[2020-08-29 09:43] VITALS: BP 142/62
[2020-08-29] MEDS: CARVedilol 12.5 MG TAB PO SCH (09:43)
--- NOTE | 2020-08-29 09:44 | ECHO ---
DATE OF PROCEDURE: 08/27/2020 Age: 75 Gender: Female Height: 61 inches Weight: 256 pounds Body surface area: 2.1 m2 PATIENT LOCATION: Inpatient [address] [place] [address], Room 5137. REFERRING PHYSICIAN: Boy Guthrie DO. INDICATION: Dyspnea. MEASUREMENTS: 2D Measurements: RV 3.6 cm LV 4.8 cm Septum 1.2 cm Posterior wall 1.2 cm Aortic Root 3.9 cm LA 4.6 cm LVEF 65% Doppler Measurements: AV 1.64 m/s LVOT 1.0 m/s MV-E 84, A 85, E/A ratio 1 Early mitral deceleration time 296 msec E prime medial 6.3, A prime medial 9.2, E prime lateral 9.3 Average E/E prime ratio 10.8/PCWP 15.3 mmHg PV Not visualized RVSP Could not bet a clear tricuspid regurgitation envelope IVC 1.6 cm COMMENTS: Normal sinus rhythm/sinus bradycardia without intraventricular conduction disturbance. Technically challenging study in light of the patients body habitus, but some diagnostically useful information was still obtained. M-mode and two-dimensional echocardiography was performed with pulse, continuous wave, color flow, and tissue Doppler studies. Borderline concentric left ventricular hypertrophy with normal wall motion. Moderately dilated left atrium with Doppler evidence of grade 1 LV diastolic dysfunction, but currently normal estimated mean left atrial pressure. Right heart chamber sizes appear to be normal with normal wall motion. Unable to accurately estimate her pulmonary arterial pressure. Normal IVC size and collapse against an elevated central venous pressure. Aortic root upper limits of normal in size. Aortic valvular sclerosis without apparent functional abnormality. Mild degenerative changes of the mitral valvular leaflets and moderately thickened mitral annulus without inflow tract obstruction and mild-moderate insufficiency. Normal appearing tricuspid valve with only trace insufficiency. Unable to rule out intracardiac mass, none was visualized from the apical four chamber projections. No apparent pericardial effusion. MTDD
--- NOTE | 2020-08-29 22:31 | DS.PDOC ---
Discharge Summary General Date of Admission Aug 23, 2020 at 15:16 Date of Discharge Aug 29, 2020 Discharge Summary PROCEDURES PERFORMED DURING STAY: None ADMITTING DIAGNOSES: 1. Nondisplaced acetabular fracture of right hip 2. Hypertension 3. Hypothyroidism 4. Hyperlipidemia 5. Fibromyalgia 6. Pre-diabetes 7. CAD DISCHARGE DIAGNOSES: 1. Nondisplaced acetabular fracture of right hip 2. Hypertension 3. Hypothyroidism 4. Hyperlipidemia 5. Fibromyalgia 6. Pre-diabetes 7. CAD COMPLICATIONS/CHIEF COMPLAINT: Fracture Of Acetabulum Without Disruption Of Pelvis. HISTORY OF PRESENT ILLNESS: Mrs. Cruz is a 75 year old female with CKD stage 3, fibromyalgia, and osteoporosis who presents with right hip pain. She slipped in the shower. She did a "split" and then was not able to bear weight on her right leg. CT demonstrated a right nondisplaced acetabular fracture. Orthopedic surgery evaluated patient. Recommended conservative measures with physical therapy and analgesia. HOSPITAL COURSE: During hospitalization, physical therapy worked with patient. Pain was controlled with [place] and acetaminophen. Patient does have a history of COPD and was not initially on her inhalers. Her inhalers were restarted. This morning, she denied any chest pain or worsening dyspnea. She felt ready for rehab and was subsequently discharged to [facility]. DISCHARGE MEDICATIONS: Please see below. ALLERGIES: Please see below. PHYSICAL EXAMINATION ON DISCHARGE: VITAL SIGNS: Please see below. GENERAL: Comfortable, in no apparent distress HEENT: Head normocephalic, atraumatic NECK: Supple CARDIOVASCULAR EXAMINATION: Regular rate and rhythm RESPIRATORY EXAMINATION: Lungs clear to auscultation bilaterally ABDOMINAL EXAMINATION: Soft, non-tender, normal bowel sounds EXTREMITIES: No pitting edema bilaterally SKIN: Warm and dry NEUROLOGICAL EXAMINATION: CN 3-12 grossly intact PSYCHIATRIC EXAMINATION: Normal mood and affect LABORATORY DATA: Please see below. IMAGING: Radiologist interpretation CT pelvis 1. There is a nondisplaced fracture of the anterior superior right acetabulum. 2. Chronic hip and spine changes as described above. These changes have increased compared to the prior exam peer CT cervical spine No acute findings. CT Head No acute findings. CT angio chest FINDINGS: There is adequate opacification of the pulmonary arterial vasculature. No focal filling defects are present that would be considered consistent with acute pulmonary emboli. Limited evaluation of the thoracic aorta shows no gross abnormalities. There is no mediastinal or hilar adenopathy. There are no pleural or pericardial effusions. The imaged upper abdomen is within normal limits. The imaged osseous structures show and unchanged T12 compression deformity. Other chronic changes are also seen throughout the spine. There are multiple old bilateral rib fractures. Evaluation of the lung patel shows no new abnormal nodules, masses, or opacities. IMPRESSION: There is no evidence of acute disease. Findings as described above. PROGNOSIS: Good ACTIVITY: As tolerated. DIET: No added salt diet DISCHARGE PLAN: [facility] DISPOSITION: [facility] DISCHARGE INSTRUCTIONS: 1. Follow up with PCP in a week 2. Follow up with Orthopedic surgery in a week DISCHARGE CONDITION: Stable. Total time spent on discharge planning, discharge summary, and medication reconciliation: 60 minutes Vital Signs/I&Os Vital Signs Date Time Temp Pulse Resp B/P (MAP) Pulse Ox O2 Delivery O2 Flow Rate FiO2 08/28/20 22:00 98.0 63 18 131/54 (79) 92 Nasal Cannula 08/28/20 21:00 2.0 I&O- Last 24 Hours up to 6 AM 08/28/20 06:00 Intake Total 2000 ml Output Total 2350 ml Balance -350 ml Laboratory Data Labs 24H Laboratory Tests 2 08/28/20 06:21: Nucleated Red Blood Cells % (auto) 0.0, Anion Gap 4L, Glomerular Filtration Rate 38.9L, Calcium Level 9.4 CBC/BMP Laboratory Tests 08/28/20 06:21 Microbiology Microbiology 08/28/20 Respiratory Virus Panel (PCR) ([facility]) - Final, Complete 08/23/20 Respiratory Virus Panel (PCR) ([facility]) - Final, Complete Discharge Medications Scheduled Amlodipine Besylate (Amlodipine Besylate) 5 Mg Tablet, 5 MG PO DAILY, (Reported) Aspirin (Ecotrin) 81 Mg Tablet.dr, 81 MG PO DAILY, (Reported) Calcium Carbonate (Calcium) 600 Mg Tab, 600 MG PO DAILY, (Reported) Carvedilol (Carvedilol) 25 Mg Tablet, 25 MG PO BID, (Reported) Cholecalciferol (Vitamin D3) (Vitamin D3) 1,000 Unit Tablet, 1,000 UNITS PO DAILY, (Reported) Docusate Sodium (Dok) 100 Mg Capsule, 100 MG PO BID Duloxetine Hcl (Duloxetine HCl) 60 Mg Capsule.dr, 60 MG PO QHS, (Reported) Fluticasone Propion/Salmeterol (Wixela 100-50 Inhub) 1 Each Blst.w.dev, 1 PUFF INH BID, (Reported) Furosemide (Furosemide) 40 Mg Tablet, 40 MG PO 3XW, (Reported) MON/FRI/FRI Gabapentin (Gabapentin) 100 Mg Capsule, 100 MG PO QPM, (Reported) TAKES AT 1600 Gabapentin (Gabapentin) 300 Mg Capsule, 300 MG PO QAM, (Reported) Levothyroxine Sodium (Synthroid) 100 Mcg Tablet, 100 MCG PO DAILY, (Reported) Mirtazapine (Mirtazapine) 45 Mg Tab.rapdis, 45 MG PO QHS, (Reported) Mometasone Furoate Monohydrate (Nasonex) 17 Gm [place].pump, 2 SPRAY NARES DAILY, (Reported) Montelukast Sodium (Montelukast Sodium) 10 Mg Tablet, 10 MG PO QHS, (Reported) Multivitamins (Thera M Plus Tablet) 1 Each Tablet, 1 TAB PO DAILY, (Reported) Nabumetone (Nabumetone) 500 Mg Tablet, 500 MG DAILY, (Reported) Pantoprazole Sodium (Protonix) 40 Mg Tab, 40 MG PO DAILY, (Reported) Ropinirole HCl (Ropinirole HCl) 1 Mg Tablet, 1 MG PO QPM, (Reported) TAKES AT 1600, MAY REPEAT IF SYMPTOM PERSISTS Rosuvastatin Calcium (Rosuvastatin Calcium) 40 Mg Tablet, 40 MG PO QHS, (Reported) Scheduled PRN Acetaminophen (Acetaminophen) 500 Mg Tablet, 1,000 MG PO Q6HP PRN for PAIN / FEVER Albuterol Sulfate (Albuterol Sulfate) 2.5 Mg/0.5 Ml Neb, 1 VIAL INH Q4H PRN for SHORTNESS OF BREATH, (Reported) Albuterol Sulfate (Albuterol Sulfate Hfa) 8.5 Gm Hfa.aer.ad, 1 PUFF INH Q4H PRN for SOB/WHEEZING, (Reported) Hydrocodone/Acetaminophen (Hydrocodone-Acetamin 5-325 mg) 1 Each Tablet, 1 TAB PO Q4HP PRN for MILD/MODERATE PAIN (PS 1-7) Ropinirole HCl (Ropinirole HCl) 1 Mg Tablet, 1 MG PO QHS PRN for RESTLESSNESS, (Reported) Allergies Coded Allergies: Penicillins (Verified Allergy, Intermediate, rash, 09/03/18) bacitracin (Verified Allergy, Intermediate, itching, 09/03/18) neomycin (Verified Allergy, Intermediate, itching, 09/03/18) polymyxin B (Verified Allergy, Intermediate, itching, 09/03/18) atorvastatin (Verified Adverse Reaction, Intermediate, muscle weakness, 09/03/18) fluoxetine (Verified Adverse Reaction, Intermediate, maniac, 09/03/18) YAMILETH UMANA DO Aug 28, 2020 23:43
== END 2020-08-29 12:10 | DRG 536 ==
LOC: EDBD 10:00 → M ED 10:00 → M ED INP 15:16 → ENRESERV 15:51 → M MS5PR 17:45
PROVIDERS: ADMIT Family Medicine; ATTEND Internal Medicine
DX: S32.414A Nondisplaced fracture of anterior wall of right acetabulum, initial encounter for closed fracture (principal); N17.9 Acute kidney failure, unspecified; I50.32 Chronic diastolic (congestive) heart failure; N39.3 Stress incontinence (female) (male); E78.5 Hyperlipidemia, unspecified; I25.10 Atherosclerotic heart disease of native coronary artery without angina pectoris; M79.7 Fibromyalgia; N18.30 Chronic kidney disease, stage 3 unspecified; M81.0 Age-related osteoporosis without current pathological fracture; Z79.82 Long term (current) use of aspirin; Z79.899 Other long term (current) drug therapy; Z88.0 Allergy status to penicillin; Z88.8 Allergy status to other drugs, medicaments and biological substances; D50.9 Iron deficiency anemia, unspecified; E03.9 Hypothyroidism, unspecified; I12.9 Hypertensive chronic kidney disease with stage 1 through stage 4 chronic kidney disease, or unspecified chronic kidney disease; F44.81 Dissociative identity disorder; W18.30XA Fall on same level, unspecified, initial encounter; Y92.009 Unspecified place in unspecified non-institutional (private) residence as the place of occurrence of the external cause

== ENCOUNTER → 2020-08-30 | Outpatient (REF) ==
[~2020-08-30] MED LIST changes: +ACET-683 PO; +DOK1CAP7 PO; +FLUT1BLS INH; +FURO40TA2 PO; -FUROSEMIDE 40 MG TAB PO SCH; +MIRT1TAB17 PO; +MOME50SP NARES; +ROPI1TAB3 PO; +UROCTAB2 PO
[2020-08-30 14:43] LABS: APPEARANCE, URINE CLEAR (CLEAR); BACTERIA, URINE AUTO NEGATIVE (NEGATIVE); BILIRUBIN, URINE AUTO NEGATIVE (NEGATIVE); BLOOD, URINE BLOOD NEGATIVE (NEGATIVE); COLOR, URINE YELLOW (YELLOW); GLUCOSE, URINE (UA) AUTO NEGATIVE (NEGATIVE); KETONE, URINE AUTO NEGATIVE (NEGATIVE); LEUKOCYTE ESTERASE, URINE AUTO NEGATIVE (NEGATIVE); MUCUS, URINE SMALL (NEGATIVE); NITRITE, URINE AUTO NEGATIVE (NEGATIVE); PROTEIN, URINE AUTO NEGATIVE (NEGATIVE); RBC, URINE AUTO 1 /HPF (0-3); SPECIFIC GRAVITY URINE AUTO 1.006 (1.002-1.035); SQUAMOUS EPITHELIAL CELL UR AU 0 /HPF (0-6); UROBILINOGEN, URINE AUTO 0.2 mg/dL (0.0-2.0); WBC, URINE AUTO 1 /HPF (0-3)
== END ==
LOC: SKLAB4 11:22
PROVIDERS: ATTEND Internal Medicine
DX: R39.198 Other difficulties with micturition (principal)

== ENCOUNTER → 2020-09-01 | Outpatient (REF) ==
[2020-09-01 15:21] LABS: HEMATOCRIT 33.2 % (36.0-47.0); HEMOGLOBIN 10.8 g/dl (12.0-15.5); MEAN CORPUSCULAR HEMOGLOBIN 30.1 pg (27.0-33.0); MEAN CORPUSCULAR HGB CONC 32.5 g/dl (32.0-36.5); MEAN CORPUSCULAR VOLUME 92.5 fl (80.0-96.0); PLATELET COUNT, AUTOMATED 306 10^3/uL (150-450); RED BLOOD COUNT 3.59 10^6/uL (4.00-5.40); WHITE BLOOD COUNT 9.8 10^3/uL (4.0-10.0)
--- NOTE | 2020-09-01 15:32 | REP ---
INDICATION: CHF/SOB COMPARISON: 08/28/2020 TECHNIQUE: Portable AP view of the chest FINDINGS: The mediastinum and cardiac silhouette are stable and within normal limits for portable technique. The lung patel are clear without acute consolidation, effusion, or pneumothorax. Skeletal structures demonstrate bilateral shoulder repair along with old healed rib fractures.. IMPRESSION: No acute cardiopulmonary process appreciated. <Electronically signed by Higinio Altman > 09/01/20 0022
[2020-09-01 15:51] LABS: CALCIUM LEVEL 9.5 MG/DL (8.8-10.2); CREATININE FOR GFR 1.05 MG/DL (0.55-1.30); GLOMERULAR FILTRATION RATE 54.7 (>39); POTASSIUM SERUM 4.2 MEQ/L (3.5-5.1)
== END ==
LOC: SKLAB4 14:30
PROVIDERS: ATTEND Internal Medicine
DX: I50.9 Heart failure, unspecified (principal); Z98.890 Other specified postprocedural states; Z87.81 Personal history of (healed) traumatic fracture

== ENCOUNTER → 2020-09-08 | Outpatient (CLI) | payer MEDICARE ==
--- NOTE | 2020-09-08 12:47 | REP ---
INDICATION: F/U FX. COMPARISON: Radiographs and CT 08/23/2020. TECHNIQUE: AP views pelvis, AP and frogleg views right hip. FINDINGS: There is no radiographic evidence of fracture or dislocation. The anterior acetabular fracture on the right, seen on the CT exam 08/23/2020, is again not visualized radiographically. There are mild degenerative changes at the hip joint. There are mild vascular calcifications in the carotid siphons. IMPRESSION: Once again the nondisplaced fracture of the anterior right acetabulum, as seen on the CT exam of 08/23/2020, is not visualized radiographically. No acute radiographic change. <Electronically signed by Davian Goode > 09/08/20 [id number]
== END ==
LOC: M SOG 11:42
PROVIDERS: ATTEND Orthopaedic Surgery Sports Medicine
DX: S32.401D Unspecified fracture of right acetabulum, subsequent encounter for fracture with routine healing (principal); X58.XXXD Exposure to other specified factors, subsequent encounter; Y92.9 Unspecified place or not applicable

== ENCOUNTER → 2020-09-12 | Outpatient (REF) ==
[2020-09-12 09:00] LABS: CALCIUM LEVEL 8.9 MG/DL (8.8-10.2); CREATININE FOR GFR 1.22 MG/DL (0.55-1.30); POTASSIUM SERUM 4.1 MEQ/L (3.5-5.1)
== END ==
LOC: SKLAB4 09:47
PROVIDERS: ATTEND Internal Medicine
DX: I50.9 Heart failure, unspecified (principal)

== ENCOUNTER → 2020-09-14 | Outpatient (REF) ==
[~2020-09-14] MED LIST changes: +GABA-283 PO; -GABA-845 PO
[2020-09-14 09:49] LABS: BLOOD UREA NITROGEN 16 MG/DL (7-18); CALCIUM LEVEL 9.4 MG/DL (8.8-10.2); CARBON DIOXIDE LEVEL 33 MEQ/L (21-32); CHLORIDE LEVEL 100 MEQ/L (98-107); CREATININE FOR GFR 1.21 MG/DL (0.55-1.30); GLOMERULAR FILTRATION RATE 46.4 (>39); GLUCOSE, FASTING 109 MG/DL (70-100); POTASSIUM SERUM 4.2 MEQ/L (3.5-5.1); SODIUM LEVEL 138 MEQ/L (136-145)
[2020-09-14 11:14] LABS: TROPONIN I < 0.02 NG/ML (< 0.10)
--- NOTE | 2020-09-14 17:03 | ECGEPIP ---
[facility] Test Date: 2020-09-14 Pat Name: ELIE RICHMOND Department: Room: - Gender: Female Air Conditioning Technician: OMAR : 1945 Requested By: [facility] Order Number: [id number] Reading MD: Mike Stark Measurements Intervals [place] Rate: 61 P: 86 TN: 180 QRS: 2 QRSD: 90 T: 21 QT: 450 QTc: 453 Interpretive Statements normal sinus rhythm LA conduction disturbance Probable first-degree AV block (measured TN interval incorrect) Low voltages with incomplete LBBB Nonspecific repolarization abnormalities Body habitus versus pulmonary disease Slower rate and increased TN interval from 07/01/19 Electronically Signed on 09-14-2020 17:03:49 EDT by Mike Stark
== END ==
LOC: SKLAB4 10:05
PROVIDERS: ATTEND Internal Medicine
DX: I50.9 Heart failure, unspecified (principal)

== ENCOUNTER 2020-09-15 16:34 | Emergency (ER) | payer MEDICARE ==
[~2020-09-15] VITALS: Ht 162.6 cm; Wt 122.7 kg
--- NOTE | 2020-09-15 19:00 | REP ---
INDICATION: Assess stenosis TECHNIQUE: Carotid ultrasonography was performed bilaterally FINDINGS: Right: CCA systolic: 105.0 centimeters/second CCA diastolic: 21.7 centimeters/second ICA systolic: 122.0 centimeters/second ICA diastolic: 22.1 centimeters/second ICA CCA ratio: 1.16 Left: CCA systolic: 132 centimeters/second CCA diastolic: 26.2 centimeters/second ICA systolic: 73.2 centimeters/second ICA diastolic: 22.8 centimeters/second ICA CCA ratio: 0.55 Vertebral artery: Right: Antegrade left: Antegrade Patchy and linear echogenic material is seen along the carotid arterial vera some of which casts in acoustic shadow consistent with calcific deposition. IMPRESSION: According to the SRU criteria there is less than 50% stenosis of the internal carotid artery bilaterally. This is secondary to both calcified and noncalcified atheromatous plaque formation <Electronically signed by Live Thmoas > 09/15/20 [id number]
[2020-09-15 19:59] VITALS: BP 180/75
== END 2020-09-15 20:16 | disposition home or self-care (01) ==
LOC: M ED 16:34
DX: R20.2 Paresthesia of skin (principal); E78.5 Hyperlipidemia, unspecified; K21.9 Gastro-esophageal reflux disease without esophagitis; M79.7 Fibromyalgia; G25.81 Restless legs syndrome; Z79.82 Long term (current) use of aspirin; Z79.890 Hormone replacement therapy; Z79.899 Other long term (current) drug therapy; Z88.0 Allergy status to penicillin; Z88.8 Allergy status to other drugs, medicaments and biological substances; Z88.1 Allergy status to other antibiotic agents; Z95.1 Presence of aortocoronary bypass graft; Z98.890 Other specified postprocedural states

== ENCOUNTER → 2020-09-15 | Outpatient (CLI) | payer MEDICARE ==
[~2020-09-15] MED LIST changes: -GABA-283 PO; +GABA-845 PO
--- NOTE | 2020-09-15 14:07 | REP ---
INDICATION: UNRESPONSIVE EPISODE, LEFT HAND TINGLE/ IN BACK CT AREA. COMPARISON: Comparison head CT study August 25, 2020.. TECHNIQUE: Helical scanning is acquired. 5 mm axial images were reformatted. Coronal MPR images were generated. FINDINGS: Digital preliminary patient resource coordinator radiograph is unremarkable. There is heavy vascular calcification in the distal internal carotid and distal vertebral arteries. The bony calvarium is intact on axial bone window setting images. The visualized paranasal sinuses are clear. No intraorbital abnormality is seen. On soft tissue window settings, there is minimal generalized volume loss. There is no evidence of infarct, hemorrhage, extra-axial fluid collection, or midline shift. IMPRESSION: Vascular calcification. No acute intracranial abnormality. No skull fracture or intracranial injury.. <Electronically signed by Ajith Lyle > 09/15/20 [id number]
== END ==
LOC: M RAD 13:35
PROVIDERS: ATTEND Nurse Practitioner Family
DX: R41.89 Other symptoms and signs involving cognitive functions and awareness (principal); I65.23 Occlusion and stenosis of bilateral carotid arteries; I67.2 Cerebral atherosclerosis

== ENCOUNTER → 2020-09-21 | Outpatient (REF) ==
[~2020-09-21] MED LIST changes: +GABA-283 PO; -GABA-845 PO
[2020-09-21 08:55] LABS: CALCIUM LEVEL 9.1 MG/DL (8.8-10.2); CREATININE FOR GFR 1.08 MG/DL (0.55-1.30); GLOMERULAR FILTRATION RATE 52.9 (>39); POTASSIUM SERUM 4.3 MEQ/L (3.5-5.1)
== END ==
LOC: SKLAB4 10:04
PROVIDERS: ATTEND Internal Medicine
DX: I50.9 Heart failure, unspecified (principal)

== ENCOUNTER → 2020-10-02 | Outpatient (REF) | payer MEDICARE ==
[2020-10-02 15:17] LABS: BASO # 0.1 10^3/uL (0.0-0.2); BASO % 0.8 % (0.0-1.0); EOS # 0.5 10^3/uL (0.0-0.5); EOS % 5.1 % (0.0-3.0); HEMOGLOBIN 11.8 g/dl (12.0-15.5); LYMPH % 18.5 % (24.0-44.0); MEAN CORPUSCULAR HEMOGLOBIN 28.6 pg (27.0-33.0); MEAN CORPUSCULAR HGB CONC 30.3 g/dl (32.0-36.5); MEAN CORPUSCULAR VOLUME 94.7 fl (80.0-96.0); MONO # 0.8 10^3/uL (0.0-0.8); MONO % 7.1 % (2.0-8.0); NEUTROPHILS # 7.2 10^3/uL (1.5-8.5); NEUTROPHILS % 68.1 % (36.0-66.0); PLATELET COUNT, AUTOMATED 325 10^3/uL (150-450); RED BLOOD COUNT 4.12 10^6/uL (4.00-5.40); WHITE BLOOD COUNT 10.5 10^3/uL (4.0-10.0)
[2020-10-02 15:47] LABS: CALCIUM LEVEL 8.4 MG/DL (8.8-10.2); CREATININE FOR GFR 1.68 MG/DL (0.55-1.30); GLOMERULAR FILTRATION RATE 31.8 (>39); MAGNESIUM LEVEL 2.1 MG/DL (1.8-2.4); POTASSIUM SERUM 4.9 MEQ/L (3.5-5.1)
== END ==
LOC: M SFHCPLAZ 14:00
PROVIDERS: ATTEND Internal Medicine
DX: I12.9 Hypertensive chronic kidney disease with stage 1 through stage 4 chronic kidney disease, or unspecified chronic kidney disease (principal); I50.22 Chronic systolic (congestive) heart failure; N18.30 Chronic kidney disease, stage 3 unspecified

== ENCOUNTER → 2020-11-15 | Outpatient (CLI) | payer MEDICARE ==
[2020-11-15 10:37] LABS: CHOLESTEROL RISK RATIO 3.727 (<5)
== END ==
LOC: M PLALAB 08:42
PROVIDERS: ATTEND Internal Medicine
DX: N18.30 Chronic kidney disease, stage 3 unspecified (principal); E78.00 Pure hypercholesterolemia, unspecified

== ENCOUNTER 2020-11-22 08:30 | Outpatient (RCR) | payer MEDICARE | END 2020-12-09 | LOC: M PT 08:30 | PROVIDERS: ATTEND Internal Medicine | DX: S32.464 Nondisplaced associated transverse-posterior fracture of right acetabulum (principal); X58.XXXD Exposure to other specified factors, subsequent encounter; Y92.9 Unspecified place or not applicable ==

== ENCOUNTER → 2021-01-24 | Outpatient (REF) | payer MEDICARE ==
[~2021-01-24] MED LIST changes: +DOK1CAP4 PO; -DOK1CAP7 PO
[2021-01-24 13:58] LABS: BASO # 0.1 10^3/uL (0.0-0.2); BASO % 0.6 % (0.0-1.0); EOS # 0.3 10^3/uL (0.0-0.5); EOS % 3.4 % (0.0-3.0); HEMATOCRIT 33.7 % (36.0-47.0); HEMOGLOBIN 10.2 g/dl (12.0-15.5); LYMPH # 1.2 10^3/uL (1.5-5.0); LYMPH % 14.4 % (24.0-44.0); MEAN CORPUSCULAR HEMOGLOBIN 29.1 pg (27.0-33.0); MEAN CORPUSCULAR HGB CONC 30.3 g/dl (32.0-36.5); MONO # 0.6 10^3/uL (0.0-0.8); NEUTROPHILS # 5.8 10^3/uL (1.5-8.5); PLATELET COUNT, AUTOMATED 360 10^3/uL (150-450); RED BLOOD COUNT 3.51 10^6/uL (4.00-5.40)
[2021-01-24 14:30] LABS: ALBUMIN 3.1 GM/DL (3.2-5.2); BILIRUBIN,TOTAL 0.5 MG/DL (0.2-1.0); CALCIUM LEVEL 9.2 MG/DL (8.8-10.2); CHOLESTEROL RISK RATIO 2.765 (<5); CREATININE FOR GFR 1.02 MG/DL (0.55-1.30); GLOMERULAR FILTRATION RATE 56.6 (>39); MAGNESIUM LEVEL 1.8 MG/DL (1.8-2.4); POTASSIUM SERUM 3.6 MEQ/L (3.5-5.1); THYROID STIMULATING HORMONE 1.56 uIU/ML (0.358-3.740); TOTAL PROTEIN 5.9 GM/DL (6.4-8.2)
== END ==
LOC: M SFHCPLAZ 13:12
PROVIDERS: ATTEND Internal Medicine
DX: N18.30 Chronic kidney disease, stage 3 unspecified (principal); Z86.39 Personal history of other endocrine, nutritional and metabolic disease; E78.00 Pure hypercholesterolemia, unspecified; E03.9 Hypothyroidism, unspecified; I50.22 Chronic systolic (congestive) heart failure; I48.0 Paroxysmal atrial fibrillation

== ENCOUNTER → 2021-01-26 | Outpatient (REF) | payer MEDICARE ==
[2021-01-26 14:31] LABS: PROTHROMBIN TIME 51.3 SECONDS (12.7-14.5)
[2021-01-26 14:33] LABS: INR 5.69
== END ==
LOC: M LAB REF 14:07
PROVIDERS: ATTEND Internal Medicine Cardiovascular Disease
DX: I48.91 Unspecified atrial fibrillation (principal)

== ENCOUNTER → 2021-02-05 | Outpatient (CLI) | payer MEDICARE ==
--- NOTE | 2021-02-05 11:38 | REP ---
INDICATION: LOW BACK PAIN. COMPARISON: None. TECHNIQUE: AP and lateral views FINDINGS: Bones are demineralized. There is posterior disc space narrowing at every level which is moderate. There is a grade 2 L5 upon S1 spondylolisthesis. Degenerative facet joint changes are seen bilaterally at L5-S1. IMPRESSION: Chronic changes as described above. <Electronically signed by Live Thomas > 02/05/21 [id number]
--- NOTE | 2021-02-05 11:41 | REP ---
INDICATION: LOW BACK PAIN. COMPARISON: 11/14/2007 TECHNIQUE: AP and lateral views FINDINGS: Since the last examination a grade 2 T12 compression fracture has developed. Grade 3/4 T6 compression fracture has developed. A grade 2 T5 compression fracture has developed. There is increased kyphosis. There is disc space narrowing at every level. The bones are demineralized. IMPRESSION: Multiple age undetermined thoracic vertebral body compression fractures and related chronic changes as described above. <Electronically signed by Live Thomas > 02/05/21 [id number]
== END ==
LOC: M SOG 11:13
PROVIDERS: ATTEND Orthopaedic Surgery
DX: M54.5 Low back pain (principal); M43.15 Spondylolisthesis, thoracolumbar region; M51.37 Other intervertebral disc degeneration, lumbosacral region; M84.48XA Pathological fracture, other site, initial encounter for fracture

== ENCOUNTER → 2021-02-21 | Outpatient (CLI) | payer MEDICARE ==
--- NOTE | 2021-02-21 10:12 | REPVR ---
PROCEDURE INFORMATION: Exam: CT Thoracic Spine Without Contrast Exam date and time: 02/21/2021 9:32 AM Age: 75 years old Clinical indication: Pain; Other: Wedge compression; Additional info: Wedge compression FX of vertebra TECHNIQUE: Imaging protocol: Computed tomography images of the thoracic spine without contrast. Radiation optimization: All CT scans at this facility use at least one of these dose optimization techniques: automated exposure control; mA and/or kV adjustment per patient size (includes targeted exams where dose is matched to clinical indication); or iterative reconstruction. COMPARISON: 1. CR SPINE THORACIC AP/LAT 02/05/2021 11:[address] ANGIO CHEST 08/25/2020 2:33:19 PM FINDINGS: Vertebrae: There is anterior wedge compression fracture at T6 with inferior endplate compression, which is stable to more recent x-ray and increased older CT. There is superior endplate compression with vertebral height loss at T12. There is posterior retropulsion of 4 mm at both these levels, inferiorly at T6 and superiorly at T12. This is stable to prior CT. There is no evidence new compression deformity. There is increased kyphosis measuring 71 degrees. Discs/Spinal canal/Neural foramina: There are degenerative changes. There is disc height greatest T6-T7 through T9-T10 associated with vacuum disc and scattered endplate sclerosis. There is vacuum disc at T11-T12. There are anterior marginal osteophytes. Other bones/joints: There are multiple old bilateral rib fractures. Bones are demineralized. Soft tissues: Unremarkable. Heart: Heart is enlarged. Coronary artery calcifications. Atherosclerotic change in aorta without aneurysm. Other chest findings are stable. IMPRESSION: Nonacute compression deformities T6 and T12 with mild bony retropulsion. Electronically signed by: Yoli Thapa On 02/21/2021 10:12:19 AM
== END ==
LOC: M RAD 09:20
PROVIDERS: ATTEND Orthopaedic Surgery
DX: S22.050A Wedge compression fracture of T5-T6 vertebra, initial encounter for closed fracture (principal); X58.XXXA Exposure to other specified factors, initial encounter; Y92.9 Unspecified place or not applicable; Y93.9 Activity, unspecified; Y99.9 Unspecified external cause status

== ENCOUNTER → 2021-02-21 | Outpatient (REF) | payer MEDICARE ==
[2021-02-21 16:04] LABS: CALCIUM LEVEL 8.7 MG/DL (8.8-10.2); CREATININE FOR GFR 1.34 MG/DL (0.55-1.30); GLOMERULAR FILTRATION RATE 41.3 (>39); POTASSIUM SERUM 4.2 MEQ/L (3.5-5.1)
== END ==
LOC: M LAB REF 15:19
PROVIDERS: ATTEND Internal Medicine
DX: I12.9 Hypertensive chronic kidney disease with stage 1 through stage 4 chronic kidney disease, or unspecified chronic kidney disease (principal); N18.9 Chronic kidney disease, unspecified

== ENCOUNTER → 2021-03-13 | Outpatient (CLI) | payer MEDICARE ==
[2021-03-13 15:53] LABS: BASO # 0.1 10^3/uL (0.0-0.2); BASO % 0.7 % (0.0-1.0); EOS # 0.6 10^3/uL (0.0-0.5); EOS % 5.7 % (0.0-3.0); HEMATOCRIT 40.2 % (36.0-47.0); HEMOGLOBIN 12.3 g/dl (12.0-15.5); LYMPH # 3.4 10^3/uL (1.5-5.0); LYMPH % 32.4 % (24.0-44.0); MEAN CORPUSCULAR HEMOGLOBIN 27.5 pg (27.0-33.0); MEAN CORPUSCULAR HGB CONC 30.6 g/dl (32.0-36.5); MEAN CORPUSCULAR VOLUME 89.9 fl (80.0-96.0); MONO # 0.7 10^3/uL (0.0-0.8); MONO % 6.9 % (2.0-8.0); NEUTROPHILS # 5.7 10^3/uL (1.5-8.5); NEUTROPHILS % 53.9 % (36.0-66.0); PLATELET COUNT, AUTOMATED 426 10^3/uL (150-450); RED BLOOD COUNT 4.47 10^6/uL (4.00-5.40); WHITE BLOOD COUNT 10.6 10^3/uL (4.0-10.0)
[2021-03-13 16:23] LABS: BILIRUBIN,TOTAL 0.4 MG/DL (0.2-1.0); CALCIUM LEVEL 9.7 MG/DL (8.8-10.2); CREATININE FOR GFR 0.99 MG/DL (0.55-1.30); GLOMERULAR FILTRATION RATE 58.5 (>39); POTASSIUM SERUM 3.7 MEQ/L (3.5-5.1); PTH INTACT 81.4 PG/ML (18.5-88.0); THYROID STIMULATING HORMONE 0.09 uIU/ML (0.358-3.740); TOTAL PROTEIN 6.4 GM/DL (6.4-8.2)
== END ==
LOC: M PLALAB 12:53
PROVIDERS: ATTEND Internal Medicine
DX: I12.9 Hypertensive chronic kidney disease with stage 1 through stage 4 chronic kidney disease, or unspecified chronic kidney disease (principal); E03.9 Hypothyroidism, unspecified; J45.909 Unspecified asthma, uncomplicated; N18.9 Chronic kidney disease, unspecified

== ENCOUNTER 2021-03-27 16:48 | Inpatient (IN) | payer MEDICARE ==
[~2021-03-27] VITALS: Ht 154.9 cm; Wt 94.4 kg
[~2021-03-27 16:48] MED LIST changes: -FLUC150T PO; +FLUC150T9 PO; -FLUC200T2 PO; +FLUC200T4 PO; +LOSA100T45 PO; -LOSA100T50 PO; -MOME50SP NARES; -MONT10TA10 PO; +MONT10TA97 PO; +NASO50SP3 NARES
[2021-03-27] MEDS ORDERED: MORPHINE 4 MG/ML 1ML VIAL/SYRINGE (J2270) IV ONE ×2 (19:05→23:55)
[2021-03-27] MEDS ORDERED: ASPIRIN 81 MG CHEW TABLET PO ONE (19:05)
[2021-03-27] MEDS ORDERED: ONDANSETRON 4MG/2ML VIAL IV ONE ×2 (19:05→23:55)
[2021-03-27 19:32] LABS: BASO # 0.1 10^3/uL (0.0-0.2); BASO % 0.4 % (0.0-1.0); EOS # 0.1 10^3/uL (0.0-0.5); EOS % 0.7 % (0.0-3.0); HEMATOCRIT 37.4 % (36.0-47.0); HEMOGLOBIN 11.6 g/dl (12.0-15.5); LYMPH # 1.7 10^3/uL (1.5-5.0); LYMPH % 13.7 % (24.0-44.0); MEAN CORPUSCULAR HEMOGLOBIN 27.5 pg (27.0-33.0); MEAN CORPUSCULAR VOLUME 88.6 fl (80.0-96.0); MONO # 0.8 10^3/uL (0.0-0.8); MONO % 6.7 % (2.0-8.0); NEUTROPHILS # 9.5 10^3/uL (1.5-8.5); NEUTROPHILS % 78.1 % (36.0-66.0); PLATELET COUNT, AUTOMATED 345 10^3/uL (150-450); RED BLOOD COUNT 4.22 10^6/uL (4.00-5.40); WHITE BLOOD COUNT 12.1 10^3/uL (4.0-10.0)
[2021-03-27 19:34] LABS: CK-MB VALUE MASS < 1.0 NG/ML (<3.6); CPK CREATINE PHOSPHOKINASE 45 U/L (26-192); MB/CK RELATIVE INDEX 2.22 (< OR =4); TROPONIN I < 0.02 NG/ML (< 0.10)
[2021-03-27 19:37] LABS: RSV AMPLIFICATION NEGATIVE (NEGATIVE)
[2021-03-27 19:52] LABS: INR 3.11; PROTHROMBIN TIME 32.4 SECONDS (12.7-14.5)
[2021-03-27 19:53] LABS: PARTIAL THROMBOPLASTIN TIME 71.4 SECONDS (25.9-37.0)
[2021-03-27 20:04] LABS: ALBUMIN 3.1 GM/DL (3.2-5.2); BILIRUBIN,DIRECT 0.2 MG/DL (0.0-0.2); BILIRUBIN,TOTAL 0.5 MG/DL (0.2-1.0); FREE T4 1.48 NG/DL (0.76-1.46); THYROID STIMULATING HORMONE 0.443 uIU/ML (0.358-3.740); TOTAL PROTEIN 6.7 GM/DL (6.4-8.2)
[2021-03-27] MEDS ORDERED: ACETAMINOPHEN 500 MG TAB PO ONE (22:20)
[2021-03-27 22:59] LABS: CK-MB VALUE MASS < 1.0 NG/ML (<3.6); CPK CREATINE PHOSPHOKINASE 40 U/L (26-192); TROPONIN I < 0.02 NG/ML (< 0.10)
[2021-03-28] MEDS ORDERED: METOCLOPRAMIDE INJ 10MG/2ML VIAL (J2765 PER 1) IV ONE (01:55)
[2021-03-28 03:06] LABS: ABG BASE EXCESS -3.1 (-2.0-2.0); ABG HCO3 25.9 MEQ/L (22.0-26.0); ABG O2 SATURATION 91.2 % (95.0-99.0); ABG PARTIAL PRESSURE O2 68.8 mmHg (75.0-100.0); ABG STANDARD HCO3 21.7 MEQ/L (22.0-26.0); ABG TOTAL CO2 27.9 MEQ/L (23.0-31.0)
[2021-03-28 03:09] LABS: ABG PARTIAL PRESSURE CO2 65.6 mmHg (35.0-45.0); ABG pH (ARTERIAL) 7.214 UNITS (7.350-7.450)
[2021-03-28] MEDS ORDERED: FUROSEMIDE 40MG/4ML VIAL (J1940) IV ONE (03:15)
[2021-03-28] MEDS ORDERED: NALOXONE INJ 0.4MG/1ML VIAL (J2310 PER 1MG) IV STA ×2 (04:13→11:30)
[2021-03-28] MEDS ORDERED: ALBUTEROL SULFATE 2.5 MG/0.5 ML INH NEB SOLN NEB PRN (04:20)
[2021-03-28] MEDS ORDERED: MEROPENEM INJ 2 GM in NS 100 ML IV SCH (04:20)
[2021-03-28] MEDS ORDERED: MAG SULF 1GM/100ML (MAG RUN) 1 GM in IV 1 EA IV ONE (04:20)
[2021-03-28] MEDS ORDERED: methylPREDNISolone 125MG 2ML VIAL IV STA (04:20)
[2021-03-28] MEDS ORDERED: SODIUM CHLORIDE 0.9% 1000ML IV STA (04:20)
[2021-03-28] MEDS ORDERED: VANCOMYCIN HCL 1,000 MG, VIAL MATE ADAPTER 1 EACH in NS 250 ML IV SCH (04:50)
[2021-03-28] MEDS ORDERED: MEROPENEM INJ 1 GM in IV 1 EA IV SCH (05:00)
[2021-03-28 05:32] LABS: BASO % 0.2 % (0.0-1.0); EOS # 0.1 10^3/uL (0.0-0.5); EOS % 0.5 % (0.0-3.0); HEMATOCRIT 40.1 % (36.0-47.0); LYMPH # 1.8 10^3/uL (1.5-5.0); LYMPH % 12.9 % (24.0-44.0); MEAN CORPUSCULAR HEMOGLOBIN 27.5 pg (27.0-33.0); MEAN CORPUSCULAR HGB CONC 29.9 g/dl (32.0-36.5); MEAN CORPUSCULAR VOLUME 91.8 fl (80.0-96.0); MONO % 7.4 % (2.0-8.0); NEUTROPHILS # 10.8 10^3/uL (1.5-8.5); NEUTROPHILS % 78.3 % (36.0-66.0); PLATELET COUNT, AUTOMATED 362 10^3/uL (150-450); RED BLOOD COUNT 4.37 10^6/uL (4.00-5.40); WHITE BLOOD COUNT 13.8 10^3/uL (4.0-10.0)
[2021-03-28 05:54] LABS: ALBUMIN 2.9 GM/DL (3.2-5.2); BILIRUBIN,TOTAL 0.5 MG/DL (0.2-1.0); CALCIUM LEVEL 9.4 MG/DL (8.8-10.2); CREATININE FOR GFR 2.63 MG/DL (0.55-1.30); HEMOGLOBIN A1c 6.4 %; POTASSIUM SERUM 4.8 MEQ/L (3.5-5.1); TOTAL PROTEIN 6.9 GM/DL (6.4-8.2)
[2021-03-28 06:18] LABS: BASO % 0.3 % (0.0-1.0); EOS # 0.1 10^3/uL (0.0-0.5); EOS % 0.5 % (0.0-3.0); HEMOGLOBIN 11.9 g/dl (12.0-15.5); LYMPH # 1.3 10^3/uL (1.5-5.0); MEAN CORPUSCULAR HEMOGLOBIN 27.1 pg (27.0-33.0); MEAN CORPUSCULAR HGB CONC 29.8 g/dl (32.0-36.5); MEAN CORPUSCULAR VOLUME 91.1 fl (80.0-96.0); MONO % 8.8 % (2.0-8.0); NEUTROPHILS # 9.3 10^3/uL (1.5-8.5); NEUTROPHILS % 78.9 % (36.0-66.0); PLATELET COUNT, AUTOMATED 330 10^3/uL (150-450); RED BLOOD COUNT 4.39 10^6/uL (4.00-5.40); WHITE BLOOD COUNT 11.8 10^3/uL (4.0-10.0)
[2021-03-28] MEDS: HEPARIN SOD (PORCINE) 5000UNITS/ML 1ML VIAL/SYRINGE SC SCH ×2 (06:26→14:00)
[2021-03-28 07:05] LABS: INR 1.91; PROTHROMBIN TIME 22.3 SECONDS (12.7-14.5)
[2021-03-28 07:06] LABS: PARTIAL THROMBOPLASTIN TIME 48.4 SECONDS (25.9-37.0)
[2021-03-28 07:30] LABS: VENOUS BASE EXCESS -4.9 (-2.0-2.0); VENOUS HCO3 25.3 MEQ/L (23.0-27.0); VENOUS O2 SATURATION 77.4 % (60.0-80.0); VENOUS PARTIAL PRESSURE CO2 74.5 mmHg (38.0-50.0); VENOUS PARTIAL PRESSURE O2 50.2 mmHg (30.0-50.0); VENOUS PH 7.149 UNITS (7.330-7.430); VENOUS TOTAL CO2 27.6 MEQ/L (24.0-28.0)
[2021-03-28] MEDS ORDERED: ACET-683 PO (07:34)
[2021-03-28] MEDS ORDERED: FLUT1BLS2 IH (07:34)
[2021-03-28] MEDS ORDERED: FURO80TA2 PO (07:34)
[2021-03-28] MEDS ORDERED: CYCL-707 PO (07:40)
[2021-03-28] MEDS ORDERED: TOPR50TA PO (07:40)
[2021-03-28] MEDS ORDERED: LOSA100T45 PO (07:40)
[2021-03-28] MEDS ORDERED: CLONI1TA PO (07:40)
[2021-03-28] MEDS ORDERED: DIFL200T PO (07:40)
[2021-03-28] MEDS ORDERED: XARE20TA PO (07:43)
[2021-03-28] MEDS ORDERED: MELATAB7 PO (07:43)
[2021-03-28] MEDS ORDERED: ATOR80TA59 PO (07:43)
[2021-03-28] MEDS ORDERED: TRAM50TA2 PO (07:43)
[2021-03-28] MEDS ORDERED: FOLI1TAB11 PO (07:43)
[2021-03-28] MEDS ORDERED: HOME MED LIST COMPLETE! XX SCH (07:45)
[2021-03-28] MEDS ORDERED: VANCOMYCIN HCL 1,000 MG, VIAL MATE ADAPTER 1 EACH in NS 250 ML IV ONE (08:00)
[2021-03-28] MEDS: IPRATROPIUM 0.5MG/ALBUTEROL 2.5MG INH SOL UD 3ML (DUONEB) NEB SCH ×3 (08:33→20:00)
[2021-03-28 08:35] LABS: D-DIMER QUANT 3067.39 ng/ml (<500)
[2021-03-28] MEDS ORDERED: amLODIPine 5 MG TAB PO SCH (09:00)
[2021-03-28] MEDS ORDERED: CARVedilol 12.5 MG TAB PO SCH (09:00)
[2021-03-28] MEDS: LEVOTHYROXINE 100MCG TABLET (0.1MG) PO SCH (09:05)
[2021-03-28] MEDS: ASPIRIN 81MG ENTERIC TABLET PO SCH (09:05)
[2021-03-28] MEDS ORDERED: VANCOMYCIN HCL 750 MG, VIAL MATE ADAPTER 1 EACH in NS 250 ML IV ONE (09:50)
[2021-03-28 14:24] VITALS: BP 111/53
[2021-03-28 15:00] VITALS: BP 115/56
[2021-03-28 15:14] LABS: ABG BASE EXCESS -2.5 (-2.0-2.0); ABG HCO3 23.2 MEQ/L (22.0-26.0); ABG O2 SATURATION 90.3 % (95.0-99.0); ABG PARTIAL PRESSURE CO2 43.8 mmHg (35.0-45.0); ABG PARTIAL PRESSURE O2 55.8 mmHg (75.0-100.0); ABG STANDARD HCO3 22.2 MEQ/L (22.0-26.0); ABG TOTAL CO2 24.6 MEQ/L (23.0-31.0); ABG pH (ARTERIAL) 7.342 UNITS (7.350-7.450)
[2021-03-28 15:24] LABS: TOTAL PROTEIN,RANDOM URINE 17.3 MG/DL (0.0-12.0)
[2021-03-28 16:15] VITALS: BP 132/61
[2021-03-28] MEDS: DULoxetine 30MG CAPSULE (CYMBALTA) PO SCH (17:04)
[2021-03-28] MEDS: PANTOPRAZOLE 40MG TAB (PROTONIX) PO SCH (17:05)
[2021-03-28] MEDS: VITAMIN D 1,000 INTERNATIONAL UNITS TABLET PO SCH (17:05)
[2021-03-28] MEDS: FOLIC ACID 1 MG TAB PO SCH (17:05)
[2021-03-28] MEDS: DICLOFENAC EPOLAMINE 1.3 % PATCH TOP SCH ×2 (17:21→21:04)
[2021-03-28] MEDS: RIVAROXABAN 15 MG TAB (XARELTO) PO SCH (19:21)
[2021-03-28 19:24] VITALS: BP 114/57
[2021-03-28 21:00] VITALS: BP 120/70
[2021-03-28] MEDS ORDERED: MONTELUKAST 10 MG TAB PO SCH (21:00)
[2021-03-28] MEDS ORDERED: GABAPENTIN 300 MG CAP PO SCH (21:00)
[2021-03-28] MEDS: ATORVASTATIN 20 MG TAB PO SCH (21:04)
[2021-03-28] MEDS: ADVAIR HFA 230/21MCG INHALER INH SCH (21:05)
[2021-03-28] MEDS: cloNIDine 0.1MG TABLET PO SCH (21:09)
[2021-03-28] MEDS: MONTELUKAST 10 MG TAB PO SCH (21:09)
[2021-03-29] VITALS (8 sets, daily range): BP systolic 115–136; BP diastolic 55–77; O2SAT 95
[2021-03-29] MEDS: IPRATROPIUM 0.5MG/ALBUTEROL 2.5MG INH SOL UD 3ML (DUONEB) NEB SCH ×4 (02:24→20:00)
[2021-03-29] MEDS: LEVOTHYROXINE 100MCG TABLET (0.1MG) PO SCH (05:01)
[2021-03-29 06:25] LABS: HEMOGLOBIN 10.2 g/dl (12.0-15.5); MEAN CORPUSCULAR HEMOGLOBIN 27.7 pg (27.0-33.0); MEAN CORPUSCULAR HGB CONC 31.9 g/dl (32.0-36.5); PLATELET COUNT, AUTOMATED 312 10^3/uL (150-450); RED BLOOD COUNT 3.68 10^6/uL (4.00-5.40); WHITE BLOOD COUNT 15.1 10^3/uL (4.0-10.0)
[2021-03-29 06:44] LABS: ALBUMIN 2.5 GM/DL (3.2-5.2); BILIRUBIN,TOTAL 0.3 MG/DL (0.2-1.0); CREATININE FOR GFR 1.35 MG/DL (0.55-1.30); GLOMERULAR FILTRATION RATE 40.9 (>39); POTASSIUM SERUM 4.6 MEQ/L (3.5-5.1); TOTAL PROTEIN 5.8 GM/DL (6.4-8.2)
[2021-03-29 06:48] LABS: MAGNESIUM LEVEL 2.2 MG/DL (1.8-2.4); PHOSPHORUS LEVEL 2.8 MG/DL (2.5-4.9)
[2021-03-29] MEDS: ADVAIR HFA 230/21MCG INHALER INH SCH ×2 (07:29→20:00)
[2021-03-29 08:35] LABS: ABG BASE EXCESS -1.4 (-2.0-2.0); ABG HCO3 22.6 MEQ/L (22.0-26.0); ABG PARTIAL PRESSURE CO2 35.4 mmHg (35.0-45.0); ABG PARTIAL PRESSURE O2 83.3 mmHg (75.0-100.0); ABG STANDARD HCO3 23.3 MEQ/L (22.0-26.0); ABG TOTAL CO2 23.7 MEQ/L (23.0-31.0); ABG pH (ARTERIAL) 7.423 UNITS (7.350-7.450)
[2021-03-29] MEDS ORDERED: predniSONE 20 MG TAB PO SCH (09:00)
[2021-03-29] MEDS ORDERED: VANCOMYCIN HCL 750 MG, VIAL MATE ADAPTER 1 EACH in NS 250 ML IV SCH (09:00)
[2021-03-29] MEDS: DULoxetine 30MG CAPSULE (CYMBALTA) PO SCH (09:23)
[2021-03-29] MEDS: PANTOPRAZOLE 40MG TAB (PROTONIX) PO SCH (09:23)
[2021-03-29] MEDS: ASPIRIN 81MG ENTERIC TABLET PO SCH (09:23)
[2021-03-29] MEDS: METOPROLOL SUCC (TopROL XL) 50MG **XL** TAB PO SCH (09:24)
[2021-03-29] MEDS: VITAMIN D 1,000 INTERNATIONAL UNITS TABLET PO SCH (09:25)
[2021-03-29] MEDS: FOLIC ACID 1 MG TAB PO SCH (09:25)
[2021-03-29] MEDS: cloNIDine 0.1MG TABLET PO SCH ×2 (09:25→21:05)
[2021-03-29] MEDS: DICLOFENAC EPOLAMINE 1.3 % PATCH TOP SCH ×2 (09:26→21:05)
[2021-03-29] MEDS: QUEtiapine FUMARATE 25 MG TAB PO SCH (12:13)
[2021-03-29] MEDS: RIVAROXABAN 15 MG TAB (XARELTO) PO SCH (17:37)
[2021-03-29] MEDS: ATORVASTATIN 20 MG TAB PO SCH (21:05)
[2021-03-29] MEDS: MONTELUKAST 10 MG TAB PO SCH (21:05)
[2021-03-30] MEDS: IPRATROPIUM 0.5MG/ALBUTEROL 2.5MG INH SOL UD 3ML (DUONEB) NEB SCH ×5 (01:16→19:20)
[2021-03-30 05:20] VITALS: BP 153/76
[2021-03-30] MEDS: LEVOTHYROXINE 100MCG TABLET (0.1MG) PO SCH (05:35)
[2021-03-30] MEDS: ADVAIR HFA 230/21MCG INHALER INH SCH ×2 (07:50→19:20)
[2021-03-30 08:53] LABS: HEMATOCRIT 36.4 % (36.0-47.0); HEMOGLOBIN 11.5 g/dl (12.0-15.5); MEAN CORPUSCULAR HEMOGLOBIN 27.6 pg (27.0-33.0); MEAN CORPUSCULAR HGB CONC 31.6 g/dl (32.0-36.5); MEAN CORPUSCULAR VOLUME 87.3 fl (80.0-96.0); PLATELET COUNT, AUTOMATED 392 10^3/uL (150-450); RED BLOOD COUNT 4.17 10^6/uL (4.00-5.40)
[2021-03-30 09:00] VITALS: O2SAT 93
[2021-03-30 09:26] LABS: CALCIUM LEVEL 9.9 MG/DL (8.8-10.2); CREATININE FOR GFR 0.97 MG/DL (0.55-1.30); GLOMERULAR FILTRATION RATE 59.9 (>39); MAGNESIUM LEVEL 2.3 MG/DL (1.8-2.4); PHOSPHORUS LEVEL 2.4 MG/DL (2.5-4.9); POTASSIUM SERUM 4.4 MEQ/L (3.5-5.1)
[2021-03-30] MEDS: FOLIC ACID 1 MG TAB PO SCH (09:38)
[2021-03-30] MEDS: METOPROLOL SUCC (TopROL XL) 50MG **XL** TAB PO SCH (09:39)
[2021-03-30] MEDS: cloNIDine 0.1MG TABLET PO SCH ×2 (09:39→21:35)
[2021-03-30] MEDS: DULoxetine 30MG CAPSULE (CYMBALTA) PO SCH (09:39)
[2021-03-30] MEDS: ASPIRIN 81MG ENTERIC TABLET PO SCH (09:39)
[2021-03-30] MEDS: QUEtiapine FUMARATE 25 MG TAB PO SCH (09:39)
[2021-03-30] MEDS: VITAMIN D 1,000 INTERNATIONAL UNITS TABLET PO SCH (09:39)
[2021-03-30] MEDS: DICLOFENAC EPOLAMINE 1.3 % PATCH TOP SCH ×2 (09:39→21:34)
[2021-03-30] MEDS: PANTOPRAZOLE 40MG TAB (PROTONIX) PO SCH (09:39)
[2021-03-30 14:00] VITALS: BP 121/83
[2021-03-30] MEDS ORDERED: K-PHOS ORIGINAL (POT.ACID PHOSPHATE) 500MG TAB PO ONE (15:00)
[2021-03-30] MEDS: RIVAROXABAN 15 MG TAB (XARELTO) PO SCH (17:00)
[2021-03-30] MEDS: MONTELUKAST 10 MG TAB PO SCH (21:33)
[2021-03-30] MEDS: ATORVASTATIN 20 MG TAB PO SCH (21:33)
[2021-03-30 21:52] VITALS: BP 134/87
[2021-03-30] MEDS ORDERED: ANALGESIC BALM CRM 3OZ TOP PRN (21:55)
[2021-03-30] MEDS: carisoprodoL 350 MG TAB PO PRN (22:24)
[2021-03-30 23:42] LABS: VENOUS BASE EXCESS -2.2 (-2.0-2.0); VENOUS HCO3 21.3 MEQ/L (23.0-27.0); VENOUS O2 SATURATION 98.5 % (60.0-80.0); VENOUS PARTIAL PRESSURE CO2 32.4 mmHg (38.0-50.0); VENOUS PH 7.435 UNITS (7.330-7.430); VENOUS STANDARD HCO3 22.7 MEQ/L; VENOUS TOTAL CO2 22.3 MEQ/L (24.0-28.0)
[2021-03-31] MEDS: IPRATROPIUM 0.5MG/ALBUTEROL 2.5MG INH SOL UD 3ML (DUONEB) NEB SCH ×4 (01:48→20:00)
[2021-03-31] MEDS: LEVOTHYROXINE 100MCG TABLET (0.1MG) PO SCH (05:50)
[2021-03-31] MEDS: carisoprodoL 350 MG TAB PO PRN (05:50)
[2021-03-31 07:08] LABS: HEMATOCRIT 37.9 % (36.0-47.0); HEMOGLOBIN 11.8 g/dl (12.0-15.5); MEAN CORPUSCULAR HEMOGLOBIN 26.9 pg (27.0-33.0); MEAN CORPUSCULAR HGB CONC 31.1 g/dl (32.0-36.5); MEAN CORPUSCULAR VOLUME 86.5 fl (80.0-96.0); PLATELET COUNT, AUTOMATED 417 10^3/uL (150-450); RED BLOOD COUNT 4.38 10^6/uL (4.00-5.40); WHITE BLOOD COUNT 12.6 10^3/uL (4.0-10.0)
[2021-03-31] MEDS: ADVAIR HFA 230/21MCG INHALER INH SCH ×2 (07:40→20:04)
[2021-03-31 07:54] LABS: BLOOD UREA NITROGEN 20 MG/DL (7-18); CALCIUM LEVEL 9.2 MG/DL (8.8-10.2); CARBON DIOXIDE LEVEL 24 MEQ/L (21-32); CHLORIDE LEVEL 110 MEQ/L (98-107); CREATININE FOR GFR 0.95 MG/DL (0.55-1.30); GLOMERULAR FILTRATION RATE > 60.0 (>39); GLUCOSE, FASTING 117 MG/DL (70-100); MAGNESIUM LEVEL 2.1 MG/DL (1.8-2.4); PHOSPHORUS LEVEL 2.9 MG/DL (2.5-4.9); POTASSIUM SERUM 4.1 MEQ/L (3.5-5.1); SODIUM LEVEL 144 MEQ/L (136-145)
[2021-03-31 09:00] VITALS: O2SAT 93
[2021-03-31] MEDS ORDERED: METOPROLOL TART 12.5 MG PER 1/2 TAB PO SCH (09:00)
[2021-03-31] MEDS: DICLOFENAC EPOLAMINE 1.3 % PATCH TOP SCH ×2 (10:08→21:18)
[2021-03-31] MEDS: ASPIRIN 81MG ENTERIC TABLET PO SCH (10:09)
[2021-03-31] MEDS: DULoxetine 30MG CAPSULE (CYMBALTA) PO SCH (10:09)
[2021-03-31] MEDS: QUEtiapine FUMARATE 25 MG TAB PO SCH (10:09)
[2021-03-31] MEDS: ACETAMINOPHEN TAB 650MG DOSE (2X325MG) PO PRN (10:09)
[2021-03-31] MEDS: FOLIC ACID 1 MG TAB PO SCH (10:10)
[2021-03-31] MEDS: PANTOPRAZOLE 40MG TAB (PROTONIX) PO SCH (10:10)
[2021-03-31 10:20] VITALS: BP 174/110
[2021-03-31] MEDS: VITAMIN D 1,000 INTERNATIONAL UNITS TABLET PO SCH (10:23)
[2021-03-31] MEDS: cloNIDine 0.1MG TABLET PO SCH ×2 (10:25→21:17)
[2021-03-31] MEDS: METOPROLOL SUCC (TopROL XL) 50MG **XL** TAB PO SCH (10:25)
[2021-03-31 11:40] VITALS: BP 135/69
[2021-03-31 14:00] VITALS: BP 127/69
[2021-03-31] MEDS: RIVAROXABAN 15 MG TAB (XARELTO) PO SCH (18:11)
[2021-03-31] MEDS: MONTELUKAST 10 MG TAB PO SCH (21:17)
[2021-03-31] MEDS: ATORVASTATIN 20 MG TAB PO SCH (21:18)
[2021-03-31 22:00] VITALS: BP 141/95
[2021-04-01] MEDS: IPRATROPIUM 0.5MG/ALBUTEROL 2.5MG INH SOL UD 3ML (DUONEB) NEB SCH ×4 (02:19→20:00)
[2021-04-01 06:00] VITALS: BP 140/112
[2021-04-01] MEDS: LEVOTHYROXINE 100MCG TABLET (0.1MG) PO SCH (06:41)
[2021-04-01] MEDS: ADVAIR HFA 230/21MCG INHALER INH SCH ×2 (07:39→20:15)
[2021-04-01] MEDS: DICLOFENAC EPOLAMINE 1.3 % PATCH TOP SCH ×2 (10:20→21:28)
[2021-04-01] MEDS: DULoxetine 30MG CAPSULE (CYMBALTA) PO SCH (10:21)
[2021-04-01] MEDS: ASPIRIN 81MG ENTERIC TABLET PO SCH (10:22)
[2021-04-01] MEDS: FOLIC ACID 1 MG TAB PO SCH (10:22)
[2021-04-01] MEDS: cloNIDine 0.1MG TABLET PO SCH ×2 (10:24→21:28)
[2021-04-01] MEDS: VITAMIN D 1,000 INTERNATIONAL UNITS TABLET PO SCH (10:24)
[2021-04-01] MEDS: PANTOPRAZOLE 40MG TAB (PROTONIX) PO SCH (10:25)
[2021-04-01] MEDS: METOPROLOL SUCC (TopROL XL) 50MG **XL** TAB PO SCH (10:25)
[2021-04-01] MEDS: carisoprodoL 350 MG TAB PO PRN (10:31)
[2021-04-01] MEDS: ACETAMINOPHEN TAB 650MG DOSE (2X325MG) PO PRN (10:31)
[2021-04-01] MEDS: FUROSEMIDE 80 MG TAB PO SCH (12:09)
[2021-04-01] MEDS: LOSARTAN 50MG TABLET PO SCH (12:10)
[2021-04-01 14:00] VITALS: BP 160/87
[2021-04-01] MEDS: RIVAROXABAN 15 MG TAB (XARELTO) PO SCH (18:28)
[2021-04-01] MEDS: MONTELUKAST 10 MG TAB PO SCH (21:27)
[2021-04-01] MEDS: ATORVASTATIN 20 MG TAB PO SCH (21:28)
[2021-04-01 22:00] VITALS: BP 163/93
[2021-04-02] MEDS: IPRATROPIUM 0.5MG/ALBUTEROL 2.5MG INH SOL UD 3ML (DUONEB) NEB SCH ×4 (00:59→20:00)
[2021-04-02 06:00] VITALS: BP 167/99
[2021-04-02] MEDS: LEVOTHYROXINE 100MCG TABLET (0.1MG) PO SCH (06:01)
[2021-04-02 07:27] LABS: HEMATOCRIT 38.6 % (36.0-47.0); HEMOGLOBIN 12.3 g/dl (12.0-15.5); MEAN CORPUSCULAR HEMOGLOBIN 27.4 pg (27.0-33.0); MEAN CORPUSCULAR HGB CONC 31.9 g/dl (32.0-36.5); PLATELET COUNT, AUTOMATED 446 10^3/uL (150-450); RED BLOOD COUNT 4.49 10^6/uL (4.00-5.40); WHITE BLOOD COUNT 12.2 10^3/uL (4.0-10.0)
[2021-04-02] MEDS: ADVAIR HFA 230/21MCG INHALER INH SCH ×2 (07:42→20:31)
[2021-04-02] MEDS: cloNIDine 0.1MG TABLET PO SCH ×2 (07:47→20:40)
[2021-04-02] MEDS: FUROSEMIDE 80 MG TAB PO SCH (07:47)
[2021-04-02] MEDS: LOSARTAN 50MG TABLET PO SCH (07:48)
[2021-04-02] MEDS: DULoxetine 30MG CAPSULE (CYMBALTA) PO SCH (07:48)
[2021-04-02] MEDS: VITAMIN D 1,000 INTERNATIONAL UNITS TABLET PO SCH (07:49)
[2021-04-02] MEDS: PANTOPRAZOLE 40MG TAB (PROTONIX) PO SCH (07:49)
[2021-04-02] MEDS: FOLIC ACID 1 MG TAB PO SCH (07:49)
[2021-04-02] MEDS: ASPIRIN 81MG ENTERIC TABLET PO SCH (07:49)
[2021-04-02] MEDS: amLODIPine 5 MG TAB PO SCH (07:49)
[2021-04-02] MEDS: DICLOFENAC EPOLAMINE 1.3 % PATCH TOP SCH ×2 (07:50→20:40)
[2021-04-02 07:51] LABS: CALCIUM LEVEL 9.2 MG/DL (8.8-10.2); CREATININE FOR GFR 1.43 MG/DL (0.55-1.30); GLOMERULAR FILTRATION RATE 38.3 (>39); MAGNESIUM LEVEL 2.1 MG/DL (1.8-2.4); PHOSPHORUS LEVEL 3.4 MG/DL (2.5-4.9); POTASSIUM SERUM 3.6 MEQ/L (3.5-5.1)
[2021-04-02] MEDS ORDERED: METOPROLOL SUCC *XL* 25MG TAB (TopROL *XL*) PO SCH (09:00)
[2021-04-02 14:00] VITALS: BP 139/82
[2021-04-02] MEDS: RIVAROXABAN 15 MG TAB (XARELTO) PO SCH (18:10)
[2021-04-02] MEDS: ATORVASTATIN 20 MG TAB PO SCH (20:40)
[2021-04-02] MEDS: MONTELUKAST 10 MG TAB PO SCH (20:40)
[2021-04-02 22:00] VITALS: BP 140/84
[2021-04-02 22:22] VITALS: O2SAT 92
[2021-04-03] VITALS (9 sets, daily range): BP systolic 139–179; BP diastolic 69–100
[2021-04-03] MEDS: IPRATROPIUM 0.5MG/ALBUTEROL 2.5MG INH SOL UD 3ML (DUONEB) NEB SCH ×4 (02:00→19:51)
[2021-04-03] MEDS: METOPROLOL SUCC *XL* 25MG TAB (TopROL *XL*) PO SCH ×2 (04:25→04:46)
[2021-04-03] MEDS: METOPROLOL 5 MG/5 ML VIAL IV SCH ×4 (05:10→05:41)
[2021-04-03] MEDS: LEVOTHYROXINE 100MCG TABLET (0.1MG) PO SCH (05:35)
[2021-04-03] MEDS: ADVAIR HFA 230/21MCG INHALER INH SCH ×2 (07:20→19:51)
[2021-04-03] MEDS: cloNIDine 0.1MG TABLET PO SCH ×2 (08:19→20:45)
[2021-04-03] MEDS: DULoxetine 30MG CAPSULE (CYMBALTA) PO SCH (08:19)
[2021-04-03] MEDS: PANTOPRAZOLE 40MG TAB (PROTONIX) PO SCH (08:20)
[2021-04-03] MEDS: FOLIC ACID 1 MG TAB PO SCH (08:20)
[2021-04-03] MEDS: VITAMIN D 1,000 INTERNATIONAL UNITS TABLET PO SCH (08:20)
[2021-04-03] MEDS: ASPIRIN 81MG ENTERIC TABLET PO SCH (08:23)
[2021-04-03] MEDS: amLODIPine 5 MG TAB PO SCH (08:24)
[2021-04-03] MEDS: DICLOFENAC EPOLAMINE 1.3 % PATCH TOP SCH ×2 (09:00→20:45)
[2021-04-03 09:08] LABS: VENOUS BASE EXCESS 1.8 (-2.0-2.0); VENOUS HCO3 25.7 MEQ/L (23.0-27.0); VENOUS O2 SATURATION 91.6 % (60.0-80.0); VENOUS PARTIAL PRESSURE CO2 37.8 mmHg (38.0-50.0); VENOUS PARTIAL PRESSURE O2 64.6 mmHg (30.0-50.0); VENOUS STANDARD HCO3 25.9 MEQ/L; VENOUS TOTAL CO2 26.8 MEQ/L (24.0-28.0)
[2021-04-03 09:12] LABS: BASO % 0.3 % (0.0-1.0); EOS # 0.4 10^3/uL (0.0-0.5); EOS % 2.9 % (0.0-3.0); HEMATOCRIT 37.6 % (36.0-47.0); LYMPH # 1.6 10^3/uL (1.5-5.0); LYMPH % 11.7 % (24.0-44.0); MEAN CORPUSCULAR HEMOGLOBIN 27.1 pg (27.0-33.0); MEAN CORPUSCULAR HGB CONC 31.9 g/dl (32.0-36.5); MEAN CORPUSCULAR VOLUME 85.1 fl (80.0-96.0); MONO # 0.9 10^3/uL (0.0-0.8); MONO % 6.6 % (2.0-8.0); NEUTROPHILS # 10.3 10^3/uL (1.5-8.5); NEUTROPHILS % 77.8 % (36.0-66.0); PLATELET COUNT, AUTOMATED 456 10^3/uL (150-450); RED BLOOD COUNT 4.42 10^6/uL (4.00-5.40); WHITE BLOOD COUNT 13.2 10^3/uL (4.0-10.0)
[2021-04-03 09:38] LABS: CALCIUM LEVEL 9.1 MG/DL (8.8-10.2); CREATININE FOR GFR 1.28 MG/DL (0.55-1.30); GLOMERULAR FILTRATION RATE 43.5 (>39); PHOSPHORUS LEVEL 3.3 MG/DL (2.5-4.9); POTASSIUM SERUM 3.5 MEQ/L (3.5-5.1)
[2021-04-03] MEDS: ACETAMINOPHEN TAB 650MG DOSE (2X325MG) PO PRN (15:57)
[2021-04-03] MEDS: LOSARTAN 50MG TABLET PO SCH (15:57)
[2021-04-03] MEDS: RIVAROXABAN 15 MG TAB (XARELTO) PO SCH (18:34)
[2021-04-03] MEDS: MONTELUKAST 10 MG TAB PO SCH (20:45)
[2021-04-03] MEDS: ATORVASTATIN 20 MG TAB PO SCH (20:45)
[2021-04-04] MEDS: IPRATROPIUM 0.5MG/ALBUTEROL 2.5MG INH SOL UD 3ML (DUONEB) NEB SCH ×4 (01:25→20:00)
[2021-04-04] MEDS: LEVOTHYROXINE 100MCG TABLET (0.1MG) PO SCH (05:50)
[2021-04-04] MEDS: ACETAMINOPHEN TAB 650MG DOSE (2X325MG) PO PRN (05:50)
[2021-04-04 06:00] VITALS: BP 130/83
[2021-04-04] MEDS: ADVAIR HFA 230/21MCG INHALER INH SCH ×2 (07:12→20:00)
[2021-04-04] MEDS: DICLOFENAC EPOLAMINE 1.3 % PATCH TOP SCH ×2 (10:31→21:18)
[2021-04-04] MEDS: PANTOPRAZOLE 40MG TAB (PROTONIX) PO SCH (10:31)
[2021-04-04] MEDS: VITAMIN D 1,000 INTERNATIONAL UNITS TABLET PO SCH (10:31)
[2021-04-04] MEDS: ASPIRIN 81MG ENTERIC TABLET PO SCH (10:31)
[2021-04-04] MEDS: DULoxetine 30MG CAPSULE (CYMBALTA) PO SCH (10:31)
[2021-04-04] MEDS: FOLIC ACID 1 MG TAB PO SCH (10:32)
[2021-04-04] MEDS: cloNIDine 0.1MG TABLET PO SCH ×3 (10:38→21:19)
[2021-04-04] MEDS: LOSARTAN 50MG TABLET PO SCH (10:39)
[2021-04-04] MEDS: amLODIPine 5 MG TAB PO SCH (10:39)
[2021-04-04] MEDS: METOPROLOL SUCC *XL* 25MG TAB (TopROL *XL*) PO SCH (10:40)
[2021-04-04] MEDS: rOPINIRole 1MG TAB PO PRN (10:43)
[2021-04-04] MEDS ORDERED: OLANZapine 2.5MG TABLET PO ONE (14:00)
[2021-04-04] MEDS: RIVAROXABAN 15 MG TAB (XARELTO) PO SCH (18:47)
[2021-04-04 20:09] VITALS: BP 156/111
[2021-04-04] MEDS: OLANZapine 2.5MG TABLET PO SCH ×2 (21:00→21:20)
[2021-04-04] MEDS: MONTELUKAST 10 MG TAB PO SCH ×2 (21:00→21:19)
[2021-04-04] MEDS: ATORVASTATIN 20 MG TAB PO SCH ×2 (21:00→21:19)
[2021-04-04] MEDS ORDERED: cloNIDine HCL 0.1 MG/24 HR PATCH TOP ONE (21:45)
[2021-04-05] MEDS: IPRATROPIUM 0.5MG/ALBUTEROL 2.5MG INH SOL UD 3ML (DUONEB) NEB SCH ×4 (01:40→19:58)
[2021-04-05 06:00] VITALS: BP 162/110
[2021-04-05] MEDS: LEVOTHYROXINE 100MCG TABLET (0.1MG) PO SCH (06:00)
[2021-04-05] MEDS: ADVAIR HFA 230/21MCG INHALER INH SCH ×2 (08:00→19:58)
[2021-04-05 09:00] VITALS: BP 188/106
[2021-04-05] MEDS: FOLIC ACID 1 MG TAB PO SCH (09:00)
[2021-04-05] MEDS: VITAMIN D 1,000 INTERNATIONAL UNITS TABLET PO SCH (09:00)
[2021-04-05] MEDS: OLANZapine 2.5MG TABLET PO SCH ×3 (09:00→21:00)
[2021-04-05] MEDS: METOPROLOL SUCC *XL* 25MG TAB (TopROL *XL*) PO SCH (09:00)
[2021-04-05] MEDS: ASPIRIN 81MG ENTERIC TABLET PO SCH (09:00)
[2021-04-05] MEDS: LOSARTAN 50MG TABLET PO SCH (09:00)
[2021-04-05] MEDS: DULoxetine 30MG CAPSULE (CYMBALTA) PO SCH (09:00)
[2021-04-05] MEDS: amLODIPine 5 MG TAB PO SCH (09:00)
[2021-04-05] MEDS: PANTOPRAZOLE 40MG TAB (PROTONIX) PO SCH (09:00)
[2021-04-05] MEDS: DICLOFENAC EPOLAMINE 1.3 % PATCH TOP SCH ×2 (11:15→22:03)
[2021-04-05] MEDS: D5W/0.45% SODIUM CHLORIDE 1,000 ML IV SCH ×2 (11:15→22:03)
[2021-04-05] MEDS: NYSTATIN 100,000 UNITS/GM TOPICAL PWD 15 GM TOP SCH (14:53)
[2021-04-05 15:25] VITALS: BP 168/108
[2021-04-05] MEDS: RIVAROXABAN 15 MG TAB (XARELTO) PO SCH (18:00)
[2021-04-05] MEDS: MONTELUKAST 10 MG TAB PO SCH (21:00)
[2021-04-05] MEDS: ATORVASTATIN 20 MG TAB PO SCH (21:00)
[2021-04-05 22:00] VITALS: BP 157/98
[2021-04-05] MEDS ORDERED: cloNIDine HCL 0.2 MG/24 HR PATCH TOP SCH (23:00)
[2021-04-06] MEDS: IPRATROPIUM 0.5MG/ALBUTEROL 2.5MG INH SOL UD 3ML (DUONEB) NEB SCH ×4 (01:25→20:00)
[2021-04-06] MEDS: LEVOTHYROXINE 100MCG TABLET (0.1MG) PO SCH (05:35)
[2021-04-06 06:00] VITALS: BP 160/75
[2021-04-06] MEDS: ADVAIR HFA 230/21MCG INHALER INH SCH ×2 (07:42→20:00)
[2021-04-06] MEDS: amLODIPine 5 MG TAB PO SCH (09:00)
[2021-04-06] MEDS: LOSARTAN 50MG TABLET PO SCH (09:00)
[2021-04-06] MEDS: VITAMIN D 1,000 INTERNATIONAL UNITS TABLET PO SCH (09:00)
[2021-04-06] MEDS: METOPROLOL SUCC *XL* 25MG TAB (TopROL *XL*) PO SCH (09:00)
[2021-04-06] MEDS: PANTOPRAZOLE 40MG TAB (PROTONIX) PO SCH (09:00)
[2021-04-06] MEDS: FOLIC ACID 1 MG TAB PO SCH (09:00)
[2021-04-06] MEDS: ASPIRIN 81MG ENTERIC TABLET PO SCH (09:00)
[2021-04-06] MEDS: OLANZapine 2.5MG TABLET PO SCH (09:00)
[2021-04-06] MEDS: D5W/0.45% SODIUM CHLORIDE 1,000 ML IV SCH (09:00)
[2021-04-06] MEDS: DULoxetine 30MG CAPSULE (CYMBALTA) PO SCH (09:00)
[2021-04-06 09:23] LABS: HEMATOCRIT 43.1 % (36.0-47.0); HEMOGLOBIN 13.3 g/dl (12.0-15.5); MEAN CORPUSCULAR HEMOGLOBIN 26.9 pg (27.0-33.0); MEAN CORPUSCULAR HGB CONC 30.9 g/dl (32.0-36.5); MEAN CORPUSCULAR VOLUME 87.2 fl (80.0-96.0); PLATELET COUNT, AUTOMATED 436 10^3/uL (150-450); RED BLOOD COUNT 4.94 10^6/uL (4.00-5.40); WHITE BLOOD COUNT 13.9 10^3/uL (4.0-10.0)
[2021-04-06] MEDS: DICLOFENAC EPOLAMINE 1.3 % PATCH TOP SCH ×2 (09:39→20:54)
[2021-04-06] MEDS: NYSTATIN 100,000 UNITS/GM TOPICAL PWD 15 GM TOP SCH (09:39)
[2021-04-06 09:43] LABS: CALCIUM LEVEL 9.1 MG/DL (8.8-10.2); CREATININE FOR GFR 1.39 MG/DL (0.55-1.30); GLOMERULAR FILTRATION RATE 39.6 (>39); POTASSIUM SERUM 3.8 MEQ/L (3.5-5.1)
[2021-04-06] MEDS: D5W/0.2% SODIUM CHLORIDE 1,000 ML IV SCH ×2 (10:53→21:49)
[2021-04-06 14:20] VITALS: BP 154/84
[2021-04-06] MEDS ORDERED: HALOPERIDOL 5MG/ML VIAL (J1630 PER 1) IM ONE (15:45)
[2021-04-06] MEDS: RIVAROXABAN 15 MG TAB (XARELTO) PO SCH (17:39)
[2021-04-06] MEDS: HALOPERIDOL 5MG/ML VIAL (J1630 PER 1) IM SCH ×2 (17:39→23:36)
[2021-04-06] MEDS: MONTELUKAST 10 MG TAB PO SCH (21:00)
[2021-04-06] MEDS: ATORVASTATIN 20 MG TAB PO SCH (21:00)
[2021-04-06 22:00] VITALS: BP 167/86
[2021-04-07] MEDS: IPRATROPIUM 0.5MG/ALBUTEROL 2.5MG INH SOL UD 3ML (DUONEB) NEB SCH ×4 (01:20→20:00)
[2021-04-07] MEDS: HALOPERIDOL 5MG/ML VIAL (J1630 PER 1) IM SCH ×2 (05:39→12:05)
[2021-04-07] MEDS: LEVOTHYROXINE 100MCG TABLET (0.1MG) PO SCH (05:40)
[2021-04-07 06:00] VITALS: BP 169/89
[2021-04-07] MEDS: D5W/0.2% SODIUM CHLORIDE 1,000 ML IV SCH (06:09)
[2021-04-07 06:45] LABS: HEMATOCRIT 40.9 % (36.0-47.0); HEMOGLOBIN 12.7 g/dl (12.0-15.5); MEAN CORPUSCULAR HEMOGLOBIN 26.8 pg (27.0-33.0); MEAN CORPUSCULAR HGB CONC 31.1 g/dl (32.0-36.5); MEAN CORPUSCULAR VOLUME 86.3 fl (80.0-96.0); PLATELET COUNT, AUTOMATED 426 10^3/uL (150-450); RED BLOOD COUNT 4.74 10^6/uL (4.00-5.40); WHITE BLOOD COUNT 17.4 10^3/uL (4.0-10.0)
[2021-04-07] MEDS: ADVAIR HFA 230/21MCG INHALER INH SCH ×2 (07:03→20:00)
[2021-04-07 07:06] LABS: CALCIUM LEVEL 8.8 MG/DL (8.8-10.2); CREATININE FOR GFR 1.2 MG/DL (0.55-1.30); GLOMERULAR FILTRATION RATE 46.9 (>39); MAGNESIUM LEVEL 1.9 MG/DL (1.8-2.4); PHOSPHORUS LEVEL 2.8 MG/DL (2.5-4.9); POTASSIUM SERUM 3.1 MEQ/L (3.5-5.1)
[2021-04-07] MEDS: VITAMIN D 1,000 INTERNATIONAL UNITS TABLET PO SCH (09:00)
[2021-04-07] MEDS: METOPROLOL SUCC *XL* 25MG TAB (TopROL *XL*) PO SCH ×2 (09:00→09:33)
[2021-04-07] MEDS: DULoxetine 30MG CAPSULE (CYMBALTA) PO SCH (09:00)
[2021-04-07] MEDS: amLODIPine 5 MG TAB PO SCH (09:00)
[2021-04-07] MEDS: LOSARTAN 50MG TABLET PO SCH (09:00)
[2021-04-07] MEDS: PANTOPRAZOLE 40MG TAB (PROTONIX) PO SCH (09:00)
[2021-04-07] MEDS: ASPIRIN 81MG ENTERIC TABLET PO SCH (09:00)
[2021-04-07] MEDS: FOLIC ACID 1 MG TAB PO SCH (09:00)
[2021-04-07] MEDS: DICLOFENAC EPOLAMINE 1.3 % PATCH TOP SCH ×3 (10:00→20:52)
[2021-04-07] MEDS: NYSTATIN 100,000 UNITS/GM TOPICAL PWD 15 GM TOP SCH (10:04)
[2021-04-07] MEDS: KCL 20MEQ IN D5W 1000ML 1,000 ML IV SCH (10:33)
[2021-04-07] MEDS: RIVAROXABAN 15 MG TAB (XARELTO) PO SCH (17:13)
[2021-04-07] MEDS: MONTELUKAST 10 MG TAB PO SCH (20:52)
[2021-04-07] MEDS: ATORVASTATIN 20 MG TAB PO SCH (20:52)
[2021-04-07] MEDS ORDERED: HALOPERIDOL 5MG/ML VIAL (J1630 PER 1) IV PRN (22:15)
[2021-04-07] MEDS ORDERED: HALOPERIDOL 5MG/ML VIAL (J1630 PER 1) IM PRN (23:35)
[2021-04-08] MEDS: KCL 20MEQ IN D5W 1000ML 1,000 ML IV SCH ×2 (00:44→17:10)
[2021-04-08] MEDS: IPRATROPIUM 0.5MG/ALBUTEROL 2.5MG INH SOL UD 3ML (DUONEB) NEB SCH ×4 (01:53→17:45)
[2021-04-08] MEDS: LEVOTHYROXINE 100MCG TABLET (0.1MG) PO SCH (05:53)
[2021-04-08] MEDS: ADVAIR HFA 230/21MCG INHALER INH SCH ×2 (07:14→17:45)
[2021-04-08] MEDS: VITAMIN D 1,000 INTERNATIONAL UNITS TABLET PO SCH (09:00)
[2021-04-08] MEDS: DICLOFENAC EPOLAMINE 1.3 % PATCH TOP SCH ×2 (10:00→20:29)
[2021-04-08] MEDS: FOLIC ACID 1 MG TAB PO SCH (10:00)
[2021-04-08] MEDS: METOPROLOL SUCC *XL* 25MG TAB (TopROL *XL*) PO SCH (10:00)
[2021-04-08] MEDS: LOSARTAN 50MG TABLET PO SCH (10:00)
[2021-04-08] MEDS: NYSTATIN 100,000 UNITS/GM TOPICAL PWD 15 GM TOP SCH (10:00)
[2021-04-08] MEDS: DULoxetine 30MG CAPSULE (CYMBALTA) PO SCH (10:00)
[2021-04-08] MEDS: ASPIRIN 81MG ENTERIC TABLET PO SCH (10:00)
[2021-04-08] MEDS: amLODIPine 5 MG TAB PO SCH (10:00)
[2021-04-08] MEDS: PANTOPRAZOLE 40MG TAB (PROTONIX) PO SCH (10:00)
[2021-04-08] MEDS ORDERED: HALOPERIDOL 5MG/ML VIAL (J1630 PER 1) IM PRN ×2 (11:25)
[2021-04-08 11:44] LABS: HEMATOCRIT 46.4 % (36.0-47.0); HEMOGLOBIN 14.6 g/dl (12.0-15.5); MEAN CORPUSCULAR HEMOGLOBIN 27.1 pg (27.0-33.0); MEAN CORPUSCULAR HGB CONC 31.5 g/dl (32.0-36.5); MEAN CORPUSCULAR VOLUME 86.1 fl (80.0-96.0); PLATELET COUNT, AUTOMATED 366 10^3/uL (150-450); RED BLOOD COUNT 5.39 10^6/uL (4.00-5.40); WHITE BLOOD COUNT 21.1 10^3/uL (4.0-10.0)
[2021-04-08] MEDS ORDERED: HALOPERIDOL 5MG/ML VIAL (J1630 PER 1) IM ONE (12:00)
[2021-04-08 12:05] LABS: CALCIUM LEVEL 9.4 MG/DL (8.8-10.2); CREATININE FOR GFR 1.14 MG/DL (0.55-1.30); GLOMERULAR FILTRATION RATE 49.7 (>39); POTASSIUM SERUM 3.2 MEQ/L (3.5-5.1)
[2021-04-08] MEDS: RIVAROXABAN 15 MG TAB (XARELTO) PO SCH (18:00)
[2021-04-08] MEDS ORDERED: POTASSIUM CHL PWD 20 MEQ PACKET PO ONE (19:10)
[2021-04-08] MEDS: ATORVASTATIN 20 MG TAB PO SCH (20:28)
[2021-04-08] MEDS: MONTELUKAST 10 MG TAB PO SCH (20:29)
[2021-04-09] MEDS: IPRATROPIUM 0.5MG/ALBUTEROL 2.5MG INH SOL UD 3ML (DUONEB) NEB SCH ×4 (02:00→19:54)
[2021-04-09] MEDS: KCL 20MEQ IN D5W 1000ML 1,000 ML IV SCH (03:45)
[2021-04-09] MEDS: LEVOTHYROXINE 100MCG TABLET (0.1MG) PO SCH (05:33)
[2021-04-09 08:16] LABS: HEMATOCRIT 45.4 % (36.0-47.0); HEMOGLOBIN 14.2 g/dl (12.0-15.5); MEAN CORPUSCULAR HEMOGLOBIN 27.3 pg (27.0-33.0); MEAN CORPUSCULAR HGB CONC 31.3 g/dl (32.0-36.5); MEAN CORPUSCULAR VOLUME 87.1 fl (80.0-96.0); PLATELET COUNT, AUTOMATED 443 10^3/uL (150-450); RED BLOOD COUNT 5.21 10^6/uL (4.00-5.40); WHITE BLOOD COUNT 21.7 10^3/uL (4.0-10.0)
[2021-04-09] MEDS: ADVAIR HFA 230/21MCG INHALER INH SCH ×2 (08:45→19:53)
[2021-04-09] MEDS: DULoxetine 30MG CAPSULE (CYMBALTA) PO SCH (09:07)
[2021-04-09] MEDS: DICLOFENAC EPOLAMINE 1.3 % PATCH TOP SCH ×2 (09:07→20:50)
[2021-04-09] MEDS: ASPIRIN 81MG ENTERIC TABLET PO SCH (09:07)
[2021-04-09] MEDS: VITAMIN D 1,000 INTERNATIONAL UNITS TABLET PO SCH (09:08)
[2021-04-09] MEDS: FOLIC ACID 1 MG TAB PO SCH (09:08)
[2021-04-09] MEDS: LOSARTAN 50MG TABLET PO SCH (09:08)
[2021-04-09] MEDS: PANTOPRAZOLE 40MG TAB (PROTONIX) PO SCH (09:09)
[2021-04-09] MEDS: METOPROLOL SUCC *XL* 25MG TAB (TopROL *XL*) PO SCH (09:09)
[2021-04-09] MEDS: amLODIPine 5 MG TAB PO SCH (09:09)
[2021-04-09] MEDS: NYSTATIN 100,000 UNITS/GM TOPICAL PWD 15 GM TOP SCH (09:10)
[2021-04-09 11:02] LABS: CALCIUM LEVEL 9.3 MG/DL (8.8-10.2); CREATININE FOR GFR 1.29 MG/DL (0.55-1.30); GLOMERULAR FILTRATION RATE 43.1 (>39); MAGNESIUM LEVEL 1.8 MG/DL (1.8-2.4); POTASSIUM SERUM 4.2 MEQ/L (3.5-5.1)
[2021-04-09] MEDS: D5W 1,000 ML IV SCH (11:15)
[2021-04-09 14:00] VITALS: BP 115/84
[2021-04-09] MEDS: RIVAROXABAN 15 MG TAB (XARELTO) PO SCH (17:57)
[2021-04-09 20:41] VITALS: BP 119/81
[2021-04-09] MEDS: ACETAMINOPHEN TAB 650MG DOSE (2X325MG) PO PRN (20:49)
[2021-04-09] MEDS: MONTELUKAST 10 MG TAB PO SCH (20:49)
[2021-04-09] MEDS: ATORVASTATIN 20 MG TAB PO SCH (20:49)
[2021-04-10] MEDS: IPRATROPIUM 0.5MG/ALBUTEROL 2.5MG INH SOL UD 3ML (DUONEB) NEB SCH ×4 (01:59→20:15)
[2021-04-10] MEDS: D5W 1,000 ML IV SCH (03:55)
[2021-04-10 05:15] VITALS: BP 125/78
[2021-04-10] MEDS: LEVOTHYROXINE 100MCG TABLET (0.1MG) PO SCH (05:40)
[2021-04-10 06:05] LABS: HEMOGLOBIN 13.2 g/dl (12.0-15.5); MEAN CORPUSCULAR HGB CONC 30.7 g/dl (32.0-36.5); MEAN CORPUSCULAR VOLUME 87.9 fl (80.0-96.0); PLATELET COUNT, AUTOMATED 402 10^3/uL (150-450); RED BLOOD COUNT 4.89 10^6/uL (4.00-5.40); WHITE BLOOD COUNT 17.8 10^3/uL (4.0-10.0)
[2021-04-10 06:21] LABS: CALCIUM LEVEL 8.8 MG/DL (8.8-10.2); CREATININE FOR GFR 1.26 MG/DL (0.55-1.30); GLOMERULAR FILTRATION RATE 44.3 (>39); MAGNESIUM LEVEL 1.6 MG/DL (1.8-2.4); POTASSIUM SERUM 3.1 MEQ/L (3.5-5.1)
[2021-04-10] MEDS: ADVAIR HFA 230/21MCG INHALER INH SCH (07:25)
[2021-04-10] MEDS: LACTOBACILLUS ACIDOPHILUS CAP (BACID) PO SCH ×2 (08:00→18:00)
[2021-04-10] MEDS ORDERED: POTASSIUM CHLORIDE 10MEQ SR TABLET PO ONE (08:35)
[2021-04-10] MEDS: VITAMIN D 1,000 INTERNATIONAL UNITS TABLET PO SCH (09:00)
[2021-04-10] MEDS: MAGNESIUM OXIDE 400MG TAB (MAG-OX) PO SCH ×2 (09:00→21:26)
[2021-04-10] MEDS: DULoxetine 30MG CAPSULE (CYMBALTA) PO SCH (09:00)
[2021-04-10] MEDS: ASPIRIN 81MG ENTERIC TABLET PO SCH (09:00)
[2021-04-10] MEDS: NYSTATIN 100,000 UNITS/GM TOPICAL PWD 15 GM TOP SCH (09:00)
[2021-04-10] MEDS: METOPROLOL SUCC *XL* 25MG TAB (TopROL *XL*) PO SCH (09:00)
[2021-04-10] MEDS: amLODIPine 5 MG TAB PO SCH (09:00)
[2021-04-10] MEDS: PANTOPRAZOLE 40MG TAB (PROTONIX) PO SCH (09:00)
[2021-04-10] MEDS: LOSARTAN 50MG TABLET PO SCH (09:00)
[2021-04-10] MEDS: DICLOFENAC EPOLAMINE 1.3 % PATCH TOP SCH ×2 (09:00→21:26)
[2021-04-10] MEDS ORDERED: MAG SULF 1GM/100ML (MAG RUN) 1 GM in IV 1 EA IV ONE (09:00)
[2021-04-10] MEDS: FOLIC ACID 1 MG TAB PO SCH (09:00)
[2021-04-10] MEDS ORDERED: KCL 20MEQ IN 0.45NS 1000ML 1,000 ML IV SCH (10:00)
[2021-04-10] MEDS: CLINDAMYCIN 600 MG in IV 1 EA IV SCH ×2 (10:00→18:00)
[2021-04-10] MEDS ORDERED: LevoFLOXacin IV 750 MG in IV 1 EA IV SCH (11:00)
[2021-04-10 14:00] VITALS: BP 132/90
[2021-04-10] MEDS ORDERED: LIDOCAINE 1% MDV 20ML VIAL As Ordered ONE (15:05)
[2021-04-10] MEDS ORDERED: LevoFLOXacin 750 MG TABLET PO SCH (18:00)
[2021-04-10] MEDS: RIVAROXABAN 15 MG TAB (XARELTO) PO SCH (18:10)
[2021-04-10] MEDS: metroNIDAZOLE (FLAGYL) 500MG TABLET PO SCH (21:25)
[2021-04-10] MEDS: OLANZapine 2.5MG TABLET PO SCH (21:25)
[2021-04-10] MEDS: ATORVASTATIN 20 MG TAB PO SCH (21:25)
[2021-04-10] MEDS: MONTELUKAST 10 MG TAB PO SCH (21:26)
[2021-04-10] MEDS: ACETAMINOPHEN TAB 650MG DOSE (2X325MG) PO PRN (21:26)
[2021-04-10 22:00] VITALS: BP 140/96
[2021-04-11] MEDS: metroNIDAZOLE (FLAGYL) 500MG TABLET PO SCH ×4 (05:44→21:06)
[2021-04-11] MEDS: LEVOTHYROXINE 100MCG TABLET (0.1MG) PO SCH ×2 (05:44→05:48)
[2021-04-11 06:00] VITALS: BP 178/96
[2021-04-11 06:16] LABS: HEMATOCRIT 38.8 % (36.0-47.0); HEMOGLOBIN 11.9 g/dl (12.0-15.5); MEAN CORPUSCULAR HEMOGLOBIN 26.7 pg (27.0-33.0); MEAN CORPUSCULAR HGB CONC 30.7 g/dl (32.0-36.5); PLATELET COUNT, AUTOMATED 404 10^3/uL (150-450); RED BLOOD COUNT 4.46 10^6/uL (4.00-5.40); WHITE BLOOD COUNT 16.6 10^3/uL (4.0-10.0)
[2021-04-11 06:44] LABS: CALCIUM LEVEL 9.1 MG/DL (8.8-10.2); CREATININE FOR GFR 1.05 MG/DL (0.55-1.30); GLOMERULAR FILTRATION RATE 54.7 (>39); MAGNESIUM LEVEL 1.7 MG/DL (1.8-2.4); POTASSIUM SERUM 3.8 MEQ/L (3.5-5.1)
[2021-04-11] MEDS: LACTOBACILLUS ACIDOPHILUS CAP (BACID) PO SCH ×2 (08:00→18:00)
[2021-04-11] MEDS: IPRATROPIUM 0.5MG/ALBUTEROL 2.5MG INH SOL UD 3ML (DUONEB) NEB SCH ×3 (08:00→20:00)
[2021-04-11] MEDS: ADVAIR HFA 230/21MCG INHALER INH SCH ×2 (08:00→20:00)
[2021-04-11] MEDS: ASPIRIN 81MG ENTERIC TABLET PO SCH (09:00)
[2021-04-11] MEDS: OLANZapine 2.5MG TABLET PO SCH ×2 (09:00→15:30)
[2021-04-11] MEDS: DICLOFENAC EPOLAMINE 1.3 % PATCH TOP SCH ×2 (09:00→21:00)
[2021-04-11] MEDS: VITAMIN D 1,000 INTERNATIONAL UNITS TABLET PO SCH (09:00)
[2021-04-11] MEDS: LOSARTAN 50MG TABLET PO SCH (09:00)
[2021-04-11] MEDS: NYSTATIN 100,000 UNITS/GM TOPICAL PWD 15 GM TOP SCH (09:00)
[2021-04-11] MEDS: PANTOPRAZOLE 40MG TAB (PROTONIX) PO SCH (09:00)
[2021-04-11] MEDS: amLODIPine 5 MG TAB PO SCH (09:00)
[2021-04-11] MEDS: METOPROLOL SUCC *XL* 25MG TAB (TopROL *XL*) PO SCH (09:00)
[2021-04-11] MEDS: MAGNESIUM OXIDE 400MG TAB (MAG-OX) PO SCH ×2 (09:00→21:00)
[2021-04-11] MEDS: DULoxetine 30MG CAPSULE (CYMBALTA) PO SCH (09:00)
[2021-04-11] MEDS: FOLIC ACID 1 MG TAB PO SCH (09:00)
[2021-04-11] MEDS ORDERED: HALOPERIDOL 5MG/ML VIAL (J1630 PER 1) IM PRN (11:25)
[2021-04-11 14:00] VITALS: BP 127/84
[2021-04-11] MEDS ORDERED: HALOPERIDOL 5MG/ML VIAL (J1630 PER 1) IM ONE (14:00)
[2021-04-11] MEDS: RIVAROXABAN 15 MG TAB (XARELTO) PO SCH (18:00)
[2021-04-11] MEDS: OLANZapine INTRAMUSCULAR 10MG VIAL IM SCH ×2 (18:13→21:00)
[2021-04-11] MEDS: ATORVASTATIN 20 MG TAB PO SCH (21:00)
[2021-04-11] MEDS: MONTELUKAST 10 MG TAB PO SCH (21:00)
[2021-04-12] MEDS: IPRATROPIUM 0.5MG/ALBUTEROL 2.5MG INH SOL UD 3ML (DUONEB) NEB SCH ×4 (03:15→18:21)
[2021-04-12] MEDS: CLINDAMYCIN 150MG CAPSULE PO SCH ×3 (06:00→17:20)
[2021-04-12] MEDS: LEVOTHYROXINE 100MCG TABLET (0.1MG) PO SCH (06:13)
[2021-04-12] MEDS: metroNIDAZOLE (FLAGYL) 500MG TABLET PO SCH (06:13)
[2021-04-12] MEDS: ADVAIR HFA 230/21MCG INHALER INH SCH ×2 (07:08→18:21)
[2021-04-12 07:21] LABS: HEMATOCRIT 43.2 % (36.0-47.0); HEMOGLOBIN 13.5 g/dl (12.0-15.5); MEAN CORPUSCULAR HEMOGLOBIN 27.1 pg (27.0-33.0); MEAN CORPUSCULAR HGB CONC 31.3 g/dl (32.0-36.5); MEAN CORPUSCULAR VOLUME 86.7 fl (80.0-96.0); PLATELET COUNT, AUTOMATED 473 10^3/uL (150-450); RED BLOOD COUNT 4.98 10^6/uL (4.00-5.40); WHITE BLOOD COUNT 9.9 10^3/uL (4.0-10.0)
[2021-04-12 07:33] LABS: CREATININE FOR GFR 1.05 MG/DL (0.55-1.30); GLOMERULAR FILTRATION RATE 54.7 (>39); MAGNESIUM LEVEL 1.8 MG/DL (1.8-2.4); POTASSIUM SERUM 4.3 MEQ/L (3.5-5.1)
[2021-04-12] MEDS: LACTOBACILLUS ACIDOPHILUS CAP (BACID) PO SCH ×2 (08:00→17:20)
[2021-04-12] MEDS: DULoxetine 30MG CAPSULE (CYMBALTA) PO SCH (09:00)
[2021-04-12] MEDS: MAGNESIUM OXIDE 400MG TAB (MAG-OX) PO SCH ×2 (09:00→22:30)
[2021-04-12] MEDS ORDERED: cloNIDine HCL 0.2 MG/24 HR PATCH TOP SCH (09:00)
[2021-04-12] MEDS: amLODIPine 5 MG TAB PO SCH (09:00)
[2021-04-12] MEDS: FOLIC ACID 1 MG TAB PO SCH (09:00)
[2021-04-12] MEDS: NYSTATIN 100,000 UNITS/GM TOPICAL PWD 15 GM TOP SCH (09:00)
[2021-04-12] MEDS: ASPIRIN 81MG ENTERIC TABLET PO SCH (09:00)
[2021-04-12] MEDS: OLANZapine INTRAMUSCULAR 10MG VIAL IM SCH ×3 (09:00→21:00)
[2021-04-12] MEDS: PANTOPRAZOLE 40MG TAB (PROTONIX) PO SCH (09:00)
[2021-04-12] MEDS: VITAMIN D 1,000 INTERNATIONAL UNITS TABLET PO SCH (09:00)
[2021-04-12] MEDS: METOPROLOL SUCC *XL* 25MG TAB (TopROL *XL*) PO SCH (09:00)
[2021-04-12] MEDS: LOSARTAN 50MG TABLET PO SCH (09:00)
[2021-04-12] MEDS: DICLOFENAC EPOLAMINE 1.3 % PATCH TOP SCH ×2 (09:00→21:00)
[2021-04-12] MEDS ORDERED: HALOPERIDOL 5MG/ML VIAL (J1630 PER 1) IM PRN (11:25)
[2021-04-12] MEDS: RIVAROXABAN 15 MG TAB (XARELTO) PO SCH (17:20)
[2021-04-12] MEDS: ATORVASTATIN 20 MG TAB PO SCH (22:30)
[2021-04-12] MEDS: MONTELUKAST 10 MG TAB PO SCH (22:30)
[2021-04-12] MEDS: cloNIDine HCL 0.2 MG/24 HR PATCH TOP SCH (23:00)
[2021-04-13] MEDS: LEVOTHYROXINE 100MCG TABLET (0.1MG) PO SCH (05:23)
[2021-04-13] MEDS: CLINDAMYCIN 150MG CAPSULE PO SCH ×6 (05:23→23:58)
[2021-04-13] MEDS: ADVAIR HFA 230/21MCG INHALER INH SCH ×2 (08:00→20:00)
[2021-04-13] MEDS: IPRATROPIUM 0.5MG/ALBUTEROL 2.5MG INH SOL UD 3ML (DUONEB) NEB SCH ×3 (08:00→20:00)
[2021-04-13] MEDS: LACTOBACILLUS ACIDOPHILUS CAP (BACID) PO SCH ×3 (08:00→17:16)
[2021-04-13] MEDS: FOLIC ACID 1 MG TAB PO SCH ×2 (08:17→09:00)
[2021-04-13] MEDS: VITAMIN D 1,000 INTERNATIONAL UNITS TABLET PO SCH ×2 (08:17→09:00)
[2021-04-13] MEDS: DULoxetine 30MG CAPSULE (CYMBALTA) PO SCH ×2 (08:18→09:00)
[2021-04-13] MEDS: PANTOPRAZOLE 40MG TAB (PROTONIX) PO SCH ×2 (08:18→09:00)
[2021-04-13] MEDS: amLODIPine 5 MG TAB PO SCH ×2 (08:18→09:00)
[2021-04-13] MEDS: ASPIRIN 81MG ENTERIC TABLET PO SCH ×2 (08:18→09:00)
[2021-04-13] MEDS: LOSARTAN 50MG TABLET PO SCH ×2 (08:18→09:00)
[2021-04-13] MEDS: MAGNESIUM OXIDE 400MG TAB (MAG-OX) PO SCH ×3 (08:19→20:49)
[2021-04-13] MEDS: METOPROLOL SUCC *XL* 25MG TAB (TopROL *XL*) PO SCH ×2 (08:19→09:00)
[2021-04-13] MEDS: NYSTATIN 100,000 UNITS/GM TOPICAL PWD 15 GM TOP SCH (08:19)
[2021-04-13] MEDS: DICLOFENAC EPOLAMINE 1.3 % PATCH TOP SCH ×2 (09:22→20:51)
[2021-04-13] MEDS: OLANZapine INTRAMUSCULAR 10MG VIAL IM SCH ×2 (09:22→17:16)
[2021-04-13] MEDS: RIVAROXABAN 15 MG TAB (XARELTO) PO SCH (17:17)
[2021-04-13 18:05] VITALS: BP 167/93
[2021-04-13] MEDS: rOPINIRole 1MG TAB PO PRN (20:49)
[2021-04-13] MEDS: MONTELUKAST 10 MG TAB PO SCH (20:49)
[2021-04-13] MEDS: ATORVASTATIN 20 MG TAB PO SCH (20:49)
[2021-04-13] MEDS: ACETAMINOPHEN TAB 650MG DOSE (2X325MG) PO PRN (20:50)
[2021-04-13 22:00] VITALS: BP 164/93
[2021-04-13] MEDS: OLANZapine 2.5MG TABLET PO SCH ×2 (22:00→23:58)
[2021-04-14] MEDS: IPRATROPIUM 0.5MG/ALBUTEROL 2.5MG INH SOL UD 3ML (DUONEB) NEB SCH ×4 (02:00→20:00)
[2021-04-14 06:00] VITALS: BP 161/95
[2021-04-14] MEDS: CLINDAMYCIN 150MG CAPSULE PO SCH ×3 (06:07→17:09)
[2021-04-14] MEDS: ACETAMINOPHEN TAB 650MG DOSE (2X325MG) PO PRN (06:07)
[2021-04-14] MEDS: LEVOTHYROXINE 100MCG TABLET (0.1MG) PO SCH (06:07)
[2021-04-14 07:34] LABS: HEMATOCRIT 42.7 % (36.0-47.0); HEMOGLOBIN 13.3 g/dl (12.0-15.5); MEAN CORPUSCULAR HGB CONC 31.1 g/dl (32.0-36.5); MEAN CORPUSCULAR VOLUME 86.8 fl (80.0-96.0); PLATELET COUNT, AUTOMATED 464 10^3/uL (150-450); RED BLOOD COUNT 4.92 10^6/uL (4.00-5.40); WHITE BLOOD COUNT 7.6 10^3/uL (4.0-10.0)
[2021-04-14 07:51] LABS: CALCIUM LEVEL 9.3 MG/DL (8.8-10.2); CREATININE FOR GFR 1.05 MG/DL (0.55-1.30); GLOMERULAR FILTRATION RATE 54.7 (>39); MAGNESIUM LEVEL 1.9 MG/DL (1.8-2.4); POTASSIUM SERUM 3.9 MEQ/L (3.5-5.1)
[2021-04-14] MEDS: LACTOBACILLUS ACIDOPHILUS CAP (BACID) PO SCH ×2 (08:00→17:09)
[2021-04-14] MEDS: ADVAIR HFA 230/21MCG INHALER INH SCH ×2 (08:36→20:00)
[2021-04-14] MEDS: METOPROLOL SUCC *XL* 25MG TAB (TopROL *XL*) PO SCH (09:00)
[2021-04-14] MEDS: VITAMIN D 1,000 INTERNATIONAL UNITS TABLET PO SCH (09:00)
[2021-04-14] MEDS: OLANZapine INTRAMUSCULAR 10MG VIAL IM SCH ×3 (09:00→22:39)
[2021-04-14] MEDS: ASPIRIN 81MG ENTERIC TABLET PO SCH (09:00)
[2021-04-14] MEDS: amLODIPine 5 MG TAB PO SCH (09:00)
[2021-04-14] MEDS: DULoxetine 30MG CAPSULE (CYMBALTA) PO SCH (09:00)
[2021-04-14] MEDS: LOSARTAN 50MG TABLET PO SCH (09:00)
[2021-04-14] MEDS: NYSTATIN 100,000 UNITS/GM TOPICAL PWD 15 GM TOP SCH (09:00)
[2021-04-14] MEDS: PANTOPRAZOLE 40MG TAB (PROTONIX) PO SCH (09:00)
[2021-04-14] MEDS: FOLIC ACID 1 MG TAB PO SCH (09:00)
[2021-04-14] MEDS: MAGNESIUM OXIDE 400MG TAB (MAG-OX) PO SCH ×2 (09:00→21:00)
[2021-04-14] MEDS: DICLOFENAC EPOLAMINE 1.3 % PATCH TOP SCH ×2 (09:00→21:00)
[2021-04-14 13:00] VITALS: BP 152/95
[2021-04-14] MEDS: RIVAROXABAN 15 MG TAB (XARELTO) PO SCH (17:10)
[2021-04-14] MEDS: ATORVASTATIN 20 MG TAB PO SCH (21:00)
[2021-04-14] MEDS: MONTELUKAST 10 MG TAB PO SCH (21:00)
[2021-04-15] MEDS: CLINDAMYCIN 150MG CAPSULE PO SCH ×5 (01:00→20:08)
[2021-04-15] MEDS: IPRATROPIUM 0.5MG/ALBUTEROL 2.5MG INH SOL UD 3ML (DUONEB) NEB SCH ×3 (02:00→20:00)
[2021-04-15] MEDS: LEVOTHYROXINE 100MCG TABLET (0.1MG) PO SCH (06:00)
[2021-04-15] MEDS: ADVAIR HFA 230/21MCG INHALER INH SCH ×2 (07:57→20:00)
[2021-04-15] MEDS: LACTOBACILLUS ACIDOPHILUS CAP (BACID) PO SCH ×2 (08:00→18:00)
[2021-04-15] MEDS: OLANZapine INTRAMUSCULAR 10MG VIAL IM SCH ×2 (09:00→16:00)
[2021-04-15] MEDS: METOPROLOL SUCC *XL* 25MG TAB (TopROL *XL*) PO SCH (09:00)
[2021-04-15] MEDS: LOSARTAN 50MG TABLET PO SCH ×2 (09:00→20:10)
[2021-04-15] MEDS: PANTOPRAZOLE 40MG TAB (PROTONIX) PO SCH (09:00)
[2021-04-15] MEDS: DICLOFENAC EPOLAMINE 1.3 % PATCH TOP SCH ×2 (09:00→20:06)
[2021-04-15] MEDS: MAGNESIUM OXIDE 400MG TAB (MAG-OX) PO SCH ×2 (09:00→20:08)
[2021-04-15] MEDS: ASPIRIN 81MG ENTERIC TABLET PO SCH ×2 (09:00→20:12)
[2021-04-15] MEDS: FOLIC ACID 1 MG TAB PO SCH ×2 (09:00→20:14)
[2021-04-15] MEDS: amLODIPine 5 MG TAB PO SCH ×2 (09:00→20:13)
[2021-04-15] MEDS: VITAMIN D 1,000 INTERNATIONAL UNITS TABLET PO SCH (09:00)
[2021-04-15] MEDS: NYSTATIN 100,000 UNITS/GM TOPICAL PWD 15 GM TOP SCH (09:00)
[2021-04-15] MEDS: DULoxetine 30MG CAPSULE (CYMBALTA) PO SCH ×2 (09:00→20:11)
[2021-04-15] MEDS: RIVAROXABAN 15 MG TAB (XARELTO) PO SCH ×2 (18:00→20:14)
[2021-04-15 20:00] VITALS: BP 159/98
[2021-04-15] MEDS: ATORVASTATIN 20 MG TAB PO SCH (20:07)
[2021-04-15] MEDS: MONTELUKAST 10 MG TAB PO SCH (20:08)
[2021-04-15] MEDS ORDERED: OLANZapine INTRAMUSCULAR 10MG VIAL IM PRN (20:35)
[2021-04-15] MEDS: OLANZapine 2.5MG TABLET PO SCH (21:34)
[2021-04-16] MEDS: IPRATROPIUM 0.5MG/ALBUTEROL 2.5MG INH SOL UD 3ML (DUONEB) NEB SCH ×4 (01:25→20:00)
[2021-04-16] MEDS: CLINDAMYCIN 150MG CAPSULE PO SCH ×4 (04:44→17:04)
[2021-04-16] MEDS: LEVOTHYROXINE 100MCG TABLET (0.1MG) PO SCH (04:44)
[2021-04-16] MEDS: cloNIDine HCL 0.2 MG/24 HR PATCH TOP SCH (04:45)
[2021-04-16 06:00] VITALS: BP 133/89
[2021-04-16 07:01] LABS: HEMATOCRIT 40.3 % (36.0-47.0); HEMOGLOBIN 12.5 g/dl (12.0-15.5); MEAN CORPUSCULAR HEMOGLOBIN 27.1 pg (27.0-33.0); MEAN CORPUSCULAR VOLUME 87.4 fl (80.0-96.0); PLATELET COUNT, AUTOMATED 383 10^3/uL (150-450); RED BLOOD COUNT 4.61 10^6/uL (4.00-5.40); WHITE BLOOD COUNT 7.6 10^3/uL (4.0-10.0)
[2021-04-16 07:24] LABS: ALBUMIN 2.1 GM/DL (3.2-5.2); BILIRUBIN,TOTAL 0.5 MG/DL (0.2-1.0); CALCIUM LEVEL 9.5 MG/DL (8.8-10.2); CREATININE FOR GFR 1.08 MG/DL (0.55-1.30); GLOMERULAR FILTRATION RATE 52.9 (>39); POTASSIUM SERUM 3.9 MEQ/L (3.5-5.1)
[2021-04-16] MEDS: ADVAIR HFA 230/21MCG INHALER INH SCH ×2 (07:25→20:00)
[2021-04-16] MEDS: PANTOPRAZOLE 40MG TAB (PROTONIX) PO SCH (08:24)
[2021-04-16] MEDS: OLANZapine 2.5MG TABLET PO SCH ×4 (08:24→21:00)
[2021-04-16] MEDS: DICLOFENAC EPOLAMINE 1.3 % PATCH TOP SCH ×2 (08:24→20:57)
[2021-04-16] MEDS: METOPROLOL SUCC *XL* 25MG TAB (TopROL *XL*) PO SCH (08:25)
[2021-04-16] MEDS: DULoxetine 30MG CAPSULE (CYMBALTA) PO SCH (08:25)
[2021-04-16] MEDS: LACTOBACILLUS ACIDOPHILUS CAP (BACID) PO SCH ×2 (08:25→17:05)
[2021-04-16] MEDS: VITAMIN D 1,000 INTERNATIONAL UNITS TABLET PO SCH (08:26)
[2021-04-16] MEDS: MAGNESIUM OXIDE 400MG TAB (MAG-OX) PO SCH ×3 (08:27→21:00)
[2021-04-16] MEDS: LOSARTAN 50MG TABLET PO SCH (08:27)
[2021-04-16] MEDS: NYSTATIN 100,000 UNITS/GM TOPICAL PWD 15 GM TOP SCH (08:28)
[2021-04-16] MEDS: RIVAROXABAN 15 MG TAB (XARELTO) PO SCH (17:05)
[2021-04-16] MEDS: ACETAMINOPHEN TAB 650MG DOSE (2X325MG) PO PRN (20:33)
[2021-04-16] MEDS: ATORVASTATIN 20 MG TAB PO SCH ×2 (20:33→21:00)
[2021-04-16] MEDS: MONTELUKAST 10 MG TAB PO SCH ×2 (20:34→21:00)
[2021-04-17] MEDS: CLINDAMYCIN 150MG CAPSULE PO SCH
[2021-04-17] MEDS: IPRATROPIUM 0.5MG/ALBUTEROL 2.5MG INH SOL UD 3ML (DUONEB) NEB SCH ×4 (01:28→19:36)
[2021-04-17] MEDS: LEVOTHYROXINE 100MCG TABLET (0.1MG) PO SCH (05:18)
[2021-04-17 06:00] VITALS: BP 120/74
[2021-04-17] MEDS: ADVAIR HFA 230/21MCG INHALER INH SCH ×2 (08:00→19:36)
[2021-04-17] MEDS: NYSTATIN 100,000 UNITS/GM TOPICAL PWD 15 GM TOP SCH (09:00)
[2021-04-17] MEDS: DULoxetine 30MG CAPSULE (CYMBALTA) PO SCH (09:00)
[2021-04-17] MEDS: VITAMIN D 1,000 INTERNATIONAL UNITS TABLET PO SCH (09:00)
[2021-04-17] MEDS: LACTOBACILLUS ACIDOPHILUS CAP (BACID) PO SCH ×3 (09:00→17:39)
[2021-04-17] MEDS: DICLOFENAC EPOLAMINE 1.3 % PATCH TOP SCH ×2 (09:00→20:26)
[2021-04-17] MEDS: amLODIPine 5 MG TAB PO SCH (09:00)
[2021-04-17] MEDS: MAGNESIUM OXIDE 400MG TAB (MAG-OX) PO SCH ×2 (09:00→20:23)
[2021-04-17] MEDS: METOPROLOL SUCC *XL* 25MG TAB (TopROL *XL*) PO SCH (09:00)
[2021-04-17] MEDS: LOSARTAN 50MG TABLET PO SCH (09:00)
[2021-04-17] MEDS: ASPIRIN 81MG ENTERIC TABLET PO SCH (09:00)
[2021-04-17] MEDS: PANTOPRAZOLE 40MG TAB (PROTONIX) PO SCH (09:00)
[2021-04-17] MEDS: FOLIC ACID 1 MG TAB PO SCH (09:00)
[2021-04-17] MEDS: OLANZapine 2.5MG TABLET PO SCH ×4 (09:41→20:33)
[2021-04-17] MEDS: RIVAROXABAN 15 MG TAB (XARELTO) PO SCH ×2 (16:58→17:39)
[2021-04-17] MEDS: MONTELUKAST 10 MG TAB PO SCH (20:24)
[2021-04-17] MEDS: rOPINIRole 1MG TAB PO PRN (20:24)
[2021-04-17] MEDS: ACETAMINOPHEN TAB 650MG DOSE (2X325MG) PO PRN (20:24)
[2021-04-17] MEDS: ATORVASTATIN 20 MG TAB PO SCH (20:26)
[2021-04-18] MEDS: IPRATROPIUM 0.5MG/ALBUTEROL 2.5MG INH SOL UD 3ML (DUONEB) NEB SCH ×4 (00:36→20:00)
[2021-04-18 06:00] VITALS: BP 124/60
[2021-04-18] MEDS: METOPROLOL SUCC *XL* 25MG TAB (TopROL *XL*) PO SCH (06:04)
[2021-04-18] MEDS: FOLIC ACID 1 MG TAB PO SCH (06:05)
[2021-04-18] MEDS: OLANZapine 2.5MG TABLET PO SCH ×3 (06:06→22:08)
[2021-04-18] MEDS: ASPIRIN 81MG ENTERIC TABLET PO SCH (06:06)
[2021-04-18] MEDS: LACTOBACILLUS ACIDOPHILUS CAP (BACID) PO SCH ×2 (06:06→17:45)
[2021-04-18] MEDS: LEVOTHYROXINE 100MCG TABLET (0.1MG) PO SCH (06:06)
[2021-04-18] MEDS: VITAMIN D 1,000 INTERNATIONAL UNITS TABLET PO SCH (06:07)
[2021-04-18] MEDS: amLODIPine 5 MG TAB PO SCH (06:07)
[2021-04-18] MEDS: PANTOPRAZOLE 40MG TAB (PROTONIX) PO SCH (06:07)
[2021-04-18] MEDS: DULoxetine 30MG CAPSULE (CYMBALTA) PO SCH (06:08)
[2021-04-18] MEDS: MAGNESIUM OXIDE 400MG TAB (MAG-OX) PO SCH ×2 (06:08→21:00)
[2021-04-18] MEDS: LOSARTAN 50MG TABLET PO SCH (06:09)
[2021-04-18] MEDS: ACETAMINOPHEN TAB 650MG DOSE (2X325MG) PO PRN ×2 (06:09→22:08)
[2021-04-18] MEDS: ADVAIR HFA 230/21MCG INHALER INH SCH ×2 (07:34→20:00)
[2021-04-18] MEDS: DICLOFENAC EPOLAMINE 1.3 % PATCH TOP SCH ×2 (09:00→21:00)
[2021-04-18] MEDS: NYSTATIN 100,000 UNITS/GM TOPICAL PWD 15 GM TOP SCH (09:17)
[2021-04-18] MEDS: RIVAROXABAN 15 MG TAB (XARELTO) PO SCH (17:44)
[2021-04-18] MEDS: ATORVASTATIN 20 MG TAB PO SCH (21:00)
[2021-04-18] MEDS: MONTELUKAST 10 MG TAB PO SCH (22:09)
[2021-04-18] MEDS: rOPINIRole 1MG TAB PO PRN (22:09)
[2021-04-19] MEDS: IPRATROPIUM 0.5MG/ALBUTEROL 2.5MG INH SOL UD 3ML (DUONEB) NEB SCH ×4 (02:00→20:00)
[2021-04-19] MEDS: OLANZapine 2.5MG TABLET PO SCH ×3 (04:39→21:14)
[2021-04-19] MEDS: MAGNESIUM OXIDE 400MG TAB (MAG-OX) PO SCH ×2 (04:39→21:16)
[2021-04-19] MEDS: DULoxetine 30MG CAPSULE (CYMBALTA) PO SCH (04:40)
[2021-04-19] MEDS: LACTOBACILLUS ACIDOPHILUS CAP (BACID) PO SCH ×2 (04:40→17:05)
[2021-04-19] MEDS: PANTOPRAZOLE 40MG TAB (PROTONIX) PO SCH (04:40)
[2021-04-19] MEDS: VITAMIN D 1,000 INTERNATIONAL UNITS TABLET PO SCH (04:41)
[2021-04-19] MEDS: FOLIC ACID 1 MG TAB PO SCH (04:41)
[2021-04-19] MEDS: ASPIRIN 81MG ENTERIC TABLET PO SCH (04:41)
[2021-04-19] MEDS: LEVOTHYROXINE 100MCG TABLET (0.1MG) PO SCH (04:41)
[2021-04-19] MEDS: LOSARTAN 50MG TABLET PO SCH (04:42)
[2021-04-19] MEDS: METOPROLOL SUCC *XL* 25MG TAB (TopROL *XL*) PO SCH (04:43)
[2021-04-19] MEDS: NYSTATIN 100,000 UNITS/GM TOPICAL PWD 15 GM TOP SCH (04:44)
[2021-04-19] MEDS: DICLOFENAC EPOLAMINE 1.3 % PATCH TOP SCH ×2 (04:44→19:41)
[2021-04-19] MEDS: amLODIPine 5 MG TAB PO SCH (04:44)
[2021-04-19 06:00] VITALS: BP 122/60
[2021-04-19] MEDS: ADVAIR HFA 230/21MCG INHALER INH SCH ×2 (07:35→20:00)
[2021-04-19] MEDS: RIVAROXABAN 15 MG TAB (XARELTO) PO SCH (17:05)
[2021-04-19] MEDS: rOPINIRole 1MG TAB PO PRN (21:15)
[2021-04-19] MEDS: ACETAMINOPHEN TAB 650MG DOSE (2X325MG) PO PRN (21:15)
[2021-04-19] MEDS: MONTELUKAST 10 MG TAB PO SCH (21:16)
[2021-04-19] MEDS: ATORVASTATIN 20 MG TAB PO SCH (21:17)
[2021-04-19] MEDS: cloNIDine HCL 0.2 MG/24 HR PATCH TOP SCH (22:13)
[2021-04-20] MEDS: IPRATROPIUM 0.5MG/ALBUTEROL 2.5MG INH SOL UD 3ML (DUONEB) NEB SCH ×4 (02:00→20:00)
[2021-04-20] MEDS: OLANZapine 2.5MG TABLET PO SCH ×3 (05:25→20:55)
[2021-04-20] MEDS: FOLIC ACID 1 MG TAB PO SCH (05:25)
[2021-04-20] MEDS: VITAMIN D 1,000 INTERNATIONAL UNITS TABLET PO SCH (05:25)
[2021-04-20] MEDS: DULoxetine 30MG CAPSULE (CYMBALTA) PO SCH (05:26)
[2021-04-20] MEDS: LEVOTHYROXINE 100MCG TABLET (0.1MG) PO SCH (05:26)
[2021-04-20] MEDS: amLODIPine 5 MG TAB PO SCH (05:27)
[2021-04-20] MEDS: ACETAMINOPHEN TAB 650MG DOSE (2X325MG) PO PRN ×2 (05:27→20:55)
[2021-04-20] MEDS: LACTOBACILLUS ACIDOPHILUS CAP (BACID) PO SCH ×2 (05:28→18:31)
[2021-04-20] MEDS: METOPROLOL SUCC *XL* 25MG TAB (TopROL *XL*) PO SCH (05:28)
[2021-04-20] MEDS: ASPIRIN 81MG ENTERIC TABLET PO SCH (05:28)
[2021-04-20] MEDS: LOSARTAN 50MG TABLET PO SCH (05:29)
[2021-04-20] MEDS: PANTOPRAZOLE 40MG TAB (PROTONIX) PO SCH (05:29)
[2021-04-20] MEDS: MAGNESIUM OXIDE 400MG TAB (MAG-OX) PO SCH ×2 (05:30→21:00)
[2021-04-20] MEDS: NYSTATIN 100,000 UNITS/GM TOPICAL PWD 15 GM TOP SCH (05:30)
[2021-04-20] MEDS: DICLOFENAC EPOLAMINE 1.3 % PATCH TOP SCH ×2 (05:31→20:55)
[2021-04-20 06:00] VITALS: BP 132/80
[2021-04-20] MEDS: ADVAIR HFA 230/21MCG INHALER INH SCH ×2 (07:48→20:00)
[2021-04-20] MEDS: RIVAROXABAN 15 MG TAB (XARELTO) PO SCH (18:31)
[2021-04-20] MEDS: ATORVASTATIN 20 MG TAB PO SCH (21:00)
[2021-04-20] MEDS: MONTELUKAST 10 MG TAB PO SCH (21:00)
[2021-04-21] MEDS: IPRATROPIUM 0.5MG/ALBUTEROL 2.5MG INH SOL UD 3ML (DUONEB) NEB SCH ×3 (02:00→13:10)
[2021-04-21] MEDS: LEVOTHYROXINE 100MCG TABLET (0.1MG) PO SCH (05:38)
[2021-04-21] MEDS: ADVAIR HFA 230/21MCG INHALER INH SCH (07:56)
[2021-04-21] MEDS: DICLOFENAC EPOLAMINE 1.3 % PATCH TOP SCH ×2 (09:03→20:03)
[2021-04-21] MEDS: VITAMIN D 1,000 INTERNATIONAL UNITS TABLET PO SCH (09:04)
[2021-04-21] MEDS: LOSARTAN 50MG TABLET PO SCH (09:04)
[2021-04-21] MEDS: ASPIRIN 81MG ENTERIC TABLET PO SCH (09:05)
[2021-04-21] MEDS: METOPROLOL SUCC *XL* 25MG TAB (TopROL *XL*) PO SCH (09:05)
[2021-04-21] MEDS: LACTOBACILLUS ACIDOPHILUS CAP (BACID) PO SCH ×2 (09:05→16:56)
[2021-04-21] MEDS: amLODIPine 5 MG TAB PO SCH (09:06)
[2021-04-21] MEDS: MAGNESIUM OXIDE 400MG TAB (MAG-OX) PO SCH ×2 (09:07→20:07)
[2021-04-21] MEDS: PANTOPRAZOLE 40MG TAB (PROTONIX) PO SCH (09:07)
[2021-04-21] MEDS: FOLIC ACID 1 MG TAB PO SCH (09:07)
[2021-04-21] MEDS: OLANZapine 2.5MG TABLET PO SCH ×3 (09:08→20:03)
[2021-04-21] MEDS: DULoxetine 30MG CAPSULE (CYMBALTA) PO SCH (09:08)
[2021-04-21] MEDS: NYSTATIN 100,000 UNITS/GM TOPICAL PWD 15 GM TOP SCH (09:12)
[2021-04-21] MEDS: rOPINIRole 1MG TAB PO PRN (16:57)
[2021-04-21] MEDS: RIVAROXABAN 15 MG TAB (XARELTO) PO SCH (16:57)
[2021-04-21] MEDS: ACETAMINOPHEN TAB 650MG DOSE (2X325MG) PO PRN (20:03)
[2021-04-21] MEDS: ATORVASTATIN 20 MG TAB PO SCH (20:07)
[2021-04-21] MEDS: MONTELUKAST 10 MG TAB PO SCH (20:07)
[2021-04-22] MEDS: ACETAMINOPHEN TAB 650MG DOSE (2X325MG) PO PRN ×2 (02:01→20:28)
[2021-04-22] MEDS: rOPINIRole 1MG TAB PO PRN ×2 (02:01→20:27)
[2021-04-22] MEDS: LEVOTHYROXINE 100MCG TABLET (0.1MG) PO SCH ×2 (05:09→09:12)
[2021-04-22 06:00] VITALS: BP 104/62
[2021-04-22] MEDS: IPRATROPIUM 0.5MG/ALBUTEROL 2.5MG INH SOL UD 3ML (DUONEB) NEB SCH ×3 (07:25→17:49)
[2021-04-22] MEDS: ADVAIR HFA 230/21MCG INHALER INH SCH ×2 (07:25→17:49)
[2021-04-22] MEDS: NYSTATIN 100,000 UNITS/GM TOPICAL PWD 15 GM TOP SCH (09:00)
[2021-04-22] MEDS: DICLOFENAC EPOLAMINE 1.3 % PATCH TOP SCH ×2 (09:11→20:27)
[2021-04-22] MEDS: LACTOBACILLUS ACIDOPHILUS CAP (BACID) PO SCH ×2 (09:12→17:32)
[2021-04-22] MEDS: VITAMIN D 1,000 INTERNATIONAL UNITS TABLET PO SCH (09:12)
[2021-04-22] MEDS: FOLIC ACID 1 MG TAB PO SCH (09:12)
[2021-04-22] MEDS: ASPIRIN 81MG ENTERIC TABLET PO SCH (09:12)
[2021-04-22] MEDS: DULoxetine 30MG CAPSULE (CYMBALTA) PO SCH (09:13)
[2021-04-22] MEDS: METOPROLOL SUCC *XL* 25MG TAB (TopROL *XL*) PO SCH (09:13)
[2021-04-22] MEDS: LOSARTAN 50MG TABLET PO SCH (09:14)
[2021-04-22] MEDS: PANTOPRAZOLE 40MG TAB (PROTONIX) PO SCH (09:15)
[2021-04-22] MEDS: MAGNESIUM OXIDE 400MG TAB (MAG-OX) PO SCH ×2 (09:15→20:29)
[2021-04-22] MEDS: amLODIPine 5 MG TAB PO SCH (09:15)
[2021-04-22] MEDS: OLANZapine 2.5MG TABLET PO SCH ×3 (09:16→20:28)
[2021-04-22] MEDS: RIVAROXABAN 15 MG TAB (XARELTO) PO SCH (17:32)
[2021-04-22] MEDS: MONTELUKAST 10 MG TAB PO SCH (20:29)
[2021-04-22] MEDS: ATORVASTATIN 20 MG TAB PO SCH (20:30)
[2021-04-22 23:20] VITALS: BP 97/71
[2021-04-23] MEDS ORDERED: PERCOCET 5MG/325MG TAB PO ONE
[2021-04-23] MEDS ORDERED: CALCIUM CARBONATE 500 MG CHEW U/D PO PRN (00:05)
[2021-04-23 00:56] LABS: HEMATOCRIT 38.6 % (36.0-47.0); HEMOGLOBIN 11.9 g/dl (12.0-15.5); MEAN CORPUSCULAR HGB CONC 30.8 g/dl (32.0-36.5); MEAN CORPUSCULAR VOLUME 87.5 fl (80.0-96.0); PLATELET COUNT, AUTOMATED 288 10^3/uL (150-450); RED BLOOD COUNT 4.41 10^6/uL (4.00-5.40)
[2021-04-23 01:22] LABS: CK-MB VALUE MASS 2.2 NG/ML (<3.6); MB/CK RELATIVE INDEX 5.95 (< OR =4)
[2021-04-23 01:29] LABS: CALCIUM LEVEL 9.7 MG/DL (8.8-10.2); CREATININE FOR GFR 1.17 MG/DL (0.55-1.30); GLOMERULAR FILTRATION RATE 48.3 (>39); POTASSIUM SERUM 3.7 MEQ/L (3.5-5.1)
[2021-04-23 02:59] LABS: CK-MB VALUE MASS 2.6 NG/ML (<3.6); MB/CK RELATIVE INDEX 7.43 (< OR =4)
[2021-04-23] MEDS: LEVOTHYROXINE 100MCG TABLET (0.1MG) PO SCH (05:18)
[2021-04-23] MEDS: ACETAMINOPHEN TAB 650MG DOSE (2X325MG) PO PRN ×3 (05:19→21:00)
[2021-04-23] MEDS: PANTOPRAZOLE 40MG TAB (PROTONIX) PO SCH (05:19)
[2021-04-23 06:00] VITALS: BP 112/56
[2021-04-23 06:22] LABS: HEMATOCRIT 39.3 % (36.0-47.0); HEMOGLOBIN 12.1 g/dl (12.0-15.5); MEAN CORPUSCULAR HEMOGLOBIN 27.3 pg (27.0-33.0); MEAN CORPUSCULAR HGB CONC 30.8 g/dl (32.0-36.5); MEAN CORPUSCULAR VOLUME 88.7 fl (80.0-96.0); PLATELET COUNT, AUTOMATED 310 10^3/uL (150-450); RED BLOOD COUNT 4.43 10^6/uL (4.00-5.40); WHITE BLOOD COUNT 7.9 10^3/uL (4.0-10.0)
[2021-04-23 06:24] LABS: CALCIUM LEVEL 9.6 MG/DL (8.8-10.2); CREATININE FOR GFR 1.14 MG/DL (0.55-1.30); GLOMERULAR FILTRATION RATE 49.7 (>39); POTASSIUM SERUM 3.6 MEQ/L (3.5-5.1)
[2021-04-23] MEDS: IPRATROPIUM 0.5MG/ALBUTEROL 2.5MG INH SOL UD 3ML (DUONEB) NEB SCH ×3 (07:41→20:00)
[2021-04-23] MEDS: ADVAIR HFA 230/21MCG INHALER INH SCH ×2 (07:41→20:00)
[2021-04-23] MEDS: amLODIPine 5 MG TAB PO SCH (09:00)
[2021-04-23] MEDS: DICLOFENAC EPOLAMINE 1.3 % PATCH TOP SCH ×3 (09:00→20:59)
[2021-04-23] MEDS: NYSTATIN 100,000 UNITS/GM TOPICAL PWD 15 GM TOP SCH (09:00)
[2021-04-23] MEDS: METOPROLOL SUCC *XL* 25MG TAB (TopROL *XL*) PO SCH (09:00)
[2021-04-23 10:16] LABS: CK-MB VALUE MASS 2.8 NG/ML (<3.6); MB/CK RELATIVE INDEX 8.24 (< OR =4)
[2021-04-23] MEDS: ASPIRIN 81MG ENTERIC TABLET PO SCH (11:03)
[2021-04-23] MEDS: MAGNESIUM OXIDE 400MG TAB (MAG-OX) PO SCH ×2 (11:04→21:00)
[2021-04-23] MEDS: FOLIC ACID 1 MG TAB PO SCH (11:04)
[2021-04-23] MEDS: DULoxetine 30MG CAPSULE (CYMBALTA) PO SCH (11:04)
[2021-04-23] MEDS: LACTOBACILLUS ACIDOPHILUS CAP (BACID) PO SCH ×2 (11:04→18:14)
[2021-04-23] MEDS: VITAMIN D 1,000 INTERNATIONAL UNITS TABLET PO SCH (11:06)
[2021-04-23] MEDS: OLANZapine 2.5MG TABLET PO SCH ×3 (11:06→21:00)
[2021-04-23] MEDS: LOSARTAN 50MG TABLET PO SCH (11:06)
[2021-04-23] MEDS: RIVAROXABAN 15 MG TAB (XARELTO) PO SCH (18:14)
[2021-04-23] MEDS: MONTELUKAST 10 MG TAB PO SCH (20:59)
[2021-04-23] MEDS: cloNIDine HCL 0.2 MG/24 HR PATCH TOP SCH (20:59)
[2021-04-23] MEDS: ATORVASTATIN 20 MG TAB PO SCH (21:00)
[2021-04-24] MEDS: IPRATROPIUM 0.5MG/ALBUTEROL 2.5MG INH SOL UD 3ML (DUONEB) NEB SCH ×4 (02:15→20:00)
[2021-04-24 03:04] VITALS: BP 131/68
[2021-04-24] MEDS: LEVOTHYROXINE 100MCG TABLET (0.1MG) PO SCH (05:27)
[2021-04-24] MEDS: ADVAIR HFA 230/21MCG INHALER INH SCH ×2 (08:00→20:00)
[2021-04-24] MEDS: LOSARTAN 50MG TABLET PO SCH (09:00)
[2021-04-24] MEDS: METOPROLOL SUCC *XL* 25MG TAB (TopROL *XL*) PO SCH (09:00)
[2021-04-24] MEDS: amLODIPine 5 MG TAB PO SCH (09:00)
[2021-04-24] MEDS: VITAMIN D 1,000 INTERNATIONAL UNITS TABLET PO SCH (09:35)
[2021-04-24] MEDS: LACTOBACILLUS ACIDOPHILUS CAP (BACID) PO SCH ×2 (09:35→18:01)
[2021-04-24] MEDS: DICLOFENAC EPOLAMINE 1.3 % PATCH TOP SCH ×2 (09:35→20:43)
[2021-04-24] MEDS: OLANZapine 2.5MG TABLET PO SCH ×3 (09:35→20:44)
[2021-04-24] MEDS: FOLIC ACID 1 MG TAB PO SCH (09:36)
[2021-04-24] MEDS: PANTOPRAZOLE 40MG TAB (PROTONIX) PO SCH (09:36)
[2021-04-24] MEDS: MAGNESIUM OXIDE 400MG TAB (MAG-OX) PO SCH ×2 (09:36→20:45)
[2021-04-24] MEDS: ASPIRIN 81MG ENTERIC TABLET PO SCH (09:36)
[2021-04-24] MEDS: DULoxetine 30MG CAPSULE (CYMBALTA) PO SCH (09:36)
[2021-04-24] MEDS: NYSTATIN 100,000 UNITS/GM TOPICAL PWD 15 GM TOP SCH (09:37)
[2021-04-24] MEDS: ACETAMINOPHEN TAB 650MG DOSE (2X325MG) PO PRN ×2 (15:16→20:43)
[2021-04-24] MEDS: rOPINIRole 1MG TAB PO PRN ×2 (15:17→20:44)
[2021-04-24] MEDS: RIVAROXABAN 15 MG TAB (XARELTO) PO SCH (18:01)
[2021-04-24] MEDS: ATORVASTATIN 20 MG TAB PO SCH (20:44)
[2021-04-24] MEDS: MONTELUKAST 10 MG TAB PO SCH (20:44)
[2021-04-25] MEDS: IPRATROPIUM 0.5MG/ALBUTEROL 2.5MG INH SOL UD 3ML (DUONEB) NEB SCH ×2 (02:00→07:50)
[2021-04-25] MEDS: LEVOTHYROXINE 100MCG TABLET (0.1MG) PO SCH (05:45)
[2021-04-25] MEDS: PANTOPRAZOLE 40MG TAB (PROTONIX) PO SCH (05:45)
[2021-04-25] MEDS: ACETAMINOPHEN TAB 650MG DOSE (2X325MG) PO PRN (05:46)
[2021-04-25 06:00] VITALS: BP 118/78
[2021-04-25] MEDS: ADVAIR HFA 230/21MCG INHALER INH SCH (07:50)
[2021-04-25] MEDS ORDERED: ADVAIR HFA 230/21MCG INHALER INH PRN (08:00)
[2021-04-25] MEDS ORDERED: IPRATROPIUM 0.5MG/ALBUTEROL 2.5MG INH SOL UD 3ML (DUONEB) NEB PRN (08:00)
[2021-04-25] MEDS: DICLOFENAC EPOLAMINE 1.3 % PATCH TOP SCH ×2 (08:55→20:26)
[2021-04-25] MEDS: ASPIRIN 81MG ENTERIC TABLET PO SCH (08:55)
[2021-04-25] MEDS: DULoxetine 30MG CAPSULE (CYMBALTA) PO SCH (08:55)
[2021-04-25] MEDS: FOLIC ACID 1 MG TAB PO SCH (08:56)
[2021-04-25] MEDS: MAGNESIUM OXIDE 400MG TAB (MAG-OX) PO SCH ×2 (08:56→20:27)
[2021-04-25] MEDS: LACTOBACILLUS ACIDOPHILUS CAP (BACID) PO SCH ×2 (08:56→17:24)
[2021-04-25] MEDS: VITAMIN D 1,000 INTERNATIONAL UNITS TABLET PO SCH (08:56)
[2021-04-25] MEDS: NYSTATIN 100,000 UNITS/GM TOPICAL PWD 15 GM TOP SCH (09:02)
[2021-04-25] MEDS: OLANZapine 2.5MG TABLET PO SCH ×3 (09:05→20:27)
[2021-04-25] MEDS: METOPROLOL SUCC *XL* 25MG TAB (TopROL *XL*) PO SCH (09:06)
[2021-04-25] MEDS: LOSARTAN 50MG TABLET PO SCH (09:06)
[2021-04-25] MEDS: amLODIPine 5 MG TAB PO SCH (09:06)
[2021-04-25 15:58] VITALS: BP 112/64
[2021-04-25] MEDS: rOPINIRole 1MG TAB PO PRN (17:24)
[2021-04-25] MEDS: RIVAROXABAN 15 MG TAB (XARELTO) PO SCH (17:24)
[2021-04-25] MEDS: MONTELUKAST 10 MG TAB PO SCH (20:27)
[2021-04-25] MEDS: ATORVASTATIN 20 MG TAB PO SCH (20:27)
[2021-04-26] MEDS: LEVOTHYROXINE 100MCG TABLET (0.1MG) PO SCH (05:42)
[2021-04-26] MEDS: VITAMIN D 1,000 INTERNATIONAL UNITS TABLET PO SCH (08:13)
[2021-04-26] MEDS: DICLOFENAC EPOLAMINE 1.3 % PATCH TOP SCH ×2 (08:13→21:07)
[2021-04-26] MEDS: PANTOPRAZOLE 40MG TAB (PROTONIX) PO SCH (08:13)
[2021-04-26] MEDS: DULoxetine 30MG CAPSULE (CYMBALTA) PO SCH (08:14)
[2021-04-26] MEDS: FOLIC ACID 1 MG TAB PO SCH (08:14)
[2021-04-26] MEDS: OLANZapine 2.5MG TABLET PO SCH ×3 (08:14→21:06)
[2021-04-26] MEDS: ASPIRIN 81MG ENTERIC TABLET PO SCH (08:14)
[2021-04-26] MEDS: LACTOBACILLUS ACIDOPHILUS CAP (BACID) PO SCH ×2 (08:14→17:03)
[2021-04-26] MEDS: MAGNESIUM OXIDE 400MG TAB (MAG-OX) PO SCH ×2 (08:14→21:06)
[2021-04-26] MEDS: METOPROLOL SUCC *XL* 25MG TAB (TopROL *XL*) PO SCH (08:15)
[2021-04-26] MEDS: LOSARTAN 50MG TABLET PO SCH (08:15)
[2021-04-26] MEDS: amLODIPine 5 MG TAB PO SCH (08:16)
[2021-04-26] MEDS: NYSTATIN 100,000 UNITS/GM TOPICAL PWD 15 GM TOP SCH (08:16)
[2021-04-26] MEDS: ACETAMINOPHEN TAB 650MG DOSE (2X325MG) PO PRN ×2 (08:22→17:54)
[2021-04-26] MEDS: rOPINIRole 1MG TAB PO PRN ×2 (09:05→21:06)
[2021-04-26] MEDS ORDERED: METO1TAB32 PO (13:40)
[2021-04-26] MEDS ORDERED: OLAN2.5T25 PO (13:40)
[2021-04-26] MEDS ORDERED: AMLO1TAB24 PO (13:40)
[2021-04-26] MEDS ORDERED: MAGN400T2 PO (13:40)
[2021-04-26] MEDS: RIVAROXABAN 15 MG TAB (XARELTO) PO SCH (17:03)
[2021-04-26 20:00] VITALS: BP 146/63
[2021-04-26] MEDS: MONTELUKAST 10 MG TAB PO SCH (21:06)
[2021-04-26] MEDS: ATORVASTATIN 20 MG TAB PO SCH (21:06)
[2021-04-26] MEDS: cloNIDine HCL 0.2 MG/24 HR PATCH TOP SCH (21:19)
[2021-04-27] MEDS: LEVOTHYROXINE 100MCG TABLET (0.1MG) PO SCH (05:09)
[2021-04-27 06:30] VITALS: BP 108/58
[2021-04-27] MEDS: DICLOFENAC EPOLAMINE 1.3 % PATCH TOP SCH ×2 (08:49→19:57)
[2021-04-27] MEDS: ACETAMINOPHEN TAB 650MG DOSE (2X325MG) PO PRN (08:50)
[2021-04-27] MEDS: FOLIC ACID 1 MG TAB PO SCH (08:50)
[2021-04-27] MEDS: LACTOBACILLUS ACIDOPHILUS CAP (BACID) PO SCH ×2 (08:51→16:56)
[2021-04-27] MEDS: PANTOPRAZOLE 40MG TAB (PROTONIX) PO SCH (08:51)
[2021-04-27] MEDS: VITAMIN D 1,000 INTERNATIONAL UNITS TABLET PO SCH (08:51)
[2021-04-27] MEDS: MAGNESIUM OXIDE 400MG TAB (MAG-OX) PO SCH ×2 (08:51→19:58)
[2021-04-27] MEDS: ASPIRIN 81MG ENTERIC TABLET PO SCH (08:51)
[2021-04-27] MEDS: DULoxetine 30MG CAPSULE (CYMBALTA) PO SCH (08:51)
[2021-04-27] MEDS: amLODIPine 5 MG TAB PO SCH (08:53)
[2021-04-27] MEDS: METOPROLOL SUCC *XL* 25MG TAB (TopROL *XL*) PO SCH (08:53)
[2021-04-27] MEDS: LOSARTAN 50MG TABLET PO SCH (08:53)
[2021-04-27] MEDS: NYSTATIN 100,000 UNITS/GM TOPICAL PWD 15 GM TOP SCH (08:54)
[2021-04-27] MEDS: OLANZapine 2.5MG TABLET PO SCH ×3 (09:44→19:58)
[2021-04-27] MEDS: rOPINIRole 1MG TAB PO PRN (16:55)
[2021-04-27] MEDS: RIVAROXABAN 15 MG TAB (XARELTO) PO SCH (16:55)
[2021-04-27] MEDS: ATORVASTATIN 20 MG TAB PO SCH (19:57)
[2021-04-27] MEDS: MONTELUKAST 10 MG TAB PO SCH (19:58)
[2021-04-28] MEDS: LEVOTHYROXINE 100MCG TABLET (0.1MG) PO SCH (04:45)
[2021-04-28] MEDS: LACTOBACILLUS ACIDOPHILUS CAP (BACID) PO SCH ×2 (08:13→17:55)
[2021-04-28] MEDS: FOLIC ACID 1 MG TAB PO SCH (08:13)
[2021-04-28] MEDS: ASPIRIN 81MG ENTERIC TABLET PO SCH (08:13)
[2021-04-28] MEDS: PANTOPRAZOLE 40MG TAB (PROTONIX) PO SCH (08:13)
[2021-04-28] MEDS: MAGNESIUM OXIDE 400MG TAB (MAG-OX) PO SCH ×2 (08:14→21:15)
[2021-04-28] MEDS: OLANZapine 2.5MG TABLET PO SCH ×3 (08:14→20:52)
[2021-04-28] MEDS: DULoxetine 30MG CAPSULE (CYMBALTA) PO SCH (08:14)
[2021-04-28] MEDS: DICLOFENAC EPOLAMINE 1.3 % PATCH TOP SCH ×2 (08:15→20:56)
[2021-04-28] MEDS: NYSTATIN 100,000 UNITS/GM TOPICAL PWD 15 GM TOP SCH (08:15)
[2021-04-28] MEDS: VITAMIN D 1,000 INTERNATIONAL UNITS TABLET PO SCH (08:15)
[2021-04-28] MEDS: ACETAMINOPHEN TAB 650MG DOSE (2X325MG) PO PRN ×3 (08:43→23:58)
[2021-04-28] MEDS: METOPROLOL SUCC *XL* 25MG TAB (TopROL *XL*) PO SCH (09:00)
[2021-04-28] MEDS: amLODIPine 5 MG TAB PO SCH (09:00)
[2021-04-28] MEDS: LOSARTAN 50MG TABLET PO SCH (09:00)
[2021-04-28] MEDS: rOPINIRole 1MG TAB PO PRN (16:23)
[2021-04-28] MEDS: RIVAROXABAN 15 MG TAB (XARELTO) PO SCH (17:55)
[2021-04-28] MEDS: ATORVASTATIN 20 MG TAB PO SCH (20:51)
[2021-04-28] MEDS: MONTELUKAST 10 MG TAB PO SCH (20:51)
[2021-04-29 06:00] VITALS: BP 136/72
[2021-04-29] MEDS: LEVOTHYROXINE 100MCG TABLET (0.1MG) PO SCH (06:24)
[2021-04-29] MEDS: ACETAMINOPHEN TAB 650MG DOSE (2X325MG) PO PRN ×2 (07:08→17:11)
[2021-04-29] MEDS: LACTOBACILLUS ACIDOPHILUS CAP (BACID) PO SCH ×2 (07:52→17:09)
[2021-04-29] MEDS: ASPIRIN 81MG ENTERIC TABLET PO SCH (07:52)
[2021-04-29] MEDS: VITAMIN D 1,000 INTERNATIONAL UNITS TABLET PO SCH (07:52)
[2021-04-29] MEDS: amLODIPine 5 MG TAB PO SCH (07:53)
[2021-04-29] MEDS: MAGNESIUM OXIDE 400MG TAB (MAG-OX) PO SCH ×2 (07:53→20:39)
[2021-04-29] MEDS: FOLIC ACID 1 MG TAB PO SCH (07:53)
[2021-04-29] MEDS: OLANZapine 2.5MG TABLET PO SCH ×3 (07:53→20:38)
[2021-04-29] MEDS: LOSARTAN 50MG TABLET PO SCH (07:54)
[2021-04-29] MEDS: PANTOPRAZOLE 40MG TAB (PROTONIX) PO SCH (07:54)
[2021-04-29] MEDS: DULoxetine 30MG CAPSULE (CYMBALTA) PO SCH (07:54)
[2021-04-29] MEDS: METOPROLOL SUCC *XL* 25MG TAB (TopROL *XL*) PO SCH (07:57)
[2021-04-29] MEDS: DICLOFENAC EPOLAMINE 1.3 % PATCH TOP SCH ×2 (07:58→20:39)
[2021-04-29] MEDS: NYSTATIN 100,000 UNITS/GM TOPICAL PWD 15 GM TOP SCH (07:58)
[2021-04-29] MEDS: RIVAROXABAN 15 MG TAB (XARELTO) PO SCH (17:09)
[2021-04-29] MEDS: MONTELUKAST 10 MG TAB PO SCH (20:39)
[2021-04-29] MEDS: ATORVASTATIN 20 MG TAB PO SCH (20:39)
[2021-04-29] MEDS: rOPINIRole 1MG TAB PO PRN (20:48)
[2021-04-30] MEDS: LEVOTHYROXINE 100MCG TABLET (0.1MG) PO SCH (04:43)
[2021-04-30 05:54] LABS: HEMATOCRIT 35.7 % (36.0-47.0); HEMOGLOBIN 11.1 g/dl (12.0-15.5); MEAN CORPUSCULAR HEMOGLOBIN 27.5 pg (27.0-33.0); MEAN CORPUSCULAR HGB CONC 31.1 g/dl (32.0-36.5); MEAN CORPUSCULAR VOLUME 88.6 fl (80.0-96.0); PLATELET COUNT, AUTOMATED 211 10^3/uL (150-450); RED BLOOD COUNT 4.03 10^6/uL (4.00-5.40); WHITE BLOOD COUNT 6.6 10^3/uL (4.0-10.0)
[2021-04-30 06:00] VITALS: BP 155/71
[2021-04-30 06:17] LABS: BLOOD UREA NITROGEN 10 MG/DL (7-18); CALCIUM LEVEL 8.9 MG/DL (8.8-10.2); CARBON DIOXIDE LEVEL 23 MEQ/L (21-32); CHLORIDE LEVEL 112 MEQ/L (98-107); CREATININE FOR GFR 0.94 MG/DL (0.55-1.30); GLOMERULAR FILTRATION RATE > 60.0 (>39); GLUCOSE, FASTING 112 MG/DL (70-100); POTASSIUM SERUM 3.7 MEQ/L (3.5-5.1); SODIUM LEVEL 140 MEQ/L (136-145)
[2021-04-30] MEDS: METOPROLOL SUCC *XL* 25MG TAB (TopROL *XL*) PO SCH (08:12)
[2021-04-30] MEDS: DULoxetine 30MG CAPSULE (CYMBALTA) PO SCH (08:12)
[2021-04-30] MEDS: LOSARTAN 50MG TABLET PO SCH (08:13)
[2021-04-30] MEDS: MAGNESIUM OXIDE 400MG TAB (MAG-OX) PO SCH ×2 (08:13→21:30)
[2021-04-30] MEDS: PANTOPRAZOLE 40MG TAB (PROTONIX) PO SCH (08:13)
[2021-04-30] MEDS: LACTOBACILLUS ACIDOPHILUS CAP (BACID) PO SCH ×2 (08:14→18:04)
[2021-04-30] MEDS: VITAMIN D 1,000 INTERNATIONAL UNITS TABLET PO SCH (08:14)
[2021-04-30] MEDS: NYSTATIN 100,000 UNITS/GM TOPICAL PWD 15 GM TOP SCH (08:14)
[2021-04-30] MEDS: ASPIRIN 81MG ENTERIC TABLET PO SCH (08:14)
[2021-04-30] MEDS: amLODIPine 5 MG TAB PO SCH (08:14)
[2021-04-30] MEDS: OLANZapine 2.5MG TABLET PO SCH ×3 (08:14→21:30)
[2021-04-30] MEDS: FOLIC ACID 1 MG TAB PO SCH (08:14)
[2021-04-30] MEDS: ACETAMINOPHEN TAB 650MG DOSE (2X325MG) PO PRN ×3 (08:20→21:30)
[2021-04-30] MEDS: DICLOFENAC EPOLAMINE 1.3 % PATCH TOP SCH ×2 (08:21→21:31)
[2021-04-30] MEDS: rOPINIRole 1MG TAB PO PRN ×2 (09:36→21:30)
[2021-04-30] MEDS: RIVAROXABAN 15 MG TAB (XARELTO) PO SCH (18:04)
[2021-04-30] MEDS: MONTELUKAST 10 MG TAB PO SCH (21:30)
[2021-04-30] MEDS: ATORVASTATIN 20 MG TAB PO SCH (21:31)
[2021-05-01] MEDS: LEVOTHYROXINE 100MCG TABLET (0.1MG) PO SCH (03:59)
[2021-05-01 06:00] VITALS: BP 126/78
[2021-05-01] MEDS: LACTOBACILLUS ACIDOPHILUS CAP (BACID) PO SCH ×2 (07:59→18:00)
[2021-05-01] MEDS: FOLIC ACID 1 MG TAB PO SCH (07:59)
[2021-05-01] MEDS: ASPIRIN 81MG ENTERIC TABLET PO SCH (07:59)
[2021-05-01] MEDS: PANTOPRAZOLE 40MG TAB (PROTONIX) PO SCH (08:00)
[2021-05-01] MEDS: METOPROLOL SUCC *XL* 25MG TAB (TopROL *XL*) PO SCH (08:00)
[2021-05-01] MEDS: OLANZapine 2.5MG TABLET PO SCH ×3 (08:00→20:32)
[2021-05-01] MEDS: VITAMIN D 1,000 INTERNATIONAL UNITS TABLET PO SCH (08:01)
[2021-05-01] MEDS: DICLOFENAC EPOLAMINE 1.3 % PATCH TOP SCH ×2 (08:01→20:32)
[2021-05-01] MEDS: DULoxetine 30MG CAPSULE (CYMBALTA) PO SCH (08:01)
[2021-05-01] MEDS: MAGNESIUM OXIDE 400MG TAB (MAG-OX) PO SCH ×2 (08:01→20:32)
[2021-05-01] MEDS: LOSARTAN 50MG TABLET PO SCH (08:02)
[2021-05-01] MEDS: amLODIPine 5 MG TAB PO SCH (08:02)
[2021-05-01] MEDS: NYSTATIN 100,000 UNITS/GM TOPICAL PWD 15 GM TOP SCH (08:03)
[2021-05-01] MEDS: ACETAMINOPHEN TAB 650MG DOSE (2X325MG) PO PRN ×2 (08:32→20:31)
[2021-05-01] MEDS: rOPINIRole 1MG TAB PO PRN (08:32)
[2021-05-01] MEDS: RIVAROXABAN 15 MG TAB (XARELTO) PO SCH (18:00)
[2021-05-01] MEDS: MONTELUKAST 10 MG TAB PO SCH (20:31)
[2021-05-01] MEDS: ATORVASTATIN 20 MG TAB PO SCH (20:31)
[2021-05-01] MEDS ORDERED: PREPARATION H OINTMENT (HEMORRHOID) PR PRN (21:10)
[2021-05-02] MEDS: LEVOTHYROXINE 100MCG TABLET (0.1MG) PO SCH (05:14)
[2021-05-02] MEDS: ACETAMINOPHEN TAB 650MG DOSE (2X325MG) PO PRN ×3 (05:14→22:05)
[2021-05-02] MEDS: DICLOFENAC EPOLAMINE 1.3 % PATCH TOP SCH ×2 (08:45→21:24)
[2021-05-02] MEDS: DULoxetine 30MG CAPSULE (CYMBALTA) PO SCH (08:45)
[2021-05-02] MEDS: OLANZapine 2.5MG TABLET PO SCH ×3 (08:46→21:24)
[2021-05-02] MEDS: PANTOPRAZOLE 40MG TAB (PROTONIX) PO SCH (08:46)
[2021-05-02] MEDS: ASPIRIN 81MG ENTERIC TABLET PO SCH (08:46)
[2021-05-02] MEDS: MAGNESIUM OXIDE 400MG TAB (MAG-OX) PO SCH ×2 (08:46→21:24)
[2021-05-02] MEDS: VITAMIN D 1,000 INTERNATIONAL UNITS TABLET PO SCH (08:46)
[2021-05-02] MEDS: LACTOBACILLUS ACIDOPHILUS CAP (BACID) PO SCH ×2 (08:46→17:22)
[2021-05-02] MEDS: FOLIC ACID 1 MG TAB PO SCH (08:46)
[2021-05-02] MEDS: amLODIPine 5 MG TAB PO SCH (08:48)
[2021-05-02] MEDS: METOPROLOL SUCC *XL* 25MG TAB (TopROL *XL*) PO SCH (08:49)
[2021-05-02] MEDS: NYSTATIN 100,000 UNITS/GM TOPICAL PWD 15 GM TOP SCH (08:50)
[2021-05-02] MEDS: LOSARTAN 50MG TABLET PO SCH (08:50)
[2021-05-02 09:11] LABS: BASO % 0.6 % (0.0-1.0); EOS # 0.3 10^3/uL (0.0-0.5); EOS % 4.6 % (0.0-3.0); HEMOGLOBIN 12.1 g/dl (12.0-15.5); LYMPH # 1.7 10^3/uL (1.5-5.0); LYMPH % 25.3 % (24.0-44.0); MEAN CORPUSCULAR HEMOGLOBIN 27.4 pg (27.0-33.0); MEAN CORPUSCULAR VOLUME 88.4 fl (80.0-96.0); MONO # 0.6 10^3/uL (0.0-0.8); MONO % 8.1 % (2.0-8.0); NEUTROPHILS # 4.2 10^3/uL (1.5-8.5); PLATELET COUNT, AUTOMATED 247 10^3/uL (150-450); RED BLOOD COUNT 4.41 10^6/uL (4.00-5.40); WHITE BLOOD COUNT 6.8 10^3/uL (4.0-10.0)
[2021-05-02 09:32] LABS: ALBUMIN 2.9 GM/DL (3.2-5.2); ALT/SGPT 18 U/L (12-78); BILIRUBIN,TOTAL 0.5 MG/DL (0.2-1.0); BLOOD UREA NITROGEN 11 MG/DL (7-18); CALCIUM LEVEL 9.3 MG/DL (8.8-10.2); CARBON DIOXIDE LEVEL 28 MEQ/L (21-32); CHLORIDE LEVEL 109 MEQ/L (98-107); CREATININE FOR GFR 0.95 MG/DL (0.55-1.30); GLOMERULAR FILTRATION RATE > 60.0 (>39); GLUCOSE, FASTING 131 MG/DL (70-100); POTASSIUM SERUM 4.4 MEQ/L (3.5-5.1); SODIUM LEVEL 140 MEQ/L (136-145); TOTAL PROTEIN 5.6 GM/DL (6.4-8.2)
[2021-05-02] MEDS: rOPINIRole 1MG TAB PO PRN ×2 (11:26→21:23)
[2021-05-02] MEDS: RIVAROXABAN 15 MG TAB (XARELTO) PO SCH (17:23)
[2021-05-02] MEDS: MONTELUKAST 10 MG TAB PO SCH (21:24)
[2021-05-02] MEDS: ATORVASTATIN 20 MG TAB PO SCH (21:24)
[2021-05-03] MEDS: ACETAMINOPHEN TAB 650MG DOSE (2X325MG) PO PRN ×3 (04:10→20:19)
[2021-05-03 06:00] VITALS: BP 144/74
[2021-05-03] MEDS: LEVOTHYROXINE 100MCG TABLET (0.1MG) PO SCH (06:14)
[2021-05-03] MEDS: MAGNESIUM OXIDE 400MG TAB (MAG-OX) PO SCH ×2 (08:40→20:20)
[2021-05-03] MEDS: ASPIRIN 81MG ENTERIC TABLET PO SCH (08:40)
[2021-05-03] MEDS: LACTOBACILLUS ACIDOPHILUS CAP (BACID) PO SCH ×2 (08:40→17:36)
[2021-05-03] MEDS: VITAMIN D 1,000 INTERNATIONAL UNITS TABLET PO SCH (08:40)
[2021-05-03] MEDS: PANTOPRAZOLE 40MG TAB (PROTONIX) PO SCH (08:40)
[2021-05-03] MEDS: FOLIC ACID 1 MG TAB PO SCH (08:40)
[2021-05-03] MEDS: LOSARTAN 50MG TABLET PO SCH (08:41)
[2021-05-03] MEDS: DULoxetine 30MG CAPSULE (CYMBALTA) PO SCH (08:42)
[2021-05-03] MEDS: METOPROLOL SUCC *XL* 25MG TAB (TopROL *XL*) PO SCH (08:42)
[2021-05-03] MEDS: OLANZapine 2.5MG TABLET PO SCH ×3 (08:42→20:20)
[2021-05-03] MEDS: amLODIPine 5 MG TAB PO SCH (08:43)
[2021-05-03] MEDS: DICLOFENAC EPOLAMINE 1.3 % PATCH TOP SCH ×2 (08:43→20:19)
[2021-05-03] MEDS: NYSTATIN 100,000 UNITS/GM TOPICAL PWD 15 GM TOP SCH (08:44)
[2021-05-03] MEDS: RIVAROXABAN 15 MG TAB (XARELTO) PO SCH (17:36)
[2021-05-03] MEDS: rOPINIRole 1MG TAB PO PRN (17:36)
[2021-05-03] MEDS: ATORVASTATIN 20 MG TAB PO SCH (20:19)
[2021-05-03] MEDS: MONTELUKAST 10 MG TAB PO SCH (20:20)
[2021-05-03] MEDS: cloNIDine HCL 0.2 MG/24 HR PATCH TOP SCH (20:24)
[2021-05-04 04:53] VITALS: BP 140/84
[2021-05-04] MEDS: ACETAMINOPHEN TAB 650MG DOSE (2X325MG) PO PRN (05:11)
[2021-05-04] MEDS: LEVOTHYROXINE 100MCG TABLET (0.1MG) PO SCH (05:11)
[2021-05-04] MEDS: METOPROLOL SUCC *XL* 25MG TAB (TopROL *XL*) PO SCH (08:45)
[2021-05-04] MEDS: DULoxetine 30MG CAPSULE (CYMBALTA) PO SCH (08:46)
[2021-05-04] MEDS: LACTOBACILLUS ACIDOPHILUS CAP (BACID) PO SCH (08:46)
[2021-05-04] MEDS: ASPIRIN 81MG ENTERIC TABLET PO SCH (08:46)
[2021-05-04] MEDS: LOSARTAN 50MG TABLET PO SCH (08:46)
[2021-05-04] MEDS: MAGNESIUM OXIDE 400MG TAB (MAG-OX) PO SCH (08:46)
[2021-05-04 08:47] VITALS: BP 140/84
[2021-05-04] MEDS: amLODIPine 5 MG TAB PO SCH (08:47)
[2021-05-04] MEDS: VITAMIN D 1,000 INTERNATIONAL UNITS TABLET PO SCH (08:47)
[2021-05-04] MEDS: PANTOPRAZOLE 40MG TAB (PROTONIX) PO SCH (08:47)
[2021-05-04] MEDS: OLANZapine 2.5MG TABLET PO SCH (08:48)
[2021-05-04] MEDS: FOLIC ACID 1 MG TAB PO SCH (08:48)
[2021-05-04] MEDS: DICLOFENAC EPOLAMINE 1.3 % PATCH TOP SCH (08:49)
[2021-05-04] MEDS: NYSTATIN 100,000 UNITS/GM TOPICAL PWD 15 GM TOP SCH (08:49)
[2021-05-04] MEDS ORDERED: FURO40TA2 PO (11:12)
== END 2021-05-04 11:55 | disposition home health service (06) | DRG 189 ==
LOC: M ED 16:48 → M ED INP 03-28 04:15 → M PCU 03-28 14:09 → ENRESERV 03-28 14:15 → M MSPAV 03-29 22:14 → M PCU 04-03 05:08 → M MS5PR 04-03 21:36
PROVIDERS: ADMIT Internal Medicine; ATTEND Family Medicine
DX: J96.01 Acute respiratory failure with hypoxia (principal); G93.41 Metabolic encephalopathy; I50.22 Chronic systolic (congestive) heart failure; I13.0 Hypertensive heart and chronic kidney disease with heart failure and stage 1 through stage 4 chronic kidney disease, or unspecified chronic kidney disease; N17.9 Acute kidney failure, unspecified; E87.2 Acidosis; N39.0 Urinary tract infection, site not specified; E87.0 Hyperosmolality and hypernatremia; L03.211 Cellulitis of face; J45.901 Unspecified asthma with (acute) exacerbation; E87.1 Hypo-osmolality and hyponatremia; J96.02 Acute respiratory failure with hypercapnia; G47.33 Obstructive sleep apnea (adult) (pediatric); M80.08XD Age-related osteoporosis with current pathological fracture, vertebra(e), subsequent encounter for fracture with routine healing; Z53.29 Procedure and treatment not carried out because of patient's decision for other reasons; N18.30 Chronic kidney disease, stage 3 unspecified; J44.9 Chronic obstructive pulmonary disease, unspecified; E78.5 Hyperlipidemia, unspecified; D50.9 Iron deficiency anemia, unspecified; K21.9 Gastro-esophageal reflux disease without esophagitis; L90.0 Lichen sclerosus et atrophicus; I25.10 Atherosclerotic heart disease of native coronary artery without angina pectoris; F44.81 Dissociative identity disorder; I48.0 Paroxysmal atrial fibrillation; D64.9 Anemia, unspecified; G25.81 Restless legs syndrome; R07.89 Other chest pain; E66.9 Obesity, unspecified; F31.9 Bipolar disorder, unspecified; R33.9 Retention of urine, unspecified; R53.81 Other malaise; Z79.82 Long term (current) use of aspirin; Z72.820 Sleep deprivation; Z98.42 Cataract extraction status, left eye; Z79.01 Long term (current) use of anticoagulants; Z20.822 Contact with and (suspected) exposure to COVID-19; Z98.41 Cataract extraction status, right eye; Z88.0 Allergy status to penicillin; Z95.5 Presence of coronary angioplasty implant and graft; Z79.899 Other long term (current) drug therapy; Z88.8 Allergy status to other drugs, medicaments and biological substances; Z68.33 Body mass index [BMI] 33.0-33.9, adult

== ENCOUNTER → 2021-05-09 | Outpatient (CLI) | payer MEDICARE ==
[~2021-05-09] MED LIST changes: +CLONI1TA PO; +CYCL-707 PO; +DIFL200T PO; +FLUC150T PO; -FLUC150T9 PO; +FLUC200T2 PO; -FLUC200T4 PO; +FLUT1BLS2 IH; +FOLI1TAB11 PO; +FURO80TA2 PO; -LOSA100T45 PO; +LOSA100T50 PO; +MAGN400T2 PO; +MELATAB7 PO; +METO1TAB32 PO; +MOME50SP NARES; +MONT10TA10 PO; -MONT10TA97 PO; -NASO50SP3 NARES; +OLAN2.5T25 PO; +TOPR50TA PO; +TRAM50TA2 PO; +XARE20TA PO
[2021-05-09 13:40] LABS: BASO % 0.4 % (0.0-1.0); EOS # 0.3 10^3/uL (0.0-0.5); EOS % 3.4 % (0.0-3.0); HEMATOCRIT 33.9 % (36.0-47.0); HEMOGLOBIN 10.4 g/dl (12.0-15.5); LYMPH # 1.3 10^3/uL (1.5-5.0); LYMPH % 17.7 % (24.0-44.0); MEAN CORPUSCULAR HEMOGLOBIN 28.1 pg (27.0-33.0); MEAN CORPUSCULAR HGB CONC 30.7 g/dl (32.0-36.5); MEAN CORPUSCULAR VOLUME 91.6 fl (80.0-96.0); MONO # 0.5 10^3/uL (0.0-0.8); MONO % 6.9 % (2.0-8.0); NEUTROPHILS # 5.4 10^3/uL (1.5-8.5); NEUTROPHILS % 71.1 % (36.0-66.0); PLATELET COUNT, AUTOMATED 302 10^3/uL (150-450); WHITE BLOOD COUNT 7.6 10^3/uL (4.0-10.0)
[2021-05-09 14:19] LABS: ALBUMIN 3.1 GM/DL (3.2-5.2); BILIRUBIN,TOTAL 0.5 MG/DL (0.2-1.0); CALCIUM LEVEL 9.4 MG/DL (8.8-10.2); CHOLESTEROL RISK RATIO 4.08 (<5); CREATININE FOR GFR 1.06 MG/DL (0.55-1.30); GLOMERULAR FILTRATION RATE 53.9 (>39); MAGNESIUM LEVEL 1.9 MG/DL (1.8-2.4); POTASSIUM SERUM 4.6 MEQ/L (3.5-5.1); THYROID STIMULATING HORMONE 8.69 uIU/ML (0.358-3.740); TOTAL PROTEIN 5.8 GM/DL (6.4-8.2)
== END ==
LOC: M PLALAB 09:45
PROVIDERS: ATTEND Internal Medicine
DX: I12.9 Hypertensive chronic kidney disease with stage 1 through stage 4 chronic kidney disease, or unspecified chronic kidney disease (principal); E78.00 Pure hypercholesterolemia, unspecified; E03.9 Hypothyroidism, unspecified; Z86.39 Personal history of other endocrine, nutritional and metabolic disease

== ENCOUNTER → 2021-06-15 | Outpatient (CLI) | payer MEDICARE ==
[~2021-06-15] MED LIST changes: -FLUC150T PO; +FLUC150T9 PO; -FLUC200T2 PO; +FLUC200T4 PO; +LOSA100T45 PO; -LOSA100T50 PO; -MOME50SP NARES; -MONT10TA10 PO; +MONT10TA97 PO; +NASO50SP3 NARES
[2021-06-15 15:42] LABS: CALCIUM LEVEL 9.8 MG/DL (8.8-10.2); CREATININE FOR GFR 1.75 MG/DL (0.55-1.30); GLOMERULAR FILTRATION RATE 30.2 (>39); POTASSIUM SERUM 4.7 MEQ/L (3.5-5.1)
== END ==
LOC: M PLAIMG 12:38
PROVIDERS: ATTEND Internal Medicine Cardiovascular Disease
DX: R06.00 Dyspnea, unspecified (principal); I50.9 Heart failure, unspecified; I11.0 Hypertensive heart disease with heart failure; M48.54XA Collapsed vertebra, not elsewhere classified, thoracic region, initial encounter for fracture

== ENCOUNTER → 2021-06-19 | Outpatient (CLI) | payer MEDICARE ==
[2021-06-19 11:41] LABS: HEMATOCRIT 36.2 % (36.0-47.0); HEMOGLOBIN 11.1 g/dl (12.0-15.5); MEAN CORPUSCULAR HEMOGLOBIN 29.3 pg (27.0-33.0); MEAN CORPUSCULAR HGB CONC 30.7 g/dl (32.0-36.5); MEAN CORPUSCULAR VOLUME 95.5 fl (80.0-96.0); PLATELET COUNT, AUTOMATED 353 10^3/uL (150-450); RED BLOOD COUNT 3.79 10^6/uL (4.00-5.40)
[2021-06-19 12:17] LABS: CHOLESTEROL RISK RATIO 3.963 (<5); THYROID STIMULATING HORMONE 23.2 uIU/ML (0.358-3.740)
[2021-06-19 12:19] LABS: PTH INTACT 65.2 PG/ML (18.5-88.0)
[2021-06-19 12:31] LABS: HEMOGLOBIN A1c 5.6 %
== END ==
LOC: M PLALAB 08:17
PROVIDERS: ATTEND Internal Medicine
DX: N18.32 Chronic kidney disease, stage 3b (principal); E78.00 Pure hypercholesterolemia, unspecified; E03.9 Hypothyroidism, unspecified; Z86.39 Personal history of other endocrine, nutritional and metabolic disease

== ENCOUNTER → 2021-09-03 | Outpatient (CLI) | payer MEDICARE ==
[~2021-09-03] MED LIST changes: -D31000TA2 PO; +VITA100093 PO
[2021-09-03 13:24] LABS: BASO # 0.1 10^3/uL (0.0-0.2); BASO % 0.6 % (0.0-1.0); EOS # 0.3 10^3/uL (0.0-0.5); EOS % 3.4 % (0.0-3.0); HEMATOCRIT 39.5 % (36.0-47.0); HEMOGLOBIN 12.5 g/dl (12.0-15.5); LYMPH # 1.9 10^3/uL (1.5-5.0); LYMPH % 22.8 % (24.0-44.0); MEAN CORPUSCULAR HEMOGLOBIN 29.3 pg (27.0-33.0); MEAN CORPUSCULAR HGB CONC 31.6 g/dl (32.0-36.5); MEAN CORPUSCULAR VOLUME 92.5 fl (80.0-96.0); MONO # 0.6 10^3/uL (0.0-0.8); MONO % 6.8 % (2.0-8.0); NEUTROPHILS # 5.4 10^3/uL (1.5-8.5); PLATELET COUNT, AUTOMATED 336 10^3/uL (150-450); RED BLOOD COUNT 4.27 10^6/uL (4.00-5.40); WHITE BLOOD COUNT 8.2 10^3/uL (4.0-10.0)
[2021-09-03 13:27] LABS: ALBUMIN 3.4 GM/DL (3.2-5.2); ALT/SGPT 18 U/L (12-78); BILIRUBIN,TOTAL 0.5 MG/DL (0.2-1.0); BLOOD UREA NITROGEN 14 MG/DL (7-18); CALCIUM LEVEL 10.5 MG/DL (8.8-10.2); CARBON DIOXIDE LEVEL 33 MEQ/L (21-32); CHLORIDE LEVEL 104 MEQ/L (98-107); CHOLESTEROL LEVEL 244 MG/DL (<200); CHOLESTEROL RISK RATIO 4.784 (<5); CREATININE FOR GFR 0.93 MG/DL (0.55-1.30); GLOMERULAR FILTRATION RATE > 60.0 (>39); GLUCOSE, FASTING 118 MG/DL (70-100); HDL CHOLESTEROL 51 MG/DL (>40); LDL CHOLESTEROL 173 MG/DL (<100); MAGNESIUM LEVEL 2.2 MG/DL (1.8-2.4); NON-HDL-C 193 MG/DL; POTASSIUM SERUM 3.9 MEQ/L (3.5-5.1); SODIUM LEVEL 142 MEQ/L (136-145); THYROID STIMULATING HORMONE 0.224 uIU/ML (0.358-3.740); TOTAL PROTEIN 6.2 GM/DL (6.4-8.2); TRIGLYCERIDES LEVEL 101 MG/DL (<150)
[2021-09-03 13:29] LABS: PTH INTACT 63.7 PG/ML (18.5-88.0)
== END ==
LOC: M PLALAB 11:15
PROVIDERS: ATTEND Internal Medicine
DX: I12.9 Hypertensive chronic kidney disease with stage 1 through stage 4 chronic kidney disease, or unspecified chronic kidney disease (principal); N18.32 Chronic kidney disease, stage 3b; E78.00 Pure hypercholesterolemia, unspecified; J45.909 Unspecified asthma, uncomplicated

== ENCOUNTER → 2021-09-10 | Outpatient (CLI) | payer MEDICARE | LOC: M RAD 15:20 | PROVIDERS: ATTEND Physician Assistant | DX: M79.605 Pain in left leg (principal); M79.89 Other specified soft tissue disorders ==

== ENCOUNTER 2021-09-14 15:47 | Emergency (ER) | payer MEDICARE ==
[~2021-09-14] VITALS: Ht 154.9 cm; Wt 86.8 kg
[2021-09-14] MEDS ORDERED: MORPHINE 4 MG/ML 1ML VIAL/SYRINGE IV ONE (19:30)
[2021-09-14 20:08] LABS: BASO # 0.1 10^3/uL (0.0-0.2); BASO % 0.5 % (0.0-1.0); EOS # 0.6 10^3/uL (0.0-0.5); EOS % 4.5 % (0.0-3.0); HEMATOCRIT 40.5 % (36.0-47.0); HEMOGLOBIN 12.9 g/dl (12.0-15.5); LYMPH # 2.7 10^3/uL (1.5-5.0); LYMPH % 22.2 % (24.0-44.0); MEAN CORPUSCULAR HEMOGLOBIN 28.9 pg (27.0-33.0); MEAN CORPUSCULAR HGB CONC 31.9 g/dl (32.0-36.5); MEAN CORPUSCULAR VOLUME 90.6 fl (80.0-96.0); MONO # 0.9 10^3/uL (0.0-0.8); MONO % 7.6 % (2.0-8.0); NEUTROPHILS # 7.9 10^3/uL (1.5-8.5); NEUTROPHILS % 64.9 % (36.0-66.0); PLATELET COUNT, AUTOMATED 343 10^3/uL (150-450); RED BLOOD COUNT 4.47 10^6/uL (4.00-5.40); WHITE BLOOD COUNT 12.2 10^3/uL (4.0-10.0)
[2021-09-14 20:40] LABS: CALCIUM LEVEL 9.4 MG/DL (8.8-10.2); CREATININE FOR GFR 1.04 MG/DL (0.55-1.30); GLOMERULAR FILTRATION RATE 55.1 (>39); POTASSIUM SERUM 3.7 MEQ/L (3.5-5.1); URIC ACID 7.5 MG/DL (2.6-6.0)
[2021-09-14 20:56] VITALS: BP 183/76
[2021-09-14] MEDS ORDERED: PRED20TA PO (21:13)
== END 2021-09-14 21:22 | disposition home or self-care (01) ==
LOC: M ED 15:47
DX: M79.605 Pain in left leg (principal); R22.42 Localized swelling, mass and lump, left lower limb; Z96.652 Presence of left artificial knee joint; Z79.82 Long term (current) use of aspirin; Z79.01 Long term (current) use of anticoagulants; Z79.899 Other long term (current) drug therapy; Z88.0 Allergy status to penicillin; Z88.1 Allergy status to other antibiotic agents; Z88.8 Allergy status to other drugs, medicaments and biological substances
CPT/HCPCS: 73564; 80048; 82550; 84550; 85025; 96374; 99283; J2270

== ENCOUNTER → 2021-11-01 | Outpatient (CLI) | payer MEDICARE ==
[2021-11-01 14:51] LABS: ALBUMIN 3.3 GM/DL (3.2-5.2); BILIRUBIN,DIRECT 0.1 MG/DL (0.0-0.2); BILIRUBIN,TOTAL 0.3 MG/DL (0.2-1.0); CHOLESTEROL RISK RATIO 3.938 (<5); THYROID STIMULATING HORMONE 1.28 uIU/ML (0.358-3.740); TOTAL PROTEIN 6.3 GM/DL (6.4-8.2)
== END ==
LOC: M PLALAB 09:52
PROVIDERS: ATTEND Internal Medicine
DX: E78.00 Pure hypercholesterolemia, unspecified (principal); E03.9 Hypothyroidism, unspecified

== ENCOUNTER → 2021-11-30 | Outpatient (CLI) | payer MEDICARE ==
[2021-11-30 18:48] LABS: CHOLESTEROL RISK RATIO 3.737 (<5)
== END ==
LOC: M PLALAB 12:03
PROVIDERS: ATTEND Internal Medicine
DX: N39.3 Stress incontinence (female) (male) (principal); E78.00 Pure hypercholesterolemia, unspecified; J84.10 Pulmonary fibrosis, unspecified; M40.204 Unspecified kyphosis, thoracic region

== ENCOUNTER → 2021-12-04 | Outpatient (REF) | payer MEDICARE ==
[2021-12-04 14:42] LABS: APPEARANCE, URINE CLEAR (CLEAR); BACTERIA, URINE AUTO NEGATIVE (NEGATIVE); BILIRUBIN, URINE AUTO NEGATIVE (NEGATIVE); BLOOD, URINE BLOOD NEGATIVE (NEGATIVE); COLOR, URINE YELLOW (YELLOW); GLUCOSE, URINE (UA) AUTO NEGATIVE (NEGATIVE); KETONE, URINE AUTO NEGATIVE (NEGATIVE); LEUKOCYTE ESTERASE, URINE AUTO NEGATIVE (NEGATIVE); MUCUS, URINE SMALL (NEGATIVE); NITRITE, URINE AUTO NEGATIVE (NEGATIVE); PROTEIN, URINE AUTO 1+ mg/dL (NEGATIVE); RBC, URINE AUTO 2 /HPF (0-3); SPECIFIC GRAVITY URINE AUTO 1.009 (1.002-1.035); SQUAMOUS EPITHELIAL CELL UR AU 1 /HPF (0-6); UROBILINOGEN, URINE AUTO 0.2 mg/dL (0.0-2.0); WBC, URINE AUTO 1 /HPF (0-3)
== END ==
LOC: M SMT 12:58
PROVIDERS: ATTEND Urology
DX: R32 Unspecified urinary incontinence (principal)

== ENCOUNTER → 2021-12-20 | Outpatient (REF) | payer MEDICARE | LOC: M SFHCPLAZ 13:01 | PROVIDERS: ATTEND Internal Medicine Hematology | DX: J20.8 Acute bronchitis due to other specified organisms (principal) ==

== ENCOUNTER → 2022-01-01 | Outpatient (CLI) | payer MEDICARE ==
[2022-01-01 13:43] LABS: BASO # 0.1 10^3/uL (0.0-0.2); BASO % 0.6 % (0.0-1.0); EOS # 0.6 10^3/uL (0.0-0.5); EOS % 6.9 % (0.0-3.0); HEMATOCRIT 46.1 % (36.0-47.0); HEMOGLOBIN 14.2 g/dl (12.0-15.5); LYMPH # 1.9 10^3/uL (1.5-5.0); LYMPH % 20.7 % (24.0-44.0); MEAN CORPUSCULAR HEMOGLOBIN 28.1 pg (27.0-33.0); MEAN CORPUSCULAR HGB CONC 30.8 g/dl (32.0-36.5); MEAN CORPUSCULAR VOLUME 91.1 fl (80.0-96.0); MONO # 0.7 10^3/uL (0.0-0.8); MONO % 7.9 % (2.0-8.0); NEUTROPHILS # 5.6 10^3/uL (1.5-8.5); NEUTROPHILS % 62.8 % (36.0-66.0); PLATELET COUNT, AUTOMATED 295 10^3/uL (150-450); RED BLOOD COUNT 5.06 10^6/uL (4.00-5.40)
[2022-01-01 13:58] LABS: ALBUMIN 3.5 GM/DL (3.2-5.2); BILIRUBIN,TOTAL 0.6 MG/DL (0.2-1.0); CALCIUM LEVEL 9.5 MG/DL (8.8-10.2); CREATININE FOR GFR 1.8 MG/DL (0.55-1.30); GLOMERULAR FILTRATION RATE 29.3 (>39); POTASSIUM SERUM 4.3 MEQ/L (3.5-5.1); TOTAL PROTEIN 6.5 GM/DL (6.4-8.2)
== END ==
LOC: M PLALAB 10:14
PROVIDERS: ATTEND Internal Medicine Hematology
DX: J20.8 Acute bronchitis due to other specified organisms (principal)

== ENCOUNTER → 2022-01-06 | Outpatient (CLI) | payer MEDICARE ==
[2022-01-06 11:29] LABS: APPEARANCE, URINE MANUAL CLEAR (CLEAR); COLOR, URINE MANUAL YELLOW (YELLOW)
[2022-01-06 11:30] LABS: PROTEIN, URINE MANUAL TRACE mg/dL (NEGATIVE)
[2022-01-06 11:31] LABS: BILIRUBIN, URINE MANUAL NEGATIVE (NEGATIVE); BLOOD URINE MANUAL NEGATIVE (NEGATIVE); GLUCOSE, URINE (UA) MANUAL NEGATIVE (NEGATIVE); KETONE, URINE MANUAL NEGATIVE (NEGATIVE); LEUKOCYTE ESTERASE, URINE MAN NEGATIVE (NEGATIVE); NITRITE, URINE MANUAL NEGATIVE (NEGATIVE); UROBILINOGEN, URINE MANUAL NORMAL (NORMAL)
[2022-01-06 11:33] LABS: RBC, URINE 0-1 /hpf (0-3); WBC, URINE 0-1 /hpf (0-3)
[2022-01-06 11:34] LABS: BACTERIA, URINE NONE SEEN; HYALINE CAST, URINE 0-1 /lpf (0-1); SQUAMOUS EPITHELIAL CELL URINE NONE SEEN /hpf (SMALL AMT)
[2022-01-06 11:42] LABS: HEMATOCRIT 44.6 % (36.0-47.0); HEMOGLOBIN 14.2 g/dl (12.0-15.5); MEAN CORPUSCULAR HEMOGLOBIN 28.6 pg (27.0-33.0); MEAN CORPUSCULAR HGB CONC 31.8 g/dl (32.0-36.5); MEAN CORPUSCULAR VOLUME 89.9 fl (80.0-96.0); PLATELET COUNT, AUTOMATED 273 10^3/uL (150-450); RED BLOOD COUNT 4.96 10^6/uL (4.00-5.40); WHITE BLOOD COUNT 8.1 10^3/uL (4.0-10.0)
[2022-01-06 12:18] LABS: ALBUMIN 3.6 GM/DL (3.2-5.2); CALCIUM LEVEL 9.2 MG/DL (8.8-10.2); CREATININE FOR GFR 1.93 MG/DL (0.55-1.30); POTASSIUM SERUM 3.9 MEQ/L (3.5-5.1)
[2022-01-06 12:30] LABS: MALB URINE SIEMENS 28.8 MG/L; MAU/CREAT RATIO 21.8 MCG/MG (0.0-30.0)
== END ==
LOC: M LAB 11:04
PROVIDERS: ATTEND Internal Medicine Hematology
DX: N18.32 Chronic kidney disease, stage 3b (principal); J44.1 Chronic obstructive pulmonary disease with (acute) exacerbation

== ENCOUNTER → 2022-01-10 | Outpatient (CLI) | payer MEDICARE | LOC: M PLAIMG 13:38 | PROVIDERS: ATTEND Internal Medicine Hematology | DX: J44.1 Chronic obstructive pulmonary disease with (acute) exacerbation (principal); Z87.81 Personal history of (healed) traumatic fracture; M48.54XA Collapsed vertebra, not elsewhere classified, thoracic region, initial encounter for fracture ==

== ENCOUNTER → 2022-01-18 | Outpatient (CLI) | payer MEDICARE | LOC: M PLALAB 15:17 | PROVIDERS: ATTEND Internal Medicine Hematology | DX: M25.511 Pain in right shoulder (principal); Z96.611 Presence of right artificial shoulder joint ==

== ENCOUNTER 2022-04-08 09:57 | Outpatient (RCR) | payer MEDICARE | END 2022-04-10 | LOC: M PT 09:57 | PROVIDERS: ATTEND Internal Medicine Hematology | DX: I50.22 Chronic systolic (congestive) heart failure (principal); R53.1 Weakness ==

== ENCOUNTER → 2022-04-23 | Outpatient (REF) | payer MEDICARE ==
[2022-04-23 14:28] LABS: HEMATOCRIT 40.6 % (36.0-47.0); HEMOGLOBIN 12.7 g/dl (12.0-15.5); MEAN CORPUSCULAR HEMOGLOBIN 29.4 pg (27.0-33.0); MEAN CORPUSCULAR HGB CONC 31.3 g/dl (32.0-36.5); PLATELET COUNT, AUTOMATED 264 10^3/uL (150-450); RED BLOOD COUNT 4.32 10^6/uL (4.00-5.40); WHITE BLOOD COUNT 8.3 10^3/uL (4.0-10.0)
[2022-04-23 14:37] LABS: C REACTIVE PROTEIN QUANTITATIV < 0.40 MG/DL (<1.0)
[2022-04-23 14:39] LABS: ALBUMIN 3.3 G/DL (3.2-5.2); ALKALINE PHOSPHATASE 77 U/L (46-116); ALT/SGPT < 9 U/L (7.0-40); AST/SGOT 16 U/L (<34); BILIRUBIN,TOTAL 0.6 MG/DL (0.3-1.2); BLOOD UREA NITROGEN 19 MG/DL (9-23); CALCIUM LEVEL 8.7 MG/DL (8.3-10.6); CARBON DIOXIDE LEVEL 31 MMOL/L (20-31); CHLORIDE LEVEL 102 MMOL/L (98-107); CHOLESTEROL LEVEL 149 MG/DL (<200); CHOLESTEROL RISK RATIO 3.48 (<5); CREATININE FOR GFR 1.34 MG/DL (0.55-1.30); GLOMERULAR FILTRATION RATE 41.2 (>39); GLUCOSE, FASTING 104 MG/DL (74-106); HDL CHOLESTEROL 42.7 MG/DL (>40); LDL CHOLESTEROL 83.3 MG/DL (<100); NON-HDL-C 106 MG/DL; POTASSIUM SERUM 4.2 MMOL/L (3.5-5.1); SODIUM LEVEL 139 MMOL/L (136-145); TRIGLYCERIDES LEVEL 115 MG/DL (<150)
[2022-04-23 14:40] LABS: FREE T4 1.45 NG/DL (0.89-1.76); VITAMIN B12 LEVEL 445 PG/ML (211-911)
[2022-04-23 14:56] LABS: MAU/CREAT RATIO 6.8 MCG/MG (0.0-30.0)
[2022-04-23 18:32] LABS: HEMOGLOBIN A1c 5.7 % (4.0-6.0)
== END ==
LOC: M SFHCPLAZ 09:35
PROVIDERS: ATTEND Internal Medicine Hematology
DX: E78.00 Pure hypercholesterolemia, unspecified (principal); I50.22 Chronic systolic (congestive) heart failure; Z79.899 Other long term (current) drug therapy

== ENCOUNTER → 2022-07-29 | Outpatient (CLI) | payer MEDICARE ==
[2022-07-29 19:26] LABS: HEMATOCRIT 43.1 % (36.0-47.0); HEMOGLOBIN 13.6 g/dl (12.0-15.5); MEAN CORPUSCULAR HEMOGLOBIN 29.3 pg (27.0-33.0); MEAN CORPUSCULAR HGB CONC 31.6 g/dl (32.0-36.5); MEAN CORPUSCULAR VOLUME 92.9 fl (80.0-96.0); PLATELET COUNT, AUTOMATED 266 10^3/uL (150-450); RED BLOOD COUNT 4.64 10^6/uL (4.00-5.40); WHITE BLOOD COUNT 8.9 10^3/uL (4.0-10.0)
[2022-07-29 20:16] LABS: ALBUMIN 3.5 G/DL (3.2-5.2); BILIRUBIN,TOTAL 0.7 MG/DL (0.3-1.2); CALCIUM LEVEL 8.4 MG/DL (8.3-10.6); CREATININE FOR GFR 1.47 MG/DL (0.55-1.30); FREE T4 1.18 NG/DL (0.89-1.76); GLOMERULAR FILTRATION RATE 36.9 (>39); POTASSIUM SERUM 4.5 MMOL/L (3.5-5.1); THYROID STIMULATING HORMONE 1.911 uIU/ML (0.55-4.78); TOTAL PROTEIN 6.1 G/DL (5.7-8.2)
== END ==
LOC: M PLAIMG 16:11
PROVIDERS: ATTEND Internal Medicine Hematology
DX: J44.1 Chronic obstructive pulmonary disease with (acute) exacerbation (principal); I12.9 Hypertensive chronic kidney disease with stage 1 through stage 4 chronic kidney disease, or unspecified chronic kidney disease; Z95.1 Presence of aortocoronary bypass graft; Z96.611 Presence of right artificial shoulder joint; Z96.612 Presence of left artificial shoulder joint

== ENCOUNTER → 2022-08-16 | Outpatient (CLI) | payer MEDICARE ==
[~2022-08-16] MED LIST changes: +DICL20GE TP; +MEDR4PAK PO
== END ==
LOC: M WHC 13:59
PROVIDERS: ATTEND Internal Medicine Hematology
DX: Z12.31 Encounter for screening mammogram for malignant neoplasm of breast (principal); Z80.3 Family history of malignant neoplasm of breast; Z80.41 Family history of malignant neoplasm of ovary; R92.1 Mammographic calcification found on diagnostic imaging of breast

== ENCOUNTER 2022-08-18 10:17 | Emergency (ER) | payer MEDICARE ==
[~2022-08-18] VITALS: Ht 157.5 cm; Wt 71.4 kg
[~2022-08-18 10:17] MED LIST changes: -DICL20GE TP; -MEDR4PAK PO
[2022-08-18] MEDS ORDERED: TRAM50TA2 PO (11:30)
[2022-08-18] MEDS ORDERED: traMADol 50 MG TAB PO ONE (11:30)
[2022-08-18] MEDS ORDERED: predniSONE 20 MG TAB PO ONE (11:30)
[2022-08-18] MEDS ORDERED: DICL20GE TP (11:30)
[2022-08-18] MEDS ORDERED: MEDR4PAK PO (11:36)
[2022-08-18 11:46] VITALS: BP 155/82
== END 2022-08-18 11:47 | disposition home or self-care (01) ==
LOC: M ED 10:17
DX: M79.645 Pain in left finger(s) (principal); M65.88 Other synovitis and tenosynovitis, other site; I50.9 Heart failure, unspecified; I10 Essential (primary) hypertension; E78.2 Mixed hyperlipidemia; N18.9 Chronic kidney disease, unspecified; K21.9 Gastro-esophageal reflux disease without esophagitis; Z95.5 Presence of coronary angioplasty implant and graft; Z95.1 Presence of aortocoronary bypass graft; Z79.01 Long term (current) use of anticoagulants; Z79.82 Long term (current) use of aspirin; Z79.899 Other long term (current) drug therapy; Z88.0 Allergy status to penicillin; Z88.8 Allergy status to other drugs, medicaments and biological substances
CPT/HCPCS: 99284; J7512

== ENCOUNTER → 2022-08-20 | Outpatient (CLI) | payer MEDICARE ==
[~2022-08-20] MED LIST changes: +DICL20GE TP; +MEDR4PAK PO
== END ==
LOC: M SOG 16:05
PROVIDERS: ATTEND Physician Assistant
DX: M25.542 Pain in joints of left hand (principal); M19.042 Primary osteoarthritis, left hand

== ENCOUNTER → 2022-08-27 | Outpatient (CLI) | payer MEDICARE | LOC: M WHC 13:10 | PROVIDERS: ATTEND Internal Medicine Hematology | DX: R92.1 Mammographic calcification found on diagnostic imaging of breast (principal) ==

== ENCOUNTER → 2022-08-29 | Outpatient (CLI) | payer MEDICARE | LOC: M SOG 08:13 | PROVIDERS: ATTEND Orthopaedic Surgery | DX: M25.571 Pain in right ankle and joints of right foot (principal) ==

== ENCOUNTER 2022-10-08 11:57 | Emergency (ER) | payer MEDICARE ==
[~2022-10-08] VITALS: Ht 157.5 cm; Wt 73.8 kg
[~2022-10-08 11:57] MED LIST changes: -LOSA100T45 PO; +LOSA100T46 PO
[2022-10-08] MEDS ORDERED: NS 500 ML IV ONE (14:25)
[2022-10-08 14:58] LABS: BASO % 0.5 % (0.0-1.0); EOS # 0.4 10^3/uL (0.0-0.5); EOS % 5.3 % (0.0-3.0); HEMATOCRIT 41.6 % (36.0-47.0); HEMOGLOBIN 12.9 g/dl (12.0-15.5); LYMPH # 2.4 10^3/uL (1.5-5.0); LYMPH % 31.4 % (24.0-44.0); MEAN CORPUSCULAR HEMOGLOBIN 28.9 pg (27.0-33.0); MEAN CORPUSCULAR VOLUME 93.1 fl (80.0-96.0); MONO # 0.5 10^3/uL (0.0-0.8); MONO % 7.1 % (2.0-8.0); NEUTROPHILS # 4.2 10^3/uL (1.5-8.5); NEUTROPHILS % 55.6 % (36.0-66.0); PLATELET COUNT, AUTOMATED 227 10^3/uL (150-450); RED BLOOD COUNT 4.47 10^6/uL (4.00-5.40); WHITE BLOOD COUNT 7.5 10^3/uL (4.0-10.0)
[2022-10-08 16:47] LABS: CALCIUM LEVEL 8.7 MG/DL (8.3-10.6); CREATININE FOR GFR 1.08 MG/DL (0.55-1.30); GLOMERULAR FILTRATION RATE 52.7 (>39); POTASSIUM SERUM 3.6 MMOL/L (3.5-5.1)
[2022-10-08 16:58] LABS: INR 0.89; PROTHROMBIN TIME 12.2 SECONDS (12.5-14.5)
[2022-10-08 16:59] LABS: PARTIAL THROMBOPLASTIN TIME 25.4 SECONDS (24.8-34.2)
[2022-10-08 19:23] VITALS: BP 170/78
== END 2022-10-08 19:48 | disposition home or self-care (01) ==
LOC: M ED 11:57
DX: Q25.46 Tortuous aortic arch (principal); E11.9 Type 2 diabetes mellitus without complications; I10 Essential (primary) hypertension; E78.5 Hyperlipidemia, unspecified; I50.9 Heart failure, unspecified; K21.9 Gastro-esophageal reflux disease without esophagitis; E03.9 Hypothyroidism, unspecified; Z87.891 Personal history of nicotine dependence; Z79.82 Long term (current) use of aspirin; Z79.899 Other long term (current) drug therapy; Z88.0 Allergy status to penicillin; Z88.8 Allergy status to other drugs, medicaments and biological substances

== ENCOUNTER → 2022-12-05 | Outpatient (CLI) | payer MEDICARE, OTHER ==
[~2022-12-05] MED LIST changes: +MIRT-84 PO; -REME15TA2 PO; -ROPI1TAB3 PO; +ROPI1TAB73 PO
== END ==
LOC: M WHC 08:30
PROVIDERS: ATTEND Internal Medicine Hematology
DX: I65.22 Occlusion and stenosis of left carotid artery (principal)

== ENCOUNTER → 2023-03-04 | Outpatient (CLI) | payer MEDICARE, OTHER ==
[~2023-03-04] MED LIST changes: -GABA-283 PO; +GABA-284 PO; -OXYB5TAB10 PO; +OXYB5TAB11 PO
== END ==
LOC: M WHC 13:32
PROVIDERS: ATTEND Internal Medicine Hematology
DX: R92.1 Mammographic calcification found on diagnostic imaging of breast (principal)
CPT/HCPCS: 77065; G0279

== ENCOUNTER → 2023-05-19 | Outpatient (REF) | payer OTHER ==
[2023-05-19 13:18] LABS: HEMATOCRIT 43.9 % (36.0-47.0); HEMOGLOBIN 14.3 g/dl (12.0-15.5); MEAN CORPUSCULAR HGB CONC 32.6 g/dl (32.0-36.5); MEAN CORPUSCULAR VOLUME 92.2 fl (80.0-96.0); PLATELET COUNT, AUTOMATED 331 10^3/uL (150-450); RED BLOOD COUNT 4.76 10^6/uL (4.00-5.40); WHITE BLOOD COUNT 14.6 10^3/uL (4.0-10.0)
[2023-05-19 13:55] LABS: C REACTIVE PROTEIN QUANTITATIV 0.9 MG/DL (<1.0)
[2023-05-19 13:57] LABS: ALBUMIN 3.4 G/DL (3.2-5.2); BILIRUBIN,TOTAL 0.4 MG/DL (0.3-1.2); CALCIUM LEVEL 9.3 MG/DL (8.3-10.6); CHOLESTEROL RISK RATIO 3.06 (<5); CREATININE FOR GFR 1.42 MG/DL (0.55-1.30); FREE T4 1.14 NG/DL (0.89-1.76); GLOMERULAR FILTRATION RATE 38.3 (>39); HDL CHOLESTEROL 53.5 MG/DL (>40); LDL CHOLESTEROL 86.5 MG/DL (<100); NON-HDL-C 110.5 MG/DL; POTASSIUM SERUM 4.1 MMOL/L (3.5-5.1); THYROID STIMULATING HORMONE 1.779 uIU/ML (0.55-4.78); TOTAL 25(OH) VITAMIN D 64.1 NG/ML (20.0-100.0); TOTAL PROTEIN 6.3 G/DL (5.7-8.2)
== END ==
LOC: M SFHCPLAZ 11:11
PROVIDERS: ATTEND Internal Medicine Hematology
DX: R73.01 Impaired fasting glucose (principal); I10 Essential (primary) hypertension; Z79.899 Other long term (current) drug therapy

== ENCOUNTER → 2023-06-16 | Outpatient (CLI) | payer OTHER | LOC: M PLALAB 14:19 → M PLAIMG 14:19 | PROVIDERS: ATTEND Nurse Practitioner Family | DX: J44.1 Chronic obstructive pulmonary disease with (acute) exacerbation (principal) ==

== ENCOUNTER 2023-06-20 18:32 | Emergency (ER) | payer OTHER ==
[~2023-06-20] VITALS: Ht 154.9 cm; Wt 74.3 kg
[2023-06-20 19:13] LABS: HEMOGLOBIN 13.1 g/dl (12.0-15.5); MEAN CORPUSCULAR HEMOGLOBIN 30.3 pg (27.0-33.0); MEAN CORPUSCULAR HGB CONC 32.8 g/dl (32.0-36.5); MEAN CORPUSCULAR VOLUME 92.4 fl (80.0-96.0); PLATELET COUNT, AUTOMATED 308 10^3/uL (150-450); RED BLOOD COUNT 4.33 10^6/uL (4.00-5.40); WHITE BLOOD COUNT 6.7 10^3/uL (4.0-10.0)
[2023-06-20 19:27] LABS: INR 1.06; PROTHROMBIN TIME 13.5 SECONDS (12.5-14.5)
[2023-06-20 19:28] LABS: PARTIAL THROMBOPLASTIN TIME 25.9 SECONDS (24.8-34.2)
[2023-06-20 19:40] LABS: CK-MB VALUE MASS 1.3 NG/ML (<3.6)
[2023-06-20 19:41] LABS: ALBUMIN 2.8 G/DL (3.2-5.2); BILIRUBIN,DIRECT 0.3 MG/DL (<0.4); BILIRUBIN,TOTAL 0.7 MG/DL (0.3-1.2); CREATININE FOR GFR 1.69 MG/DL (0.55-1.30); GLOMERULAR FILTRATION RATE 31.3 (>39); MB/CK RELATIVE INDEX 0.36 (< OR =4); POTASSIUM SERUM 3.6 MMOL/L (3.5-5.1); TOTAL PROTEIN 5.4 G/DL (5.7-8.2)
[2023-06-20] MEDS: methylPREDNISolone 40MG 1ML VIAL IV ONE (21:51)
[2023-06-20] MEDS: BENZONATATE 100MG CAPSULE PO ONE (21:51)
[2023-06-20] MEDS: IPRATROPIUM 0.5MG/ALBUTEROL 2.5MG INH SOL UD 3ML (DUONEB) NEB ONE (21:56)
[2023-06-20 22:00] VITALS: BP 121/64; TEMP 98.7; O2SAT 100
[2023-06-20 22:12] LABS: CK-MB VALUE MASS 2.1 NG/ML (<3.6)
[2023-06-20 22:19] LABS: MB/CK RELATIVE INDEX 0.56 (< OR =4)
[2023-06-20 22:20] LABS: PROCALCITONIN 0.21 ng/ml
[2023-06-20] MEDS ORDERED: PRED20TA PO (22:32)
[2023-06-20] MEDS ORDERED: AZIT500T5 PO (22:32)
[2023-06-20] MEDS ORDERED: BENZ200C70 PO (22:32)
[2023-06-20] MEDS: AZITHROMYCIN 250MG TABLET PO ONE (22:36)
== END 2023-06-20 22:45 | disposition home or self-care (01) ==
LOC: M ED 18:32
DX: J20.9 Acute bronchitis, unspecified (principal); I25.2 Old myocardial infarction; I10 Essential (primary) hypertension; E03.9 Hypothyroidism, unspecified; J45.909 Unspecified asthma, uncomplicated; Z79.2 Long term (current) use of antibiotics; Z86.79 Personal history of other diseases of the circulatory system; Z79.52 Long term (current) use of systemic steroids; Z79.02 Long term (current) use of antithrombotics/antiplatelets; Z79.82 Long term (current) use of aspirin; Z79.899 Other long term (current) drug therapy; Z88.0 Allergy status to penicillin; Z88.8 Allergy status to other drugs, medicaments and biological substances
CPT/HCPCS: 71046; 80048; 80076; 82550; 82553; 83690; 83880; 84145; 84484; 85027; 85610; 85730; 86140; 87486; 87581; 87633; 87798; 93005; 94640; 96374; 99284; J2920

== ENCOUNTER 2023-06-27 18:01 | Emergency (ER) | payer OTHER ==
[~2023-06-27] VITALS: Ht 154.9 cm; Wt 73.5 kg
[~2023-06-27 18:01] MED LIST changes: +AZIT500T5 PO; +BENZ200C70 PO; -OXYB5TAB11 PO; +OXYB5TAB14 PO
[2023-06-27 22:31] LABS: BASO % 0.1 % (0.0-1.0); EOS # 0.3 10^3/uL (0.0-0.5); EOS % 2.1 % (0.0-3.0); HEMATOCRIT 45.7 % (36.0-47.0); HEMOGLOBIN 15.3 g/dl (12.0-15.5); LYMPH # 3.4 10^3/uL (1.5-5.0); LYMPH % 21.9 % (24.0-44.0); MEAN CORPUSCULAR HEMOGLOBIN 29.8 pg (27.0-33.0); MEAN CORPUSCULAR HGB CONC 33.5 g/dl (32.0-36.5); MEAN CORPUSCULAR VOLUME 88.9 fl (80.0-96.0); MONO # 0.9 10^3/uL (0.0-0.8); MONO % 5.8 % (2.0-8.0); NEUTROPHILS # 10.8 10^3/uL (1.5-8.5); NEUTROPHILS % 69.3 % (36.0-66.0); PLATELET COUNT, AUTOMATED 345 10^3/uL (150-450); RED BLOOD COUNT 5.14 10^6/uL (4.00-5.40); WHITE BLOOD COUNT 15.5 10^3/uL (4.0-10.0)
[2023-06-27] MEDS: ACETAMINOPHEN TAB 650MG DOSE (2X325MG) PO ONE (22:59)
[2023-06-27 23:00] LABS: CK-MB VALUE MASS < 1.0 NG/ML (<3.6); LIPASE 40 U/L (12-53)
[2023-06-27 23:02] LABS: ALKALINE PHOSPHATASE 131 U/L (46-116); ALT/SGPT 77 U/L (7.0-40); AST/SGOT 45 U/L (<34); BILIRUBIN,DIRECT 0.2 MG/DL (<0.4); BILIRUBIN,TOTAL 0.5 MG/DL (0.3-1.2); BLOOD UREA NITROGEN 33 MG/DL (9-23); CALCIUM LEVEL 9.1 MG/DL (8.3-10.6); CARBON DIOXIDE LEVEL 36 MMOL/L (20-31); CHLORIDE LEVEL 98 MMOL/L (98-107); CPK CREATINE PHOSPHOKINASE 38 U/L (34-145); CREATININE FOR GFR 1.74 MG/DL (0.55-1.30); GLOMERULAR FILTRATION RATE 30.3 (>39); GLUCOSE, FASTING 99 MG/DL (74-106); MB/CK RELATIVE INDEX 2.63 (< OR =4); POTASSIUM SERUM 3.4 MMOL/L (3.5-5.1); SODIUM LEVEL 136 MMOL/L (136-145); TOTAL PROTEIN 5.6 G/DL (5.7-8.2)
[2023-06-27 23:04] LABS: THYROID STIMULATING HORMONE 5.964 uIU/ML (0.55-4.78)
[2023-06-27] MEDS ORDERED: ISOVUE-370 76% 100ML VIAL As Ordered ONE (23:34)
[2023-06-28 01:35] LABS: CK-MB VALUE MASS < 1.0 NG/ML (<3.6)
[2023-06-28 01:43] LABS: CPK CREATINE PHOSPHOKINASE 38 U/L (34-145); MB/CK RELATIVE INDEX 2.63 (< OR =4)
[2023-06-28 02:30] VITALS: BP 129/59
[2023-06-28 02:31] VITALS: TEMP 98.3; O2SAT 93
== END 2023-06-28 02:40 | disposition home or self-care (01) ==
LOC: M ED 18:01
DX: R53.81 Other malaise (principal); I25.2 Old myocardial infarction; I10 Essential (primary) hypertension; N18.9 Chronic kidney disease, unspecified; M79.7 Fibromyalgia; Z86.79 Personal history of other diseases of the circulatory system; Z88.0 Allergy status to penicillin; Z88.8 Allergy status to other drugs, medicaments and biological substances; Z79.52 Long term (current) use of systemic steroids; Z79.811 Long term (current) use of aromatase inhibitors; Z79.83 Long term (current) use of bisphosphonates; Z79.02 Long term (current) use of antithrombotics/antiplatelets; Z79.899 Other long term (current) drug therapy
CPT/HCPCS: 36415; 71275; 74177; 80048; 80076; 81001; 82550; 82553; 83690; 83880; 84443; 84484; 85025; 87486; 87581; 87633; 87798; 93005; 99285; Q9967

== ENCOUNTER → 2023-08-13 | Outpatient (CLI) | payer OTHER ==
[~2023-08-13] MED LIST changes: -MIRT-60 PO; +MIRT-89 PO
[2023-08-13 13:45] LABS: BASO # 0.1 10^3/uL (0.0-0.2); BASO % 0.6 % (0.0-1.0); EOS # 0.3 10^3/uL (0.0-0.5); EOS % 3.1 % (0.0-3.0); HEMATOCRIT 39.2 % (36.0-47.0); HEMOGLOBIN 12.7 g/dl (12.0-15.5); LYMPH % 23.2 % (24.0-44.0); MEAN CORPUSCULAR HEMOGLOBIN 29.8 pg (27.0-33.0); MEAN CORPUSCULAR HGB CONC 32.4 g/dl (32.0-36.5); MONO # 0.7 10^3/uL (0.0-0.8); MONO % 8.1 % (2.0-8.0); NEUTROPHILS # 5.5 10^3/uL (1.5-8.5); NEUTROPHILS % 64.8 % (36.0-66.0); PLATELET COUNT, AUTOMATED 198 10^3/uL (150-450); RED BLOOD COUNT 4.26 10^6/uL (4.00-5.40); WHITE BLOOD COUNT 8.4 10^3/uL (4.0-10.0)
[2023-08-13 14:10] LABS: FREE T4 2.46 NG/DL (0.89-1.76)
[2023-08-13 14:11] LABS: THYROID STIMULATING HORMONE 2.383 uIU/ML (0.55-4.78)
[2023-08-13 14:14] LABS: TOTAL 25(OH) VITAMIN D 73.7 NG/ML (20.0-100.0)
[2023-08-13 14:55] LABS: HEMATOCRIT 39.1 % (36.0-47.0)
[2023-08-13 15:08] LABS: ALBUMIN 3.5 G/DL (3.2-5.2); BILIRUBIN,TOTAL 0.6 MG/DL (0.3-1.2); CALCIUM LEVEL 9.9 MG/DL (8.3-10.6); CHOLESTEROL RISK RATIO 2.6 (<5); CREATININE FOR GFR 1.46 MG/DL (0.55-1.30); GLOMERULAR FILTRATION RATE 37.1 (>39); HDL CHOLESTEROL 49.6 MG/DL (>40); LDL CHOLESTEROL 62.2 MG/DL (<100); NON-HDL-C 79.4 MG/DL; POTASSIUM SERUM 2.8 MMOL/L (3.5-5.1); TOTAL PROTEIN 6.1 G/DL (5.7-8.2)
== END ==
LOC: M PLAIMG 12:26
PROVIDERS: ATTEND Student in an Organized Health Care Education/Training Program
DX: R10.13 Epigastric pain (principal); E03.9 Hypothyroidism, unspecified; M81.0 Age-related osteoporosis without current pathological fracture; I12.9 Hypertensive chronic kidney disease with stage 1 through stage 4 chronic kidney disease, or unspecified chronic kidney disease; R41.3 Other amnesia

== ENCOUNTER → 2023-08-14 | Outpatient (REF) | payer OTHER | LOC: M SFHCPLAZ 17:04 | PROVIDERS: ATTEND Student in an Organized Health Care Education/Training Program | DX: R41.3 Other amnesia (principal); R10.13 Epigastric pain; I12.9 Hypertensive chronic kidney disease with stage 1 through stage 4 chronic kidney disease, or unspecified chronic kidney disease; E03.9 Hypothyroidism, unspecified; M81.0 Age-related osteoporosis without current pathological fracture ==

== ENCOUNTER → 2023-08-25 | Outpatient (CLI) | payer OTHER ==
[2023-08-25 16:18] LABS: ALBUMIN 3.3 G/DL (3.2-5.2); BILIRUBIN,TOTAL 0.4 MG/DL (0.3-1.2); CALCIUM LEVEL 9.6 MG/DL (8.3-10.6); CREATININE FOR GFR 1.77 MG/DL (0.55-1.30); GLOMERULAR FILTRATION RATE 29.7 (>39); POTASSIUM SERUM 4.6 MMOL/L (3.5-5.1); TOTAL PROTEIN 5.9 G/DL (5.7-8.2)
== END ==
LOC: M PLALAB 13:34
PROVIDERS: ATTEND Student in an Organized Health Care Education/Training Program
DX: E87.6 Hypokalemia (principal)

== ENCOUNTER → 2023-08-25 | Outpatient (REF) | payer OTHER | LOC: M SFHCPLAZ 12:12 | PROVIDERS: ATTEND Student in an Organized Health Care Education/Training Program | DX: E87.6 Hypokalemia (principal) ==

== ENCOUNTER → 2023-09-22 | Outpatient (CLI) | payer OTHER ==
[~2023-09-22] MED LIST changes: -ROSU40TA4 PO; +ROSU40TA63 PO
== END ==
LOC: M WHC 14:49
PROVIDERS: ATTEND Internal Medicine Hematology
DX: R92.1 Mammographic calcification found on diagnostic imaging of breast (principal); R92.323 Mammographic fibroglandular density, bilateral breasts
CPT/HCPCS: 77066; G0279

== ENCOUNTER → 2023-10-21 | Outpatient (CLI) | payer OTHER ==
[~2023-10-21] MED LIST changes: +ROPI1TA PO; -ROPI1TAB86 PO
== END ==
LOC: M SLEEP 20:00
PROVIDERS: ATTEND Nurse Practitioner Family
DX: G47.33 Obstructive sleep apnea (adult) (pediatric) (principal); G47.61 Periodic limb movement disorder

== ENCOUNTER 2023-10-30 20:07 | Emergency (ER) | payer OTHER ==
[~2023-10-30] VITALS: Ht 156.2 cm; Wt 69.1 kg
[2023-10-30] MEDS ORDERED: ONDANSETRON 4MG 2ML VIAL As Ordered ONE (22:28)
[2023-10-30] MEDS: MORPHINE 2 MG/ML 1ML VIAL IV ONE (22:30)
[2023-10-30] MEDS: ONDANSETRON 4MG 2ML VIAL IV ONE (22:30)
[2023-10-31] MEDS: NORCO, ANEXSIA 5/325MG TABLET (HYDROcodone/ACETAMINOPHEN) PO ONE (00:10)
[2023-10-31] MEDS: MORPHINE 2 MG/ML 1ML VIAL IV ONE (01:00)
[2023-10-31] MEDS ORDERED: HYDR-3713 PO (01:15)
[2023-10-31 01:22] VITALS: BP 129/62; TEMP 97.8; O2SAT 96
[2023-10-31] MEDS: NORCO 5/325MG TABLET (HOME DOSE PACK) PO ONE (01:43)
== END 2023-10-31 01:45 | disposition home or self-care (01) ==
LOC: M ED 20:07
DX: S52.031A Displaced fracture of olecranon process with intraarticular extension of right ulna, initial encounter for closed fracture (principal); S43.401A Unspecified sprain of right shoulder joint, initial encounter; S70.01XA Contusion of right hip, initial encounter; S80.01XA Contusion of right knee, initial encounter; W01.198A Fall on same level from slipping, tripping and stumbling with subsequent striking against other object, initial encounter; Y92.009 Unspecified place in unspecified non-institutional (private) residence as the place of occurrence of the external cause; Y93.89 Activity, other specified; Y99.9 Unspecified external cause status; I25.10 Atherosclerotic heart disease of native coronary artery without angina pectoris; I10 Essential (primary) hypertension; E78.5 Hyperlipidemia, unspecified; J45.909 Unspecified asthma, uncomplicated; M79.7 Fibromyalgia; K21.9 Gastro-esophageal reflux disease without esophagitis; N18.9 Chronic kidney disease, unspecified; M81.0 Age-related osteoporosis without current pathological fracture; Z95.5 Presence of coronary angioplasty implant and graft; Z95.1 Presence of aortocoronary bypass graft; Z79.01 Long term (current) use of anticoagulants; Z79.82 Long term (current) use of aspirin; Z79.899 Other long term (current) drug therapy
CPT/HCPCS: 29105; 70450; 72125; 73030; 73080; 73200; 73502; 73560; 96374; 96375; 96376; 99284; J2405

== ENCOUNTER → 2023-11-06 | Outpatient (REF) | payer OTHER ==
[~2023-11-06] MED LIST changes: +EZET10TA21 PO; +FURO20TA2 PO; +HYDR-3713 PO; +LEVO125T4 PO; +MAGN400T33 PO; +METO1TAB7 PO; +PARO20TA4 PO; +PROL60SO SC; +SOLI10TA PO; +THERTAB52 PO; +TORS20TA2 PO
[2023-11-06 14:04] LABS: INR 1.04; PROTHROMBIN TIME 13.3 SECONDS (12.5-14.5)
== END ==
LOC: M LABDRWAD 12:19
PROVIDERS: ATTEND Orthopaedic Surgery
DX: S52.031A Displaced fracture of olecranon process with intraarticular extension of right ulna, initial encounter for closed fracture (principal); Y93.9 Activity, unspecified; Y92.9 Unspecified place or not applicable

== ENCOUNTER → 2023-11-06 | Outpatient (REF) | payer OTHER ==
[2023-11-06 13:49] LABS: BASO # 0.1 10^3/uL (0.0-0.2); BASO % 0.8 % (0.0-1.0); EOS # 0.4 10^3/uL (0.0-0.5); EOS % 4.7 % (0.0-3.0); HEMATOCRIT 38.1 % (36.0-47.0); HEMOGLOBIN 12.2 g/dl (12.0-15.5); LYMPH % 22.5 % (24.0-44.0); MEAN CORPUSCULAR VOLUME 93.6 fl (80.0-96.0); MONO # 0.9 10^3/uL (0.0-0.8); MONO % 9.9 % (2.0-8.0); NEUTROPHILS # 5.5 10^3/uL (1.5-8.5); NEUTROPHILS % 61.7 % (36.0-66.0); PLATELET COUNT, AUTOMATED 333 10^3/uL (150-450); RED BLOOD COUNT 4.07 10^6/uL (4.00-5.40)
[2023-11-06 13:57] LABS: ALBUMIN 3.1 G/DL (3.2-5.2); BILIRUBIN,TOTAL 0.9 MG/DL (0.3-1.2); CALCIUM LEVEL 9.4 MG/DL (8.3-10.6); CREATININE FOR GFR 1.46 MG/DL (0.55-1.30); GLOMERULAR FILTRATION RATE 37.1 (>39)
[2023-11-06 14:00] LABS: THYROID STIMULATING HORMONE 3.74 uIU/ML (0.55-4.78)
[2023-11-06 14:01] LABS: FREE T4 1.84 NG/DL (0.89-1.76)
[2023-11-06 14:31] LABS: CREATININE, URINE 266.9 MG/DL
== END ==
LOC: M SFHCPLAZ 07:39
PROVIDERS: ATTEND Student in an Organized Health Care Education/Training Program
DX: Z01.818 Encounter for other preprocedural examination (principal); E03.9 Hypothyroidism, unspecified; I12.9 Hypertensive chronic kidney disease with stage 1 through stage 4 chronic kidney disease, or unspecified chronic kidney disease; Z86.39 Personal history of other endocrine, nutritional and metabolic disease; N18.32 Chronic kidney disease, stage 3b

== ENCOUNTER 2023-11-10 06:59 | Day surgery (SDC) | payer OTHER ==
[~2023-11-10] VITALS: Ht 154.9 cm; Wt 70.7 kg
[~2023-11-10 06:59] MED LIST changes: +UNRESOLVED CLARIFICATION ENTRY XX SCH
[2023-11-10] MEDS ORDERED: LR 1,000 ML IV SCH ×2 (07:05→10:25)
[2023-11-10] MEDS ORDERED: propofoL 200 MG/20 ML VIAL As Ordered ONE (08:03)
[2023-11-10] MEDS ORDERED: LIDOCAINE 2% 100MG/5ML SDV (FOR ANES.) As Ordered ONE (08:04)
[2023-11-10] MEDS ORDERED: fentaNYL 250 MCG/5 ML INJECTION As Ordered ONE (08:43)
[2023-11-10] MEDS: ceFAZolin SOD 2 GM in IV 1 EA IV ONE (09:06)
[2023-11-10] MEDS ORDERED: dexmedeTOMIDine (4MCG/ML)200MCG/50ML BTL (PRECEDEX) As Ordered ONE (09:07)
[2023-11-10] MEDS ORDERED: ACETAMINOPHEN 1000MG 100ML IV BAG As Ordered ONE (10:11)
[2023-11-10] MEDS ORDERED: KETOROLAC 60MG 2ML VIAL As Ordered ONE (10:11)
[2023-11-10] MEDS ORDERED: ONDANSETRON 4MG 2ML VIAL As Ordered ONE (10:11)
[2023-11-10] MEDS ORDERED: fentaNYL 100 MCG/2 ML INJECTION IV PRN (10:25)
[2023-11-10] MEDS ORDERED: ONDANSETRON 4MG 2ML VIAL IV PRN (10:25)
[2023-11-10] MEDS ORDERED: HYDROMORPHONE HCL 0.5 MG/ 0.5 ML SYRINGE IV PRN (10:25)
[2023-11-10] MEDS ORDERED: OXYC1TAB23 PO (10:52)
[2023-11-10] MEDS: oxyCODONE 5MG TAB PO PRN (11:09)
[2023-11-10 12:15] VITALS: BP 125/63; TEMP 98.3; O2SAT 95
== END 2023-11-10 13:00 | disposition home or self-care (01) ==
LOC: M SDC 06:59
PROVIDERS: ATTEND Orthopaedic Surgery
DX: S52.031A Displaced fracture of olecranon process with intraarticular extension of right ulna, initial encounter for closed fracture (principal); V48.4XXA Person boarding or alighting a car injured in noncollision transport accident, initial encounter; Y92.89 Other specified places as the place of occurrence of the external cause; Y93.9 Activity, unspecified; Y99.9 Unspecified external cause status; I10 Essential (primary) hypertension; J45.909 Unspecified asthma, uncomplicated; E78.5 Hyperlipidemia, unspecified; M81.0 Age-related osteoporosis without current pathological fracture; D64.9 Anemia, unspecified; G47.30 Sleep apnea, unspecified; E03.9 Hypothyroidism, unspecified; Z87.891 Personal history of nicotine dependence; F41.9 Anxiety disorder, unspecified; F32.A Depression, unspecified; Z79.82 Long term (current) use of aspirin; Z79.51 Long term (current) use of inhaled steroids; Z79.899 Other long term (current) drug therapy
CPT/HCPCS: 24685; 76000; C1713; J0131; J0665; J0690; J1100; J1885; J2405; J3010

== ENCOUNTER → 2023-11-18 | Outpatient (CLI) | payer OTHER ==
[~2023-11-18] MED LIST changes: +OXYC1TAB23 PO; +PARO20TA3 PO; -UNRESOLVED CLARIFICATION ENTRY XX SCH
== END ==
LOC: M SOG 08:00
PROVIDERS: ATTEND Orthopaedic Surgery
DX: Z47.89 Encounter for other orthopedic aftercare (principal)

== ENCOUNTER → 2023-11-19 | Outpatient (CLI) | payer OTHER | LOC: M SOG 09:58 | PROVIDERS: ATTEND Orthopaedic Surgery | DX: S52.031A Displaced fracture of olecranon process with intraarticular extension of right ulna, initial encounter for closed fracture (principal); Z47.89 Encounter for other orthopedic aftercare; M16.0 Bilateral primary osteoarthritis of hip; Y93.9 Activity, unspecified; Y92.9 Unspecified place or not applicable ==

== ENCOUNTER 2023-11-20 10:28 | Observation (INO) | payer OTHER ==
[~2023-11-20] VITALS: Ht 154.9 cm; Wt 69.8 kg
[~2023-11-20 10:28] MED LIST changes: +KETOROLAC 60MG 2ML VIAL As Ordered ONE; +LIDOCAINE 2% 100MG/5ML SDV (FOR ANES.) As Ordered ONE; +MIDAZOLAM INJ 2MG/2ML VIAL As Ordered ONE; +ONDANSETRON 4MG 2ML VIAL As Ordered ONE; -PARO20TA3 PO; -ROSU40TA63 PO; +ROSU40TA81 PO; +SEVOFLURANE INHAL SOLN 250 ML BTL As Ordered ONE; +dexmedeTOMIDine (4MCG/ML)200MCG/50ML BTL (PRECEDEX) As Ordered ONE; +fentaNYL 250 MCG/5 ML INJECTION As Ordered ONE; +propofoL 200 MG/20 ML VIAL As Ordered ONE
[2023-11-20 13:50] LABS: BASO % 0.4 % (0.0-1.0); EOS # 0.3 10^3/uL (0.0-0.5); EOS % 4.1 % (0.0-3.0); HEMATOCRIT 31.6 % (36.0-47.0); HEMOGLOBIN 10.1 g/dl (12.0-15.5); LYMPH # 0.6 10^3/uL (1.5-5.0); LYMPH % 8.7 % (24.0-44.0); MEAN CORPUSCULAR HEMOGLOBIN 29.4 pg (27.0-33.0); MEAN CORPUSCULAR VOLUME 91.9 fl (80.0-96.0); MONO # 0.7 10^3/uL (0.0-0.8); NEUTROPHILS # 5.1 10^3/uL (1.5-8.5); NEUTROPHILS % 75.5 % (36.0-66.0); PLATELET COUNT, AUTOMATED 226 10^3/uL (150-450); RED BLOOD COUNT 3.44 10^6/uL (4.00-5.40); WHITE BLOOD COUNT 6.8 10^3/uL (4.0-10.0)
[2023-11-20] MEDS: MORPHINE 2 MG/ML 1ML VIAL IV PRN (14:13)
[2023-11-20 14:16] LABS: CK-MB VALUE MASS < 1.0 NG/ML (<3.6)
[2023-11-20 14:18] LABS: CPK CREATINE PHOSPHOKINASE 44 U/L (34-145); MB/CK RELATIVE INDEX 2.27 (< OR =4)
[2023-11-20 14:19] LABS: ALBUMIN 2.8 G/DL (3.2-5.2); ALKALINE PHOSPHATASE 89 U/L (46-116); ALT/SGPT 15 U/L (7.0-40); AST/SGOT 19 U/L (<34); BILIRUBIN,TOTAL 0.9 MG/DL (0.3-1.2); BLOOD UREA NITROGEN 15 MG/DL (9-23); CALCIUM LEVEL 8.2 MG/DL (8.3-10.6); CARBON DIOXIDE LEVEL 29 MMOL/L (20-31); CHLORIDE LEVEL 103 MMOL/L (98-107); CREATININE FOR GFR 1.47 MG/DL (0.55-1.30); GLOMERULAR FILTRATION RATE 36.8 (>39); GLUCOSE, FASTING 85 MG/DL (74-106); SODIUM LEVEL 137 MMOL/L (136-145)
[2023-11-20 15:44] VITALS: BP 115/52
[2023-11-20 15:47] VITALS: BP 115/53
[2023-11-20 15:50] VITALS: BP 112/58
[2023-11-20] MEDS ORDERED: MORPHINE 2 MG/ML 1ML VIAL IV PRN (15:50)
[2023-11-20] MEDS ORDERED: ACETAMINOPHEN TAB 650MG DOSE (2X325MG) PO PRN (15:50)
[2023-11-20] MEDS ORDERED: ACETAMINOPHEN 500 MG TAB PO PRN (15:55)
[2023-11-20] MEDS ORDERED: ALBUTEROL SULFATE 2.5MG/0.5ML INH NEB SOLN INH PRN (15:55)
[2023-11-20] MEDS ORDERED: rOPINIRole 1MG TAB PO PRN (15:55)
[2023-11-20] MEDS ORDERED: ALBUTEROL 90 MCG/ACT 8GM HFA INHALER INH PRN (15:55)
[2023-11-20] MEDS ORDERED: traMADol 50 MG TAB PO PRN (16:00)
[2023-11-20] MEDS ORDERED: CYCLOBENZAPRINE 10MG TABLET PO PRN (16:00)
[2023-11-20 16:12] VITALS: BP 152/63; TEMP 97.5; O2SAT 92
[2023-11-20] MEDS ORDERED: TRAM50TA2 PO (16:47)
[2023-11-20] MEDS ORDERED: PARO20TA3 PO (16:47)
[2023-11-20] MEDS ORDERED: HOME MED LIST COMPLETE! XX SCH (16:50)
[2023-11-20 20:00] VITALS: BP 114/44; TEMP 97.5; O2SAT 96
[2023-11-20] MEDS ORDERED: DULoxetine 30MG CAPSULE (CYMBALTA) PO SCH (21:00)
[2023-11-20] MEDS ORDERED: MONTELUKAST 10 MG TAB PO SCH (21:00)
[2023-11-20] MEDS ORDERED: METOPROLOL SUCC (TopROL XL) 50MG **XL** TAB PO SCH (21:00)
[2023-11-20] MEDS ORDERED: ROSUVASTATIN 10 MG TAB (CRESTOR) PO SCH (21:00)
[2023-11-20] MEDS ORDERED: cloNIDine 0.1MG TABLET PO SCH (21:00)
[2023-11-20] MEDS: cloNIDine 0.1MG TABLET PO SCH (21:35)
[2023-11-20] MEDS: DOCUSATE SODIUM 100MG CAPSULE PO SCH (21:35)
[2023-11-20] MEDS: MONTELUKAST 10 MG TAB PO SCH (21:36)
[2023-11-20] MEDS: ROSUVASTATIN 10 MG TAB (CRESTOR) PO SCH (21:36)
[2023-11-20] MEDS: DULoxetine 30MG CAPSULE (CYMBALTA) PO SCH (21:36)
[2023-11-20] MEDS: SENOKOT S TAB PO SCH (21:36)
[2023-11-20] MEDS: METOPROLOL SUCC (TopROL XL) 50MG **XL** TAB PO SCH (21:37)
[2023-11-20] MEDS: oxyCODONE 5MG TAB PO PRN (21:39)
[2023-11-21] VITALS (7 sets, daily range): BP systolic 116–140; BP diastolic 52–61; TEMP 97.6–98.1; O2SAT 94–97
[2023-11-21] MEDS: LEVOTHYROXINE 125MCG TABLET (0.125MG) PO SCH (04:58)
[2023-11-21 06:05] LABS: BASO % 0.7 % (0.0-1.0); EOS # 0.4 10^3/uL (0.0-0.5); EOS % 7.7 % (0.0-3.0); HEMATOCRIT 32.7 % (36.0-47.0); HEMOGLOBIN 10.5 g/dl (12.0-15.5); LYMPH # 0.8 10^3/uL (1.5-5.0); LYMPH % 18.5 % (24.0-44.0); MEAN CORPUSCULAR HEMOGLOBIN 29.5 pg (27.0-33.0); MEAN CORPUSCULAR HGB CONC 32.1 g/dl (32.0-36.5); MEAN CORPUSCULAR VOLUME 91.9 fl (80.0-96.0); MONO # 0.8 10^3/uL (0.0-0.8); MONO % 17.4 % (2.0-8.0); NEUTROPHILS # 2.5 10^3/uL (1.5-8.5); NEUTROPHILS % 55.3 % (36.0-66.0); PLATELET COUNT, AUTOMATED 218 10^3/uL (150-450); RED BLOOD COUNT 3.56 10^6/uL (4.00-5.40); WHITE BLOOD COUNT 4.6 10^3/uL (4.0-10.0)
[2023-11-21 06:19] LABS: INR 1.15; PARTIAL THROMBOPLASTIN TIME 34.5 SECONDS (24.8-34.2); PROTHROMBIN TIME 14.3 SECONDS (12.5-14.5)
[2023-11-21 06:35] LABS: CALCIUM LEVEL 8.2 MG/DL (8.3-10.6); CREATININE FOR GFR 1.36 MG/DL (0.55-1.30); GLOMERULAR FILTRATION RATE 40.2 (>39); POTASSIUM SERUM 3.9 MMOL/L (3.5-5.1)
[2023-11-21] MEDS: traMADol 50 MG TAB PO PRN (07:50)
[2023-11-21] MEDS ORDERED: MAGNESIUM OXIDE 400MG TAB (MAG-OX) PO SCH (09:00)
[2023-11-21] MEDS ORDERED: PANTOPRAZOLE 40MG TAB (PROTONIX) PO SCH (09:00)
[2023-11-21] MEDS ORDERED: ASPIRIN 81MG ENTERIC TABLET PO SCH (09:00)
[2023-11-21] MEDS ORDERED: MULTIVITAMINS/MINERALS THERAP 1 TAB PO SCH (09:00)
[2023-11-21] MEDS ORDERED: EZETIMIBE 10MG TABLET (ZETIA) PO SCH (09:00)
[2023-11-21] MEDS ORDERED: LEVOTHYROXINE 125MCG TABLET (0.125MG) PO SCH (09:00)
[2023-11-21] MEDS ORDERED: amLODIPine 5 MG TAB PO SCH (09:00)
[2023-11-21] MEDS: FLUTICASONE PROP 0.05% NASAL SPRAY 16 GM (FLONASE) NARES SCH (09:30)
[2023-11-21] MEDS: amLODIPine 5 MG TAB PO SCH (09:31)
[2023-11-21] MEDS: PANTOPRAZOLE 40MG TAB (PROTONIX) PO SCH (09:31)
[2023-11-21] MEDS: TORSEMIDE 20 MG TAB PO SCH (09:31)
[2023-11-21] MEDS: VITAMIN D 1,000 INTERNATIONAL UNITS TABLET PO SCH (09:32)
[2023-11-21] MEDS: EZETIMIBE 10MG TABLET (ZETIA) PO SCH (09:32)
[2023-11-21] MEDS: MAGNESIUM OXIDE 400MG TAB (MAG-OX) PO SCH (09:32)
[2023-11-21] MEDS ORDERED: METOCLOPRAMIDE INJ 10MG/2ML VIAL As Ordered ONE (18:03)
[2023-11-21] MEDS ORDERED: DESFLURANE 240 ML INHALANT As Ordered ONE (18:03)
[2023-11-21] MEDS ORDERED: fentaNYL 100 MCG/2 ML INJECTION As Ordered ONE (18:03)
[2023-11-21] MEDS: ceFAZolin 2 GM/D5W 50 ML IV BAG As Ordered ONE (18:26)
[2023-11-21] MEDS: VANCOMYCIN 1000MG/20ML VIAL As Ordered ONE (19:47)
[2023-11-21] MEDS ORDERED: fentaNYL 100 MCG/2 ML INJECTION IV PRN (19:50)
[2023-11-21] MEDS: LR 1,000 ML IV SCH ×2 (19:50→21:28)
[2023-11-21] MEDS ORDERED: ONDANSETRON 4MG 2ML VIAL IV PRN ×2 (19:50→20:10)
[2023-11-21] MEDS ORDERED: oxyCODONE 5MG TAB PO PRN (19:50)
[2023-11-21] MEDS ORDERED: SENNA 8.6 MG TAB (SENOKOT) PO PRN (20:10)
[2023-11-21] MEDS: HYDROMORPHONE HCL 0.5 MG/ 0.5 ML SYRINGE IV PRN (20:17)
[2023-11-22] VITALS (8 sets, daily range): BP systolic 95–114; BP diastolic 43–58; TEMP 97.3–98.3; O2SAT 93–99
[2023-11-22] MEDS: oxyCODONE 5MG TAB PO PRN ×2 (00:21→10:33)
[2023-11-22] MEDS: ceFAZolin SOD 2 GM in IV 1 EA IV SCH (02:37)
[2023-11-22 06:42] LABS: HEMATOCRIT 35.9 % (36.0-47.0); HEMOGLOBIN 11.6 g/dl (12.0-15.5); MEAN CORPUSCULAR HEMOGLOBIN 29.7 pg (27.0-33.0); MEAN CORPUSCULAR HGB CONC 32.3 g/dl (32.0-36.5); MEAN CORPUSCULAR VOLUME 91.8 fl (80.0-96.0); PLATELET COUNT, AUTOMATED 245 10^3/uL (150-450); RED BLOOD COUNT 3.91 10^6/uL (4.00-5.40)
[2023-11-22 07:07] LABS: ALBUMIN 2.5 G/DL (3.2-5.2); BILIRUBIN,TOTAL 0.3 MG/DL (0.3-1.2); CALCIUM LEVEL 7.9 MG/DL (8.3-10.6); CREATININE FOR GFR 1.36 MG/DL (0.55-1.30); GLOMERULAR FILTRATION RATE 40.2 (>39)
[2023-11-22] MEDS: ASCORBIC ACID 500 MG TAB PO SCH (08:55)
[2023-11-22] MEDS: FERROUS SULFATE 325MG TAB PO SCH (08:59)
[2023-11-22] MEDS: NS 500 ML IV ONE (11:06)
[2023-11-22] MEDS: ENOXAPARIN 40MG/0.4ML SYRINGE (J1650 PER 10MG) SC SCH (17:41)
[2023-11-22] MEDS: CYCLOBENZAPRINE 5MG TABLET PO PRN (18:29)
[2023-11-23 04:00] VITALS: BP 140/62; TEMP 98.1; O2SAT 91
[2023-11-23 05:56] LABS: HEMATOCRIT 32.8 % (36.0-47.0); HEMOGLOBIN 10.8 g/dl (12.0-15.5); MEAN CORPUSCULAR HEMOGLOBIN 29.3 pg (27.0-33.0); MEAN CORPUSCULAR HGB CONC 32.9 g/dl (32.0-36.5); MEAN CORPUSCULAR VOLUME 89.1 fl (80.0-96.0); PLATELET COUNT, AUTOMATED 252 10^3/uL (150-450); RED BLOOD COUNT 3.68 10^6/uL (4.00-5.40); WHITE BLOOD COUNT 9.1 10^3/uL (4.0-10.0)
[2023-11-23 06:19] LABS: ALBUMIN 2.5 G/DL (3.2-5.2); ALKALINE PHOSPHATASE 103 U/L (46-116); ALT/SGPT < 9 U/L (7.0-40); AST/SGOT 25 U/L (<34); BILIRUBIN,TOTAL 0.4 MG/DL (0.3-1.2); BLOOD UREA NITROGEN 19 MG/DL (9-23); CALCIUM LEVEL 7.7 MG/DL (8.3-10.6); CARBON DIOXIDE LEVEL 30 MMOL/L (20-31); CHLORIDE LEVEL 107 MMOL/L (98-107); CREATININE FOR GFR 1.44 MG/DL (0.55-1.30); GLOMERULAR FILTRATION RATE 37.7 (>39); GLUCOSE, FASTING 109 MG/DL (74-106); POTASSIUM SERUM 3.7 MMOL/L (3.5-5.1); SODIUM LEVEL 142 MMOL/L (136-145)
[2023-11-23] MEDS ORDERED: OXYC1TAB23 PO (08:49)
[2023-11-23 10:23] VITALS: BP 126/49
[2023-11-23 10:24] VITALS: O2SAT 93
[2023-12-08] MEDS ORDERED: AMLO25TA PO (11:00)
== END 2023-11-23 11:30 | disposition home or self-care (01) ==
LOC: M SDC 10:28 → M MSPAV 10:29
PROVIDERS: ADMIT Orthopaedic Surgery; ATTEND Orthopaedic Surgery
DX: T84.228A Displacement of internal fixation device of other bones, initial encounter (principal); W19.XXXA Unspecified fall, initial encounter; V48.4XXA Person boarding or alighting a car injured in noncollision transport accident, initial encounter; Y93.89 Activity, other specified; Y99.9 Unspecified external cause status; J45.909 Unspecified asthma, uncomplicated; E78.00 Pure hypercholesterolemia, unspecified; D50.9 Iron deficiency anemia, unspecified; M79.7 Fibromyalgia; E03.9 Hypothyroidism, unspecified; G47.33 Obstructive sleep apnea (adult) (pediatric); K21.9 Gastro-esophageal reflux disease without esophagitis; I12.9 Hypertensive chronic kidney disease with stage 1 through stage 4 chronic kidney disease, or unspecified chronic kidney disease; F32.A Depression, unspecified; M19.90 Unspecified osteoarthritis, unspecified site; N18.30 Chronic kidney disease, stage 3 unspecified; J30.9 Allergic rhinitis, unspecified; Z79.899 Other long term (current) drug therapy; Z79.82 Long term (current) use of aspirin; Z79.51 Long term (current) use of inhaled steroids; Z87.891 Personal history of nicotine dependence
CPT/HCPCS: 20680; 24685; 36415; 70450; 73080; 76000; 80048; 80053; 82550; 82553; 84484; 85025; 85027; 85610; 85730; 93005; 93306; 96361; 96365; 96366; 96372; C1713; G0378; J0665; J0690; J1100; J1170; J1650; J2250; J2405; J2765; J3010; J3370

== ENCOUNTER → 2023-11-25 | Outpatient (CLI) | payer OTHER ==
[~2023-11-25] MED LIST changes: -KETOROLAC 60MG 2ML VIAL As Ordered ONE; -LIDOCAINE 2% 100MG/5ML SDV (FOR ANES.) As Ordered ONE; -MIDAZOLAM INJ 2MG/2ML VIAL As Ordered ONE; -ONDANSETRON 4MG 2ML VIAL As Ordered ONE; +PARO20TA3 PO; +ROSU40TA63 PO; -ROSU40TA81 PO; -SEVOFLURANE INHAL SOLN 250 ML BTL As Ordered ONE; -dexmedeTOMIDine (4MCG/ML)200MCG/50ML BTL (PRECEDEX) As Ordered ONE; -fentaNYL 250 MCG/5 ML INJECTION As Ordered ONE; -propofoL 200 MG/20 ML VIAL As Ordered ONE
== END ==
LOC: M PLAIMG 15:12
PROVIDERS: ATTEND Physician Assistant Medical
DX: J06.9 Acute upper respiratory infection, unspecified (principal); J44.1 Chronic obstructive pulmonary disease with (acute) exacerbation

== ENCOUNTER → 2023-12-03 | Outpatient (CLI) | payer OTHER | LOC: M SOG 07:58 | PROVIDERS: ATTEND Orthopaedic Surgery | DX: S52.031D Displaced fracture of olecranon process with intraarticular extension of right ulna, subsequent encounter for closed fracture with routine healing (principal); Z47.89 Encounter for other orthopedic aftercare ==

== ENCOUNTER 2023-12-09 10:08 | Day surgery (SDC) | payer OTHER ==
[~2023-12-09] VITALS: Ht 154.9 cm; Wt 66.7 kg
[~2023-12-09 10:08] MED LIST changes: +AMLO25TA PO; +LIDOCAINE 2% 100MG/5ML SDV (FOR ANES.) As Ordered ONE; +MIDAZOLAM INJ 2MG/2ML VIAL As Ordered ONE; +ONDANSETRON 4MG 2ML VIAL As Ordered ONE; +ROCURONIUM BROMIDE 50MG/5ML VIAL As Ordered ONE; +fentaNYL 100 MCG/2 ML INJECTION As Ordered ONE; +propofoL 200 MG/20 ML VIAL As Ordered ONE
[2023-12-09] MEDS ORDERED: SUGAMMADEX SODIUM 500 MG/5 ML VIAL (BRIDION) As Ordered ONE (10:23)
[2023-12-09] MEDS ORDERED: LR 1,000 ML IV SCH (10:40)
[2023-12-09] MEDS: ceFAZolin 2 GM/D5W 50 ML IV BAG As Ordered ONE (11:41)
[2023-12-09] MEDS ORDERED: ACETAMINOPHEN 1000MG 100ML IV BAG As Ordered ONE (11:47)
[2023-12-09] MEDS ORDERED: ONDANSETRON 4MG 2ML VIAL IV PRN (12:55)
[2023-12-09] MEDS ORDERED: fentaNYL 100 MCG/2 ML INJECTION IV PRN (12:55)
[2023-12-09] MEDS ORDERED: OXYC1TAB23 PO (13:07)
[2023-12-09] MEDS: oxyCODONE 5MG TAB PO PRN (14:55)
[2023-12-09 15:00] VITALS: BP 113/54; TEMP 98.4; O2SAT 95
== END 2023-12-09 15:05 | disposition home or self-care (01) ==
LOC: M SDC 10:08
PROVIDERS: ATTEND Orthopaedic Surgery
DX: T84.218A Breakdown (mechanical) of internal fixation device of other bones, initial encounter (principal); J45.909 Unspecified asthma, uncomplicated; D50.9 Iron deficiency anemia, unspecified; E78.00 Pure hypercholesterolemia, unspecified; Z98.61 Coronary angioplasty status; I25.10 Atherosclerotic heart disease of native coronary artery without angina pectoris; Z95.1 Presence of aortocoronary bypass graft; F41.9 Anxiety disorder, unspecified; F32.A Depression, unspecified; K21.9 Gastro-esophageal reflux disease without esophagitis; I10 Essential (primary) hypertension; E03.9 Hypothyroidism, unspecified; D64.9 Anemia, unspecified; Z88.0 Allergy status to penicillin
CPT/HCPCS: 20680; 24685; 76000; J0131; J0665; J0690; J1100; J2250; J2405; J3010

== ENCOUNTER → 2023-12-22 | Outpatient (CLI) | payer OTHER ==
[~2023-12-22] MED LIST changes: -LIDOCAINE 2% 100MG/5ML SDV (FOR ANES.) As Ordered ONE; -MIDAZOLAM INJ 2MG/2ML VIAL As Ordered ONE; -ONDANSETRON 4MG 2ML VIAL As Ordered ONE; -ROCURONIUM BROMIDE 50MG/5ML VIAL As Ordered ONE; -fentaNYL 100 MCG/2 ML INJECTION As Ordered ONE; -propofoL 200 MG/20 ML VIAL As Ordered ONE
== END ==
LOC: M RAD 11:29
PROVIDERS: ATTEND Orthopaedic Surgery
DX: S52.021D Displaced fracture of olecranon process without intraarticular extension of right ulna, subsequent encounter for closed fracture with routine healing (principal); Z47.89 Encounter for other orthopedic aftercare

== ENCOUNTER → 2024-01-05 | Outpatient (CLI) | payer OTHER | LOC: M SOG 07:55 | PROVIDERS: ATTEND Orthopaedic Surgery | DX: T84.218D Breakdown (mechanical) of internal fixation device of other bones, subsequent encounter (principal); Z47.89 Encounter for other orthopedic aftercare; S52.001K Unspecified fracture of upper end of right ulna, subsequent encounter for closed fracture with nonunion ==

== ENCOUNTER → 2024-01-06 | Outpatient (CLI) | payer OTHER | LOC: M RAD 12-25 17:03 | PROVIDERS: ATTEND Internal Medicine Hematology | DX: R10.13 Epigastric pain (principal); J98.11 Atelectasis; I51.7 Cardiomegaly; I70.0 Atherosclerosis of aorta; M43.17 Spondylolisthesis, lumbosacral region ==

== ENCOUNTER → 2024-03-04 | Outpatient (REF) | payer OTHER ==
[~2024-03-04] MED LIST changes: +GABA-1172 PO; -GABA-282 PO; -OLAN2.5T25 PO; +OLAN2.5T53 PO; -ROSU40TA63 PO; +ROSU40TA81 PO
[2024-03-04 13:14] LABS: BASO % 0.5 % (0.0-1.0); C REACTIVE PROTEIN QUANTITATIV < 0.40 MG/DL (<1.0); EOS # 0.2 10^3/uL (0.0-0.5); EOS % 3.9 % (0.0-3.0); HEMATOCRIT 37.3 % (36.0-47.0); HEMOGLOBIN 11.6 g/dl (12.0-15.5); LYMPH # 1.6 10^3/uL (1.5-5.0); LYMPH % 25.7 % (24.0-44.0); MEAN CORPUSCULAR HEMOGLOBIN 28.3 pg (27.0-33.0); MEAN CORPUSCULAR HGB CONC 31.1 g/dl (32.0-36.5); MONO # 0.7 10^3/uL (0.0-0.8); MONO % 10.7 % (2.0-8.0); NEUTROPHILS # 3.6 10^3/uL (1.5-8.5); NEUTROPHILS % 58.9 % (36.0-66.0); PLATELET COUNT, AUTOMATED 202 10^3/uL (150-450); WHITE BLOOD COUNT 6.1 10^3/uL (4.0-10.0)
[2024-03-04 13:15] LABS: IRON (FE) 49 UG/DL (50-170)
[2024-03-04 13:16] LABS: PERCENT SATURATION 15.5 % (13.2-45.0); TOTAL IRON BINDING CAPACITY 316 UG/DL (250-425)
[2024-03-04 13:18] LABS: ALBUMIN 3.2 G/DL (3.2-5.2); ALKALINE PHOSPHATASE 94 U/L (46-116); ALT/SGPT 18 U/L (7.0-40); AST/SGOT 21 U/L (<34); BILIRUBIN,DIRECT 0.2 MG/DL (<0.4); BILIRUBIN,TOTAL 0.6 MG/DL (0.3-1.2); BLOOD UREA NITROGEN 19 MG/DL (9-23); CALCIUM LEVEL 9.5 MG/DL (8.3-10.6); CARBON DIOXIDE LEVEL 30 MMOL/L (20-31); CHLORIDE LEVEL 111 MMOL/L (98-107); CHOLESTEROL LEVEL 145 MG/DL (<200); CHOLESTEROL RISK RATIO 2.82 (<5); CREATININE FOR GFR 1.28 MG/DL (0.55-1.30); FREE T4 2.35 NG/DL (0.89-1.76); GLOMERULAR FILTRATION RATE 43.2 (>39); GLUCOSE, FASTING 101 MG/DL (74-106); HDL CHOLESTEROL 51.4 MG/DL (>40); LDL CHOLESTEROL 76.6 MG/DL (<100); NON-HDL-C 93.6 MG/DL; POTASSIUM SERUM 3.4 MMOL/L (3.5-5.1); SODIUM LEVEL 143 MMOL/L (136-145); THYROID STIMULATING HORMONE 0.134 uIU/ML (0.55-4.78); TOTAL PROTEIN 5.8 G/DL (5.7-8.2); TRIGLYCERIDES LEVEL 85 MG/DL (<150); VITAMIN B12 LEVEL 523 PG/ML (211-911)
== END ==
LOC: M SFHCPLAZ 10:01
PROVIDERS: ATTEND Internal Medicine Hematology
DX: I12.9 Hypertensive chronic kidney disease with stage 1 through stage 4 chronic kidney disease, or unspecified chronic kidney disease (principal); R10.9 Unspecified abdominal pain; Z86.39 Personal history of other endocrine, nutritional and metabolic disease; Z79.899 Other long term (current) drug therapy

== ENCOUNTER → 2024-03-28 | Outpatient (CLI) | payer OTHER ==
[~2024-03-28] MED LIST changes: +FLUC-1 PO; -FLUC200T4 PO; +LEVO112T2 PO; -POTA10808 PO; +POTA10809 PO
== END ==
LOC: M SLEEP 20:00
PROVIDERS: ATTEND Physician Assistant
DX: G47.33 Obstructive sleep apnea (adult) (pediatric) (principal); G47.61 Periodic limb movement disorder

== ENCOUNTER → 2024-04-01 | Outpatient (CLI) | payer OTHER ==
[~2024-04-01] MED LIST changes: +POTA10808 PO; -POTA10809 PO
== END ==
LOC: M SOG 07:52
PROVIDERS: ATTEND Orthopaedic Surgery
DX: Z53.9 Procedure and treatment not carried out, unspecified reason (principal)

== ENCOUNTER → 2024-04-12 | Outpatient (CLI) | payer OTHER | LOC: M SOG 07:58 | PROVIDERS: ATTEND Orthopaedic Surgery | DX: S52.031D Displaced fracture of olecranon process with intraarticular extension of right ulna, subsequent encounter for closed fracture with routine healing (principal); Z53.9 Procedure and treatment not carried out, unspecified reason ==

== ENCOUNTER → 2024-04-14 | Outpatient (CLI) | payer OTHER ==
[~2024-04-14] MED LIST changes: -POTA10808 PO; +POTA10809 PO
== END ==
LOC: M SOG 07:53
PROVIDERS: ATTEND Orthopaedic Surgery
DX: S52.031A Displaced fracture of olecranon process with intraarticular extension of right ulna, initial encounter for closed fracture (principal); Y93.9 Activity, unspecified; Y92.9 Unspecified place or not applicable

== ENCOUNTER → 2024-06-03 | Outpatient (REF) | payer OTHER, MEDICARE ==
[2024-06-03 18:30] LABS: BASO # 0.1 10^3/uL (0.0-0.2); BASO % 0.6 % (0.0-1.0); EOS # 0.4 10^3/uL (0.0-0.5); EOS % 5.3 % (0.0-3.0); HEMATOCRIT 40.9 % (36.0-47.0); HEMOGLOBIN 12.8 g/dl (12.0-15.5); LYMPH # 2.2 10^3/uL (1.5-5.0); LYMPH % 26.6 % (24.0-44.0); MEAN CORPUSCULAR HEMOGLOBIN 29.2 pg (27.0-33.0); MEAN CORPUSCULAR HGB CONC 31.3 g/dl (32.0-36.5); MEAN CORPUSCULAR VOLUME 93.4 fl (80.0-96.0); MONO # 0.8 10^3/uL (0.0-0.8); MONO % 9.9 % (2.0-8.0); NEUTROPHILS # 4.7 10^3/uL (1.5-8.5); NEUTROPHILS % 57.2 % (36.0-66.0); PLATELET COUNT, AUTOMATED 243 10^3/uL (150-450); RED BLOOD COUNT 4.38 10^6/uL (4.00-5.40); WHITE BLOOD COUNT 8.2 10^3/uL (4.0-10.0)
[2024-06-03 18:45] LABS: APPEARANCE, URINE CLOUDY (CLEAR); BACTERIA, URINE AUTO NEGATIVE (NEGATIVE); BILIRUBIN, URINE AUTO NEGATIVE (NEGATIVE); BLOOD, URINE BLOOD 1+ (NEGATIVE); COLOR, URINE YELLOW (YELLOW); GLUCOSE, URINE (UA) AUTO NEGATIVE (NEGATIVE); KETONE, URINE AUTO NEGATIVE (NEGATIVE); LEUKOCYTE ESTERASE, URINE AUTO NEGATIVE (NEGATIVE); MUCUS, URINE SMALL (NEGATIVE); NITRITE, URINE AUTO NEGATIVE (NEGATIVE); PROTEIN, URINE AUTO 2+ mg/dL (NEGATIVE); RBC, URINE AUTO 8 /HPF (0-3); SPECIFIC GRAVITY URINE AUTO 1.013 (1.002-1.035); SQUAMOUS EPITHELIAL CELL UR AU 0 /HPF (0-6); WBC, URINE AUTO 0 /HPF (0-3)
[2024-06-03 19:03] LABS: FERRITIN 53.2 NG/ML (7.3-270.7)
[2024-06-03 19:04] LABS: ALBUMIN 3.2 G/DL (3.2-5.2); BILIRUBIN,TOTAL 0.5 MG/DL (0.3-1.2); CREATININE FOR GFR 1.45 MG/DL (0.55-1.30); GLOMERULAR FILTRATION RATE 37.3 (>39); POTASSIUM SERUM 4.5 MMOL/L (3.5-5.1); THYROID STIMULATING HORMONE 1.23 uIU/ML (0.55-4.78); TOTAL PROTEIN 5.9 G/DL (5.7-8.2)
[2024-06-03 19:05] LABS: FREE T4 2.45 NG/DL (0.89-1.76)
== END ==
LOC: M LABDRWAD 17:09
PROVIDERS: ATTEND Family Medicine
DX: R10.13 Epigastric pain (principal); E03.9 Hypothyroidism, unspecified; R82.998 Other abnormal findings in urine

== ENCOUNTER → 2024-07-14 | Outpatient (CLI) | payer OTHER, MEDICARE ==
[2024-07-14 14:20] LABS: BASO # 0.1 10^3/uL (0.0-0.2); BASO % 0.9 % (0.0-1.0); EOS # 0.4 10^3/uL (0.0-0.5); EOS % 6.2 % (0.0-3.0); HEMATOCRIT 36.8 % (36.0-47.0); HEMOGLOBIN 11.4 g/dl (12.0-15.5); LYMPH # 1.7 10^3/uL (1.5-5.0); LYMPH % 26.1 % (24.0-44.0); MEAN CORPUSCULAR HEMOGLOBIN 29.2 pg (27.0-33.0); MEAN CORPUSCULAR VOLUME 94.1 fl (80.0-96.0); MONO # 0.7 10^3/uL (0.0-0.8); MONO % 10.9 % (2.0-8.0); NEUTROPHILS # 3.7 10^3/uL (1.5-8.5); NEUTROPHILS % 55.6 % (36.0-66.0); PLATELET COUNT, AUTOMATED 229 10^3/uL (150-450); RED BLOOD COUNT 3.91 10^6/uL (4.00-5.40); WHITE BLOOD COUNT 6.6 10^3/uL (4.0-10.0)
[2024-07-14 14:26] LABS: ALBUMIN 3.1 G/DL (3.2-5.2); BILIRUBIN,TOTAL 0.5 MG/DL (0.3-1.2); CALCIUM LEVEL 9.1 MG/DL (8.3-10.6); CREATININE FOR GFR 1.5 MG/DL (0.55-1.30); GLOMERULAR FILTRATION RATE 35.8 (>39); POTASSIUM SERUM 4.5 MMOL/L (3.5-5.1); TOTAL PROTEIN 5.9 G/DL (5.7-8.2)
== END ==
LOC: M ADAMS 10:34
PROVIDERS: ATTEND Internal Medicine Cardiovascular Disease
DX: I50.9 Heart failure, unspecified (principal); Z96.611 Presence of right artificial shoulder joint; Z96.612 Presence of left artificial shoulder joint; M48.54XA Collapsed vertebra, not elsewhere classified, thoracic region, initial encounter for fracture

== ENCOUNTER → 2024-07-27 | Outpatient (CLI) | payer OTHER, MEDICARE ==
[~2024-07-27] MED LIST changes: +DENO60SY2 SC; -PROL60SO SC
== END ==
LOC: M SOG 07:49
PROVIDERS: ATTEND Physician Assistant
DX: M19.042 Primary osteoarthritis, left hand (principal); M79.642 Pain in left hand

== ENCOUNTER → 2024-09-01 | Outpatient (CLI) | payer MEDICARE ==
[2024-09-01 14:44] LABS: ALBUMIN 3.5 G/DL (3.2-5.2); BILIRUBIN,TOTAL 0.8 MG/DL (0.3-1.2); CALCIUM LEVEL 9.5 MG/DL (8.3-10.6); CHOLESTEROL RISK RATIO 2.67 (<5); CREATININE FOR GFR 1.66 MG/DL (0.55-1.30); GLOMERULAR FILTRATION RATE 31.6 (>39); HDL CHOLESTEROL 48.9 MG/DL (>40); LDL CHOLESTEROL 65.3 MG/DL (<100); NON-HDL-C 82.1 MG/DL; POTASSIUM SERUM 3.5 MMOL/L (3.5-5.1); TOTAL PROTEIN 5.9 G/DL (5.7-8.2)
[2024-09-01 14:46] LABS: THYROID STIMULATING HORMONE 0.1 uIU/ML (0.55-4.78)
[2024-09-01 14:52] LABS: HEMATOCRIT 36.9 % (36.0-47.0); HEMOGLOBIN 11.7 g/dl (12.0-15.5); MEAN CORPUSCULAR HGB CONC 31.7 g/dl (32.0-36.5); MEAN CORPUSCULAR VOLUME 94.6 fl (80.0-96.0); PLATELET COUNT, AUTOMATED 195 10^3/uL (150-450); WHITE BLOOD COUNT 7.6 10^3/uL (4.0-10.0)
== END ==
LOC: M PLALAB 10:17
PROVIDERS: ATTEND Internal Medicine Cardiovascular Disease
DX: E78.5 Hyperlipidemia, unspecified (principal); I11.0 Hypertensive heart disease with heart failure; I50.9 Heart failure, unspecified

== ENCOUNTER 2024-09-12 13:06 | Emergency (ER) | payer MEDICARE ==
[~2024-09-12] VITALS: Ht 157.5 cm; Wt 70.4 kg
[2024-09-12] MEDS: MORPHINE 4 MG/ML 1ML VIAL IV ONE (14:24)
[2024-09-12 14:29] LABS: BASO % 0.4 % (0.0-1.0); EOS # 0.4 10^3/uL (0.0-0.5); HEMOGLOBIN 11.9 g/dl (12.0-15.5); LYMPH # 1.7 10^3/uL (1.5-5.0); LYMPH % 25.5 % (24.0-44.0); MEAN CORPUSCULAR HEMOGLOBIN 29.8 pg (27.0-33.0); MEAN CORPUSCULAR HGB CONC 32.2 g/dl (32.0-36.5); MEAN CORPUSCULAR VOLUME 92.5 fl (80.0-96.0); MONO # 0.7 10^3/uL (0.0-0.8); MONO % 10.5 % (2.0-8.0); NEUTROPHILS # 3.8 10^3/uL (1.5-8.5); NEUTROPHILS % 57.3 % (36.0-66.0); PLATELET COUNT, AUTOMATED 198 10^3/uL (150-450); WHITE BLOOD COUNT 6.7 10^3/uL (4.0-10.0)
[2024-09-12 14:41] LABS: INR 0.93; PARTIAL THROMBOPLASTIN TIME 29.9 SECONDS (24.8-34.2); PROTHROMBIN TIME 12.8 SECONDS (12.5-14.5)
[2024-09-12 15:01] LABS: CK-MB VALUE MASS 1.8 NG/ML (<3.6)
[2024-09-12 15:03] LABS: ALBUMIN 3.5 G/DL (3.2-5.2); BILIRUBIN,DIRECT 0.2 MG/DL (<0.4); BILIRUBIN,TOTAL 0.7 MG/DL (0.3-1.2); CALCIUM LEVEL 8.5 MG/DL (8.3-10.6); CREATININE FOR GFR 1.46 MG/DL (0.55-1.30); GLOMERULAR FILTRATION RATE 36.9 (>39); MB/CK RELATIVE INDEX 1.85 (< OR =4); POTASSIUM SERUM 3.1 MMOL/L (3.5-5.1); TOTAL PROTEIN 6.3 G/DL (5.7-8.2)
[2024-09-12 15:05] LABS: FREE T4 2.13 NG/DL (0.89-1.76); THYROID STIMULATING HORMONE 0.287 uIU/ML (0.55-4.78)
[2024-09-12 15:51] LABS: CK-MB VALUE MASS 1.7 NG/ML (<3.6)
[2024-09-12 15:53] LABS: MB/CK RELATIVE INDEX 2.07 (< OR =4)
[2024-09-12] MEDS: POTASSIUM CHLORIDE 10MEQ SR TABLET PO ONE (16:44)
[2024-09-12 16:54] VITALS: O2SAT 94
[2024-09-12] MEDS: ACETAMINOPHEN 325 MG TAB PO ONE (17:25)
[2024-09-12] MEDS ORDERED: AMLO1TAB24 PO (17:48)
[2024-09-12 17:53] LABS: CK-MB VALUE MASS 1.7 NG/ML (<3.6)
[2024-09-12 17:55] LABS: MB/CK RELATIVE INDEX 1.97 (< OR =4)
[2024-09-12] MEDS ORDERED: MIRA3350 PO (18:02)
[2024-09-12] MEDS ORDERED: TRIA1CR80 TOP (18:02)
[2024-09-12] MEDS ORDERED: HOME MED LIST COMPLETE! XX SCH (18:05)
[2024-09-12 18:47] VITALS: BP 135/63; TEMP 97; O2SAT 95
== END 2024-09-12 19:00 | disposition home or self-care (01) ==
LOC: M ED 13:06
DX: R22.43 Localized swelling, mass and lump, lower limb, bilateral (principal); M25.562 Pain in left knee; I25.10 Atherosclerotic heart disease of native coronary artery without angina pectoris; I10 Essential (primary) hypertension; M79.7 Fibromyalgia; M19.90 Unspecified osteoarthritis, unspecified site; M81.0 Age-related osteoporosis without current pathological fracture; D50.9 Iron deficiency anemia, unspecified; J45.909 Unspecified asthma, uncomplicated; G47.33 Obstructive sleep apnea (adult) (pediatric); Z87.891 Personal history of nicotine dependence; Z96.652 Presence of left artificial knee joint; Z96.612 Presence of left artificial shoulder joint; Z96.611 Presence of right artificial shoulder joint; Z79.82 Long term (current) use of aspirin; Z79.899 Other long term (current) drug therapy; Z88.0 Allergy status to penicillin; Z88.1 Allergy status to other antibiotic agents; Z88.8 Allergy status to other drugs, medicaments and biological substances

== ENCOUNTER → 2024-12-06 | Outpatient (CLI) | payer MEDICARE ==
[~2024-12-06] MED LIST changes: +MIRA3350 PO; +TRIA1CR80 TOP
== END ==
LOC: M WHC 16:08
PROVIDERS: ATTEND Family Medicine
DX: Z12.31 Encounter for screening mammogram for malignant neoplasm of breast (principal); R92.323 Mammographic fibroglandular density, bilateral breasts

== ENCOUNTER 2024-12-31 15:00 | Emergency (ER) | payer MEDICARE ==
[2024-12-31 19:06] VITALS: TEMP 98.7
[2024-12-31] MEDS ORDERED: HYDR-3363 PO (19:31)
[2024-12-31] MEDS: ACETAMINOPHEN 500 MG TAB PO ONE (21:04)
[2024-12-31 22:00] VITALS: O2SAT 96
[2024-12-31 22:03] VITALS: BP 124/90
== END 2024-12-31 22:15 | disposition home or self-care (01) ==
LOC: EDBD 15:00 → M ED 15:00
DX: S00.03XA Contusion of scalp, initial encounter (principal); S80.01XA Contusion of right knee, initial encounter; S70.01XA Contusion of right hip, initial encounter; S50.01XA Contusion of right elbow, initial encounter; W18.30XA Fall on same level, unspecified, initial encounter; Y92.009 Unspecified place in unspecified non-institutional (private) residence as the place of occurrence of the external cause; Y93.9 Activity, unspecified; Y99.9 Unspecified external cause status; F41.9 Anxiety disorder, unspecified; E03.9 Hypothyroidism, unspecified; I11.0 Hypertensive heart disease with heart failure; E78.5 Hyperlipidemia, unspecified; N18.9 Chronic kidney disease, unspecified; K21.9 Gastro-esophageal reflux disease without esophagitis; Z95.5 Presence of coronary angioplasty implant and graft; Z95.1 Presence of aortocoronary bypass graft; Z79.82 Long term (current) use of aspirin; Z79.899 Other long term (current) drug therapy; Z88.0 Allergy status to penicillin; Z88.1 Allergy status to other antibiotic agents; Z88.8 Allergy status to other drugs, medicaments and biological substances

== ENCOUNTER → 2025-01-04 | Outpatient (REF) | payer MEDICARE ==
[~2025-01-04] MED LIST changes: +HYDR-3363 PO
[2025-01-04 14:28] LABS: ESTIMATED AVERAGE GLUCOSE 120.0 MG/DL (60-110)
[2025-01-04 14:47] LABS: FREE T4 2.12 NG/DL (0.89-1.76)
[2025-01-04 14:49] LABS: ALT/SGPT 17.0 U/L (7.0-40); AST/SGOT 24.0 U/L (<34); CALCIUM LEVEL 10.1 MG/DL (8.3-10.6); CARBON DIOXIDE LEVEL 33.0 MMOL/L (20-31); CHLORIDE LEVEL 103.0 MMOL/L (98-107); CHOLESTEROL LEVEL 165.0 MG/DL (<200); CHOLESTEROL RISK RATIO 2.82 (<5); CREATININE FOR GFR 1.44 MG/DL (0.55-1.30); GLOMERULAR FILTRATION RATE 37.5 (>39); LDL CHOLESTEROL 84.3 MG/DL (<100); NON-HDL-C 106.5 MG/DL; POTASSIUM SERUM 3.8 MMOL/L (3.5-5.1); SODIUM LEVEL 147.0 MMOL/L (136-145); TRIGLYCERIDES LEVEL 111.0 MG/DL (<150)
== END ==
LOC: M SFHCADAM 10:21
PROVIDERS: ATTEND Family Medicine
DX: E03.9 Hypothyroidism, unspecified (principal); I12.9 Hypertensive chronic kidney disease with stage 1 through stage 4 chronic kidney disease, or unspecified chronic kidney disease; R10.13 Epigastric pain

== ENCOUNTER → 2025-01-19 | Outpatient (REF) | payer MEDICARE ==
[~2025-01-19] MED LIST changes: -EZET10TA21 PO; +EZET10TA57 PO
== END ==
LOC: M SFHCADAM 17:15
PROVIDERS: ATTEND Physician Assistant
DX: R30.0 Dysuria (principal); J06.9 Acute upper respiratory infection, unspecified

== ENCOUNTER → 2025-04-12 | Outpatient (REF) | payer MEDICARE ==
[2025-04-12 13:30] LABS: PLATELET COUNT, AUTOMATED 210 10^3/uL (150-450)
[2025-04-12 13:36] LABS: ALT/SGPT 13.0 U/L (7.0-40); AST/SGOT 22.0 U/L (<34); CALCIUM LEVEL 9.8 MG/DL (8.3-10.6); CARBON DIOXIDE LEVEL 32.0 MMOL/L (20-31); CHLORIDE LEVEL 101.0 MMOL/L (98-107); CREATININE FOR GFR 1.53 MG/DL (0.55-1.30); GLOMERULAR FILTRATION RATE 34.8 (>39); POTASSIUM SERUM 3.7 MMOL/L (3.5-5.1); SODIUM LEVEL 142.0 MMOL/L (136-145)
== END ==
LOC: M SFHCADAM 08:12
PROVIDERS: ATTEND Family Medicine
DX: R39.9 Unspecified symptoms and signs involving the genitourinary system (principal); I50.23 Acute on chronic systolic (congestive) heart failure

== ENCOUNTER → 2025-04-13 | Outpatient (CLI) | payer MEDICARE ==
[~2025-04-13] MED LIST changes: +ISOVUE-370 76% 100 ML VIAL ONE
== END ==
LOC: M PLAIMG 12:33
DX: I50.23 Acute on chronic systolic (congestive) heart failure (principal); R91.8 Other nonspecific abnormal finding of lung field
CPT/HCPCS: 71260; Q9967